=== PATIENT | male | born 1965 | race Caucasian/White ===

== ENCOUNTER 2020-05-22 12:54 | Emergency (ER) | payer OTHER, SELFPAY ==
--- NOTE | ~2020-05-22 | CT_ITS ---
EXAMINATION: CT abdomen pelvis w con DATE: 05/22/2020 14:49 INDICATION: Left lower quadrant pain TECHNIQUE: Computed tomography (CT) of the abdomen and pelvis was performed with 100 cc Omnipaque 350 intravenous contrast. The dose-length product was 1296.57 mGy-cm. Automated exposure control and ite rative reconstruction technique were employed. COMPARISON: None. FINDINGS: Lung bases are unremarkable. Heart size normal. No pleural or pericardial effusion. Mild at herosclerosis. No aneurysm. There is acute sigmoid diverticulitis without evidence for perforation or abscess. There is high dens ity material dependently in the gallbladder which may represent sludge or stones. Fatty infiltration of the liver. There is a 2.4 cm hypovascular lesion of the right kidney measuring 18 Hounsfield units , compatible with a cyst. Nonobstructive bowel gas pattern. No free air or free fluid. Mild prostate enlargement. No acute osseous abnormality. IMPRESSION: 1. Acute uncomplicated sigmoid diverticulitis. Reviewed, dictated and finalized at location A. D AIDE
[2020-05-22 13:08] VITALS: BP 145/78; PULSE 87; RESP 20; TEMP 36.8; O2SAT 97
--- NOTE | 2020-05-22 13:17 | ED.ABDPAIN ---
HPI - Abdominal Pain General Chief Complaint: Abdominal Pain Stated Complaint: L lower abd pain Time Seen by Provider: 05/22/20 13:00 Source: patient Limitations: no limitations History of Present Illness HPI narrative: 54-year-old man with a history of diverticulitis comes in today complaining of left lower quadrant pain that started about 3:00 a.m.. Patient states that he has had no nausea, vomiting, dysuria, hematuria, fever, diarrhea or blood in his stools. States he has had 2 similar episodes in the past. He denies history of abdominal surgery. MD elicited complaint: abdominal pain Pertinent past history: diverticulitis Onset (ago): hour(s) (10) Pain Consistency: constant Location: LLQ Severity: moderate Quality: sharp Radiation: none Migration to: no migration Exacerbating factors: nothing Relieving factors: nothing Associated symptoms: denies other symptoms Related Data Home Medications Medication Instructions Recorded Confirmed atorvastatin 20 mg PO DAILY 05/22/20 05/22/20 latanoprost 1 drp LEFTEYE HS 05/22/20 05/22/20 timolol maleate 1 drp LEFTEYE DAILY 05/22/20 05/22/20 Allergies Allergy/AdvReac Type Severity Reaction Status Date / Time No Known Allergies Allergy Verified 05/22/20 13:15 Review of Systems Constitutional: Constitutional: Denies chills and Denies fever(s) Eyes: Eyes: Denies change in vision and Denies photophobia ENT: Denies dysphagia, Denies nasal congestion and Denies sore throat Cardiovascular: Cardiovascular: Denies chest pain and Denies radiating jaw, neck or arm pain Respiratory: Respiratory: Denies cough, Denies dyspnea and Denies wheezing Gastrointestinal: Gastrointestinal: Reports abdominal pain, Denies diarrhea, Denies nausea and Denies vomiting Genitourinary: Genitourinary: Denies hematuria and Denies dysuria Musculoskeletal: Musculoskeletal: Denies arthralgias and Denies joint swelling Integumentary/Breasts: Skin/Breast: Denies pruritus, Denies erythema and Denies rash Neurologic: Denies vertigo, Denies dizziness and Denies syncope Allergic/Immunologic: Allergic/Immunologic: Denies lip swelling, Denies throat swelling and Denies tongue swelling PMFSH Past Medical History Medical History (Updated 05/22/20 @ 15:08 by Andrea Salcedo MD) Diverticulitis Surgical History Surgical History (Updated 05/22/20 @ 13:27 by Andrea Salcedo MD) H/O cervical spine surgery H/O knee surgery Social History Social History (Updated 05/22/20 @ 13:29 by Andrea Salcedo MD) Smoking status: Never smoker Substance use: never Living arrangements: with family Gender identity (if verbalized by the patient): Male Exam Const: General: healthy appearing, no acute distress and alert Nutritional Appearance: obese Orientation/consciousness: patient oriented x3 HENMT: Face and sinus: normal facial exam Mouth: Yes moist mucous membranes Eyes: Conjunctivae: conjunctivae normal Pupils: Equal, round and reactive pupils present EOM: EOMs intact bilaterally Resp: Effort & Inspection: normal respiratory effort and not labored Auscultation: clear to auscultation bilaterally, no rales, no rhonchi and no wheezes Cardio: Rate: regular rate Rhythm: regular rhythm Heart sounds: no murmurs GI: GI Palp: Yes Soft to palpation and Yes Tenderness to palpation present (GI) ( mild left lower quadrant without guarding or mass.) Auscultation: normal bowel sounds Skin: General skin exam: normal color, no jaundice and no pallor Rashes: no rashes Neuro: General: patient oriented x3, moves all extremities, no focal motor deficits and CN's II-XI intact bilaterally Speech: normal speech Gait exam (Neuro): Normal gait present Extrem: General: normal to inspection and no clubbing, cyanosis or edema Psych: Appearance: grossly normal and well kempt Mental Status: mental status grossly normal Affect: normal affect Attitude: cooperative Thought content: Yes Normal thought co
[2020-05-22 13:39] LABS: Add Urine Microscopic? YES; Appearance Urine Clear (Clear); Bilirubin Urine Negative (Negative); Blood Urine Negative (Negative); Color Urine Yellow (Yellow); Glucose Urine UA Negative (Negative); Ketones Urine Trace (Negative); Leukocyte Esterase Ur Negative LEU/UL (Negative); Nitrate Urine Negative (Negative); Protein Urine Negative (Negative); Urobilinogen Urine 0.2 mg/dL (0.2-1.0); pH Urine 6.5 (5.0-8.0)
[2020-05-22 13:39] LABS: Basophils Absolute Auto 0.06 K/mm3 (0.00-0.10); Basophils Percent Auto 0.5 % (0.0-1.0); Eosinophils Absolute Auto 0.02 K/mm3 (0.02-0.50); Eosinophils Percent Auto 0.2 % (1.0-6.0); Hematocrit 42.8 % (40.0-54.0); Hemoglobin 14.8 g/dL (14.0-18.0); Immature Granulocyte Absolute 0.04 K/mm3 (0.00-0.00); Immature Granulocyte Percent A 0.3 % (0.0-0.0); Lymphocytes Absolute Auto 1.23 K/mm3 (1.10-4.50); Lymphocytes Percent Auto 10.3 % (18.0-42.0); Mean Corpuscular HGB Conc 34.6 g/dL (32.0-36.0); Mean Corpuscular Hemoglobin 31.7 pg (27.0-31.0); Mean Corpuscular Volume 91.6 fL (78.0-102.0); Mean Platelet Volume 10.3 fl (8.7-11.0); Monocytes Absolute Auto 0.78 K/mm3 (0.10-0.90); Monocytes Percent Auto 6.6 % (2.0-11.0); Neutrophils Absolute Auto 9.8 K/mm3 (1.7-7.2); Neutrophils Percent Auto 82.1 % (50.0-70.0); Platelet Count Result 302 K/mm3 (150-420); Red Blood Count 4.67 M/mm3 (4.70-6.10); Red Cell Distribution Width 13.4 % (11.6-14.4); White Blood Count 11.9 K/mm3 (4.8-10.8)
[2020-05-22 13:43] LABS: Bacteria Urine None seen /hpf; RBC Urine 0-2 /hpf (0-2); Squamous Epithelial Cell Urine Few /hpf (Few); WBC Urine 0-3 /hpf (0-3)
[2020-05-22 13:53] LABS: INR 0.9; Partial Thromboplastin Time 25.1 SEC (23.90-30.70); Prothrombin Time 10.3 Seconds (9.50-12.10)
[2020-05-22 13:54] LABS: Alanine Aminotransferase 45 U/L (16-63); Alkaline Phosphatase 79 U/L (46-116); Anion Gap 11 mmol/L (8-16); Aspartate Amino Transferase 19 U/L (15-37); Bilirubin,Total 0.7 mg/dL (0.00-1.00); Blood Urea Nitrogen 12 mg/dL (7-18); Calcium 8.9 mg/dL (8.5-10.1); Carbon Dioxide 25 mmol/L (21-32); Chloride 101 mmol/L (98-108); Estimated CRCL calculation 104 ml/min; Estimated Glomerular Filt Rate > 60; Glucose 114 mg/dL (70-99); Lipase 62 U/L (73-393); Osmolality Calculated 284 mOsm/kg (285-295); Potassium 3.8 mmol/L (3.5-5.1); Sodium 137 mmol/L (136-145); Total Protein 7.6 g/dL (6.4-8.2)
[2020-05-22 13:57] LABS: Lactic Acid Reflex 1.2 mmol/L (0.4-2.0)
[2020-05-22 15:37] VITALS: PULSE 85; RESP 20; O2SAT 98
== END 2020-05-22 15:40 | disposition home or self-care (01) ==
PROVIDERS: Emergency Provider Emergency Medicine
DX: K57.92 Diverticulitis of intestine, part unspecified, without perforation or abscess without bleeding (principal)
CPT/HCPCS: 36415; 74177; 80053; 81001; 83605; 83690; 85025; 85610; 85730; 99283; Q9965; Q9967

== ENCOUNTER 2023-12-25 21:24 | Emergency (ER) | payer OTHER, SELFPAY ==
[2023-12-25] VITALS (8 sets, daily range): BP systolic 152–173; BP diastolic 83–102; PULSE 57–71; RESP 12–18; TEMP 35.9; O2SAT 95–97
--- NOTE | 2023-12-25 21:33 | ED.GENADULT ---
HPI - General Adult General Chief complaint: Unspecified Stated complaint: sara blood pressure Time Seen by Provider: 12/25/23 21:32 Source: patient Mode of arrival: ambulatory Limitations: no limitations History of Present Illness HPI narrative: patient is a 58-year-old male with elevated blood pressures and headache and feeling of fatigue. He has been not feeling well today and for the past few weeks as well. His home blood pressures have been monitored for his primary doctor and they are all elevated. Patient has polycythemia vera. Onset (ago): week(s) (3) Location: head Radiation: non-radiation Severity: moderate Severity scale (1-10): 4 Quality: aching Pain Consistency: constant Relieving factors: none Exacerbating factors: other ( Elevated blood pressure; not on medication) Associated symptoms: malaise Treatments prior to arrival: none Related Data Home Medications Medication Instructions Recorded Confirmed atorvastatin 20 mg tablet 40 mg PO DAILY 05/22/20 12/25/23 latanoprost 0.005 % eye drops 1 drp LEFT EYE HS 05/22/20 12/25/23 timolol maleate 0.5 % once daily 1 drp LEFT EYE DAILY 05/22/20 12/25/23 eye drops Allergies Allergy/AdvReac Type Severity Reaction Status Date / Time No Known Allergies Allergy Verified 05/22/20 13:15 Review of Systems Review of Systems: All systems reviewed & are unremarkable except as noted in HPI and below Constitutional: Constitutional: Reports no additional constitutional complaints Eyes: Eyes: Reports no additional eye complaints ENT: Reports system reviewed and no additional complaints, except as documented Cardiovascular: Cardiovascular: Reports no additional cardiovascular complaints Respiratory: Respiratory: Reports no additional respiratory complaints Gastrointestinal: Gastrointestinal: Reports no additional gastrointestinal complaints Genitourinary: Genitourinary: Reports no additional male genitourinary complaints Musculoskeletal: Musculoskeletal: Reports no additional musculoskeletal complaints Integumentary/Breasts: Skin/Breast: Reports system reviewed and no additional complaints, except as docu Neurologic: Reports system reviewed and no additional complaints, except as documented Psychiatric: Psychiatric: Reports no additional psychiatric complaints Endocrine: Endocrine: Reports no additional endocrine complaints Hematologic/Lymphatic: Hematologic/Lymphatic: Reports no additional hematologic/lymphatic complaints Allergic/Immunologic: Allergic/Immunologic: Reports no additional allergic/immunologic complaints PMFSH Past Medical History Medical History Diverticulitis Surgical History Surgical History H/O cervical spine surgery H/O knee surgery Social History Social History Smoking status: Never smoker Substance use: never Living arrangements: with family Gender identity (if verbalized by the patient): Male Exam Const: General: cooperative, healthy appearing and comfortable HENMT: Head: normal to inspection, No palpable skull fracture present and normocephalic Ears: hearing grossly normal bilaterally, external ears normal and TM's normal bilaterally Eyes: General: appearance normal, both eyes and all related structures Visual Cottrell: normal visual cottrell by confrontation Alignment and Position: alignment normal Neck: Neck: normal visual inspection, full ROM and no lymphadenopathy Chest: Chest palpation & inspection: normal inspection of the chest, normal palpation of entire chest wall and normal inspection of the chest Resp: Effort & Inspection: normal respiratory effort, able to speak in complete sentences and normal respiratory pattern Cardio: Jugular venous distension: no JVD Palpation: normal PMI Rate: regular rate GI: Inspection: normal to inspe
--- NOTE | 2023-12-25 22:04 | ECG_ITS ---
Test Date: 2023-12-25 22:16:30 Measurements Intervals [place] Rate: 65 P: 61 WI: 188 QRS: -32 QRSD: 104 T: 80 QT: 431 QTc: 448 Interpretive Statements SINUS RHYTHM LEFT AXIS DEVIATION NONSPECIFIC T-WAVE ABNORMALITY- HIGH LATERAL LEADS BASELINE ARTIFACT- I, II, BORDERLINE ECG No previous ECG available for comparison Electronically Signed On 12-26-2023 06:34:47 CDT by Asaf Carmona D.O.
--- NOTE | 2023-12-25 22:08 | PC.NURSE ---
lab at the bedside
--- NOTE | 2023-12-25 22:10 | PC.NURSE ---
jimena Ness, in process of completing ekg
[2023-12-25] MEDS: cloNIDine HCL 0.1 MG TABLET PO (22:15)
--- NOTE | 2023-12-25 22:15 | PC.NURSE ---
patient is resting on stretcher with his at his side. continues to be on the personnel monitor. call light in reach.
[2023-12-25 22:16] LABS: Basophils Absolute Auto 0.11 K/mm3 (0.00-0.10); Basophils Percent Auto 1.5 % (0.0-1.0); Eosinophils Absolute Auto 0.16 K/mm3 (0.02-0.50); Eosinophils Percent Auto 2.2 % (1.0-6.0); Hemoglobin 15.8 g/dL (14.0-18.0); Immature Granulocyte Absolute 0.06 K/mm3 (0.00-0.00); Immature Granulocyte Percent A 0.8 % (0.0-0.0); Lymphocytes Percent Auto 23.7 % (18.0-42.0); Mean Corpuscular HGB Conc 35.1 g/dL (32-36); Mean Corpuscular Hemoglobin 36.5 pg (27.0-31.0); Mean Corpuscular Volume 103.9 fL (78.0-102.0); Mean Platelet Volume 9.6 fl (8.7-11.0); Monocytes Absolute Auto 0.69 K/mm3 (0.10-0.90); Monocytes Percent Auto 9.6 % (2.0-11.0); Neutrophils Absolute Auto 4.44 K/mm3 (1.70-7.20); Neutrophils Percent Auto 62.2 % (50.0-70.0); Platelet Count Result 272 K/mm3 (150-420); Red Blood Count 4.33 M/mm3 (4.70-6.10); Red Cell Distribution Width 13.3 % (11.6-14.4); White Blood Count 7.2 K/mm3 (4.8-10.8)
[2023-12-25 22:35] LABS: Alanine Aminotransferase 25 U/L (16-63); Albumin Level 3.5 g/dL (3.4-5.0); Alkaline Phosphatase 71 U/L (46-116); Anion Gap 9 mmol/L (4-12); Aspartate Amino Transferase 15 U/L (15-37); Bilirubin,Total 0.3 mg/dL (0.00-1.00); Blood Urea Nitrogen 22 mg/dL (7-18); Calcium 8.5 mg/dL (8.5-10.1); Carbon Dioxide 26 mmol/L (21-32); Chloride 101 mmol/L (98-108); Estimated CRCL calculation 118 ml/min; Estimated Glomerular Filt Rate > 60; Glucose 102 mg/dL (70-99); Osmolality Calculated 285 mOsm/kg (285-295); Potassium 3.5 mmol/L (3.5-5.1); Sodium 136 mmol/L (136-145)
== END 2023-12-25 23:16 | disposition home or self-care (01) ==
PROVIDERS: Emergency Provider Emergency Medicine
DX: I10 Essential (primary) hypertension (principal)
CPT/HCPCS: 36415; 80053; 84484; 85025; 93005; 99284; A9270

== ENCOUNTER 2024-09-25 13:13 | Emergency (ER) | payer OTHER, SELFPAY ==
[2024-09-25] VITALS (15 sets, daily range): BP systolic 133–182; BP diastolic 78–91; PULSE 61–73; RESP 16–18; TEMP 36.6; O2SAT 93–98
--- NOTE | ~2024-09-25 | US_ITS ---
EXAMINATION: US right upper quadrant DATE: 09/25/2024 14:01 INDICATION: Right upper quadrant abdominal pain TECHNIQUE: Multiple grayscale and Doppler ultrasound images of the abdomen were obtained. COMPARISON: CT dated 05/22/2020 FINDINGS: The regions of the pancreas and inferior vena cava are obscured by shadowing bowel gas. Liver has nor mal echogenicity and contour, with a smooth surface. No liver lesion identified. No intrahepatic bili felipe duct dilation suspected. Portal venous flow was seen in the hepatopetal, normal direction and has normal Doppler waveform. There is echogenic material in the gallbladder some of which appear to demo nstrate posterior acoustic shadowing likely combination of sludge and gallstones. Gallbladder is othe rwise normal with no wall thickening. The common bile duct measures 6 mm, which is normal. Sonographi c Adams sign was reported as negative by the hosiery operator. IMPRESSION: 1. Cholelithiasis without biliary obstruction or findings of acute cholecystitis. Reviewed, dictated and finalized at location B. IMPRESSION: 1. Cholelithiasis without biliary obstruction or findings of acute cholecystiti s.
--- NOTE | 2024-09-25 13:19 | ECG_ITS ---
Test Date: 2024-09-25 13:40:22 Measurements Intervals [place] Rate: 62 P: 21 MD: 181 QRS: -15 QRSD: 101 T: 76 QT: 414 QTc: 423 Interpretive Statements SINUS RHYTHM Compared to ECG 12/25/2023 22:16:30 Left-axis deviation no longer present Electronically Signed On 09-27-2024 11:47:30 CDT by Scott Real M.D.
[2024-09-25] MEDS: SODIUM CHLORIDE 0.9% IV 1,000 ML 999 ML IV CONT (13:35)
[2024-09-25] MEDS: PANTOPRAZOLE SODIUM IV 40 MG VIAL 80 MG IV PUSH (13:39)
[2024-09-25 13:40] LABS: Basophils Absolute Auto 0.07 K/mm3 (0.00-0.10); Basophils Percent Auto 0.7 % (0.0-1.0); Hematocrit 43.2 % (40.0-54.0); Hemoglobin 14.9 g/dL (14.0-18.0); Immature Granulocyte Absolute 0.05 K/mm3 (0.00-0.00); Immature Granulocyte Percent A 0.5 % (0.0-0.0); Lymphocytes Absolute Auto 1.43 K/mm3 (1.10-4.50); Lymphocytes Percent Auto 14.3 % (18.0-42.0); Mean Corpuscular HGB Conc 34.5 g/dL (32-36); Mean Corpuscular Hemoglobin 35.2 pg (27.0-31.0); Mean Corpuscular Volume 102.1 fL (78.0-102.0); Mean Platelet Volume 9.7 fl (8.7-11.0); Monocytes Absolute Auto 0.65 K/mm3 (0.10-0.90); Monocytes Percent Auto 6.5 % (2.0-11.0); Neutrophils Absolute Auto 7.71 K/mm3 (1.70-7.20); Nucleated Red Blood Cells Absolute Auto 0.02 K/mm3 (0.00-0.00); Nucleated Red Blood Cells Perc 0.2 % (0-0.0); Platelet Count Result 385 K/mm3 (150-420); Red Blood Count 4.23 M/mm3 (4.70-6.10); Red Cell Distribution Width 12.6 % (11.6-14.4)
[2024-09-25] MEDS: MORPHINE SULFATE (*CRX) 4 MG/ML INJ IV PUSH (13:42)
[2024-09-25] MEDS: ONDANSETRON INJ 4 MG/2 ML VIAL IV PUSH (13:42)
--- NOTE | 2024-09-25 13:50 | PC.NURSE ---
ultrasound at bedside.
[2024-09-25 14:06] LABS: INR 0.9; Partial Thromboplastin Time 25.6 Sec (23.9-30.70); Prothrombin Time 10.2 Seconds (9.50-12.1)
--- OUTSIDE RECORDS SUMMARY | 2024-09-25 14:20 | XMS_ITS | Data Portability ---
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 Chapter 1 of educational DVD was shown. PSG is medically necessary to determine the degree of and management of sleep apnea. We discussed with the patient the impact of weight on: Sleep disordered breathing Glaucoma Polycythemia vera Obesity Hypertension We discussed with the patient the benefit of PAP therapy on: Sleep disordered breathing Glaucoma Polycythemia vera Obesity Hypertension Educated the patient on sleep hygiene measures. Relaxing rituals to rest easy, understanding foods with positive and negative impact on sleep, creating a peaceful sleep environment, timing of exercise, using herbal sleep aids, and practicing sleep-friendly meditation were covered. To determine how much sleep is needed, the patient will assess where he falls on the spectrum, examine what lifestyle factors such as work schedules and stress are affecting the quality and quantity of sleep. In general, adults need 7-9 hours of sleep. Educated the patient regarding foods that promote sleep. These include but are not limited to cherries, bananas, toast, oatmeal, and warm milk. Educated the patient regarding foods and drinks to avoid before bedtime. These include but are not limited to aged cheese, chocolate, spicy foods, tomato-based sauces, soy, ginseng tea and processed meat. Advocated influenza vaccination annually and pneumonia vaccination RUDDY. Advocated weight loss through diet and exercise. Patient's ideal body weight according to height and gender is up to 200 lbs. Encouraged patient to adjust caloric intake to maintain/achieve ideal body weight, emphasizing on fruits, vegetables, whole grains, and fat-free or low-fat products. These include lean meats, poultry, fish, beans, eggs, and nuts and foods that are low in saturated fats, trans-fats, cholesterol, salt (sodium), and glycemic index. Stressed the importance of regular exercise up to the patient's capacity limits. In this case, we recommend 20 min daily walking, 2 days a week of resistance training. Patient to monitor BP daily and bring records to PCP for further management. Follow-up: 1 week after diagnostic sleep study Not available 05/22/2024 14:45:30 06/11/2024 06/11/2024 Assessment: Very severe OSAHS, AHI = 46 PLMD Plan: The following were reviewed and explained to the patient: [facility] split night sleep study 06/04/24 sleep onset = 18 minutes, REM onset = 97.5 minutes, AHI = 46, supine AHI = 47, [employer] small/medium Claudia full face mask @ 12 cmH2O, PLMI = 8 Non-pharmacologic therapy options for periodic limb movement disorder include avoidance of aggravating drugs and substances, mental alerting activities, short daily hemodialysis for patients in renal failure, exercise, leg massage, stretching calf muscles, use of a weighted blanket and applied heat. Patient will cut down on alcohol consumption and caffeine intake. We will check BUN, Creatinine, Vitamin E, Vitamin B12, RBC folate, Iron, TIBC, Ferritin, ESR, Magnesium, Hgb and Hct levels. Educated the patient on problems and solutions associated with positive airway pressure (PAP) use. Difficulty tolerating pressure, mask leaks, intolerance of interface, nasal congestion, claustrophobic response, dry mouth, and unintentional mask removal during sleep were covered. Dry mouth is a normal occurrence for people who just start out on PAP therapy because they are not used to air blowing in to the throat to hold open. Dry mouth is exacerbated for people who wear nasal PAP mask and whose jaw drops open during sleep. Not only does this create a much less efficient therapy because of leakage, it also causes dry mouth. There are a couple solutions to help prevent this type of problem. A simple solution would be to wear a chinstrap which essentially holds the jaw in place. A second solution would be a switch to a full face mask which covers both the nose and mouth. Although this is another easy solution, using a full face mask for some could seem claustrophobic or confining. There is no silver bullet solution as no single mask is right for everybody. Sometimes it takes a bit of experimentation to find a PAP mask which best meets the patient's needs as well as fits comfortably. Another tactic is to use a humidifier on your PAP machine. Most new PAP machines have integrated humidifiers. Humidification is kim when dealing with symptoms of dry mouth because the humidifier can supply both warm and room temperate air. Even a small amount of humidity in the airflow will help nasal passages to stay hydrated. If a person is using both a full face mask and a PAP machine with a heated humidifier and is still experiencing dry mouth, an ill-fitted PAP mask might be causing the problem. Leakage can be caused by a mask that is to large or small, the wrong style mask, the cushion is degraded or simply because the mask's straps aren't adjusted correctly. If leakage occurs, dry air from the room can leak in while humidification escapes. The result is reduced humidification within the circuit and resulting in dry throat and mouth. Finally, beyond factors involving the PAP machine and mask, dry mouth can also be caused or worsened by dehydration. The general recommendation to during eight 8 oz. glasses of water a day might be too little for many people. When people drink large amounts of coffee or other caffeine beverages, or sweat a lot during the day, making sure to rehydrate is an important part of PAP therapy. [employer] 11 auto set unit with heated humidifier, supplies and [employer] small/medium Claudia full face mask @ 12 cmH2O ordered. Further titration will be based on clinical response. Patient will setup an appointment with [facility] for supplies and pressure adjustments. A major predictor of success with use of PAP is follow-up with both the respiratory supplier and the treating physician. The download results can show the treating physician information about adherence to treatment, residual AHI while on treatment and presence of large mask leakage. This information is especially helpful if the patient has residual sleepiness despite treatment. General information on sleep disordered breathing, evaluation of sleep disordered breathing, treatment with PAP therapy, and living with PAP therapy were covered. We discussed with the patient the impact of weight on: Sleep disordered breathing Glaucoma Polycythemia vera Obesity Hypertension We discussed with the patient the benefit of PAP therapy on: Sleep disordered breathing Glaucoma Polycythemia vera Obesity Hypertension Educated the patient on sleep hygiene measures. Relaxing rituals to rest easy, understanding foods with positive and negative impact on sleep, creating a peaceful sleep environment, timing of exercise, using herbal sleep aids, and practicing sleep-friendly meditation were covered. To determine how much sleep is needed, the patient will assess where he falls on the spectrum, examine what lifestyle factors such as work schedules and stress are affecting the quality and quantity of sleep. In general, adults need 7-9 hours of sleep. Educated the patient regarding foods that promote sleep. These include but are not limited to cherries, bananas, toast, oatmeal, and warm milk. Educated the patient regarding foods and drinks to avoid before bedtime. These include but are not limited to aged cheese, chocolate, spicy foods, tomato-based sauces, soy, ginseng tea and processed meat. Advocated influenza vaccination annually and pneumonia vaccination RUDDY. Advocated weight loss through diet and exercise. Patient's ideal body weight according to height and gender is up to 200 lbs. Encouraged patient to adjust caloric intake to maintain/achieve ideal body weight, emphasizing on fruits, vegetables, whole grains, and fat-free or low-fat products. These include lean meats, poultry, fish, beans, eggs, and nuts and foods that are low in saturated fats, trans-fats, cholesterol, salt (sodium), and glycemic index. Stressed the importance of regular exercise up to the patient's capacity limits. In this case, we recommend 20 min daily walking, 2 days a week of resistance training. Patient to monitor BP daily and bring records to PCP for further management. Follow-up: 3 weeks Not available 06/11/2024 09:35:09 07/09/2024 07/09/2024 Assessment: Very severe OSAHS, AHI = 46 PLMD Transferrin saturation 58%, ?hemochromatosis Plan: The following were reviewed and explained to the patient: [facility] split night sleep study 06/04/24 sleep onset = 18 minutes, REM onset = 97.5 minutes, AHI = 46, supine AHI = 47, [employer] small/medium Claudia full face mask @ 12 cmH2O, PLMI = 8 Transferrin saturation 06/11/24 58% Non-pharmacologic therapy options for periodic limb movement disorder include avoidance of aggravating drugs and substances, mental alerting activities, short daily hemodialysis for patients in renal failure, exercise, leg massage, stretching calf muscles, use of a weighted blanket and applied heat. Patient will cut down on alcohol consumption and caffeine intake. BUN, Creatinine, Vitamin E, Vitamin B12, RBC folate, TIBC, Ferritin, ESR, Magnesium, Hgb and Hct levels are within normal limits. His iron is elevated hence his transferrin saturation is high. He will see her dairy nutrition specialist Dr. May Alford to evaluate for hemochromatosis. Educated the patient on problems and solutions associated with positive airway pressure (PAP) use. Difficulty tolerating pressure, mask leaks, intolerance of interface, nasal congestion, claustrophobic response, dry mouth, and unintentional mask removal during sleep were covered. Dry mouth is a normal occurrence for people who just start out on PAP therapy because they are not used to air blowing in to the throat to hold open. Dry mouth is exacerbated for people who wear nasal PAP mask and whose jaw drops open during sleep. Not only does this create a much less efficient therapy because of leakage, it also causes dry mouth. There are a couple solutions to help prevent this type of problem. A simple solution would be to wear a chinstrap which essentially holds the jaw in place. A second solution would be a switch to a full face mask which covers both the nose and mouth. Although this is another easy solution, using a full face mask for some could seem claustrophobic or confining. There is no silver bullet solution as no single mask is right for everybody. Sometimes it takes a bit of experimentation to find a PAP mask which best meets the patient's needs as well as fits comfortably. Another tactic is to use a humidifier on your PAP machine. Most new PAP machines have integrated humidifiers. Humidification is kim when dealing with symptoms of dry mouth because the humidifier can supply both warm and room temperate air. Even a small amount of humidity in the airflow will help nasal passages to stay hydrated. If a person is using both a full face mask and a PAP machine with a heated humidifier and is still experiencing dry mouth, an ill-fitted PAP mask might be causing the problem. Leakage can be caused by a mask that is to large or small, the wrong style mask, the cushion is degraded or simply because the mask's straps aren't adjusted correctly. If leakage occurs, dry air from the room can leak in while humidification escapes. The result is reduced humidification within the circuit and resulting in dry throat and mouth. Finally, beyond factors involving the PAP machine and mask, dry mouth can also be caused or worsened by dehydration. The general recommendation to during eight 8 oz. glasses of water a day might be too little for many people. When people drink large amounts of coffee or other caffeine beverages, or sweat a lot during the day, making sure to rehydrate is an important part of PAP therapy. PAP usage instructed today in our clinic. [facility]. A major predictor of success with use of PAP is follow-up with both the respiratory supplier and the treating physician. The download results can show the treating physician information about adherence to treatment, residual AHI while on treatment and presence of large mask leakage. This information is especially helpful if the patient has residual sleepiness despite treatment. General information on sleep disordered breathing, evaluation of sleep disordered breathing, treatment with PAP therapy, and living with PAP therapy were covered. We discussed with the patient the impact of weight on: Sleep disordered breathing Glaucoma Polycythemia vera Obesity Hypertension We discussed with the patient the benefit of PAP therapy on: Sleep disordered breathing Glaucoma Polycythemia vera Obesity Hypertension Educated the patient on sleep hygiene measures. Relaxing rituals to rest easy, understanding foods with positive and negative impact on sleep, creating a peaceful sleep environment, timing of exercise, using herbal sleep aids, and practicing sleep-friendly meditation were covered. To determine how much sleep is needed, the patient will assess where he falls on the spectrum, examine what lifestyle factors such as work schedules and stress are affecting the quality and quantity of sleep. In general, adults need 7-9 hours of sleep. Educated the patient regarding foods that promote sleep. These include but are not limited to cherries, bananas, toast, oatmeal, and warm milk. Educated the patient regarding foods and drinks to avoid before bedtime. These include but are not limited to aged cheese, chocolate, spicy foods, tomato-based sauces, soy, ginseng tea and processed meat. Advocated influenza vaccination annually and pneumonia vaccination RUDDY. Advocated weight loss through diet and exercise. Patient's ideal body weight according to height and gender is up to 200 lbs. Encouraged patient to adjust caloric intake to maintain/achieve ideal body weight, emphasizing on fruits, vegetables, whole grains, and fat-free or low-fat products. These include lean meats, poultry, fish, beans, eggs, and nuts and foods that are low in saturated fats, trans-fats, cholesterol, salt (sodium), and glycemic index. Stressed the importance of regular exercise up to the patient's capacity limits. In this case, we recommend 20 min daily walking, 2 days a week of resistance training. Patient to monitor BP daily and bring records to PCP for further management. Follow-up: 3 months, September 2024 [email or web address] Not available 07/09/2024 09:22:51 Plan of Treatment Reminders Order Date Submit Date Provider Last Modified By Organization Details Last Modified Time Details Appointments Any 15 2024 07:45A John Christianson MD Not available Not available Not available Lab iron + TIBC + ferritin, serum 2024 025 [facility] (Lab), [address] [place], [address], 06/12/2024 02:08:24 folate, RBC 2024 025 [facility] (Lab), [address] [place], [address], 06/17/2024 06:18:50 vitamin B12, serum 2024 025 [facility] (Lab), [address] [place], [address], 07/16/2024 13:01:28 ESR (erythroc yte sedimenta tion rate), blood 2024 025 [facility] (Lab), [address] [place], [address], 07/16/2024 13:01:28 hemoglobi n + hematocri t, blood 2024 025 [facility] (Lab), [address] [place], [address], 07/16/2024 13:01:28 bun (blood urea nitrogen) , serum or plasma 2024 025 [facility] (Lab), [address] [place], [address], 07/16/2024 13:01:28 creatinin e, serum or plasma 2024 025 [facility] (Lab), [address] [place], [address], 07/16/2024 13:01:29 magnesium , serum or plasma 2024 025 [facility] (Lab), [address] [place], [address], 07/16/2024 13:01:29 vitamin E, serum 2024 025 [facility] (Lab), [address] [place], [address], 07/16/2024 13:01:29 Referral None recorded. Procedures None recorded. Surgeries None recorded. Imaging polysomno gram, diagnosti c, 6 yrs or older - Please call patient to schedule. 2023 024 [email or web address] [facility], [address] [place], [address], 06/26/2024 08:44:44 Medication Orders None recorded. Patient TargetsNo targets recorded. Patient InstructionsNo instructions recorded. Reason for Referral None Reported. Results Created Date Observation Date Name Description Value Unit Range Abnormal Flag Note LastModifiedBy Organization Detail LastModifiedTime 06/06/1906/04/2024 polys omnog brokolyn, split night No observ ation record ed. [facility] [address] [place], [address], 06/06/2024 10:33:50 Result Notes None recorded. 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 Procedures Surgical History Date Name Laterality Status Provider Name and Address Organization Details Recorded Time Knee Surgery completed MARK Mckeon [employer] [facility] 07/09/2024 08:53:52 fusion of joint of cervical spine by anterior approach for deformity of cervical spine completed Hyacinth Gifford MA [facility] [employer] [facility] 07/09/2024 08:54:20 Rotator cuff surgery completed Hyacinth Gifford MA [facility] [employer] [facility] 07/09/2024 08:54:34 operation on intestine completed MARK Mckeon [facility] [employer] [facility] 07/09/2024 08:54:48 Hernia Surgery completed Hyacinth Gifford MA [facility] [employer] [facility] 07/09/2024 08:54:55 Cyst Removal completed Hyacinth Gifford MA [facility] [employer] [facility] 07/09/2024 08:55:15 Imaging Results Imaging Date Name Status LastModified by Organiz ation Details LastModified Time 06/04/2024 polysomnogr am, split night completed [facility] [address] [place], [address], 06/06/2024 10:33:50 Procedure Notes None recorded. Medical Equipment None Reported. Allergies No known drug allergies Medications Name Sig Start Date Stop Date Status Note LastModified by Organization Details LastModified Time losartan 50 mg tablet TAKE 1 TABLET BY MOUTH DAILY active Not Available Not Available No t Available latanoprost 0.005 % eye drops INSTILL 1 DROP INTO AFFECTED EYE(S) BY OPHTHALMI C ROUTE ONCE DAILY INTHE EVENING active Not Available Not Available No t Available hydroxyurea 500 mg capsule Take 2 capsules every day by oral route. active Not Available Not Available No t Available prednisone 20 mg tablet TAKE 3 TABLETS BY MOUTH DAILY FOR 4 DAYS THEN TAKE 2 TABLETS BY MOUTH DAILY FOR 4 DAYS THEN TAKE 1 TABLET BY MOUTH DAILY FOR 4 DAYS 05/22 completed Not Available Not Available Not Available amlodipine 5 mg tablet Take 1 tablet every day by oral route. active Not Available Not Available No t Available benzonatate 100 mg capsule TAKE 1 TO 2 CAPSULES BY MOUTH EVERY 8 HOURS FOR 5 DAYS NEEDED FOR COUGH 05/22 completed Not Available Not Available Not Available amoxicillin 875 mg-potassiu m clavulanate 125 mg tablet TAKE 1 TABLET BY MOUTH TWICE DAILY FOR 10 DAYS 05/22 completed Not Available Not Available Not Available Asprin Ec Low Dose 81 mg tablet,terrence yed release Take 1 tablet every day by oral route. 06/11 completed Not Available Not Available Not Available timolol 06/11 completed Not Available Not Available Not Available Vitals Date Recorded Body height Body mass index (BMI) Body weight Body temperature Oxygen saturation Oxygen saturation in Arterial blood by Pulse oximetry Systolic blood pressure Diastolic blood pressure Provider Name and Address Organization Details Last Updated DateTime 4 185.42 cm 37.5 kg/m2 928611. 23 g 97.8 [degF] 96 % 96 % 132 mm[Hg] 74 mm[Hg] Vee Molina [place] [facility] 4 14:12:16 Date Recorded Heart rate Heart rate Respiratory rate Provider Name and Address Organization Details Last Updated DateTime 05/22/2024 61 /min 61 /min 15 /min Kj Christianson MD [address], [place], [address] [employer] 05/22/2024 14:27:54 Date Recorded Body height Body temperature Oxygen saturation Oxygen saturation in Arterial blood by Pulse oximetry Body mass index (BMI) Body weight Systolic blood pressure Diastolic blood pressure Provider Name and Address Organization Details Last Updated DateTime 185.42 cm 97.6 [degF] 97 % 97 % 38.3 kg/m2 700765. 79 g 130 mm[Hg] 70 mm[Hg] Jo Silva [place] [employer] [facility] 09:27:08 Date Recorded Heart rate Heart rate Respiratory rate Provider Name and Address Organization Details Last Updated DateTime 06/11/2024 81 /min 81 /min 14 /min Kj Christianson MD [address], [place], [address] [employer] 06/11/2024 09:43:45 Date Recorded Body height Body mass index (BMI) Body weight Body temperature Heart rate Oxygen saturation Oxygen saturation in Arterial blood by Pulse oximetry Systolic blood pressure Diastolic blood pressure Provider Name and Address Organization Details Last Updated DateTime 185.42 cm 37.8 kg/m2 556360. 57 g 97.6 [degF] 63 /min 96 % 96 % 130 mm[Hg] 68 mm[Hg] Hyacinth Gifford [place] [employer] [facility] 08:51:33 Date Recorded Heart rate Respiratory rate Provider N josue and Address Organization Details Last Updated DateTime 07/09/2024 63 /min 15 /min Kj Christianson MD [address], [place], [address] [employer] [facility] 07/09/2024 09:23:02 Social History Question Answer Notes LastModified by Organizat ion Details LastModified Time Tobacco Smoking Status Never Smoker Vee Molina MA [facility], [facility] 05/22/2024 14:06:45 What Is Your Level Of Alcohol Consumption? Moderate Information not available 05/22/2024 What Is Your Level Of Caffeine Consumption? Moderate Information not available 05/22/2024 In The 14 Days Before Symptom Onset, Have You Had Close Contact With A Laboratory-confir med COVID-19 While That Case Was Ill? No Information not available 05/22/2024 In The 14 Days Before Symptom Onset, Have You Had Close Contact With A Person Who Is Under Investigation For COVID-19 While That Person Was Ill? No Information not available 05/22/2024 Are You Currently Employed? Yes Information not available 05/22/2024 What Type Of Diet Are You Following? REGULAR Information not available 05/22/2024 Which Illicit Or Recreational Drugs Have You Used? Marijuana Sleep Information not available 05/22/2024 Do You Have An Electrostatic Air Filter? 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 Yes Information not available 05/22/2024 Do You Have A Humidifier? No Information not available 05/22/2024 Where Do You Live? [place] Information not available 07/09/2024 Do You Have Moisture Problems In Your Home? No Information not available 05/22/2024 What Was The Date Of Your Most Recent Tobacco Screening? 07/09/2024 Information not available 07/09/2024 How Many Children Do You Have? 0 Information not available 07/09/2024 Do You Have Any Pets? Yes Information not available 05/22/2024 What Is Your Relationship Status? Single Information not available 07/09/2024 Do You Use Your Seat Belt Or Car Seat Routinely? Yes Information not available 05/22/2024 Do You Have Smoke And Carbon Monoxide Detectors In Your Home? Yes Information not available 05/22/2024 Are You Passively Exposed To Smoke? No Information no t available 05/22/2024 Do You Feel Stressed (tense, Restless, Nervous, Or Anxious, Or Unable To Sleep At Night)? [id number] Information not available 05/22/2024 Do You Use Any Illicit Or Recreational Drugs? Yes Information not available 05/22/2024 Do You Use Sunscreen Routinely? No Information not available 05/22/2024 Has Tobacco Cessation Counseling Been Provided? No Information not available 05/22/2024 Have You Recently Traveled Abroad? No Information not available 05/22/2024 Have You Used IV Drugs? No Information not available 07/09/2024 Do You Have Any Dietary Restrictions? No Information not available 05/22/2024 Sex: Unknown Functional Status None recorded. Mental Status None recorded. Family History Relationship Description Onset Age of this Age Resolved Age Notes LastModified by Organization Details LastModified Time Maternal Aunt Malignant tumor of breast [email or web address] Not available 2023 14:36:20 Mother Malignant tumor of breast [email or web address] Not available 2023 14:36:25 Mother Malignant neoplasm of liver [email or web address] Not available 2024 09:12:27 Maternal Uncle Malignant neoplasm of lung [email or web address] Not available 2023 14:36:46 Father Chronic obstructive pulmonary disease [email or web address] Not available 2023 14:36:59 Sister Basal cell carcinoma of skin [email or web address] Not available 2023 14:37:33 Sister Chronic obstructive pulmonary disease [email or web address] Not available 2023 14:37:42 Medical History No medical history recorded. 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 D50.8 E83.42 [id number] Kj Christianson MD [facility] [address] [address] 07/09/2024 08:42:31 07/09/2024 09:34:12 Obstructive sleep apnea syndrome 90643795 G47.33 Periodic l imb movement disorder 683121297 G47.61 Health Concerns Section Related Observation LastModified by Organization Detai ls LastModified Time None Recorded Concern Status LastModified by Organization Details LastModified Time None Recorded Advance Directives Directive None Recorded Payers Encounter Date Sequence Insurance Name Policy Number Policy Montano Covered Member ID Montano Member ID Guarantor Name 06/11/2024 [employer] - [facility] Jose E Villasenor [id number] Jose E Villasenor Notes Date Note Type Note Provider Name and Address Organization Details Recorded Time 05/22/2024 text/html Primary care/Ref erring provider: Gwendolyn Barbosa NP At home, the patient sleeps from 9 pm to 6 am and wakes up without an alarm. Snoring: heavy, since 1980s.Snorting: noChoking: yesCoughing: noGasping: yesGagging: yesSighing: yesWitnessed apnea: yesTwitching or jerking of leg(s), arm(s), body, head: yesTeeth grinding: yesTeeth clenching: yesSleeptalking: yesSleepwalking: noSleep crying: noBedwetting: noTongue/lip/gum/cheek biting: noSleeping with open mouth: yesSleep paralysis: noHypnagogic hallucinations: noHypnopompic hallucinations: noVivid dreams: noDifficulty with sleep onset: noDifficulty with sleep maintenance: yesSleep interruptions: nocturia x 2Patient wakes up with: fatigueDaytime cataplexy: noMorning hypersomnolence: noAfternoon hypersomnolence: yesCaffeine sources in diet: coffee 24 oz per day, soda 1/2 can per day, chocolate 1 candy bar per week Associated medical and psychiatric conditions:Congestive heart failure: noCoronary artery disease: noMyocardial infarction: noHypertension: yesStroke: noBronchial asthma: noChronic obstructive pulmonary disease: noDepression: noBipolar disorder: noAnxiety: noPanic disorder: noPosttraumatic stress disorder: noAttention deficit and hyperactivity disorder: noObsessive Compulsive disorder: noSchizophrenia: noSchizoaffective disorder: noPersonality disorder: noChronic analgesic use: noChronic sedative/hypnotic use: no EPWORTH SLEEPINESS SCALE (ESS) CHANCE OF DOZING SCORE0 = would never doze1 = slight chance of dozing2 = moderate chance of dozing3 = high chance of dozing SITUATION AND CHANCE OF DOZINGSitting and reading - 2Watching television - 1Sitting inactive in a public place (e.g. a theater or meeting) - 1As a passenger in a car for an hour without a break - 0Lying down to rest in the afternoon when circumstances permit - 3Sitting and talking to someone - 0Sitting quietly after lunch without alcohol - 3In a car, while stopped for a few minutes in the traffic - 0TOTAL SCORE 10Subjectively, patient has a moderate chance of dozing. Kj Christianson MD [address] [place] [address], [id number], [place] - [facility] [employer] 05/22/2024 14:51:10 06/11/2024 text/html Primary care/Ref erring provider: Gwendolyn Barbosa NP During the [facility] split night sleep study on 06/04/24, sleep onset = 18 minutes, REM onset = 97.5 minutes, AHI = 46, supine AHI = 47, PLMI = 8 The patient uses a ResMed AirSense 11 autoset unit with heated humidification. The patient does not need the ramp to start low and go up slowly on the pressure. There is some xerostomia in a.m. There is no hose/mask condensation with water. The patient wears a [employer] small/medium Claudia full face mask without chin strap. There is no claustrophobia, no nostril/nose bridge irritation, no facial rash, no facial numbness, no nosebleeding. The patient feels more refreshed upon waking and daytime alertness is improved. Energy levels are sustained for the remainder of the day. At home, the patient sleeps from 9 pm to 6 am and wakes up without an alarm. Snoring: heavy, since 1980s.Snorting: noChoking: yesCoughing: noGasping: yesGagging: yesSighing: yesWitnessed apnea: yesTwitching or jerking of leg(s), arm(s), body, head: yesTeeth grinding: yesTeeth clenching: yesSleeptalking: yesSleepwalking: noSleep crying: noBedwetting: noTongue/lip/gum/cheek biting: noSleeping with open mouth: yesSleep paralysis: noHypnagogic hallucinations: noHypnopompic hallucinations: noVivid dreams: noDifficulty with sleep onset: noDifficulty with sleep maintenance: yesSleep interruptions: nocturia x 2Patient wakes up with: fatigue, xerostomiaDaytime cataplexy: noMorning hypersomnolence: noAfternoon hypersomnolence: yesCaffeine sources in diet: coffee 24 oz per day, soda 1/2 can per day, chocolate 1 candy bar per week Associated medical and psychiatric conditions:Congestive heart failure: noCoronary artery disease: noMyocardial infarction: noHypertension: yesStroke: noBronchial asthma: noChronic obstructive pulmonary disease: noDepression: noBipolar disorder: noAnxiety: noPanic disorder: noPosttraumatic stress disorder: noAttention deficit and hyperactivity disorder: noObsessive Compulsive disorder: noSchizophrenia: noSchizoaffective disorder: noPersonality disorder: noChronic analgesic use: noChronic sedative/hypnotic use: no EPWORTH SLEEPINESS SCALE (ESS) CHANCE OF DOZING SCORE0 = would never doze1 = slight chance of dozing2 = moderate chance of dozing3 = high chance of dozing SITUATION AND CHANCE OF DOZINGSitting and reading - 1Watching television - 2Sitting inactive in a public place (e.g. a theater or meeting) - 0As a passenger in a car for an hour without a break - 0Lying down to rest in the afternoon when circumstances permit - 3Sitting and talking to someone - 1Sitting quietly after lunch without alcohol - 1In a car, while stopped for a few minutes in the traffic - 0TOTAL SCORE 8Subjectively, patient has a slight chance of dozing. Kj Christianson MD [address], [place], [address], [place] - [facility] 06/11/2024 09:43:53 07/09/2024 text/html Primary care/Ref erring provider: Gwendolyn Barbosa NP CC: I received the CPAP in May but was not instructed on how to operate it. During the [facility] split night sleep study on 06/04/24, sleep onset = 18 minutes, REM onset = 97.5 minutes, AHI = 46, supine AHI = 47. PLMI = 8 and he is here to go over his lab workup. The patient uses a ResMed AirSense 11 autoset unit with heated humidification. The patient does not need the ramp to start low and go up slowly on the pressure. There is some xerostomia in a.m. There is no hose/mask condensation with water. The patient wears a [employer] small/medium Claudia full face mask without chin strap. There is no claustrophobia, no nostril/nose bridge irritation, no facial rash, no facial numbness, no nosebleeding. The patient feels more refreshed upon waking and daytime alertness is improved. Energy levels are sustained for the remainder of the day. At home, the patient sleeps from 9 pm to 6 am and wakes up without an alarm. Snoring: heavy, since 1980s.Snorting: noChoking: yesCoughing: noGasping: yesGagging: yesSighing: yesWitnessed apnea: yesTwitching or jerking of leg(s), arm(s), body, head: yesTeeth grinding: yesTeeth clenching: yesSleeptalking: yesSleepwalking: noSleep crying: noBedwetting: noTongue/lip/gum/cheek biting: noSleeping with open mouth: yesSleep paralysis: noHypnagogic hallucinations: noHypnopompic hallucinations: noVivid dreams: noDifficulty with sleep onset: noDifficulty with sleep maintenance: yesSleep interruptions: nocturia x 2Patient wakes up with: fatigue, xerostomiaDaytime cataplexy: noMorning hypersomnolence: noAfternoon hypersomnolence: yesCaffeine sources in diet: coffee 24 oz per day, soda 1/2 can per day, chocolate 1 candy bar per week Associated medical and psychiatric conditions:Congestive heart failure: noCoronary artery disease: noMyocardial infarction: noHypertension: yesStroke: noBronchial asthma: noChronic obstructive pulmonary disease: noDepression: noBipolar disorder: noAnxiety: noPanic disorder: noPosttraumatic stress disorder: noAttention deficit and hyperactivity disorder: noObsessive Compulsive disorder: noSchizophrenia: noSchizoaffective disorder: noPersonality disorder: noChronic analgesic use: noChronic sedative/hypnotic use: no EPWORTH SLEEPINESS SCALE (ESS) CHANCE OF DOZING SCORE0 = would never doze1 = slight chance of dozing2 = moderate chance of dozing3 = high chance of dozing SITUATION AND CHANCE OF DOZINGSitting and reading - 1Watching television - 1Sitting inactive in a public place (e.g. a theater or meeting) - 1As a passenger in a car for an hour without a break - 0Lying down to rest in the afternoon when circumstances permit - 3Sitting and talking to someone - 0Sitting quietly after lunch without alcohol - 2In a car, while stopped for a few minutes in the traffic - 0TOTAL SCORE 8Subjectively, patient has a slight chance of dozing. Kj Christianson MD [address] [facility], [place] [address], [place], [address], [facility] [employer] 07/09/2024 09:23:44
--- OUTSIDE RECORDS SUMMARY | 2024-09-25 14:22 | XMS_ITS | Clinical Summary ---
Author Organization [facility] Address [address] 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,non-owned Affiliates and Associated Physician Practices is amultiple site organization consisting of ambulatory clinics and hospital sitesin [place], [place], [place] and [place]. This disclosure is being madepursuant to the Care Everywhere program and may not contain all information available regarding this patient. Last updated 18.[facility] Social History Tobacco Use Types Packs/Day Years Used Date Smoking Tobacco: Never Assessed Sex and Gender Information Value Date Recorded Sex Assigned at Not on file Legal Sex Male 1:48 PM CDT Gender Identity Not on file Sexual Orientation Not on file Plan of Treatment Health Maintenance Due Date Last Done Comments COLOGUARD (AGES 45-75) - COL ON CA SCREENING 1964 COLON MONITORING 1964 COLONOSCOPY - COLON CA SCREENING 1964 CT COLONOGRAPHY - COLON CA SCREENING 1964 Colorectal Cancer Screening 1964 FIT - COLON CA SCREENING 1964 FLEX SIG - COLON CA SCREENING 1964 LIPID TESTING 1964 HIV SCREENING 1979 HEPATITIS C SCREENING 07/01/1982 DTAP/TDAP/TD VACCINES (1 - Tdap) 1983 PNEUMOCOCCAL VACCINE 50+ (1 of 1 - PCV) 2014 ZOSTER VACCINE (1 of 2) 2014 COVID-19 VACCINE ( - 2023-2 5 season) 2024 DEPRESSION SCREENING 05/28/2024 INFLUENZA VACCINE (Season Ended) 2025 Respiratory Syncytial Virus (RSV) Vaccine Pt: or over 60 yrs (1 - 1-dose 75+ series) 2039 HEPATITIS B VACCINE Aged Out No longe r eligible based on patient's age to complete this topic HIB VACCINE Aged Out No longer eligi ble based on patient's age to complete this topic HPV VACCINE Aged Out No longer eligi ble based on patient's age to complete this topic MENINGOCOCCAL (Group B) VACC INE SHARED DECISION-MAKING Aged Out No longer eligibl e based on patient's age to complete this topic MENINGOCOCCAL GROUPS A/C/Y/W VACCINE Aged Out No longer eligible b ased on patient's age to complete this topic
--- OUTSIDE RECORDS SUMMARY | 2024-09-25 14:22 | XMS_ITS ---
Author Name [facility] Organization [facility] Address [address] [place] [id number] Care Team Providers Care Cover Cutter Machine Name Role Phone VICENTE RAJAN Primary Care Provider Unavailabl e Insurance Providers: All historical and current Section Date Range: From patient's date of to the date document was created. This section includes the names of all active insurance providers for the patient. Insurance Provider Type of Coverage Plan Name Start of Policy Coverage End of Policy Coverage Group Number Member ID Insurance Provider's Telephone Number Policy Montano's Name Patient's Relationship to Policy Montano [employer] [id number] PRESCRIPT ION BULLDOGGER S May 28, 2020 [facility] [id number] [phone] Daphnie BOOGIE PATIENT [facility] PREFERRED PROVIDER ORGANIZAT ION (PPO) BULLDOGGER S May 28, 2020 [id number] [phone] Daphnie BOOGIE PATIENT Selected Encounter This section includes the information on record at DC for the Encounter. Date/Time Encounter Type Encounter Description Reason Pro vider Source Jun 21, 2024 02:37 PM Outpatient Encounter GENERAL INTERNAL MEDICINE IHE Encounter Template Text not used by DC Plan of Treatment: Future Appointments (+ 6 months) and Future Tests (+/- 45 days) The Plan of Treatment section includes future care activities for the patient from all [facility] treatment[facility]ilities. This section includes future appointments and future orders which are active, pending or scheduled. Future Appointments This section includes appointments that were scheduled to occur 6 months from the date of the Encounter, up to a maximum of 20 appointments. The data comes from all [place] treatment facilities. Appointment Date/Time Appointment Type Appointme nt Facility Name Jun 25, 2024 08:00 AM AMBULATORY - SUR[facility]ERY [facility] Jun 30, 2024 12:45 PM AMBULATORY - SURGERY [facility] Jul 16, 2024 01:00 PM AMBULATORY - MEDICINE [facility] Jul 16, 2024 01:30 PM AMBULATORY - MEDICINE [facility] Jul 29, 2024 02:00 PM AMBULATORY - MEDICINE [facility] Jul 30, 2024 11:30 AM AMBULATORY - MEDICINE . [facility] Aug 13, 2024 01:30 PM AMBULATORY - NONE [facility] Aug 21, 2024 02:30 PM AMBULATORY - MEDICINE [facility] Sep 15, 2024 01:15 PM AMBULATORY - REHAB MEDICIN E [facility] Sep 15, 2024 02:00 PM AMBULATORY - SURGERY [facility] Sep 17, 2024 11:00 AM AMBULATORY - MEDICINE [facility] Sep 17, 2024 11:30 AM AMBULATORY - MEDICINE [facility] Sep 20, 2024 07:44 AM AMBULATORY - MEDICINE [facility] September 27, 2024 02:30 PM AMBULATORY - MEDICINE [facility] September 29, 2024 03:00 PM AMBULATORY - MEDICINE [facility] September 30, 2024 11:00 AM AMBULATORY - MEDICINE . [facility] Oct 27, 2024 08:15 AM AMBULATORY - REHAB MEDICIN E [facility] Oct 27, 2024 08:30 AM AMBULATORY - SURGERY [facility] Oct 29, 2024 08:30 AM AMBULATORY - SURGERY [facility] Oct 29, 2024 10:45 AM AMBULATORY - MEDICINE [facility] Lab Results: +/- 30 days of the encounter This section includes the Chemistry and Hematology Lab Results on record with DC for the patient. Radiology Reports and Pathology Reports are provided separately, in subsequent sections. Lab Results This section contains the Chemistry/Hematology Results that were resulted 30 days before or 30 daysafter the date of the Encounter. Date/Time Source Result Type Result - Unit Interpretation Reference Range Specimen Type Comment Jul 16, 2024 11:41 AM [facility] CBC BLOOD Specimen Type: BLOOD No comment entered. Ordering Provider: GRICEL SILVER Report Released Date/Time: Apr 16, 2024 12:33 PM Reporting Lab: [facility] [address] [facility] [phone] Performing Lab: [address] [address] WBC 7.1 10*3/uL 3.6-11.2 RBC 4.38 10*6/uL 4.10-5.70 HGB 16.5 g/dL 13.1-16.8 HCT 47.6 38.2-48.4 MCV 108.7 fL H 80.0-100.0 MCH 37.7 pg H 27.0-34.0 MCHC 34.7 g/dL 33.0-36.0 PLT 305 10*3/uL 150-400 MPV 9.8 fL 7.5-11.2 RDW 13.2 11.8-15.1 LYMPHOCYTES, AUTO % 20 MONOCYTES, AUTO % 8 NEUTROPHILS, AUTO % 68 EOSINOPHILS, AUTO % 1 BASOPHILS, AUTO % 2 LYMPHOCYTES, ABSOLUTE 1.44 10*3/uL 0.77- 4.50 MONOCYTES, ABSOLUTE 0.55 10*3/uL 0.19-0. 80 NEUTROPHILS, ABSOLUTE 4.84 10*3/uL 2.10- 8.00 EOSINOPHILS, ABSOLUTE 0.10 10*3/uL 0.00- 0.60 BASOPHILS, ABSOLUTE 0.11 10*3/uL 0.00-0. 20 Jul 16, 2024 11:41 AM [facility] COMPREHENSIVE METABOLIC PANEL PLASMA Specimen Type: PLASMA Comment: No hemolysis noted. Ordering Provider: GRICEL SILVER Report Released Date/Time: Apr 16, 2024 12:33 PM Reporting Lab: [facility] [address] [facility] [phone] Performing Lab: [facility] [address] [facility] [phone] CREATININE 0.88 mg/dL 0.7-1.3 UREA NITROGEN 14.6 mg/dL 9.0-25.0 GLUCOSE 154 mg/dL H 72-99 SODIUM 138 meq/L 136-145 POTASSIUM 4.0 meq/L 3.5-5 CHLORIDE 100 meq/L 98-107 CARBON DIOXIDE 28 meq/L 22-31 CALCIUM 9.6 mg/dL 8.4-10.4 PROTEIN 7.9 g/dL 6-8.6 ALBUMIN 4.4 g/dL 3.4-5 TOTAL BILIRUBIN 0.6 mg/dL 0.2-1.2 ALKALINE PHOSPHATASE 83 U/L 40-150 AST/SGOT 30 U/L 5-34 ALT/SGPT 31 U/L 8-40 EGFR (CKD-EPI 2020) 98.4 >60 Jun 10, 2024 02:30 PM [facility] VITAMIN D, 25-HYDROXY SERUM Specimen Type: SE RUM Comment: The listed sex of this patient may not be a typical indication for this test. Therefore, reference ranges or interpretive criteria listed may not be valid. Clinical correlation suggested. Ordering Provider: FANNY MOYA Report Released Date/Time: Jun 10, 2024 01:45 PM Reporting Lab: [facility] [address] [place] [phone] Performing Lab: [address] [phone] VITAMIN D, 25-HYDROXY 51.9 ng/mL 30-96 Jun 10, 2024 02:30 PM [facility] TSH (MA-PB) SERUM Specimen Type: SERUM Comment: The listed sex of this patient may not be a typical indication for this test. Therefore, reference ranges or interpretive criteria listed may not be valid. Clinical correlation suggested. Ordering Provider: FANNY MOYA Report Released Date/Time: Jun 10, 2024 01:45 PM Reporting Lab: [address] [phone] Performing Lab: [address] [phone] TSH 2.498 u[IU]/mL 0.47-5 Jun 10, 2024 02:30 PM [facility] PROST. SPECIFIC AG.(PB-STL) SERUM Specimen Ty pe: SERUM Comment: The listed sex of this patient may not be a typical indication for this test. Therefore, reference ranges or interpretive criteria listed may not be valid. Clinical correlation suggested. Ordering Provider: FANNY MOYA Report Released Date/Time: Jun 10, 2024 01:45 PM Reporting Lab: [facility] [address] [place] [phone] Performing Lab: [address] [phone] PROST. SPECIFIC AG.(PB-STL) 0.414 ng/mL 0-4 Jun 10, 2024 02:30 PM [facility] HGA1C BLOOD Specimen Type: BLOOD No comment entered. Ordering Provider: FANNY MOYA Report Released Date/Time: Jun 10, 2024 01:45 PM Reporting Lab: [facility] [address] [facility] [phone] Performing Lab: [address] [address] HGA1C 5.5 4.0-6.0 Jun 10, 2024 02:30 PM [facility] COMPREHENSIVE METABOLIC PANEL PLASMA Specimen Type: PLASMA Comment: No hemolysis noted. Ordering Provider: FANNY MOYA Report Released Date/Time: Jun 10, 2024 01:45 PM Reporting Lab: [facility] [address] [place] [phone] Performing Lab: [facility] [address] [place] [phone] CREATININE 0.72 mg/dL 0.7-1.3 UREA NITROGEN 16.7 mg/dL 9.0-25.0 GLUCOSE 102 mg/dL H 72-99 SODIUM 136 meq/L 136-145 POTASSIUM 4.3 meq/L 3.5-5 CHLORIDE 103 meq/L 98-107 CARBON DIOXIDE 24 meq/L 22-31 CALCIUM 9.8 mg/dL 8.4-10.4 PROTEIN 7.7 g/dL 6-8.6 ALBUMIN 4.3 g/dL 3.4-5 TOTAL BILIRUBIN 0.6 mg/dL 0.2-1.2 ALKALINE PHOSPHATASE 70 U/L 40-150 AST/SGOT 31 U/L 5-34 ALT/SGPT 28 U/L 8-40 EGFR (CKD-EPI 2020) 105.2 >60 Jun 10, 2024 02:30 PM [facility] LIPID PANEL (STL) PLASMA Specimen Type: PLASM A Comment: No hemolysis noted. Ordering Provider: FANNY MOYA Report Released Date/Time: Jun 10, 2024 01:45 PM Reporting Lab: [address] [phone] Performing Lab: [address] [address] CHOLESTEROL 273 mg/dL H 0-200 TRIGLYCERIDE 218 mg/dL H 0-150 CALCULATED LDL 176 mg/dL HDL(New) 53 mg/dL >40 Jun 10, 2024 02:30 PM [facility] CBC BLOOD Specimen Type: BLOOD No comment entered. Ordering Provider: FANNY MOYA Report Released Date/Time: Jun 10, 2024 01:45 PM Reporting Lab: [facility] [address] [place] [phone] Performing Lab: [address] [address] WBC 6.2 10*3/uL 3.6-11.2 RBC 4.32 10*6/uL 4.10-5.70 HGB 16.4 g/dL 13.1-16.8 HCT 45.7 38.2-48.4 MCV 105.8 fL H 80.0-100.0 MCH 38.0 pg H 27.0-34.0 MCHC 35.9 g/dL 33.0-36.0 PLT 312 10*3/uL 150-400 MPV 10.2 fL 7.5-11.2 RDW 13.0 11.8-15.1 LYMPHOCYTES, AUTO % 29 MONOCYTES, AUTO % 10 NEUTROPHILS, AUTO % 58 EOSINOPHILS, AUTO % 2 BASOPHILS, AUTO % 1 LYMPHOCYTES, ABSOLUTE 1.80 10*3/uL 0.77- 4.50 MONOCYTES, ABSOLUTE 0.59 10*3/uL 0.19-0. 80 NEUTROPHILS, ABSOLUTE 3.62 10*3/uL 2.10- 8.00 EOSINOPHILS, ABSOLUTE 0.10 10*3/uL 0.00- 0.60 BASOPHILS, ABSOLUTE 0.08 10*3/uL 0.00-0. 20 Social History: Smoking Status (Most current) and Tobacco Use (All prior to encounter date) This section includes the most current, and the historical, smoking and tobacco- related health factors from the [place] facility where the Encounter took place. Current Smoking Status This section includes the most current smoking, or tobacco-related health factor, from the [place] facility where the Encounter took place. Date/Time Current Smoking Status Comment Jerod ity May 17, 2022 12:02 PM VA-TOBACCO NEVER USED [facility] Tobacco Use History This section includes a history of the smoking, or tobacco-related health factors, that were collected on or before the date of the Encounter. The data comes from the [place] facility where the Encounter took place. Date/Time Smoking Status/Tobacco Use Comment F acility Mar 06, 2021 04:50 AM [facility] ADMIT TOBACCO SCREEN NO [facility] Jun 03, 2020 09:50 AM DC-TOBACCO NEVER USED [facility] Encounter Notes: All associated encounter notes This section contains the clinical notes associated to the Encounter. Date/Time Encounter Note(s) Provider Source Jun 21, 2024 02:37 PM NONVA NOTE: LOCAL TITLE: COMMUNITY CARE-REQUEST FOR SERVICE NOTE [facility] STANDARD TITLE: NONVA NOTE DATE OF NOTE: JUN 21, 2024@14:37 ENTRY DATE: JUN 21, 2024@14:37:56 AUTHOR: PANCHO WATT EXP COSIGNER: URGENCY: STATUS: COMPLETED COMMUNITY CARE-REQUEST FOR SERVICE NOTE [facility] Has ADDENDA Request for Services (RFS) documentation has [facility] sent for [facility] Care Consult: COUNTS INCLUDE 234 BEDS AT THE [facility] SLEEP STUDY Consult No: [id number] Date sent to scanning: May A Request for Service (RFS) form [id number] has been received which includes the following: Care Requested:CPAP machine [employer] Ajir Sense 11 auto set unit with heatec humidifier, spplies and Hd[employer]grk [employer] small/med Claudia 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 Kj Christianson Office:[address] [place] [address] Address, City, State: [facility] [address] [place] [address] RFS,notes to scanner; DME order to Akilah Shukla /everardo/ PANCHO WATT BSN RN REGISTERED NURSE Signed: 06/21/2024 14:57 Receipt Acknowledged By: 06/23/2024 08:27 /everardo/ FANNY MOYA, [facility]- NURSE PRACTITIONER 06/23/2024 11:08 /everardo/ Thaddeus Alaniz Rn, BSN REGISTERED NURSE for GRACIELA CLARK 06/26/2024 09:15 /everardo/ MISA SHUKLA DEFENSE ANALYST, SLEEP LABORATORY 06/26/2024 ADDENDUM STATUS: COMPLETED Settings should be listed on RFS. km /everardo/ MISA SHUKLA DEFENSE ANALYST, SLEEP LABORATORY Signed: 06/26/2024 09:23 PANCHO WATT [facility]
--- OUTSIDE RECORDS SUMMARY | 2024-09-25 14:22 | XMS_ITS | Encounter Summary ---
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 Date/Time Encounter Type Encounter Description Reason Provider Source Mar 07, 2024 09:00 AM PSYTX W PT 30 MINUTES [facility] INDIV ICD-10-CM F41.9 Anxiety disorder, unspecified RODERICK RANGEL IHJung Encounter Template Text not used by [facility] Assessments - Encounter Diagnoses This section includes the primary and secondary diagnoses documented for the Encounter. Date/Time Primary/Secondary Diagnosis Diagnosis Name Provider Source Mar 07, 2024 09:21 AM PRIMARY Anxiety disorder, unspecified RODERICK RANGEL [facility] Mar 07, 2024 09:21 AM SECONDARY Irritability and anger WARRENRODERICK [facility] Plan of Treatment: Future Appointments (+ 6 months) and Future Tests (+/- 45 days) The Plan of Treatment section includes future care activities for the patient [facility] [place] [facility] This section includes future appointments and future orders which are active, pending or scheduled. Future Appointments This section includes appointments that were scheduled to occur 6 months from the date of the Encounter, up to a maximum of 20 appointments. The data comes from all [place] treatment facilities. Appointment Date/Time Appointment Type Appointme nt Facility Name Mar 18, 2024 03:00 PM AMBULATORY - MEDICINE [facility] Mar 25, 2024 11:00 AM AMBULATORY - SURGERY [facility] Apr 14, 2024 03:00 PM AMBULATORY - MEDICINE [facility] Apr 16, 2024 01:00 PM AMBULATORY - MEDICINE [facility] Apr 16, 2024 01:30 PM AMBULATORY - MEDICINE [facility] Apr 22, 2024 12:00 PM AMBULATORY - MEDICINE [facility] May 19, 2024 03:00 PM AMBULATORY - MEDICINE [facility] May 22, 2024 01:00 PM AMBULATORY - MEDICINE [facility] Jun 10, 2024 12:30 PM AMBULATORY - MEDICINE [facility] Jun 25, 2024 08:00 AM AMBULATORY - SURGERY [facility] Jun 30, 2024 12:45 PM AMBULATORY - SURGERY [facility] Jul 16, 2024 01:00 PM AMBULATORY - MEDICINE [facility] Jul 16, 2024 01:30 PM AMBULATORY - MEDICINE [facility] Jul 29, 2024 02:00 PM AMBULATORY - MEDICINE [facility] Jul 30, 2024 11:30 AM AMBULATORY - MEDICINE [facility] Aug 13, 2024 01:30 PM AMBULATORY - NONE [facility] Aug 21, 2024 02:30 PM AMBULATORY - MEDICINE [facility] Social History: Smoking Status (Most current) and Tobacco Use (All prior to encounter date) This section includes the most current, and the historical, smoking and tobacco- related health factors from the [place] facility where the Encounter took place. Current Smoking Status This section includes the most current smoking, or tobacco-related health factor, from the [place] facility where the Encounter took place. Date/Time Current Smoking Status Comment Facil ity Jun 05, 2023 09:30 AM VA-TOBACCO NEVER USED [facility] Tobacco Use History This section includes a history of the smoking, or tobacco-related health factors, that were collected on or before the date of the Encounter. The data comes from the [place] facility where the Encounter took place. Date/Time Smoking Status/Tobacco Use Comment F acemerson Jun 03, 2021 10:00 AM [place]-TOBACCO NEVER USED [facility] Encounter Notes: All associated encounter notes This section contains the clinical notes associated to the Encounter. Date/Time Encounter Note(s) Provider Source Mar 07, 2024 09:08 AM PSYCHOLOGY INITIAL EVALUATION NOTE: LOCAL TITLE: PRIMARY CARE PSYCHOLOGY INITIAL NOTE [facility] [[email or web address]] STANDARD TITLE: PSYCHOLOGY INITIAL EVALUATION NOTE DATE OF NOTE: MAR 07, 2024@09:08 ENTRY DATE: MAR 07, 2024@09:08:23 AUTHOR: RODERICK RANGEL COSIGNER: URGENCY: STATUS: COMPLETED PRIMARY CARE-MENTAL HEALTH INTEGRATION (PC-[facility]) FUNCTIONAL ASSESSMENT NAME: TROY BOOGIE DATE OF : Jun DIAGNOSIS BEING TREATED: Unspecified Anxiety D/O, Anger and Irritability CPT Code: 32755 SERVICE CONNECTION: Service Connected: NO Rated Disabilities: NONE STATED Length of Visit: 30 minutes [ ]Warm Hand-Off [X]Scheduled Visit [ ]Walk-in Modality of Treatment: [X]In-Person [ ] [facility] Phone PROCEDURES: Brief Behavioral Health Assessment. Informed about *limits to confidentiality - charting/consultation with medical team - actions for safety of self/dependents *duration and purpose of this appointment as well as the potential risk, benefits, and complications of participating in treatment. The expressed understanding and consented to participate in services. Clinical Reminders are Due: Yes Urgency of need for care: [X] Routine [ ] Stat Appropriate setting for care: [X] Outpatient [ ] ER REASON FOR REFERRAL: self-referred this patient to Primary Care Psychology for a brief behavioral health assessment to address issues related to: irritability and anger Presenting Problem (Detail symptoms): reports long-standing issues with poor anger management, attributing to childhood circumstances. reports concerns r/t impact of expressed anger and frustration on relationships, particularly relationship with current GF. Reports expressed irritability is heightened if in a bad mood prior to consuming etoh. Reports will become verbally aggressive/abusive, but denied any hx of being physically aggressive/abusive with others. reports has felt anxious since adolescence as well, noting fluctuating severity of sxs, but describing anxiety as chronic. Rates baseline anxiety as 2-3/10. Reports hx of presenting to Ex Dept s/t panic attacks (last occurrence of presenting to Ex Dept as 2011, last major panic attack approx 2012). Problem History (Duration/Frequency/Intensit y): Sxs have reportedly been present at varying degrees since childhood/adolescence and have fluctuated in intensity. Treatment History for Problem: Hx reported to be positive for previous engagement in outpt therapy (reports last engagement was in 2010). Reports previous use of psychotropic medications, but states did not find them beneficial. 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 and is able to set his own hours (noting this helps with management of cancer dx and tx) -Relationships/Interpersonal : reports that anger has negatively impacted relationships, reports is estranged from daughter and has not seen her or grandchildren in >2 years -Leisure/Recreation: engagement decreased at times -Physical/Medical/Pain: dx'd with a rare blood cancer -ETOH/Illicit Substance Use/Tobacco/Caffeine: -etoh: endorses hx of misuse of etoh, reports has decreased consumption, currently drinks 3 days/week, notes drinks 6-8 beers/occasion (was previously drinking 8-12 beers once or twice/week and approx 4 beers most other nights) -substances: marijuana gummies for sleep -tobacco: denied any hx of use -caffeine: 24 ounces of coffee each morning Symptom Measurements: ROS (by verbal report): Sleep: reports WNL, denied concerns Interest: decreased at times Guilt: endorsed some r/t angry reactions Energy: decreased frequently, attributes fatigue to cancer tx Concentration: decreased at times Appetite: reports WNL, denied recent changes or concerns Psychomotor: WNL upon observation, reports feeling restless at times Self-Report Questionnaires: See Mental Health Diagnostic Study dated today, Mar 20, for details regarding endorsements for specific sxs. PHQ-9 = 5 (Q#9=0); indicative of depressive sxs being reported in the Mild range. LYLE-7 = 13; indicative of anxiety sxs being reported in the Moderate range. LETHALITY ASSESSMENT -Are you having thoughts of harming yourself or others? denied -Any history of suicide attempts: denied -Risk Factors: gender, reports poor impulse control -Protective Factors: reasons for living, help seeking, future orientation -Risk level: [X]LOW [ ]MODERATE [ ]HIGH -CLINICAL JUDGMENT AND DISPOSITION: In consideration of relevant risk and protective factors, the [place] did NOT appear to be at imminent risk for suicide or homicide at this time and IS sustainable at the current level of care. -Comments: was asked directly and denied SI/HI, to include any current or recent active or passive suicidal ideation. Specifically, denied any current or recent thoughts, feelings, urges, or desires for self-harm, as well as any historical engagement in planning, preparatory bxs, gestures, or attempts. endorses hx of involuntary hospitalization in 2009 noting that he verbalized threats of self-harm following a heated dispute with family members while he was intoxicated. states that he had no memory of the event the next day, but was very embarrassed. He also endorses a hx of intermittent morbid ideation that has occurred since adolescence. He denied any hx of consideration of acting on these thoughts and firmly denied any hx of engaging in preparatory bxs, planning, gestures or attempts. -Any history of violence: Denied -Any current HI or aggressive urges: Denied -Any current concerns related to abuse, neglect, exploitation, and interpersonal violence: Denied MENTAL STATUS: [X] Within normal limits [ ] Other: ASSIST PHASE: was provided with tools for self-management including: [X] Handouts on: stress and anxiety [ ] Online resources for: [X] Skills training in: anxiety management strategies [X] Education regarding: stress and anxiety GOALS FOR TX: The following goals were developed using shared decision-making with input by the : 1. decrease anxiety 2. decrease anger and irritablity IMPRESSIONS: endorses long-standing anxiety and difficulty with anger/irritability, noting negative impact to interpersonal relationships s/t the latter. [place] also endorses hx of misuse of etoh, but states that he has cut down considerably d/t concerns r/t his BP. [place] was counseled on safe/healthy drinking limits/recommendations, but declined option to make additional changes to amount of etoh consumed and/or to engage in etoh focused intervention at this time. [place] was was receptive to interventiond and recommendations regarding managing anxiety. PLAN OF CARE: The following plan was developed collaboratively with the and he/she provided verbal consent to participate in the treatment plan below. [X] Continue Care within -[facility]. [ ] Behavioral Health Lab Monitoring weeks. [X] RTC in 3 weeks RECOMMENDATONS FOR PCP: None at this time. PCP added as signer for informational purposes. Outcome and recommendations will be discussed with the referring provider and other relevant PACT team members as needed. EDUCATION: [place] was provided with opportunity to address any questions or concerns. The was provided with written contact information. The is aware of the Suicide Prevention Hotline number ( ) in case of crisis. If experiencing a mental health emergency, the should present to nearest emergency room or call 911 immediately. Suicide Screen: C-SSRS Screening [place]-Suicide Severity Rating Scale (C-SSRS Screener) 1. Over the past month, have you wished you were or wished you could go to sleep and not wake up? No 2. Over the past month, have you had any actual thoughts of killing yourself? No 3. Over the past month, have you been thinking about how you might do this? Response not required due to responses to other questions. 4. Over the past month, have you had these thoughts and had some intention of acting on them? Response not required due to responses to other questions. 5. Over the past month, have you started to work out or worked out the details of how to kill yourself? Response not required due to responses to other questions. 6. If yes, at any time in the past month did you intend to carry out this plan? Response not required due to responses to other questions. 7. In your lifetime, have you ever done anything, started to do anything, or prepared to do anything to end your life (for example, collected pills, obtained a gun, gave away valuables, went to the roof but didn't jump)? No 8. If YES, was this within the past 3 months? Response not required due to responses to other questions. Alcohol Use Screen (AUDIT-C): Alcohol Screen: SCREEN FOR ALCOHOL (AUDIT-C) An alcohol screening test (AUDIT-C) was positive (score=10). 1. How often did you have a drink containing alcohol in the past year? Consider a drink to be a 12 ounce can or bottle of regular beer, 8 ounces of malt liquor, a 5 ounce glass of table wine, or a 1.5 ounce shot of liquor (like scotch, gin, or vodka). Four or more times a week 2. How many drinks containing alcohol did you have on a typical day when you were drinking in the past year? Seven to nine drinks 3. How often did you have six or more drinks on one occasion in the past year? Weekly Follow-up Pos Alcohol : Patient's AUDIT-C score was greater than or equal to 5; brief alcohol intervention is indicated. Shared concern that the patient may be drinking at unhealthy levels known to increase his/her risk of alcohol related health problems. Specifically the following were reviewed: High blood pressure, anxiety The patient was advised/informed to drink within safe limits, which are no more than 2 drinks per day on average and no more than 4 drinks on any one day AND no more than 14 drinks per week. Will discuss again at next visit. The patient declines referral for alcohol use assessment or treatment at this time. Plan: rescreen annually. /everardo/ RODERICK RANGEL, PH.D. Clinical Psychologist; [facility] Signed: 03/07/2024 12:55 Receipt Acknowledged By: 03/07/2024 13:32 /everardo/ LEXX TITUS- NURSE PRACTITIONER RODERICK RANGEL [facility]
--- OUTSIDE RECORDS SUMMARY | 2024-09-25 14:22 | XMS_ITS | Continuity of Care Document ---
Author Name [facility] Organization [facility] Care Team Providers Care Refrigeration Operator Name Role Phone [facility] Unavailable Unavailable Problems Combined list of problems from Department of Defense and [facility] Affairs facilities. It does not include entries that were removed or entered in error. 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 Hearing Loss ([facility] [id number]) Active Condition [facility] History of colonic polyp Active Condition [facility] History of SARS-CoV-2 ([facility] [id number] 5) Active Condition [facility] Hyperlipidemia ([facility] [id number]) Active Condition [facility] Impaired glucose tolerance Active Condition [facility] OA - Osteoarthritis ([facility] [id number]) Active Condition [facility] Obesity ([facility] [id number]) Active Condition [facility] Obstructive sleep apnea Active Condition [facility] Past history of procedure Active Condition Jun 04, 2020 Entered By: ROMEO LOMELI Comment: 2014 total left knee arthroplastyJan 2020 Entered By: ROMEO LOMELI Comment: 2015 right rotator cuff surgeryJun 04, 2020 Entered By: ROMEO LOMELI Comment: 2004 cervical spinal c5-c6 fusionJan 2020 Entered By: ROMEO LOMELI Comment: 1983 wisdom teeth extractions (4)Jun 04, 2020 Entered By: ROMEO LOMELI Comment: 1984 left knee arthroscopic surgeryJan 2020 Entered By: ROMEO LOMELI Comment: 1985 left knee arthroscopic surgeryApr 2021 Entered By: ROMEO LOMELI Comment: 06/14/21 laparoscopic hand-assisted sigmoidectomy and primary umbilical hernia repair [facility] Plantar heel pain Active Condition [facility] Sebaceous cyst of skin Active Condition [facility] Senile macular degeneration Active Condition [facility] Tinnitus ([facility] [id number]) Active Condition [facility] Vitamin D Deficiency ([facility] [id number]) Active Condition [facility] Diagnosis: ICD-10-CM R10.9 Unspecified abdominal pain Active Diagnosis [facility] Diagnosis: ICD-10-CM D45 Polycythemia vera Active Diagnosis [facility] Diagnosis: ICD-10-CM R49.0 Dysphonia Active Diagnosis [facility] Diagnosis: ICD-10-CM R49.9 Unspecified voice and resonance disorder Active Diagnosis [facility] Diagnosis: ICD-10-CM R49.8 Other voice and resonance disorders Active Diagnosis [facility] Diagnosis: ICD-10-CM 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 Active Diagnosis [facility] Diagnosis: ICD-10-CM F41.9 Anxiety disorder, unspecified Active Diagnosis [facility] Diagnosis: ICD-10-CM 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, left eye, with actv chrdl neovas Active Diagnosis [facility] Diagnosis: ICD-10-CM H35.81 Retinal edema Active Diagnosis [facility] Diagnosis: ICD-10-CM E78.5 Hyperlipidemia, unspecified Active Diagnosis [facility] Diagnosis: ICD-10-CM I10 Essential (primary) hypertension Active Diagnosis [facility] Diagnosis: ICD-10-CM E83.119 Hemochromatosis, unspecified Active Diagnosis [facility] Diagnosis: ICD-10-CM H52.4 Presbyopia Active Diagnosis [facility] Diagnosis: ICD-10-CM L72.3 Sebaceous cyst Active Diagnosis [facility] Diagnosis: ICD-10-CM D23.5 Other benign neoplasm of skin of trunk Active Diagnosis [facility] Diagnosis: ICD-10-CM Z01.818 Encounter for other preprocedural examination Active Diagnosis [facility] Diagnosis: ICD-10-CM R52 Pain, unspecified Active Diagnosis [facility] Diagnosis: ICD-10-CM H35.30 Unspecified macular degeneration Active Diagnosis [facility] Diagnosis: ICD-10-CM L72.9 Follicular cyst of the skin and subcutaneous tissue, unsp Active Diagnosis [facility] Medications Combined list of outpatient medications from Department of Defense and Veterans Affairs facilities.Medications provided include 1) outpatient medications from the last 15 months, and 2) patient-reported medications. Medication Details Route Status Patient Instructions Prescription Expires Prescription Number Last Dispense Date Ordering Provider Order Date Order Qty Source ACETAMINOPH EN 500MG TAB TAKE ONE TABLET BY MOUTH FOUR TIMES A DAY NEEDED FOR PAIN CAUTION: DO NOT EXCEED 4000MG PER DAY ACETAMIN OPHEN (APAP) FROM ALL MEDS. ORAL ACTIVE 10/20/2024 [id number] 5 GENCHRISTOPHER ENGLAND IED [address] [facility] AMLODIPINE BESYLATE 5MG TAB TAKE ONE TABLET BY MOUTH ONCE A DAY FOR HIGH BLOOD PRESSURE ORAL ACTIVE 04/18/2025 [id number] 5 FANNY CAMPBELL [address] [facility] ASPIRIN 81MG TAB,EC TAKE ONE TABLET BY MOUTH ONCE A DAY TAKE WITH FOOD. ORAL SUSPEND ED 04/17/2025 [id number] 5 PRETNOEL HARRISOR M [address] [facility] ASPIRIN 81MG TAB,EC TAKE ONE TABLET BY MOUTH ONCE A DAY TAKE WITH FOOD. ORAL DISCONT INUED 07/04/2024 [id number] COCO TAYLOR [address] [facility] ATORVASTATI N CA 40MG TAB TAKE ONE-HALF TABLET BY MOUTH EVERY EVENING TO LOWER CHOLESTE ROL ORAL ACTIVE 06/11/2025 [id number] 5 FANNY CAMPBELL 2024 45 [facility] ATORVASTATI N CA 40MG TAB TAKE ONE-HALF TABLET BY MOUTH EVERY EVENING TO LOWER CHOLESTE ROL ORAL DISCONT INUED 06/05/2024 [id number] [place] TTISA 2023 45 [facility] CHLORHEXIDI NE GLUCONATE 4% LIQUID,TOP APPLY SMALL AMOUNT TO AFFECTED AREA(S) DIRECTED FOR TOPICAL USE ONLY. AVOID CONTACT WITH EYES. PREOPERA TIVE SHOWER WASH TOPICA L 08/19/2023 [id number] Jung DHILLON 2023 120 [facility] CHOLECALCIF KATHI 50MCG (2,000UNIT) TAB TAKE ONE TABLET BY MOUTH ONCE A DAY FOR VITAMIN D DEFICIEN CY. ORAL ACTIVE 06/11/2025 [id number] 5 FANNY CAMPBELL 2024 100 [facility] CHOLECALCIF KATHI 50MCG (2,000UNIT) TAB TAKE ONE TABLET BY MOUTH ONCE A DAY FOR VITAMIN D DEFICIEN CY. ORAL DISCONT INUED 06/05/2024 [id number] 4 [place] TT[place] 2023 100 [facility] DICLOFENAC NA 1% GEL,TOP APPLY 2 GM TO AFFECTED AREA(S) FOUR TIMES A DAY NEEDED FOR PAIN/INF LAMMATIO N; NOT MORE THAN 16 GRAMS DAILY TO ANY LOWER EXTREMIT Y JOINT. NOT MORE THAN 8 GRAMS DAILY TO ANY UPPER EXTREMIT Y JOINT. MAX 32GM/DAY OVER ALL JOINTS. (MEASURE DOSE WITH RULER ATTACHED INSIDE BOX)FOR HEEL PAIN RELIEF TOPICA L ACTIVE 06/11/2025 [id number] 5 FANNY CAMPBELL 2024 200 [facility] HYDROXYUREA 500MG CAP TAKE THREE CAPSULES BY MOUTH ONCE A DAY POLYCYTH EMIA VERA ORAL ACTIVE 12/16/2024 [id number] 5 NOEL SILVER [address] [facility] HYDROXYUREA 500MG CAP TAKE TWO CAPSULES BY MOUTH ONCE A DAY ORAL DISCONT INUED (EDIT) 04/16/2024 [id number] 4 NOEL SILVER [address] [facility] HYDROXYUREA 500MG CAP TAKE TWO CAPSULES BY MOUTH ONCE A DAY ORAL DISCONT INUED 10/03/2024 [id number] PRETNOEL HARRIS [address] [facility] HYDROXYUREA 500MG CAP TAKE TWO CAPSULES BY MOUTH ONCE A DAY ORAL DISCONT INUED 12/14/2023 [id number] ROBBY LEÓN [address] [facility] HYDROXYUREA 500MG CAP TAKE TWO CAPSULES BY MOUTH ONCE A DAY POLYCYTH EMIA VERA ORAL 07/15/2024 [id number] 5 PRETNOEL HARRIS [address] [facility] IBUPROFEN 600MG TAB TAKE ONE TABLET BY MOUTH FOUR TIMES A DAY NEEDED FOR PAIN TAKE WITH FOOD. ORAL 10/06/2023 [id number] LEIDA SULLIVAN AN W [address] [facility] LATANOPROST 0.005% SOLN,OPH INSTILL 1 DROP IN LEFT EYE EVERY EVENING FOR GLAUCOMA . KEEP REFRIGER ATED UNTIL READY TO USE, THEN STORE AT ROOM TEMPERAT URE FOR MAXIMUM OF 42 DAYS. OPHTHA LMIC 08/09/2024 [id number] 4 Lizz SUNSHINE OD 2023 7.5 [facility] LATANOPROST 0.005% SOLN,OPH INSTILL 1 DROP IN LEFT EYE EVERY EVENING OPHTHA LMIC ACTIVE PACE,VICT OR M 2020 [facility] LOSARTAN POTASSIUM 100MG TAB TAKE ONE-HALF TABLET BY MOUTH ONCE A DAY FOR HIGH BLOOD PRESSURE ORAL ACTIVE 01/22/2025 [id number] 5 FANNY CAMPBELL 2023 45 [facility] ONDANSETRON HCL 8MG TAB TAKE ONE-HALF TABLET BY MOUTH THREE TIMES A DAY NEEDED FOR NAUSEA/V OMITING ORAL ACTIVE 10/20/2024 [id number] 5 CHRISTOPHER CASTRO IED [address] [facility] PANTOPRAZOL E NA 40MG TAB,EC TAKE ONE TABLET BY MOUTH EVERY MORNING BEFORE A MEAL FOR GASTROES OPHAGEAL REFLUX DISEASE TAKE 30 MINUTES BEFORE MEAL(S) ORAL ACTIVE 07/31/2025 [id number] 5 FANNY CAMPBELL 2024 90 [facility] SILDENAFIL CITRATE 100MG TAB TAKE ONE-HALF TABLET BY MOUTH ONE HOUR PRIOR TO SEXUAL ACTIVITY FOR ERECTILE DYSFUNCT ION NEEDED - LIMIT 6 DOSES PER 30 DAYS ORAL ACTIVE 06/11/2025 [id number] 5 FANNY CAMPBELL 2024 9 [facility] SILDENAFIL CITRATE 100MG TAB TAKE ONE-HALF TABLET BY MOUTH ONE HOUR PRIOR TO SEXUAL ACTIVITY FOR ERECTILE DYSFUNCT ION NEEDED - LIMIT 6 DOSES PER 30 DAYS ORAL DISCONT INUED 06/05/2024 [id number] 4 ME ISSA TTISA 2023 9 [facility] SULFAMETHOX AZOLE 800MG/TRIME THOPRIM 160MG TAB TAKE 1 TABLET BY MOUTH EVERY 12 HOURS FOR SKIN OR SOFT TISSUE INFECTIO N TAKE WITH WATER/AV OID SUNLIGHT . ORAL 10/21/2023 [id number] Jung DHILLON [address] [facility] TIMOLOL MALEATE 0.5% SOLN,OPH INSTILL 1 DROP IN LEFT EYE EVERY MORNING FOR GLAUCOMA . USE FINISHER MAP AND CHART BEFORE BREAKFAS T OPHTHA LMIC 08/09/2024 [id number] 4 Lizz SUNSHINE D OD 2023 10 [facility] TIMOLOL MALEATE 0.5% SOLN,OPH INSTILL 1 DROP IN LEFT EYE EVERY MORNING OPHTHA LMIC ACTIVE ARMANI,RICCARDOT OR M 2020 [facility] Immunizations Combined list of available immunizations from the Department of Defense and Veterans Affairs facilities. Immunization Series Date Given Administered By Site Reaction Lot Number CVX Code Drug Order Processing Clerk Status Comments Source INFLUENZA, INJECTABLE, QUADRIVALENT, PRESERVATIVE FREE [address] [facility] COVID-19 (KeyView), MRNA, LNP-S, PF, 30 MCG/0.3 ML DOSE 2 2020 208 complet ed HISTORICA L INFORMATI ON - FROM OTHER REGISTRY, [facility] COVID-19 (KeyView), MRNA, LNP-S, PF, 30 MCG/0.3 ML DOSE 1 2020 208 complet ed HISTORICA L INFORMATI ON - FROM OTHER REGISTRY, [facility] TDAP [address] [facility] Results Combined list of recent chemistry, hematology and other laboratory results from Department of Defense and Veterans Affairs, ranging from 15 months to all on record, depending upon the facility. Order Name Results Value Reference Range Date Interpretation Specimen Comments Source URINALYS IS ([facility]) COLOR OF URINE Colorles s 09/20 Specimen Type: URINE No comment entered. Ordering Provider: SYDNEY CASTRO Report Released Date/Time: Sep 20, 2024 08:15 AM Reporting Lab: [facility] [address] [facility] [address] Performing Lab: [facility] [address] [facility] [address] [facility] URINALYS IS ([facility]) BILIRUBIN. TOTAL [PRESENCE] IN URINE BY TEST STRIP Negative mg/dL 09/20 Specimen Type: URINE No comment entered. Ordering Provider: SYDNEY CASTRO Report Released Date/Time: Sep 20, 2024 08:15 AM Reporting Lab: [place] [address] [facility] [address] Performing Lab: [address] [address] [facility] URINALYS IS (STL[facility]PB) PH OF URINE BY TEST STRIP 7.0 5.0 - 8.0 09/20 Specimen Type: URINE No comment entered. Ordering Provider: SYDNEY CASTRO Report Released Date/Time: Sep 20, 2024 08:15 AM Reporting Lab: [place] [address] [facility] [address] Performing Lab: [address] [phone] [place] [address] URINALYS IS ([facility]PB) APPEARANCE OF URINE Clear 09/20 Specimen Type: URINE No comment entered. Ordering Provider: SYDNEY CASTRO Report Released Date/Time: Sep 20, 2024 08:15 AM Reporting Lab: [place] [address] [facility] [address] Performing Lab: [address] [phone] [place] [address] URINALYS IS ([facility]PB) NITRITE [PRESENCE] IN URINE BY TEST STRIP Negative mg/dL 09/20 Specimen Type: URINE No comment entered. Ordering Provider: SYDNEY CASTRO Report Released Date/Time: Sep 20, 2024 08:15 AM Reporting Lab: [place] [address] [facility] [address] Performing Lab: [address] [address] [facility] URINALYS IS (STL-PB) GLUCOSE [MASS/VOLU ME] IN URINE BY TEST STRIP Normalmg /dL 09/20 Specimen Type: URINE No comment entered. Ordering Provider: SYDNEY CASTRO Report Released Date/Time: Sep 20, 2024 08:15 AM Reporting Lab: [place] [address] [facility] [address] Performing Lab: [address] [address] [facility] URINALYS IS (STL-PB) PROTEIN [MASS/VOLU ME] IN URINE BY TEST STRIP Negative mg/dL 09/20 Specimen Type: URINE No comment entered. Ordering Provider: SYDNEY CASTRO Report Released Date/Time: Sep 20, 2024 08:15 AM Reporting Lab: [place] [address] [facility] [address] Performing Lab: [address] [address] [facility] URINALYS IS ([facility]PB) URN.UROBIL INOGEN Normalmg /dL 09/20 Specimen Type: URINE No comment entered. Ordering Provider: SYDNEY CASTRO Report Released Date/Time: Sep 20, 2024 08:15 AM Reporting Lab: [place] [address] [facility] [address] Performing Lab: [address] [address] [facility] URINALYS IS (STL-PB) HEMOGLOBIN [MASS/VOLU ME] IN URINE BY TEST STRIP Negative mg/dL 09/20 Specimen Type: URINE No comment entered. Ordering Provider: SYDNEY CASTRO Report Released Date/Time: Sep 20, 2024 08:15 AM Reporting Lab: [place] [address] [facility] [address] Performing Lab: [address] [address] [facility] URINALYS IS ([facility]-PB) KETONES [MASS/VOLU ME] IN URINE BY TEST STRIP Negative mg/dL 09/20 Specimen Type: URINE No comment entered. Ordering Provider: SYDNEY CASTRO Report Released Date/Time: Sep 20, 2024 08:15 AM Reporting Lab: [address] [address] Performing Lab: [address] [phone] URINALYS IS ([facility]PB) URN.LEUK.E ST. Negative mg/dL 09/20 Specimen Type: URINE No comment entered. Ordering Provider: SYDNEY CASTRO Report Released Date/Time: Sep 20, 2024 08:15 AM Reporting Lab: [address] [address] Performing Lab: [address] URINALYS IS (ST[facility]-PB) SPECIFIC GRAVITY OF URINE 1.033 09/20 H Specimen Type: URINE No comment entered. Ordering Provider: SYDNEY CASTRO Report Released Date/Time: Sep 20, 2024 08:15 AM Reporting Lab: [address] [address] Performing Lab: [address] [phone] CBC LEUKOCYTES [#/VOLUME] IN BLOOD BY AUTOMATED COUNT 10.8 10*3/uL 3.6 - 11.2 09/20 Specimen Type: BLOOD No comment entered. Ordering Provider: SYDENY CASTRO Report Released Date/Time: Sep 20, 2024 08:10 AM Reporting Lab: [address] [phone] Performing Lab: [address] [phone] CBC ERYTHROCYT ES [#/VOLUME] IN BLOOD BY AUTOMATED COUNT 4.57 10*6/uL 4.10 - 5.70 09/20 Specimen Type: BLOOD No comment entered. Ordering Provider: SYDNEY CASTRO Report Released Date/Time: Sep 20, 2024 08:10 AM Reporting Lab: [address] [address] Performing Lab: [address] [address] [facility] CBC HEMOGLOBIN [MASS/VOLU ME] IN BLOOD 16.0 g/dL 13.1 - 16.8 09/20 Specimen Type: BLOOD No comment entered. Ordering Provider: SYDNEY CASTRO Report Released Date/Time: Sep 20, 2024 08:10 AM Reporting Lab: [address] [address] Performing Lab: [address] [phone] [place] [address] CBC HEMATOCRIT [VOLUME FRACTION] OF BLOOD 46.3 38.2 - 48.4 09/20 Specimen Type: BLOOD No comment entered. Ordering Provider: SYDNEY CASTRO Report Released Date/Time: Sep 20, 2024 08:10 AM Reporting Lab: [address] [address] Performing Lab: [address] [address] [facility] CBC MCV [ENTITIC VOLUME] BY AUTOMATED COUNT 101.3 fL 80.0 - 100.0 09/20 H Specimen Type: BLOOD No comment entered. Ordering Provider: SYDNEY CASTRO Report Released Date/Time: Sep 20, 2024 08:10 AM Reporting Lab: [place] [address] [facility] [address] Performing Lab: [address] [address] [facility] CBC MCH [ENTITIC MASS] BY AUTOMATED COUNT 35.0 pg 27.0 - 34.0 09/20 H Specimen Type: BLOOD No comment entered. Ordering Provider: SYDNEY CASTRO Report Released Date/Time: Sep 20, 2024 08:10 AM Reporting Lab: [place] [address] [facility] [address] Performing Lab: [address] [address] [facility] CBC MCHC [MASS/VOLU ME] BY AUTOMATED COUNT 34.6 g/dL 33.0 - 36.0 09/20 Specimen Type: BLOOD No comment entered. Ordering Provider: SYDNEY CASTRO Report Released Date/Time: Sep 20, 2024 08:10 AM Reporting Lab: [place] [address] [facility] [address] Performing Lab: [address] [address] [facility] CBC PLATELETS [#/VOLUME] IN BLOOD BY AUTOMATED COUNT 409 10*3/uL 150 - 400 09/20 H Specimen Type: BLOOD No comment entered. Ordering Provider: SYDNEY CASTRO Report Released Date/Time: Sep 20, 2024 08:10 AM Reporting Lab: [place] [address] [facility] [address] Performing Lab: [address] [address] [facility] CBC PLATELET MEAN VOLUME [ENTITIC VOLUME] IN BLOOD BY AUTOMATED COUNT 10.7 fL 7.5 - 11.2 09/20 Specimen Type: BLOOD No comment entered. Ordering Provider: SYNDEY CASTRO Report Released Date/Time: Sep 20, 2024 08:10 AM Reporting Lab: [place] [address] [facility] [address] Performing Lab: [address] [address] [facility] CBC ERYTHROCYT E DISTRIBUTI ON WIDTH [RATIO] BY AUTOMATED COUNT 13.7 11.8 - 15.1 09/20 Specimen Type: BLOOD No comment entered. Ordering Provider: SYDNEY CASTRO Report Released Date/Time: Sep 20, 2024 08:10 AM Reporting Lab: [facility] [address] [facility] [address] Performing Lab: [facility] [address] [facility] [address] [facility] CBC LYMPHOCYTE S/100 LEUKOCYTES IN BLOOD BY AUTOMATED COUNT 7 09/20 Specimen Type: BLOOD No comment entered. Ordering Provider: SYDNEY CASTRO Report Released Date/Time: Sep 20, 2024 08:10 AM Reporting Lab: [facility] [address] [facility] [address] Performing Lab: [facility] [address] [facility] [address] [facility] CBC MONOCYTES/ 100 LEUKOCYTES IN BLOOD BY AUTOMATED COUNT 4 09/20 Specimen Type: BLOOD No comment entered. Ordering Provider: SYDNEY CASTRO Report Released Date/Time: Sep 20, 2024 08:10 AM Reporting Lab: [facility] [address] [facility] [address] Performing Lab: [facility] [address] [facility] [address] [facility] CBC NEUTROPHIL S/100 LEUKOCYTES IN BLOOD BY AUTOMATED COUNT 87 09/20 Specimen Type: BLOOD No comment entered. Ordering Provider: SYDNEY CASTRO Report Released Date/Time: Sep 20, 2024 08:10 AM Reporting Lab: [facility] [address] [facility] [address] Performing Lab: [facility] [address] [facility] [address] [facility] CBC EOSINOPHIL S/100 LEUKOCYTES IN BLOOD BY AUTOMATED COUNT 0 09/20 Specimen Type: BLOOD No comment entered. Ordering Provider: SYDNEY CASTRO Report Released Date/Time: Sep 20, 2024 08:10 AM Reporting Lab: [facility] [address] [facility] [address] Performing Lab: [place] [address] [facility] [address] [facility] CBC BASOPHILS/ 100 LEUKOCYTES IN BLOOD BY AUTOMATED COUNT 1 09/20 Specimen Type: BLOOD No comment entered. Ordering Provider: SYDNEY CASTRO Report Released Date/Time: Sep 20, 2024 08:10 AM Reporting Lab: [place] [address] [facility] [address] Performing Lab: [place] [address] [facility] [address] [facility] CBC LYMPHOCYTE S [#/VOLUME] IN BLOOD BY AUTOMATED COUNT 0.79 10*3/uL 0.77 - 4.50 09/20 Specimen Type: BLOOD No comment entered. Ordering Provider: SYDNEY CASTRO Report Released Date/Time: Sep 20, 2024 08:10 AM Reporting Lab: [place] [address] [facility] [address] Performing Lab: [place] [address] [facility] [address] [facility] CBC MONOCYTES [#/VOLUME] IN BLOOD BY AUTOMATED COUNT 0.44 10*3/uL 0.19 - 0.80 09/20 Specimen Type: BLOOD No comment entered. Ordering Provider: SYDNEY CASTRO Report Released Date/Time: Sep 20, 2024 08:10 AM Reporting Lab: [place] [address] [facility] [address] Performing Lab: [address] [address] [facility] CBC NEUTROPHIL S [#/VOLUME] IN BLOOD BY AUTOMATED COUNT 9.47 10*3/uL 2.10 - 8.00 09/20 H Specimen Type: BLOOD No comment entered. Ordering Provider: SYDNEY CASTRO Report Released Date/Time: Sep 20, 2024 08:10 AM Reporting Lab: [place] [address] [facility] [address] Performing Lab: [place] [id number] CBC EOSINOPHIL S [#/VOLUME] IN BLOOD BY AUTOMATED COUNT 0.01 10*3/uL 0.00 - 0.60 09/20 Specimen Type: BLOOD No comment entered. Ordering Provider: SYDNEY CASTRO Report Released Date/Time: Sep 20, 2024 08:10 AM Reporting Lab: [place] [address] Performing Lab: [address] CBC BASOPHILS [#/VOLUME] IN BLOOD BY AUTOMATED COUNT 0.08 10*3/uL 0.00 - 0.20 09/20 Specimen Type: BLOOD No comment entered. Ordering Provider: SYDNEY CASTRO Report Released Date/Time: Sep 20, 2024 08:10 AM Reporting Lab: [place] [address] Performing Lab: [address] COMPREHE NSIVE METABOLI C PANEL CREATININE [MASS/VOLU ME] IN SERUM OR PLASMA 0.76 mg/dL 0.7 - 1.3 09/20 Specimen Type: PLASMA Comment: Aspartate Transaminas e result may show positive bias due to hemolysis. K result canceled due to hemolysis. Specimen moderately hemolyzed. Notified Huong Cason RN @0914 k[facility] 09.20.24 Ordering Provider: SYDNEY CASTRO Report Released Date/Time: Sep 20, 2024 08:10 AM Reporting Lab: [place] [address] Performing Lab: [address] COMPREHE NSIVE METABOLI C PANEL UREA NITROGEN [MASS/VOLU ME] IN SERUM OR PLASMA 12.3 mg/dL 9.0 - 25.0 09/20 Specimen Type: PLASMA Comment: Aspartate Transaminas e result may show positive bias due to hemolysis. K result canceled due to hemolysis. Specimen moderately hemolyzed. Notified Huong Cason RN @0914 [place] 09.20.24 Ordering Provider: SDYNEY CASTRO Report Released Date/Time: Sep 20, 2024 08:10 AM Reporting Lab: [facility] [address] [facility] [id number] Performing Lab: [facility] [address] [facility] [id number] [facility] COMPREHE NSIVE METABOLI C PANEL GLUCOSE [MASS/VOLU ME] IN SERUM OR PLASMA 137 mg/dL 72 - 99 09/20 H Specimen Type: PLASMA Comment: Aspartate Transaminas e result may show positive bias due to hemolysis. K result canceled due to hemolysis. Specimen moderately hemolyzed. Notified Huong Cason RN @[address] [place] 09.20.24 Ordering Provider: SYDNEY CASTRO Report Released Date/Time: Sep 20, 2024 08:10 AM Reporting Lab: [facility] [address] [facility] [address] Performing Lab: [facility] [address] [facility] [address] [facility] COMPREHE NSIVE METABOLI C PANEL SODIUM [MOLES/VOL UME] IN SERUM OR PLASMA 135 meq/L 136 - 145 09/20 L Specimen Type: PLASMA Comment: Aspartate Transaminas e result may show positive bias due to hemolysis. K result canceled due to hemolysis. Specimen moderately hemolyzed. Notified Huong Cason RN @09[address] [place] 09.20.24 Ordering Provider: SYDNEY CASTRO Report Released Date/Time: Sep 20, 2024 08:10 AM Reporting Lab: [facility] [address] [facility] [address] Performing Lab: [facility] [address] [facility] [address] [facility] COMPREHE NSIVE METABOLI C PANEL POTASSIUM [MOLES/VOL UME] IN SERUM OR PLASMA cancmeq/ L 3.5 - 5 09/20 Specimen Type: PLASMA Comment: Aspartate Transaminas e result may show positive bias due to hemolysis. K result canceled due to hemolysis. Specimen moderately hemolyzed. Notified Huong Cason RN @09[facility] 09.20.24 Ordering Provider: SYDNEY CASTRO Report Released Date/Time: Sep 20, 2024 08:10 AM Reporting Lab: [facility] [address] [place] [phone] Performing Lab: [place] [address] COMPREH NSIVE METABOLI C PANEL CHLORIDE [MOLES/VOL UME] IN SERUM OR PLASMA 104 meq/L 98 - 107 09/20 Specimen Type: PLASMA Comment: Aspartate Transaminas e result may show positive bias due to hemolysis. K result canceled due to hemolysis. Specimen moderately hemolyzed. Notified Huong Cason RN @09[address] [place] 09.20.24 Ordering Provider: SYDNEY CASTRO Report Released Date/Time: Sep 20, 2024 08:10 AM Reporting Lab: [place] [phone] Performing Lab: [place] [address] [facility] [phone] COMPREHE NSIVE METABOLI C PANEL CARBON DIOXIDE, TOTAL [MOLES/VOL UME] IN SERUM OR PLASMA 20 meq/L 22 - 31 09/20 L Specimen Type: PLASMA Comment: Aspartate Transaminas e result may show positive bias due to hemolysis. K result canceled due to hemolysis. Specimen moderately hemolyzed. Notified Huong Cason RN @09[address] [place] 09.20.24 Ordering Provider: SYDNEY CASTRO Report Released Date/Time: Sep 20, 2024 08:10 AM Reporting Lab: [address] [address] Performing Lab: [address] [facility] [address] [facility] COMPREHE NSIVE METABOLI C PANEL CALCIUM [MASS/VOLU ME] IN SERUM OR PLASMA 9.0 mg/dL 8.4 - 10.4 09/20 Specimen Type: PLASMA Comment: Aspartate Transaminas e result may show positive bias due to hemolysis. K result canceled due to hemolysis. Specimen moderately hemolyzed. Notified Huong Cason RN @[address] [place] [address] 09.20.24 Ordering Provider: SYDNEY CASTRO Report Released Date/Time: Sep 20, 2024 08:10 AM Reporting Lab: [place] [address] [facility] [address] Performing Lab: [place] [address] [address] [facility] [address] [facility] COMPREHE NSIVE METABOLI C PANEL PROTEIN [MASS/VOLU ME] IN SERUM OR PLASMA 7.8 g/dL 6 - 8.6 09/20 Specimen Type: PLASMA Comment: Aspartate Transaminas e result may show positive bias due to hemolysis. K result canceled due to hemolysis. Specimen moderately hemolyzed. Notified Huong Cason RN @[address] [place] 09.20.24 Ordering Provider: SYDNEY CASTRO Report Released Date/Time: Sep 20, 2024 08:10 AM Reporting Lab: [place] [address] [address] [facility] [address] Performing Lab: [place] [address] [address] [facility] [address] [facility] COMPREHE NSIVE METABOLI C PANEL ALBUMIN [MASS/VOLU ME] IN SERUM OR PLASMA 4.1 g/dL 3.4 - 5 09/20 Specimen Type: PLASMA Comment: Aspartate Transaminas e result may show positive bias due to hemolysis. K result canceled due to hemolysis. Specimen moderately hemolyzed. Notified Huong Cason RN @09[address] [place] 09.20.24 Ordering Provider: SYDNEY CASTRO Report Released Date/Time: Sep 20, 2024 08:10 AM Reporting Lab: [place] [address] [place] [phone] Performing Lab: [address] COMPREHE NSIVE METABOLI C PANEL BILIRUBIN. TOTAL [MASS/VOLU ME] IN SERUM OR PLASMA 1.1 mg/dL 0.2 - 1.2 09/20 Specimen Type: PLASMA Comment: Aspartate Transaminas e result may show positive bias due to hemolysis. K result canceled due to hemolysis. Specimen moderately hemolyzed. Notified Huong Cason RN @[address] [place] 09.20.24 Ordering Provider: SYDNEY CASTRO Report Released Date/Time: Sep 20, 2024 08:10 AM Reporting Lab: [place] [address] Performing Lab: [address] COMPREHE NSIVE METABOLI C PANEL ALKALINE PHOSPHATAS E [ENZYMATIC ACTIVITY/V OLUME] IN SERUM OR PLASMA 93 U/L 40 - 150 09/20 Specimen Type: PLASMA Comment: Aspartate Transaminas e result may show positive bias due to hemolysis. K result canceled due to hemolysis. Specimen moderately hemolyzed. Notified Huong Cason RN @[address] [place] 09.20.24 Ordering Provider: SYDNEY CASTRO Report Released Date/Time: Sep 20, 2024 08:10 AM Reporting Lab: [place] [address] Performing Lab: [place] [address] [place] [phone] COMPREHE NSIVE METABOLI C PANEL ASPARTATE AMINOTRANS FERASE [ENZYMATIC ACTIVITY/V OLUME] IN SERUM OR PLASMA 58 U/L 5 - 34 09/20 H Specimen Type: PLASMA Comment: Aspartate Transaminas e result may show positive bias due to hemolysis. K result canceled due to hemolysis. Specimen moderately hemolyzed. Notified Huong Cason RN @[address] [place] 09.20.24 Ordering Provider: SYDNEY CASTRO Report Released Date/Time: Sep 20, 2024 08:10 AM Reporting Lab: [place] [address] [facility] [address] Performing Lab: [facility] [address] [facility] [address] [facility] COMPREHE NSIVE METABOLI C PANEL ALANINE AMINOTRANS FERASE [ENZYMATIC ACTIVITY/V OLUME] IN SERUM OR PLASMA 31 U/L 8 - 40 09/20 Specimen Type: PLASMA Comment: Aspartate Transaminas e result may show positive bias due to hemolysis. K result canceled due to hemolysis. Specimen moderately hemolyzed. Notified Huong Cason RN @[address] [place] 09.20.24 Ordering Provider: SYDNEY CASTRO Report Released Date/Time: Sep 20, 2024 08:10 AM Reporting Lab: [place] [address] [facility] [address] Performing Lab: [place] [address] [facility] [address] [facility] COMPREHE NSIVE METABOLI C PANEL GLOMERULAR FILTRATION RATE/1.73 SQ M.PREDICTE D [VOLUME RATE/AREA] IN SERUM, PLASMA OR BLOOD BY CREATININE -BASED FORMULA (CKD-EPI 2020) 102.9 60 09/20 Specimen Type: PLASMA Comment: Aspartate Transaminas e result may show positive bias due to hemolysis. K result canceled due to hemolysis. Specimen moderately hemolyzed. Notified Huong Cason RN @[address] [place] 09.20.24 Ordering Provider: SYDNEY CASTRO Report Released Date/Time: Sep 20, 2024 08:10 AM Reporting Lab: [place] [address] [facility] [address] Performing Lab: [address] [address] [facility] LIPASE LIPASE [ENZYMATIC ACTIVITY/V OLUME] IN SERUM OR PLASMA 20 U/L 8 - 78 09/20 Specimen Type: PLASMA Comment: Aspartate Transaminas e result may show positive bias due to hemolysis. K result canceled due to hemolysis. Specimen moderately hemolyzed. Notified Huong Cason RN @09[address] [facility] 4.26.25 Ordering Provider: SYDNEY CASTRO Report Released Date/Time: Sep 20, 2024 08:10 AM Reporting Lab: [place] [address] [place] [address] Performing Lab: [place] [phone] CBC LEUKOCYTES [#/VOLUME] IN BLOOD BY AUTOMATED COUNT 7.7 10*3/uL 3.6 - 11.2 09/17 Specimen Type: BLOOD No comment entered. Ordering Provider: QUINCY SILVER Report Released Date/Time: Jul 16, 2024 12:56 PM Reporting Lab: [place] [address] Performing Lab: [place] [address] [facility] [phone] CBC ERYTHROCYT ES [#/VOLUME] IN BLOOD BY AUTOMATED COUNT 4.65 10*6/uL 4.10 - 5.70 09/17 Specimen Type: BLOOD No comment entered. Ordering Provider: QUINCY SILVER Report Released Date/Time: Jul 16, 2024 12:56 PM Reporting Lab: [place] [address] Performing Lab: [address] [phone] [place] [address] CBC HEMOGLOBIN [MASS/VOLU ME] IN BLOOD 16.4 g/dL 13.1 - 16.8 09/17 Specimen Type: BLOOD No comment entered. Ordering Provider: QUINCY SILVER Report Released Date/Time: Jul 16, 2024 12:56 PM Reporting Lab: [place] [address] [place] [address] Performing Lab: [facility] [address] [address] [facility] CBC HEMATOCRIT [VOLUME FRACTION] OF BLOOD 48.1 38.2 - 48.4 09/17 Specimen Type: BLOOD No comment entered. Ordering Provider: QUINCY SILVER OR John Report Released Date/Time: Jul 16, 2024 12:56 PM Reporting Lab: [address] [address] Performing Lab: [address] [address] [facility] CBC MCV [ENTITIC VOLUME] BY AUTOMATED COUNT 103.4 fL 80.0 - 100.0 09/17 H Specimen Type: BLOOD No comment entered. Ordering Provider: QUINCY SILVER OR John Report Released Date/Time: Jul 16, 2024 12:56 PM Reporting Lab: [address] [address] Performing Lab: [address] [address] [facility] CBC MCH [ENTITIC MASS] BY AUTOMATED COUNT 35.3 pg 27.0 - 34.0 09/17 H Specimen Type: BLOOD No comment entered. Ordering Provider: QUINCY SILVER OR John Report Released Date/Time: Jul 16, 2024 12:56 PM Reporting Lab: [address] [address] Performing Lab: [address] [address] [facility] CBC MCHC [MASS/VOLU ME] BY AUTOMATED COUNT 34.1 g/dL 33.0 - 36.0 09/17 Specimen Type: BLOOD No comment entered. Ordering Provider: QUINCY SILVER OR John Report Released Date/Time: Jul 16, 2024 12:56 PM Reporting Lab: [address] [address] Performing Lab: [address] [place] [address] [facility] CBC PLATELETS [#/VOLUME] IN BLOOD BY AUTOMATED COUNT 363 10*3/uL 150 - 400 09/17 Specimen Type: BLOOD No comment entered. Ordering Provider: QUINCY SILVER OR John Report Released Date/Time: Jul 16, 2024 12:56 PM Reporting Lab: [address] [address] Performing Lab: [address] [address] [facility] CBC PLATELET MEAN VOLUME [ENTITIC VOLUME] IN BLOOD BY AUTOMATED COUNT 9.8 fL 7.5 - 11.2 09/17 Specimen Type: BLOOD No comment entered. Ordering Provider: QUINCY SILVER OR John Report Released Date/Time: Jul 16, 2024 12:56 PM Reporting Lab: [address] [address] Performing Lab: [address] [address] [facility] CBC ERYTHROCYT E DISTRIBUTI ON WIDTH [RATIO] BY AUTOMATED COUNT 12.9 11.8 - 15.1 09/17 Specimen Type: BLOOD No comment entered. Ordering Provider: QUINCY SILVER OR John Report Released Date/Time: Jul 16, 2024 12:56 PM Reporting Lab: [address] [address] Performing Lab: [address] [address] [facility] CBC LYMPHOCYTE S/100 LEUKOCYTES IN BLOOD BY AUTOMATED COUNT 22 09/17 Specimen Type: BLOOD No comment entered. Ordering Provider: QUINCY SILVER OR John Report Released Date/Time: Jul 16, 2024 12:56 PM Reporting Lab: [address] [address] Performing Lab: [address] [place] [address] [facility] CBC MONOCYTES/ 100 LEUKOCYTES IN BLOOD BY AUTOMATED COUNT 9 09/17 Specimen Type: BLOOD No comment entered. Ordering Provider: QUINCY SILVER Report Released Date/Time: Jul 16, 2024 12:56 PM Reporting Lab: [facility] [address] [place] [address] Performing Lab: [facility] [address] [place] [phone] [facility] CBC NEUTROPHIL S/100 LEUKOCYTES IN BLOOD BY AUTOMATED COUNT 65 09/17 Specimen Type: BLOOD No comment entered. Ordering Provider: QUINCY SILVER Report Released Date/Time: Jul 16, 2024 12:56 PM Reporting Lab: [address] [address] Performing Lab: [address] [address] [facility] CBC EOSINOPHIL S/100 LEUKOCYTES IN BLOOD BY AUTOMATED COUNT 2 09/17 Specimen Type: BLOOD No comment entered. Ordering Provider: QIUNCY SILVER Report Released Date/Time: Jul 16, 2024 12:56 PM Reporting Lab: [address] [address] Performing Lab: [address] [address] [facility] CBC BASOPHILS/ 100 LEUKOCYTES IN BLOOD BY AUTOMATED COUNT 1 09/17 Specimen Type: BLOOD No comment entered. Ordering Provider: QUINCY SILVER Report Released Date/Time: Jul 16, 2024 12:56 PM Reporting Lab: [address] [address] Performing Lab: [address] [address] [facility] CBC LYMPHOCYTE S [#/VOLUME] IN BLOOD BY AUTOMATED COUNT 1.71 10*3/uL 0.77 - 4.50 09/17 Specimen Type: BLOOD No comment entered. Ordering Provider: QUINCY SILVER Report Released Date/Time: Jul 16, 2024 12:56 PM Reporting Lab: [address] [address] Performing Lab: [address] [address] [facility] CBC MONOCYTES [#/VOLUME] IN BLOOD BY AUTOMATED COUNT 0.66 10*3/uL 0.19 - 0.80 09/17 Specimen Type: BLOOD No comment entered. Ordering Provider: QUINCY SILVER Report Released Date/Time: Jul 16, 2024 12:56 PM Reporting Lab: [address] [address] Performing Lab: [address] [address] [facility] CBC NEUTROPHIL S [#/VOLUME] IN BLOOD BY AUTOMATED COUNT 5.00 10*3/uL 2.10 - 8.00 09/17 Specimen Type: BLOOD No comment entered. Ordering Provider: QUINCY SILVER Report Released Date/Time: Jul 16, 2024 12:56 PM Reporting Lab: [address] [address] Performing Lab: [address] [address] [facility] CBC EOSINOPHIL S [#/VOLUME] IN BLOOD BY AUTOMATED COUNT 0.13 10*3/uL 0.00 - 0.60 09/17 Specimen Type: BLOOD No comment entered. Ordering Provider: QUINCY SILVER Report Released Date/Time: Jul 16, 2024 12:56 PM Reporting Lab: [address] [address] Performing Lab: [address] [address] [facility] CBC BASOPHILS [#/VOLUME] IN BLOOD BY AUTOMATED COUNT 0.11 10*3/uL 0.00 - 0.20 09/17 Specimen Type: BLOOD No comment entered. Ordering Provider: QUINCY SILVER Report Released Date/Time: Jul 16, 2024 12:56 PM Reporting Lab: [place] [address] [facility] [address] Performing Lab: [place] [address] [facility] [address] [facility] COMPREHE NSIVE METABOLI C PANEL CREATININE [MASS/VOLU ME] IN SERUM OR PLASMA 0.82 mg/dL 0.7 - 1.3 09/17 Specimen Type: PLASMA Comment: No hemolysis noted. Ordering Provider: QUINCY SILVER Report Released Date/Time: Jul 16, 2024 12:56 PM Reporting Lab: [place] [address] [facility] [address] Performing Lab: [place] [address] [facility] [address] [facility] COMPREHE NSIVE METABOLI C PANEL UREA NITROGEN [MASS/VOLU ME] IN SERUM OR PLASMA 13.0 mg/dL 9.0 - 25.0 09/17 Specimen Type: PLASMA Comment: No hemolysis noted. Ordering Provider: QUINCY SILVER OR Jonh Report Released Date/Time: Jul 16, 2024 12:56 PM Reporting Lab: [place] [address] [facility] [address] Performing Lab: [facility] [address] [facility] [address] [facility] COMPREHE NSIVE METABOLI C PANEL GLUCOSE [MASS/VOLU ME] IN SERUM OR PLASMA 98 mg/dL 72 - 99 09/17 Specimen Type: PLASMA Comment: No hemolysis noted. Ordering Provider: QUINCY SILVER Report Released Date/Time: Jul 16, 2024 12:56 PM Reporting Lab: [facility] [address] [facility] [address] Performing Lab: [facility] [address] [facility] [address] [facility] COMPREHE NSIVE METABOLI C PANEL SODIUM [MOLES/VOL UME] IN SERUM OR PLASMA 137 meq/L 136 - 145 09/17 Specimen Type: PLASMA Comment: No hemolysis noted. Ordering Provider: QUINCY SILVER Report Released Date/Time: Jul 16, 2024 12:56 PM Reporting Lab: [facility] [address] [facility] [address] Performing Lab: [facility] [address] [facility] [address] [facility] COMPREHE NSIVE METABOLI C PANEL POTASSIUM [MOLES/VOL UME] IN SERUM OR PLASMA 4.3 meq/L 3.5 - 5 09/17 Specimen Type: PLASMA Comment: No hemolysis noted. Ordering Provider: QUINCY SILVER Report Released Date/Time: Jul 16, 2024 12:56 PM Reporting Lab: [facility] [address] [facility] [address] Performing Lab: [facility] [address] [facility] [address] [facility] COMPREHE NSIVE METABOLI C PANEL CHLORIDE [MOLES/VOL UME] IN SERUM OR PLASMA 105 meq/L 98 - 107 09/17 Specimen Type: PLASMA Comment: No hemolysis noted. Ordering Provider: QUINCY SILVER Report Released Date/Time: Jul 16, 2024 12:56 PM Reporting Lab: [facility] [address] [facility] [address] Performing Lab: [facility] [address] [facility] [address] [facility] COMPREHE NSIVE METABOLI C PANEL CARBON DIOXIDE, TOTAL [MOLES/VOL UME] IN SERUM OR PLASMA 23 meq/L 22 - 31 09/17 Specimen Type: PLASMA Comment: No hemolysis noted. Ordering Provider: QUINCY SILVER Report Released Date/Time: Jul 16, 2024 12:56 PM Reporting Lab: [facility] [address] [facility] [address] Performing Lab: [facility] [address] [facility] [address] [facility] COMPREHE NSIVE METABOLI C PANEL CALCIUM [MASS/VOLU ME] IN SERUM OR PLASMA 9.3 mg/dL 8.4 - 10.4 09/17 Specimen Type: PLASMA Comment: No hemolysis noted. Ordering Provider: QUINCY SILVER Report Released Date/Time: Jul 16, 2024 12:56 PM Reporting Lab: [facility] [address] [facility] [address] Performing Lab: [facility] [address] [facility] [address] [facility] COMPREHE NSIVE METABOLI C PANEL PROTEIN [MASS/VOLU ME] IN SERUM OR PLASMA 7.6 g/dL 6 - 8.6 09/17 Specimen Type: PLASMA Comment: No hemolysis noted. Ordering Provider: QUINCY SILVER OR John Report Released Date/Time: Jul 16, 2024 12:56 PM Reporting Lab: [facility] [address] [facility] [address] Performing Lab: [facility] [address] [facility] [address] [facility] COMPREHE NSIVE METABOLI C PANEL ALBUMIN [MASS/VOLU ME] IN SERUM OR PLASMA 4.3 g/dL 3.4 - 5 09/17 Specimen Type: PLASMA Comment: No hemolysis noted. Ordering Provider: QUINCY SILVER OR John Report Released Date/Time: Jul 16, 2024 12:56 PM Reporting Lab: [facility] [address] [facility] [address] Performing Lab: [facility] [address] [facility] [address] [facility] COMPREHE NSIVE METABOLI C PANEL BILIRUBIN. TOTAL [MASS/VOLU ME] IN SERUM OR PLASMA 0.6 mg/dL 0.2 - 1.2 09/17 Specimen Type: PLASMA Comment: No hemolysis noted. Ordering Provider: QUINCY SILVER Report Released Date/Time: Jul 16, 2024 12:56 PM Reporting Lab: [facility] [address] [facility] [address] Performing Lab: [place] [address] [facility] [address] [facility] COMPREHE NSIVE METABOLI C PANEL ALKALINE PHOSPHATAS E [ENZYMATIC ACTIVITY/V OLUME] IN SERUM OR PLASMA 90 U/L 40 - 150 09/17 Specimen Type: PLASMA Comment: No hemolysis noted. Ordering Provider: QUINCY SILVER Report Released Date/Time: Jul 16, 2024 12:56 PM Reporting Lab: [place] [address] [facility] [address] Performing Lab: [place] [address] [facility] [address] [facility] COMPREHE NSIVE METABOLI C PANEL ASPARTATE AMINOTRANS FERASE [ENZYMATIC ACTIVITY/V OLUME] IN SERUM OR PLASMA 37 U/L 5 - 34 09/17 H Specimen Type: PLASMA Comment: No hemolysis noted. Ordering Provider: QUINCY SILVER Report Released Date/Time: Jul 16, 2024 12:56 PM Reporting Lab: [place] [address] [facility] [address] Performing Lab: [place] [address] [facility] [address] [facility] COMPREHE NSIVE METABOLI C PANEL ALANINE AMINOTRANS FERASE [ENZYMATIC ACTIVITY/V OLUME] IN SERUM OR PLASMA 33 U/L 8 - 40 09/17 Specimen Type: PLASMA Comment: No hemolysis noted. Ordering Provider: QUINCY SILVER Report Released Date/Time: Jul 16, 2024 12:56 PM Reporting Lab: [place] [address] [facility] [address] Performing Lab: [facility] [address] [facility] [address] [facility] COMPREHE NSIVE METABOLI C PANEL GLOMERULAR FILTRATION RATE/1.73 SQ M.PREDICTE D [VOLUME RATE/AREA] IN SERUM, PLASMA OR BLOOD BY CREATININE -BASED FORMULA (CKD-EPI 2020) 100.6 60 09/17 Specimen Type: PLASMA Comment: No hemolysis noted. Ordering Provider: QUINCY SILVER Report Released Date/Time: Jul 16, 2024 12:56 PM Reporting Lab: [facility] [address] [facility] [address] Performing Lab: [facility] [address] [facility] [address] [facility] FERRITIN FERRITIN [MASS/VOLU ME] IN SERUM OR PLASMA 39.00 ng/mL 22 - 275 09/17 Specimen Type: SERUM No comment entered. Ordering Provider: QUINCY SILVER Report Released Date/Time: Sep 17, 2024 10:40 AM Reporting Lab: [facility] [address] [facility] [address] Performing Lab: [facility] [address] [facility] [address] [facility] IRON/TIB C PROFILE IRON BINDING CAPACITY [MASS/VOLU ME] IN SERUM OR PLASMA 414 ug/dL 250 - 450 09/17 Specimen Type: SERUM No comment entered. Ordering Provider: QUINCY SILVER Report Released Date/Time: Sep 17, 2024 10:40 AM Reporting Lab: [facility] [address] [facility] [address] Performing Lab: [facility] [address] [facility] [address] [facility] IRON/TIB C PROFILE TRANSFERRI N [MASS/VOLU ME] IN SERUM OR PLASMA 331 mg/dL 163 - 344 09/17 Specimen Type: SERUM No comment entered. Ordering Provider: QUINCY SILVER Report Released Date/Time: Sep 17, 2024 10:40 AM Reporting Lab: [address] [address] Performing Lab: [address] [address] [facility] IRON/TIB C PROFILE IRON SATURATION [MASS FRACTION] IN SERUM OR PLASMA 19 20 - 50 09/17 L Specimen Type: SERUM No comment entered. Ordering Provider: QUINCY SILVER Report Released Date/Time: Sep 17, 2024 10:40 AM Reporting Lab: [address] [address] Performing Lab: [address] [address] [facility] IRON/TIB C PROFILE IRON [MASS/VOLU ME] IN SERUM OR PLASMA 78 ug/dL 65 - 175 09/17 Specimen Type: SERUM No comment entered. Ordering Provider: QUINCY SILVER Report Released Date/Time: Sep 17, 2024 10:40 AM Reporting Lab: [address] [address] Performing Lab: [address] [address] [facility] CBC LEUKOCYTES [#/VOLUME] IN BLOOD BY AUTOMATED COUNT 7.1 10*3/uL 3.6 - 11.2 07/16 Specimen Type: BLOOD No comment entered. Ordering Provider: QUINCY SILVER Report Released Date/Time: Apr 16, 2024 12:33 PM Reporting Lab: [address] [id number] Performing Lab: [address] [address] [facility] CBC ERYTHROCYT ES [#/VOLUME] IN BLOOD BY AUTOMATED COUNT 4.38 10*6/uL 4.10 - 5.70 07/16 Specimen Type: BLOOD No comment entered. Ordering Provider: QUINCY SILVER Report Released Date/Time: Apr 16, 2024 12:33 PM Reporting Lab: [address] [address] Performing Lab: [facility] [address] [place] [id number] [facility] CBC HEMOGLOBIN [MASS/VOLU ME] IN BLOOD 16.5 g/dL 13.1 - 16.8 07/16 Specimen Type: BLOOD No comment entered. Ordering Provider: QUINCY SILVER Report Released Date/Time: Apr 16, 2024 12:33 PM Reporting Lab: [address] [address] Performing Lab: [address] [address] [facility] CBC HEMATOCRIT [VOLUME FRACTION] OF BLOOD 47.6 38.2 - 48.4 07/16 Specimen Type: BLOOD No comment entered. Ordering Provider: QUINCY SILVER Report Released Date/Time: Apr 16, 2024 12:33 PM Reporting Lab: [address] [address] Performing Lab: [address] [address] [facility] [facility] CBC MCV [ENTITIC VOLUME] BY AUTOMATED COUNT 108.7 fL 80.0 - 100.0 07/16 H Specimen Type: BLOOD No comment entered. Ordering Provider: QUINCY SILVER Report Released Date/Time: Apr 16, 2024 12:33 PM Reporting Lab: [address] [address] Performing Lab: [address] [address] [facility] CBC MCH [ENTITIC MASS] BY AUTOMATED COUNT 37.7 pg 27.0 - 34.0 07/16 H Specimen Type: BLOOD No comment entered. Ordering Provider: QUINCY SILVER Report Released Date/Time: Apr 16, 2024 12:33 PM Reporting Lab: [address] [address] Performing Lab: [address] [address] [facility] CBC MCHC [MASS/VOLU ME] BY AUTOMATED COUNT 34.7 g/dL 33.0 - 36.0 07/16 Specimen Type: BLOOD No comment entered. Ordering Provider: QUINCY SILVER Report Released Date/Time: Apr 16, 2024 12:33 PM Reporting Lab: [address] [address] Performing Lab: [address] [address] [facility] CBC PLATELETS [#/VOLUME] IN BLOOD BY AUTOMATED COUNT 305 10*3/uL 150 - 400 07/16 Specimen Type: BLOOD No comment entered. Ordering Provider: QUINCY SILVER Report Released Date/Time: Apr 16, 2024 12:33 PM Reporting Lab: [address] [address] Performing Lab: [address] [address] [facility] CBC PLATELET MEAN VOLUME [ENTITIC VOLUME] IN BLOOD BY AUTOMATED COUNT 9.8 fL 7.5 - 11.2 07/16 Specimen Type: BLOOD No comment entered. Ordering Provider: QUINCY SILVER Report Released Date/Time: Apr 16, 2024 12:33 PM Reporting Lab: [address] [address] Performing Lab: [address] [address] [facility] CBC ERYTHROCYT E DISTRIBUTI ON WIDTH [RATIO] BY AUTOMATED COUNT 13.2 11.8 - 15.1 07/16 Specimen Type: BLOOD No comment entered. Ordering Provider: QUINCY SILVER Report Released Date/Time: Apr 16, 2024 12:33 PM Reporting Lab: [facility] [address] [facility] [address] Performing Lab: [facility] [address] [facility] [address] [facility] CBC LYMPHOCYTE S/100 LEUKOCYTES IN BLOOD BY AUTOMATED COUNT 20 07/16 Specimen Type: BLOOD No comment entered. Ordering Provider: QUINCY SILVER Report Released Date/Time: Apr 16, 2024 12:33 PM Reporting Lab: [facility] [address] [facility] [address] Performing Lab: [facility] [address] [facility] [address] [facility] CBC MONOCYTES/ 100 LEUKOCYTES IN BLOOD BY AUTOMATED COUNT 8 07/16 Specimen Type: BLOOD No comment entered. Ordering Provider: QUINCY SILVER Report Released Date/Time: Apr 16, 2024 12:33 PM Reporting Lab: [facility] [address] [facility] [address] Performing Lab: [facility] [address] [facility] [address] [facility] CBC NEUTROPHIL S/100 LEUKOCYTES IN BLOOD BY AUTOMATED COUNT 68 07/16 Specimen Type: BLOOD No comment entered. Ordering Provider: QUINCY SILVER Report Released Date/Time: Apr 16, 2024 12:33 PM Reporting Lab: [facility] [address] [facility] [address] Performing Lab: [facility] [address] [facility] [address] [facility] CBC EOSINOPHIL S/100 LEUKOCYTES IN BLOOD BY AUTOMATED COUNT 1 07/16 Specimen Type: BLOOD No comment entered. Ordering Provider: QUINCY SILVER Report Released Date/Time: Apr 16, 2024 12:33 PM Reporting Lab: [facility] [address] [facility] [address] Performing Lab: [facility] [address] [facility] [address] [facility] CBC BASOPHILS/ 100 LEUKOCYTES IN BLOOD BY AUTOMATED COUNT 2 07/16 Specimen Type: BLOOD No comment entered. Ordering Provider: QUINCY SILVER OR John Report Released Date/Time: Apr 16, 2024 12:33 PM Reporting Lab: [address] [address] Performing Lab: [address] [address] [facility] CBC LYMPHOCYTE S [#/VOLUME] IN BLOOD BY AUTOMATED COUNT 1.44 10*3/uL 0.77 - 4.50 07/16 Specimen Type: BLOOD No comment entered. Ordering Provider: QUINCY SILVER OR John Report Released Date/Time: Apr 16, 2024 12:33 PM Reporting Lab: [address] [address] Performing Lab: [address] [address] [facility] CBC MONOCYTES [#/VOLUME] IN BLOOD BY AUTOMATED COUNT 0.55 10*3/uL 0.19 - 0.80 07/16 Specimen Type: BLOOD No comment entered. Ordering Provider: QUINCY SILVER OR John Report Released Date/Time: Apr 16, 2024 12:33 PM Reporting Lab: [address] [address] Performing Lab: [address] [address] [facility] CBC NEUTROPHIL S [#/VOLUME] IN BLOOD BY AUTOMATED COUNT 4.84 10*3/uL 2.10 - 8.00 07/16 Specimen Type: BLOOD No comment entered. Ordering Provider: QUINCY SILVER OR John Report Released Date/Time: Apr 16, 2024 12:33 PM Reporting Lab: [address] [address] Performing Lab: [address] [address] [facility] CBC EOSINOPHIL S [#/VOLUME] IN BLOOD BY AUTOMATED COUNT 0.10 10*3/uL 0.00 - 0.60 07/16 Specimen Type: BLOOD No comment entered. Ordering Provider: QUINCY SILVER Report Released Date/Time: Apr 16, 2024 12:33 PM Reporting Lab: [address] [address] Performing Lab: [address] [address] [facility] CBC BASOPHILS [#/VOLUME] IN BLOOD BY AUTOMATED COUNT 0.11 10*3/uL 0.00 - 0.20 07/16 Specimen Type: BLOOD No comment entered. Ordering Provider: QUINCY SILVER Report Released Date/Time: Apr 16, 2024 12:33 PM Reporting Lab: [address] [address] Performing Lab: [address] [address] [facility] COMPREHE NSIVE METABOLI C PANEL CREATININE [MASS/VOLU ME] IN SERUM OR PLASMA 0.88 mg/dL 0.7 - 1.3 07/16 Specimen Type: PLASMA Comment: No hemolysis noted. Ordering Provider: QUINCY SILVER Report Released Date/Time: Apr 16, 2024 12:33 PM Reporting Lab: [address] [address] Performing Lab: [address] [address] [facility] COMPREHE NSIVE METABOLI C PANEL UREA NITROGEN [MASS/VOLU ME] IN SERUM OR PLASMA 14.6 mg/dL 9.0 - 25.0 07/16 Specimen Type: PLASMA Comment: No hemolysis noted. Ordering Provider: QUINCY SILVER Report Released Date/Time: Apr 16, 2024 12:33 PM Reporting Lab: [facility] [address] [facility] [address] Performing Lab: [facility] [address] [place] [address] [facility] COMPREHE NSIVE METABOLI C PANEL GLUCOSE [MASS/VOLU ME] IN SERUM OR PLASMA 154 mg/dL 72 - 99 07/16 H Specimen Type: PLASMA Comment: No hemolysis noted. Ordering Provider: QUINCY SILVER OR John Report Released Date/Time: Apr 16, 2024 12:33 PM Reporting Lab: [address] [address] Performing Lab: [place] [address] [facility] [address] [facility] COMPREHE NSIVE METABOLI C PANEL SODIUM [MOLES/VOL UME] IN SERUM OR PLASMA 138 meq/L 136 - 145 07/16 Specimen Type: PLASMA Comment: No hemolysis noted. Ordering Provider: QUINCY SILVER OR John Report Released Date/Time: Apr 16, 2024 12:33 PM Reporting Lab: [address] [address] Performing Lab: [place] [address] [facility] [address] [facility] COMPREHE NSIVE METABOLI C PANEL POTASSIUM [MOLES/VOL UME] IN SERUM OR PLASMA 4.0 meq/L 3.5 - 5 07/16 Specimen Type: PLASMA Comment: No hemolysis noted. Ordering Provider: QUINCY SILVER OR John Report Released Date/Time: Apr 16, 2024 12:33 PM Reporting Lab: [facility] [address] [place] [phone] Performing Lab: [facility] [address] [place] [address] [facility] COMPREHE NSIVE METABOLI C PANEL CHLORIDE [MOLES/VOL UME] IN SERUM OR PLASMA 100 meq/L 98 - 107 07/16 Specimen Type: PLASMA Comment: No hemolysis noted. Ordering Provider: QUINCY SILVER Report Released Date/Time: Apr 16, 2024 12:33 PM Reporting Lab: [facility] [address] [facility] [address] Performing Lab: [facility] [address] [facility] [address] [facility] COMPREHE NSIVE METABOLI C PANEL CARBON DIOXIDE, TOTAL [MOLES/VOL UME] IN SERUM OR PLASMA 28 meq/L 22 - 31 07/16 Specimen Type: PLASMA Comment: No hemolysis noted. Ordering Provider: QUINCY SILVER Report Released Date/Time: Apr 16, 2024 12:33 PM Reporting Lab: [facility] [address] [facility] [address] Performing Lab: [facility] [address] [facility] [address] [facility] COMPREHE NSIVE METABOLI C PANEL CALCIUM [MASS/VOLU ME] IN SERUM OR PLASMA 9.6 mg/dL 8.4 - 10.4 07/16 Specimen Type: PLASMA Comment: No hemolysis noted. Ordering Provider: QUINCY SILVER Report Released Date/Time: Apr 16, 2024 12:33 PM Reporting Lab: [facility] [address] [facility] [address] Performing Lab: [facility] [address] [facility] [address] [facility] COMPREHE NSIVE METABOLI C PANEL PROTEIN [MASS/VOLU ME] IN SERUM OR PLASMA 7.9 g/dL 6 - 8.6 07/16 Specimen Type: PLASMA Comment: No hemolysis noted. Ordering Provider: QUINCY SILVER Report Released Date/Time: Apr 16, 2024 12:33 PM Reporting Lab: [facility] [address] [facility] [address] Performing Lab: [facility] [address] [facility] [address] [facility] COMPREHE NSIVE METABOLI C PANEL ALBUMIN [MASS/VOLU ME] IN SERUM OR PLASMA 4.4 g/dL 3.4 - 5 07/16 Specimen Type: PLASMA Comment: No hemolysis noted. Ordering Provider: QUINCY SILVER OR John Report Released Date/Time: Apr 16, 2024 12:33 PM Reporting Lab: [place] [address] [address] [facility] [address] Performing Lab: [place] [address] [facility] [address] [facility] COMPREHE NSIVE METABOLI C PANEL BILIRUBIN. TOTAL [MASS/VOLU ME] IN SERUM OR PLASMA 0.6 mg/dL 0.2 - 1.2 07/16 Specimen Type: PLASMA Comment: No hemolysis noted. Ordering Provider: QUINCY SILVER OR John Report Released Date/Time: Apr 16, 2024 12:33 PM Reporting Lab: [place] [address] [address] [facility] [address] Performing Lab: [place] [address] [facility] [address] [facility] COMPREHE NSIVE METABOLI C PANEL ALKALINE PHOSPHATAS E [ENZYMATIC ACTIVITY/V OLUME] IN SERUM OR PLASMA 83 U/L 40 - 150 07/16 Specimen Type: PLASMA Comment: No hemolysis noted. Ordering Provider: QUINCY SILVER OR John Report Released Date/Time: Apr 16, 2024 12:33 PM Reporting Lab: [place] [address] [facility] [address] Performing Lab: [place] [address] [facility] [address] [facility] COMPREHE NSIVE METABOLI C PANEL ASPARTATE AMINOTRANS FERASE [ENZYMATIC ACTIVITY/V OLUME] IN SERUM OR PLASMA 30 U/L 5 - 34 07/16 Specimen Type: PLASMA Comment: No hemolysis noted. Ordering Provider: QUINCY SILVER OR John Report Released Date/Time: Apr 16, 2024 12:33 PM Reporting Lab: [facility] [address] [facility] [address] Performing Lab: [facility] [address] [facility] [address] [facility] COMPREHE NSIVE METABOLI C PANEL ALANINE AMINOTRANS FERASE [ENZYMATIC ACTIVITY/V OLUME] IN SERUM OR PLASMA 31 U/L 8 - 40 07/16 Specimen Type: PLASMA Comment: No hemolysis noted. Ordering Provider: QUINCY SILVER OR John Report Released Date/Time: Apr 16, 2024 12:33 PM Reporting Lab: [place] [address] [facility] [address] Performing Lab: [place] [address] [facility] [address] [facility] COMPREHE NSIVE METABOLI C PANEL GLOMERULAR FILTRATION RATE/1.73 SQ M.PREDICTE D [VOLUME RATE/AREA] IN SERUM, PLASMA OR BLOOD BY CREATININE -BASED FORMULA (CKD-EPI 2020) 98.4 60 07/16 Specimen Type: PLASMA Comment: No hemolysis noted. Ordering Provider: QUINCY SILVER OR John Report Released Date/Time: Apr 16, 2024 12:33 PM Reporting Lab: [facility] [address] [facility] [address] Performing Lab: [place] [address] [facility] [address] [facility] Vital Signs Combined list of inpatient and outpatient Vital Signs from Department of Defense and Veterans Affairs, ranging from 12 months to all on record, depending upon the facility. Vital Sign Value Date Comments Source SYSTOLIC BLOOD PRESSURE 189 09/20/2024 07:52:00 [facility] DIASTOLIC BLOOD PRESSURE 97 09/20/2024 07:52:00 [facility] PAIN 8 09/20/2024 07:52:00 [facility] TEMPERATURE 98.7 09/20/2024 07:52:00 [facility] PULSE 65 09/20/2024 07:52:00 [facility] RESPIRATION 18 09/20/2024 07:52:00 [facility] SYSTOLIC BLOOD PRESSURE 164 09/17/2024 10:07:09 [facility] DIASTOLIC BLOOD PRESSURE 95 09/17/2024 10:07:09 [facility] PULSE OXIMETRY 97 09/17/2024 10:07:09 [facility] WEIGHT 283.2 09/17/2024 10:07:09 [facility] BMI 37 kg/m2 09/17/2024 10:07:09 [facility] TEMPERATURE 96.4 09/17/2024 10:07:09 [facility] PULSE 65 09/17/2024 10:07:09 [facility] RESPIRATION 20 09/17/2024 10:07:09 [facility] SYSTOLIC BLOOD PRESSURE 152 09/15/2024 12:53:14 [facility] DIASTOLIC BLOOD PRESSURE 90 09/15/2024 12:53:14 [facility] PULSE OXIMETRY 98 09/15/2024 12:53:14 [facility] PAIN 0 09/15/2024 12:53:14 [facility] TEMPERATURE 97 09/15/2024 12:53:14 [facility] PULSE 72 09/15/2024 12:53:14 [facility] RESPIRATION 20 09/15/2024 12:53:14 [facility] SYSTOLIC BLOOD PRESSURE 135 07/16/2024 11:59:53 [facility] DIASTOLIC BLOOD PRESSURE 83 07/16/2024 11:59:53 [facility] PULSE OXIMETRY 99 07/16/2024 11:59:53 [facility] WEIGHT 287.9 07/16/2024 11:59:53 [facility] BMI 38 kg/m2 07/16/2024 11:59:53 [facility] TEMPERATURE 97.6 07/16/2024 11:59:53 [facility] PULSE 78 07/16/2024 11:59:53 [facility] RESPIRATION 20 07/16/2024 11:59:53 [facility] SYSTOLIC BLOOD PRESSURE 135 06/10/2024 13:12:23 [facility] DIASTOLIC BLOOD PRESSURE 81 06/10/2024 13:12:23 [facility] PULSE OXIMETRY 96 06/10/2024 13:12:23 [facility] WEIGHT 285 06/10/2024 13:12:23 [facility] BMI 38 kg/m2 06/10/2024 13:12:23 [facility] PAIN 6 06/10/2024 13:12:23 [facility] HEIGHT 73 06/10/2024 13:12:23 [facility] TEMPERATURE 97.9 06/10/2024 13:12:23 . [facility] PULSE 60 06/10/2024 13:12:23 [facility] RESPIRATION 20 06/10/2024 13:12:23 . [facility] Encounters Combined list of: 1) Encounters from Department of Veterans Affairs facilities going backup to the last 18 months, not all VA inpatient encounters are included; 2) Encounters from the Department of [facility] facilities going backup to 280 months. Location Location Details Encounter Type Encounter Number Reason For Visit Attending Provider ADM Date DC Date Status Disposition Source [facility] Outpatient Encounter [id number] RUFUS GARCES 04/25 [facility] OFFICE O/P EST MOD 30 MIN [id number] Diagnos is: ICD-10- CM D45 Polycyt hemia vera ISSA,MET NEPTALI 06/05 [facility] OFFICE O/P EST MOD 30 MIN [id number] Diagnos is: ICD-10- CM D45 Polycyt hemia vera ROBBY LOU 07/04 [facility] Outpatient Encounter [id number] NICK BAILEY 07/04 [facility] Outpatient Encounter [id number] 07/20 [facility] OFF/OP CNSLTJ NEW/EST MOD 40 [id number] Diagnos is: ICD-10- CM L72.9 Follicu lar cyst of the skin and subcuta neous tissue, unsp BROWN,TAYL OR C 07/20 [facility] Outpatient Encounter [id number] Diagnos is: ICD-10- CM H35.30 Unspeci fied macular degener dustinion SAMINA PETTY 07/20 [facility] Outpatient Encounter [id number] 07/23 [facility] Outpatient Encounter [id number] 07/25 [facility] Outpatient Encounter [id number] 07/31 [facility] Outpatient Encounter [id number] 08/08 [facility] Outpatient Encounter [id number] RUFUS GARCES 08/08 [facility] Outpatient Encounter [id number] 09/04 [facility] SELF-MGMT EDUC & TRAIN 1 [place] [id number] Diagnos is: ICD-10- CM R52 Pain, unspeci ZHANNA Cai M 09/05 [facility] OFFICE O/P EST LOW 20 MIN [id number] Diagnos is: ICD-10- CM Z01.818 Encount er for other preproc edural examina yessy CLAIRE,JACOB IN A 09/05 [facility] Outpatient Encounter [id number] 09/05 [facility] Outpatient Encounter [id number] QUINCY GILES 09/05 [facility] EXC TR-EXT B9+TIFFANIE 0.5 CM< [id number] URIEL SULLIVAN 09/05 [facility] Outpatient Encounter [id number] CHRISTA VALENCIA 09/05 [facility] Outpatient Encounter [id number] DANIELA FERRARI 09/05 [facility] Outpatient Encounter [id number] Christina BHATTI EKCOE 09/05 [facility] Outpatient Encounter [id number] AILYN DIGGS 09/06 [facility] Outpatient Encounter [id number] 09/09 [facility] Outpatient Encounter [id number] 09/10 [facility] OFFICE O/P EST MOD 30 MIN [id number] Diagnos is: ICD-10- CM D23.5 Other benign neoplas m of skin of trunk QUINCY GILES OR C 09/20 [facility] OFFICE O/P EST LOW 20 MIN [id number] Diagnos is: ICD-10- CM L72.3 Sebaceo us cyst QUINCY GILES OR C 09/27 [facility] OFFICE O/P EST MOD 30 MIN [id number] Diagnos is: ICD-10- CM D45 Polycyt hemia vera ROBBY LOU M 10/02 [facility] Outpatient Encounter [id number] 10/30 [facility] Outpatient Encounter [id number] TRAM CLARK ISTINE M 10/31 [facility] HC PRO PHONE CALL 21-30 MIN [id number] Diagnos is: ICD-10- CM I10 Essenti al (primar y) hyperte carmine CLARK,CHR SOFIA M 12/05 [facility] Outpatient Encounter [id number] PARSOSN,MET NEPTALI 12/24 [facility] OFF/OP EST MAY X REQ PHY/QHP [id number] Diagnos is: ICD-10- CM D45 Polycyt hemia vera JT ZAVALA 12/24 [facility] O[facility] EX[facility] NEW PATIENT [id number] Diagnos is: ICD-10- CM H52.4 Presbyo HECTOR Potter 12/26 [facility] OFF/OP EST MAY X REQ PHY/QHP [id number] PARSONS,MET NEPTALI 12/26 [facility] HC PRO PHONE CALL 21-30 MIN [id number] Diagnos is: ICD-10- CM I10 Essenti al (primar y) hyperte carmine CLARK,CHR SOFIA M 01/09 [facility] Outpatient Encounter [id number] 01/10 [facility] Outpatient Encounter [id number] 01/13 [facility] PHLEBOTOMY [id number] Diagnos is: ICD-10- CM E83.119 Hemochr omatosi s, unspeci fiKAYLEE VoraKALINA Jessica 01/15 [facility] OFFICE O/P EST MOD 30 MIN [id number] Diagnos is: ICD-10- CM D45 Polycyt hemia vera PRETTONATHALIE M 01/15 [facility] SELF-MGMT EDUC & TRAIN 1 PT [id number] Diagnos is: ICD-10- CM D45 Polycyt hemia verKAYLEE Haines NICA Jessica 01/15 [facility] Outpatient Encounter [id number] 01/21 [facility] HC PRO PHONE CALL 21-30 MIN [id number] Diagnos is: ICD-10- CM I10 Essenti al (primar y) hyperte nsion TRAM CLARK M 02/04 [facility] Outpatient Encounter [id number] 02/12 [facility] Outpatient Encounter [id number] MARK WATT M 02/13 [facility] Outpatient Encounter [id number] 02/13 [facility] HC PRO PHONE CALL 21-30 MIN [id number] Diagnos is: ICD-10- CM I10 Essenti al (primar y) hyperte nsFANNY Jean 02/18 [facility] Outpatient Encounter [id number] 02/24 [facility] HC PRO PHONE CALL 21-30 MIN [id number] Diagnos is: ICD-10- CM I10 Essenti al (primar y) hyperte carmine [facility]04 [facility] PSYTX W PT 30 MINUTES [id number] Diagnos is: ICD-10- CM F41.9 Anxiety disorde r, unspeci fied Ciaran RANGEL 03/07 [facility] Outpatient Encounter [id number] [id number] Ciaran RANGEL 03/07 [facility] HC PRO PHONE CALL 21-30 MIN 04772-5.65 [id number] Diagnos is: ICD-10- CM I10 Essenti al (primar y) hyperte carmine [facility] SOFIA M 03/18 [facility] OFFICE O/P EST LOW 20 MIN [id number] Diagnos is: ICD-10- CM 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 OFF[facility] O/P EST MOD 30 MIN [id number] Diagnos is: ICD-10- CM D45 Polycyt hemia vera PRETTO,NATHALIE NEDRA M 04/16 [facility] PHLEBOTOMY [id number] Diagnos is: ICD-10- CM D45 Polycyt hemia vera LEYDI PATEL DA F 04/16 [facility] PSYTX W PT 30 MINUTES 53910-2.65 [id number] Diagnos is: ICD-10- CM F41.9 Anxiety disorde r, unspeci fied JUAN CARLOS,Ciaran ERA J 04/22 [facility] HC PRO PHONE CALL 21-30 MIN [id number] [id number] Diagnos is: ICD-10- CM I10 Koko al (primar y) hyperte nsion MAYDEN,CHR ISTINE M 05/19 [facility] Outpatient Encounter [id number] 05/22 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 OFFICE O/P EST MOD 30 MIN [id number] Diagnos is: ICD-10- CM D45 Polycyt hemia vera NATHALIE SILVER M 07/16 [facility] PHLEBOTOMY [id number] Diagnos is: ICD-10- CM D45 Polycyt hemia vera LEYDI PATEL F 07/16 [facility] Encounter [id number] 07/19 [facility] Outpatient Encounter [id number] 07/22 [facility] PSYTX W PT 30 MINUTES [id number] Diagnos is: ICD-10- CM F41.9 Anxiety disorde r, unspeci fied Ciaran RANGEL J 07/29 [facility] Outpatient Encounter [id number] Ciaran RANGEL 07/29 [facility] SYNCH AUDIO-ONLY NEW HIGH 60 [id number] Diagnos is: ICD-10- CM J31.2 Chronic pharyng itis FANNY MOYA 07/30 [facility] Outpatient Encounter [id number] 07/31 [facility] En[facility] [id number] 08/14 [facility] N [facility] Outpatient Encounter [id number] 08/15 [facility] OFF/OP CNSLTJ NEW/EST MOD 40 [id number] Diagnos is: ICD-10- CM R49.8 Other voice and resonan ce SHAHBAZ Porter 08/21 [facility] Outpatient Encounter [id number] 08/29 [facility] [place] [id number] Diagnos is: ICD-10- CM R49.9 Unspeci fied voice and resonan ce ABELARDO Parker N 09/15 [facility] OFF[facility] O/P NEW MOD 45 MIN [id number] Diagnos is: ICD-10- CM R49.0 Dysphon ALEXANDER Bryan UL A 09/15 [facility] OFFICE O/P EST MOD 30 MIN [id number] Diagnos is: ICD-10- CM D45 Polycyt hemia vera PRETTONATHALIE NEDRA M 09/17 [facility] PHLEBOTOMY [id number] Diagnos is: ICD-10- CM D45 Polycyt hemia vera LEYDI PATEL DA F 09/17 [facility] Outpatient Encounter [id number] GERARDO CASTRO ED 09[facility] Outpatient Encounter [id number] NASIMA ALARCON E 09/20 [facility] EM[place]ENCY [place] MDM [id number] [id number] Diagnos is: ICD-10- CM R10.9 Unspeci fied abdomin al pain [facility] ED 09/20 [facility] N [facility] Outpatient Encounter [id number] [facility] ED 09/20 [facility] Outpatient Encounter [id number] 09/23 [facility] N [facility] Outpatient Encounter [id number] NASIMA ALARCON E 09/23 [facility] Procedures Combined list of: 1) Procedures from Department of Veterans Affairs facilities going back up to thelast 18 months, not all [place] non-surgical procedures are included; 2) All procedures from the Department of Defense facilities. Procedure Procedure Type Code Date Perfomer Comments Sourc e excision of back cyst EXC TR-EXT B9+TIFFANIE 0.5 CM< 87589 09/06/2023 [facility] Social History Combined list of available smoking, tobacco, and other social history from Department of Defense and Veterans Affairs facilities. Social History Type Response Date Comment Sourc e Tobacco smoking status NHIS [facility] NEVER USED 06/05/2023 [facility] History of tobacco use [place]ACCO NEVER USED 05/17/2022 [facility] History of tobacco use [place]-TO[place]AC[place] NEVER USED 06/03/2021 [facility] History of tobacco use [facility] ADMIT TOBACC O SCREEN NO 03/06/2021 [facility] of [facility]2020 [facility] Plan of Care List of future care activities from Department of [facility] Affairs facilities. Additional future care activities may be listed in the Assessment and Plan section. Date/Time Care Activity Care Activity Detail Facili ty 09/27/2024 AMBULATORY - MEDICINE AMBULATORY - MEDICI NE [facility]
--- OUTSIDE RECORDS SUMMARY | 2024-09-25 14:22 | XMS_ITS | Encounter Summary ---
Author Name Department of [facility] ([place]) Organization [facility] ([place]) Address [address] [place] [address] Care Team Providers Care Excel Analyst Name Role Phone VICENTE RAJAN Primary Care [...] Patient's Relationship to Policy Montano [employer] [phone] PRESCRIPT ION FURNITURE MANAGER S May 28, 2020 [facility] [id number] [phone] Daphnie BOOGIE PATIENT [facility] PREFERRED PROVIDER ORGANIZAT ION (PPO) FURNITURE MANAGER S May 28, 2020 [id number] [phone] Daphnie BOOGIE PATIENT Selected Encounter This section includes the information on record at [place] for the Encounter. Date/Time Encounter Type Encounter Description Reason Provider Source Sep 20, 2024 07:44 AM EMERGENCY DEPT VISIT [facility] EMERGENCY DEPT ICD-10-CM R10.9 Unspecified abdominal pain GENDI,WAHIED IHE Encounter Template Text not used by [place] Assessments - Encounter Diagnoses This section includes the primary and secondary diagnoses documented for the Encounter. Date/Time Primary/Secondary Diagnosis Diagnosis Name Provider Source Sep 20, 2024 11:32 AM PRIMARY Unspecified abdominal pain [facility] Sep 20, 2024 11:32 AM SECONDARY Other cholelithiasis without obstruction [facility] Sep 20, 2024 11:32 AM SECONDARY Unilateral inguinal hernia, w/o obst or gangrene, recurrent [facility] Plan of Treatment: Future Appointments (+ 6 months) and Future Tests (+/- 45 days) The Plan of Treatment section includes future care activities for the patient [facility] [place] [facility] This section includes future appointments and future orders which are active, pending or scheduled. Future Appointments This section includes appointments that were scheduled to occur 6 months from the date of the Encounter, up to a maximum of 20 appointments. The data comes from all [facility]. Appointment Date/Time Appointment Type Appointme nt Facility Name September 27, 2024 02:30 PM AMBULATORY - MEDICINE [facility] September 29, 2024 03:00 PM AMBULATORY - MEDICINE [facility] September 30, 2024 11:00 AM AMBULATORY - MEDICINE [facility] Oct 27, 2024 08:15 AM AMBULATORY - REHAB MEDICIN E [facility] Oct 27, 2024 08:30 AM AMBULATORY - SURGERY [facility] Oct 29, 2024 08:30 AM AMBULATORY - SURGERY [facility] Oct 29, 2024 10:45 AM AMBULATORY - MEDICINE [facility] Oct 29, 2024 11:00 AM AMBULATORY - MEDICINE [facility] Dec 10, 2024 02:00 PM AMBULATORY - NONE [facility] Active, Pending, and Scheduled Orders This section includes a listing of several types of active, pending, and scheduled orders, including clinic medications orders, diagnostic test orders, procedure orders and consult orders; where the start date of the order is 45 days before the date of the Encounter or 45 days after the date of theEncounter. The data comes from all [facility]. Test Date/Time Test Type Test Details Facility Name Sep 23, 2024 02:42 PM Consult Order GI GENERAL OUTPATIENT STL Cons Supervisor [employer] [facility] September 27, 2024 02:30 PM Imaging - Ultrasou nd Order US ABDOMEN LIMITED W/BLOOD FLOW DOPPLER [facility] Oct 29, 2024 12:00 AM Laboratory - Chemistry Order CBC BLOOD STAT SP [facility] Oct 29, 2024 12:00 AM Laboratory - Chemistry Order COMPREHENSIVE METABOLIC PANEL GREEN LI/HEP BLD/PLAS PLASMA STAT SP [facility] Lab Results: +/- 30 days of the encounter This section includes the Chemistry and Hematology Lab Results on record with [place] for the patient. Radiology Reports and Pathology Reports are provided separately, in subsequent sections. Lab Results This section contains the Chemistry/Hematology Results that were resulted 30 days before or 30 daysafter the date of the Encounter. Date/Time Source Result Type Result - Unit Interpretation Reference Range Specimen Type Comment Sep 20, 2024 10:06 AM [facility] URINALYSIS (STL-PB) URINE Specimen Type: URINE No comment entered. Ordering Provider: GABBY WOOTEN Report Released Date/Time: Sep 20, 2024 08:15 AM Reporting Lab: [place] [address] [facility] [address] Performing Lab: [address] [address] URINE COLOR Colorless Yellow U.BILIRUBIN Negative mg/dL Negative U.PH 7.0 5.0-8.0 APPEARANCE Clear Clear U.NITRITE Negative mg/dL Negative URN.GLUCOSE Normal mg/dL Negative URN.PROTEIN Negative mg/dL URN.UROBILINOGEN Normal mg/dL Normal URN.BLOOD Negative mg/dL Negative-Trace URN.KETONES Negative mg/dL Negative-Trac e URN.LEUK.EST. Negative mg/dL Negative-Tr emery URN.SPECIFIC GRAVITY 1.033 H Sep 20, 2024 08:11 AM [facility] LIPASE PLASMA Specimen Type: PLASM A Comment: Aspartate Transaminase result may show positive bias due to hemolysis. K result canceled due to hemolysis. Specimen moderately hemolyzed. Notified Huong Cason RN @0914 ksh 4.26.25 Ordering Provider: GABBY WOOTEN Report Released Date/Time: Sep 20, 2024 08:10 AM Reporting Lab: [facility] [address] [place] [phone] Performing Lab: [address] [address] LIPASE 20 U/L 8-78 Sep 20, 2024 08:11 AM [facility] COMPREHENSIVE METABOLIC PANEL PLASMA Specimen Type: PLASMA Comment: Aspartate Transaminase result may show positive bias due to hemolysis. K result canceled due to hemolysis. Specimen moderately hemolyzed. Notified Huong Cason RN @0914 ksh 09.20.24 Ordering Provider: GABBY WOOTEN Report Released Date/Time: Sep 20, 2024 08:10 AM Reporting Lab: [address] [address] Performing Lab: [address] [address] CREATININE 0.76 mg/dL 0.7-1.3 UREA NITROGEN 12.3 mg/dL 9.0-25.0 GLUCOSE 137 mg/dL H 72-99 SODIUM 135 meq/L L 136-145 POTASSIUM canc meq/L 3.5-5 CHLORIDE 104 meq/L 98-107 CARBON DIOXIDE 20 meq/L L 22-31 CALCIUM 9.0 mg/dL 8.4-10.4 PROTEIN 7.8 g/dL 6-8.6 ALBUMIN 4.1 g/dL 3.4-5 TOTAL BILIRUBIN 1.1 mg/dL 0.2-1.2 ALKALINE PHOSPHATASE 93 U/L 40-150 AST/SGOT 58 U/L H 5-34 ALT/SGPT 31 U/L 8-40 EGFR (CKD-EPI 2020) 102.9 >60 Sep 20, 2024 08:11 AM [facility] CBC BLOOD Specimen Type: BLOOD No comment entered. Ordering Provider: GABBY WOOTEN Report Released Date/Time: Sep 20, 2024 08:10 AM Reporting Lab: [address] [address] Performing Lab: [address] [address] WBC 10.8 10*3/uL 3.6-11.2 RBC 4.57 10*6/uL 4.10-5.70 HGB 16.0 g/dL 13.1-16.8 HCT 46.3 38.2-48.4 MCV 101.3 fL H 80.0-100.0 MCH 35.0 pg H 27.0-34.0 MCHC 34.6 g/dL 33.0-36.0 PLT 409 10*3/uL H 150-400 MPV 10.7 fL 7.5-11.2 RDW 13.7 11.8-15.1 LYMPHOCYTES, AUTO % 7 MONOCYTES, AUTO % 4 NEUTROPHILS, AUTO % 87 EOSINOPHILS, AUTO % 0 BASOPHILS, AUTO % 1 LYMPHOCYTES, ABSOLUTE 0.79 10*3/uL 0.77- 4.50 MONOCYTES, ABSOLUTE 0.44 10*3/uL 0.19-0. 80 NEUTROPHILS, ABSOLUTE 9.47 10*3/uL H 2.10- 8.00 EOSINOPHILS, ABSOLUTE 0.01 10*3/uL 0.00- 0.60 BASOPHILS, ABSOLUTE 0.08 10*3/uL 0.00-0. 20 Sep 17, 2024 09:59 AM [facility] COMPREHENSIVE METABOLIC PANEL PLASMA Specimen Type: PLASMA Comment: No hemolysis noted. Ordering Provider: GRICEL SILVER Report Released Date/Time: Jul 16, 2024 12:56 PM Reporting Lab: [facility] [address] [place] [phone] Performing Lab: [address] [address] CREATININE 0.82 mg/dL 0.7-1.3 UREA NITROGEN 13.0 mg/dL 9.0-25.0 GLUCOSE 98 mg/dL 72-99 SODIUM 137 meq/L 136-145 POTASSIUM 4.3 meq/L 3.5-5 CHLORIDE 105 meq/L 98-107 CARBON DIOXIDE 23 meq/L 22-31 CALCIUM 9.3 mg/dL 8.4-10.4 PROTEIN 7.6 g/dL 6-8.6 ALBUMIN 4.3 g/dL 3.4-5 TOTAL BILIRUBIN 0.6 mg/dL 0.2-1.2 ALKALINE PHOSPHATASE 90 U/L 40-150 AST/SGOT 37 U/L H 5-34 ALT/SGPT 33 U/L 8-40 EGFR (CKD-EPI 2020) 100.6 >60 Sep 17, 2024 09:59 AM [facility] CBC BLOOD Specimen Type: BLOOD No comment entered. Ordering Provider: GRICEL SILVER Report Released Date/Time: Jul 16, 2024 12:56 PM Reporting Lab: [facility] [address] [place] [phone] Performing Lab: [address] [address] WBC 7.7 10*3/uL 3.6-11.2 RBC 4.65 10*6/uL 4.10-5.70 HGB 16.4 g/dL 13.1-16.8 HCT 48.1 38.2-48.4 MCV 103.4 fL H 80.0-100.0 MCH 35.3 pg H 27.0-34.0 MCHC 34.1 g/dL 33.0-36.0 PLT 363 10*3/uL 150-400 MPV 9.8 fL 7.5-11.2 RDW 12.9 11.8-15.1 LYMPHOCYTES, AUTO % 22 MONOCYTES, AUTO % 9 NEUTROPHILS, AUTO % 65 EOSINOPHILS, AUTO % 2 BASOPHILS, AUTO % 1 LYMPHOCYTES, ABSOLUTE 1.71 10*3/uL 0.77- 4.50 MONOCYTES, ABSOLUTE 0.66 10*3/uL 0.19-0. 80 NEUTROPHILS, ABSOLUTE 5.00 10*3/uL 2.10- 8.00 EOSINOPHILS, ABSOLUTE 0.13 10*3/uL 0.00- 0.60 BASOPHILS, ABSOLUTE 0.11 10*3/uL 0.00-0. 20 Sep 17, 2024 09:59 AM [facility] FERRITIN SERUM Specimen Type: SERUM No comment entered. Ordering Provider: GRICEL SILVER Report Released Date/Time: Sep 17, 2024 10:40 AM Reporting Lab: [facility] [address] [facility] [address] Performing Lab: [address] [address] FERRITIN 39.00 ng/mL 22-275 Sep 17, 2024 09:59 AM [facility] IRON/TIBC PROFILE SERUM Specimen Type: SERUM No comment entered. Ordering Provider: GRICEL SILVER Report Released Date/Time: Sep 17, 2024 10:40 AM Reporting Lab: [facility] [address] [facility] [phone] Performing Lab: [facility] [address] [facility] [address] TIBC 414 ug/dL 250-450 TRANSFERRIN 331 mg/dL 163-344 IRON SATURATION 19 L 20-50 IRON 78 ug/dL 65-175 Vital Signs: All taken on the encounter date This section contains inpatient and outpatient Vital Signs collected on the date of the Encounter. Date/Time Temperature Pulse Blood Pressure Respiratory Rate SP02 Pain Height Weight Body Mass Index Source Sep 20, 2024 11:30 AM 80 172/84 0 [facility] N Sep 20, 2024 07:52 AM 98.7 65 189/97 18 8 [facility] Social History: Smoking Status (Most current) and Tobacco Use (All prior to encounter date) This section includes the most current, and the historical, smoking and tobacco- related health factors from the [place] facility where the Encounter took place. Current Smoking Status This section includes the most current smoking, or tobacco-related health factor, from the [place] facility where the Encounter took place. Date/Time Current Smoking Status Comment Jerod ity May 17, 2022 12:02 PM VA-TOBACCO NEVER USED [facility] Tobacco Use History This section includes a history of the smoking, or tobacco-related health factors, that were collected on or before the date of the Encounter. The data comes from the [place] facility where the Encounter took place. Date/Time Smoking Status/Tobacco Use Comment F acility Mar 06, 2021 04:50 AM [facility] ADMIT TOBACCO SCREEN NO [facility] Jun 03, 2020 09:50 AM VA-TOBACCO NEVER USED [facility] Radiology Reports: +/- 30 days of the encounter Radiology Reports For cases when an order for radiology services may have been completed prior to the date of the Encounter, the report list includes the Radiology Reports that were completed up to 30 days before dateof the Encounter. For cases when an order for radiology services may have been completed after the date of the Encounter, the report list also includes the Radiology Reports that were completed up to30 days after date of the Encounter. The data comes from all [place] treatment facilities. Date/Time Radiology Report Provider Source Sep 20, 2024 09:[address] ABD PEL W/CONT & 3D: TROY BOOGIE [id number] -[id number] M Exm Date: SEP 20, 2024@09:37 Req Phys: GABBY WOOTEN Loc: [facility]-EMERGENCY DEPT 2ND SHIFT (R Img Loc: [facility]-CT IMAGING [facility] Service: [facility], [address] [address] (Case [id number] COMPLETE) CT ABDOMEN AND PELVIS W/CONTRAST (CT Detailed) CPT:91711 Contrast Media : Non-ionic Iodinated Reason for Study: abd pain Clinical History: Responsible Attending: Dr Wooten Attending Contact Number: [phone] Resident Contact Number: abd pain Allergies listed in CPRS chart: Patient has answered NKA Creatinine:CREATININE 0.82 mg/dL 09/17/2024 09:59 /eGFR: STL EGFR (within one year). CREATININE 0.82 mg/dL (09/17/24 09:59) Wt: 283.2 lb [128.46 kg] (09/17/2024 10:07) History of: Renal failure, chronic or acute renal disease: NO Report Status: Verified Date Reported: SEP 20, 2024 Date Verified: SEP 20, 2024 [employer] Professor E-Sig: Report: CT ABDOMEN AND PELVIS W/CONTRAST [PRINTSET] Clinical History: abd pain Comparison: 03/07/2023 Technique: CT of the abdomen and pelvis was performed. The study was protocoled and supervised at the local [place] facility. 1258 images were subsequently received by the [place] National Teleradiology Program (NTP) for interpretation. Total DLP (mGy*cm): 881 FINDINGS: Lung bases: Visualized portions are clear. Liver: No masses. No intrahepatic biliary dilatation. Hepatic steatosis. Gallbladder: Cholelithiasis. Pancreas: No mass. No ductal dilatation. Spleen: No splenomegaly. No focal lesions. Adrenals: No mass or hyperplasia. Kidneys: Normal contour. No stones. No hydronephrosis. Previously described hemorrhagic cyst described on MRI 10/02/2022 appears decreased in size. Additional right renal hypodensities too small to definitively characterize.. Bowel: Small hiatal hernia. Colonic diverticulosis. Partial colectomy with rectosigmoid anastomosis. Normal appendix. Aorta: Mild aortoiliac atherosclerosis. Chronic occlusion of the LILI. No aneurysm. IVC: Unremarkable. Pelvic Organs: Mild prostatomegaly. Bony Structures: Mild degenerative changes of the spine. Lymph Nodes: No significant lymphadenopathy identified. Prior ventral hernia repair with mesh. Stable 2.8 x 1.9 cm x 3.1 soft tissue density of the left anterior aspect of the bladder which is favored to represent postoperative changes. Fat-containing right inguinal hernia. Impression: 1. No acute intra-abdominal abnormality. 2. Hepatic steatosis and cholelithiasis. 3. Chronic LILI occlusion. 4. Postsurgical changes as above. Stable 2.8 x 1.9 cm x 3.1 soft tissue density of the left anterior aspect of the bladder which is favored to represent postoperative changes. Fat-containing right inguinal hernia. READING PHYSICIAN: Latrell Hernandes M.D. -[phone] 09/20/2024 8:34 PDT [facility] National Teleradiology Program [phone] (For Medical Practitioner Use Only) Attention Patients / Veterans: If you have questions or concerns about these test results, please contact your ordering provider or primary care team. Primary Interpreting Staff: RADIOLOGY,OUTSIDE SERVICE, Staff Physician / RADIOLOGY,OUTSIDE SERVICE [facility] Encounter Notes: All associated encounter notes This section contains the clinical notes associated to the Encounter. Date/Time Encounter Note(s) Provider Source Sep 20, 2024 09:54 AM RADIOLOGY PREPROCE DURE NOTE: LOCAL TITLE: RADIOLOGY CONTRAST ADMINISTRATION STANDARD TITLE: RADIOLOGY PREPROCEDURE NOTE DATE OF NOTE: SEP 20, 2024@09:54 ENTRY DATE: SEP 20, 2024@09:54:28 AUTHOR: MCEKNZIE BANKS COSIGNER: URGENCY: STATUS: COMPLETED CT and General Radiology Contrast Questionnaire PATIENT NAME: TROY BOOGIE SSN: [id number] DATE: Aug EXAM: abd/pel Referring Physician: abel TO BE COMPLETED PRIOR TO CONTRAST ADMINISTRATION: 1. Has the patient been instructed about the procedure? Yes 2. Is there a history of food or drug allergies? No 3. Is there history of complication with IV contrast? No 4. Is EFGR less than 30? No eGFR: [facility] EGFR (within one year). CREATININE 0.76 mg/dL (09/20/24 08:11) CREATININE 0.76 mg/dL 09/20/2024 08:11 EGFR (CKD-EPI 2020) 102.9 09/20/2024 08:11 5. Is EFGR result for inpatient within 24 hrs? Yes 6. Is EFGR result for outpatient with history of renal insufficiency within 7 days or for outpatient with history of normal renal function within 30 days? Yes 7. Is the patient's Medical Reconciliation list correct?Yes 8. Is the patient on metformin? No 9. Has the patient violated NPO requirements? No 10. Does the patient have a history of multiple myeloma? No 11. Does the patient have sickle cell anemia? No 12. Is the patient a breast-feeding female? No 13. Is there a chance the patient could be ? No 14. Does the patient have only one kidney? No 15. The patient has had no iodinated contrast in the past 24 hours? No 16. The exception for Diagnostic Imaging Service policy was none and this was discussed and Approve by : abel for contrast administration. 17. If patient meets DIS policy criteria for high risk for contrast reaction or toxicity, Informed Consent has been obtained by: 18. The information was reviewed and meets Diagnostic Imaging Policy to administer contrast. Yes DIS Policy: 1,5,6,7,16,17,18 =Y or NA // 2,3,4,8,9,10,11,12,13,14,15 = N Name of Contrast: omnipaque 350 Lot#: [id number] Dosage: 100ml Injection Site: 22g rt hand /everardo/ MCKENZIE BANKS second cook and baker Signed: 09/20/2024 09:55 MCKENZIE BANKS [facility] Sep 20, 2024 08:16 AM PHYSICIAN EMERGENC Y DEPT NOTE: LOCAL TITLE: EMERGENCY DEPARTMENT STL STANDARD TITLE: PHYSICIAN EMERGENCY DEPT NOTE DATE OF NOTE: SEP 20, 2024@08:16 ENTRY DATE: SEP 20, 2024@08:16:35 AUTHOR: GABBY WOOTEN EXP COSIGNER: URGENCY: STATUS: COMPLETED 59 yo M with a history of diverticulitis (last 01/2021),S/P Laparoscopic sigmoidectomy with flexible sigmoidoscopy and primary epigastric hernia repair on 06/14/21 hyperlipidemia, alcohol substance use disorder, unilateral blindness presenting with generalized head/upper abdominal pain since yesterday associated with nausea and vomiting x 2 history of diverticulitis status post Laparoscopic sigmoidectomy with flexible sigmoidoscopy and primary epigastric hernia repair on 06/14/21 history of alcohol abuse patient had several drink 3 days ago no fever no chills no chest pain no shortness of breath no flank pain no urinary symptoms REVIEW OF SYSTEMS: See HPI for further details. All 10 systems reviewed and otherwise negative unless otherwise detailed herein. PAST MEDICAL HISTORY: 1) Past history of procedure 2) OA - Osteoarthritis ([facility] [id number]) 3) Senile macular degeneration 4) History of SARS-CoV-2 ([facility] [id number]) 5) Diverticular Disease of Colon ([facility] [id number]) 6) Obesity ([facility] [id number]) 7) Hyperlipidemia ([facility] [id number]) 8) Dupuytren's contracture 9) Tinnitus ([facility] [id number]) 10) Sebaceous cyst of skin 11) Hearing Loss ([facility] [id number]) 12) Vitamin D Deficiency ([facility] [id number]) 13) Erectile Dysfunction ([facility] [id number]) 14) History of colonic polyp 15) Epigastric hernia 16) Plantar heel pain 17) Impaired glucose tolerance 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 3) ATORVASTATIN CALCIUM 40MG TAB TAKE ONE-HALF TABLET BY MOUTH ACTIVE EVERY EVENING TO LOWER CHOLESTEROL 4) CHOLECALCIF 50MCG (D3-2,000UNIT) TAB TAKE ONE TABLET BY ACTIVE MOUTH ONCE A DAY FOR VITAMIN D DEFICIENCY. 5) DICLOFENAC NA 1% TOP GEL APPLY 2 GM TO AFFECTED AREA(S) FOUR ACTIVE TIMES A DAY NEEDED FOR PAIN/INFLAMMATION; NOT MORE THAN 16 GRAMS DAILY TO ANY LOWER EXTREMITY JOINT. NOT MORE THAN 8 GRAMS DAILY TO ANY UPPER EXTREMITY JOINT. MAX 32GM/DAY OVER ALL JOINTS. (MEASURE DOSE WITH RULER ATTACHED INSIDE BOX)FOR HEEL PAIN RELIEF 6) HYDROXYUREA 500MG CAP TAKE THREE CAPSULES BY MOUTH ONCE A ACTIVE DAY Indication: POLYCYTHEMIA VERA 7) LOSARTAN 100MG TAB TAKE ONE-HALF TABLET BY MOUTH ONCE A DAY ACTIVE Indication: FOR HIGH BLOOD PRESSURE 8) PANTOPRAZOLE NA 40MG EC TAB TAKE ONE TABLET BY MOUTH EVERY ACTIVE MORNING BEFORE A MEAL TAKE 30 MINUTES BEFORE MEAL(S) Indication: FOR GASTROESOPHAGEAL REFLUX DISEASE 9) SILDENAFIL CITRATE 100MG TAB TAKE ONE-HALF TABLET BY MOUTH ACTIVE ONE HOUR PRIOR TO SEXUAL ACTIVITY NEEDED - LIMIT 6 DOSES PER 30 DAYS Indication: FOR ERECTILE DYSFUNCTION Active Non-VA Medications Status = 1) Non-VA LATANOPROST 0.005% OPH SOLN 1 DROP LEFT EYE EVERY ACTIVE EVENING 2) Non-VA TIMOLOL MALEATE 0.5% OPH SOLN 1 DROP LEFT EYE EVERY ACTIVE MORNING 11 Total Medications 1) SODIUM CHLORIDE 0.9% INJ,SOLN IV 2) ONDANSETRON INJ,SOLN IVP ONE-TIME 4MG/2ML. I have reviewed the patient's medication list with the patient and/or his/her care-campus wellness coordinator. Any medication discrepancies have been resolved. Patient will be provided with an updated list of his/her medication(s). SURGICAL HISTORY: not pertinent FAMILY HISTORY: not pertinent SOCIAL HISTORY: Social History Main Topics: Smoking status: No data available for: Current Tobacco User Alcohol Use: not indorsed ____ Illicit Drug Use: not indorsed Sexual Activity: Other Topics of Concern: Child bearing age: N/A LMP: N/A possible: N/A ALLERGIES: Review of patient's allergies indicates: Patient has answered NKA PHYSICAL EXAM: VITAL SIGNS: 189/97 (09/20/2024 07:52)65 (09/20/2024 07:52)97% (09/17/2024 10:07)98.7 F [37.1 C] (09/20/2024 07:52)18 (09/20/2024 07:52)The OBJECT WEIGHT LAST 3 was NOT found...Contact IRM. MAThe OBJECT was NOT found...Contact IRM.PAIN ASSESSMENTThe OBJECT was NOT found...Contact IRM. Measurement DT PAIN 09/20/2024 07:52 8 General: cooperative, well appearing, no acute distress HEENT: atraumatic, symmetric, sclera anicteric, no pharyngeal erythema/exudate Neck: No JVD, no LAD CV: RRR, normal S1/S2, no murmurs Lungs: CTAB, no rales Abd: Generalized tender, mild distended, no rebound nml bowel sounds Skin: no rashes or lesions, warm, dry Neuro: A&O x3, follows commands, no focal deficits, CN II-XII grossly in tact Ext: 5/5 strength in all extremities, 2+ pulses, good sensation throughout LABS: LIPASE 20 U/L 8 - 78 WBC 10.8 10*3/uL 3.6 - 11.2 RBC 4.57 10*6/uL 4.10 - 5.70 HGB 16.0 g/dL 13.1 - 16.8 HCT 46.3 % 38.2 - 48.4 MCV 101.3 H fL 80.0 - 100.0 MCH 35.0 H pg 27.0 - 34.0 MCHC 34.6 g/dL 33.0 - 36.0 RDW 13.7 % 11.8 - 15.1 PLT 409 H 10*3/uL 150 - 400 MPV 10.7 fL 7.5 - 11.2 NEUTROPHILS, AUTO % 87 % LYMPHOCYTES, AUTO % 7 % MONOCYTES, AUTO % 4 % EOSINOPHILS, AUTO % 0 % BASOPHILS, AUTO % 1 % NEUTROPHILS, ABSOLUTE 9.47 H 10*3/uL 2.10 - 8.00 LYMPHOCYTES, ABSOLUTE 0.79 10*3/uL 0.77 - 4.50 MONOCYTES, ABSOLUTE 0.44 10*3/uL 0.19 - 0.80 EOSINOPHILS, ABSOLUTE 0.01 10*3/uL 0.00 - 0.60 BASOPHILS, ABSOLUTE 0.08 10*3/uL 0.00 - 0.20 LIPASE 20 U/L 8 - 78 SODIUM 135 L mEq/L 136 - 145 POTASSIUM canc mEq/L 3.5 - 5 CHLORIDE 104 mEq/L 98 - 107 UREA NITROGEN 12.3 mg/dL 9.0 - 25.0 CREATININE 0.76 mg/dL 0.7 - 1.3 CALCIUM 9.0 mg/dL 8.4 - 10.4 PROTEIN 7.8 g/dL 6 - 8.6 ALBUMIN 4.1 g/dL 3.4 - 5 ALKALINE PHOSPHATASE 93 U/L 40 - 150 ALT/SGPT 31 U/L 8 - 40 AST/SGOT 58 H U/L 5 - 34 TOTAL BILIRUBIN 1.1 mg/dL 0.2 - 1.2 CARBON DIOXIDE 20 L mEq/L 22 - 31 GLUCOSE 137 H mg/dL 72 - 99 EGFR (CKD-EPI 2020) 102.9 Ref: >=60 URINE COLOR Colorless Ref: Yellow APPEARANCE Clear Ref: Clear U.PH 7.0 5.0 - 8.0 U.BILIRUBIN Negative mg/dL Ref: Negative U.NITRITE Negative mg/dL Ref: Negative URN.GLUCOSE Normal mg/dL Ref: Negative URN.PROTEIN Negative mg/dL Negative - 20 URN.UROBILINOGEN Normal mg/dL Ref: Normal URN.BLOOD Negative mg/dL Ref: Negative-Trace URN.KETONES Negative mg/dL Ref: Negative-Trace URN.LEUK.EST. Negative mg/dL Ref: Negative-Trace URN.SPECIFIC GRAVITY 1.033 H 1.005 - 1.029 RADIOLOGY: ct Abd Pelvis Impression 1. No acute intra-abdominal abnormality. 2. Hepatic steatosis and cholelithiasis. 3. Chronic LILI occlusion. 4. Postsurgical changes as above. Stable 2.8 x 1.9 cm x 3.1 soft tissue density of the left anterior aspect of the bladder which is favored to represent postoperative changes. Fat-containing right inguinal hernia. ECG IMPRESSION: ED COURSE & MEDICAL DECISION MAKING: Nursing notes, medications, vital signs, allergies and pertinent labs & imaging studies reviewed (see chart for details) with lab results reviewed with patient and family/caregivers at bedside and radiology results reviewed with patient and any family/caregivers at bedside. Stable, alert, nontoxic, nonfocal with clinically apparent Clinical information obtained from an independent historian. History obtained from or confirmed by: Discussed with radiology regarding test interpretation imaging:patient and family I performed an independent interpretation of:see notes Patient's care impacted by: __x_Medical records Management of the patient was discussed with: ___Hospitalist __x_Consultant GI and surgery as outpatient ___Behavioral health provider I considered admission/ observation but decided upon discharge due to: hospitalization not required PROJECT GEOPHYSICIST SERVICE/TIME: GI surgery and urology as outpatient MEDICATIONS GIVEN IN ED: [ x ] YES IVF and zofran [ ] NO DIFFERENTIAL DIAGNOSES CONSIDERED: Abdominal pain acute cholecystitis hernia diverticulitis appendicitis kidney stone UTI DECISION to ADMIT / DISCHARGE TIME: 11.00 SMOKING CESSATION RECOMMENDATION: The patient was strongly advised to consider stopping smoking, advised of risks of smoking and benefits of stopping; and was recommended for referral/abatement options. DISPOSITION CONDITION:[ ] Improved [ x ] Unchanged [ ] Deteriorated CLINICAL IMPRESSION: 1 -abdominal pain/cholelithiasis. No signs of acute cholecystitis will discharge patient home with Zofran omeprazole no alcohol Follow-up with GI and surgery as outpatient for evaluation 2 -soft tissue density of the left anterior aspect of the bladder which is favored to represent postoperative changes. UA is negative follow-up with urologist 3 - Fat-containing right inguinal hernia follow-up with surgery as outpatient Will discharge patient home with Zofran omeprazole Tylenol Patient to follow-up with PCP GI and urology for lump in the urinary bladder surgery for inguinal hernia as outpatient DISCHARGE INSTRUCTIONS AND PATIENT-DIRECTED FOLLOW-UP RECOMMENDATIONS: DIET: No change ACTIVITY: As tolerated NEW MEDS: Zofran omeprazole Tylenol MEDICATION RECONCILIATION: CONTINUE ALL PRESCRIBED MEDICATIONS DIRECTED EXCEPT: FOLLOW-UP WITH PRIMARY RUBBER PROCESS HAND/SPECIALIST: routine in 1-2 weeks if not improving, sooner if worse RETURN TO EMERGENCY: if any worries or concerns ADDITIONAL SIGNATURE PCP: [ x] YES [ ] NO [ ] not listed Active Outpatient Medications (including Supplies): Active Outpatient Medications Status = 1) AMLODIPINE BESYLATE 5MG TAB TAKE ONE TABLET BY MOUTH ONCE A ACTIVE DAY Indication: FOR HIGH BLOOD PRESSURE 2) ASPIRIN 81MG EC TAB TAKE ONE TABLET BY MOUTH ONCE A DAY TAKE ACTIVE (S) WITH FOOD. 3) ATORVASTATIN CALCIUM 40MG TAB TAKE ONE-HALF TABLET BY MOUTH ACTIVE EVERY EVENING TO LOWER CHOLESTEROL 4) CHOLECALCIF 50MCG (D3-2,000UNIT) TAB TAKE ONE TABLET BY ACTIVE MOUTH ONCE A DAY FOR VITAMIN D DEFICIENCY. 5) DICLOFENAC NA 1% TOP GEL APPLY 2 GM TO AFFECTED AREA(S) FOUR ACTIVE TIMES A DAY NEEDED FOR PAIN/INFLAMMATION; NOT MORE THAN 16 GRAMS DAILY TO ANY LOWER EXTREMITY JOINT. NOT MORE THAN 8 GRAMS DAILY TO ANY UPPER EXTREMITY JOINT. MAX 32GM/DAY OVER ALL JOINTS. (MEASURE DOSE WITH RULER ATTACHED INSIDE BOX)FOR HEEL PAIN RELIEF 6) HYDROXYUREA 500MG CAP TAKE THREE CAPSULES BY MOUTH ONCE A ACTIVE DAY Indication: POLYCYTHEMIA VERA 7) LOSARTAN 100MG TAB TAKE ONE-HALF TABLET BY MOUTH ONCE A DAY ACTIVE Indication: FOR HIGH BLOOD PRESSURE 8) PANTOPRAZOLE NA 40MG EC TAB TAKE ONE TABLET BY MOUTH EVERY ACTIVE MORNING BEFORE A MEAL TAKE 30 MINUTES BEFORE MEAL(S) Indication: FOR GASTROESOPHAGEAL REFLUX DISEASE 9) SILDENAFIL CITRATE 100MG TAB TAKE ONE-HALF TABLET BY MOUTH ACTIVE ONE HOUR PRIOR TO SEXUAL ACTIVITY NEEDED - LIMIT 6 DOSES PER 30 DAYS Indication: FOR ERECTILE DYSFUNCTION Active Non-VA Medications Status = 1) Non-VA LATANOPROST 0.005% OPH SOLN 1 DROP LEFT EYE EVERY ACTIVE EVENING 2) Non-VA TIMOLOL MALEATE 0.5% OPH SOLN 1 DROP LEFT EYE EVERY ACTIVE MORNING 11 Total Medications /es/ GABBY WOOTEN MD Staff Physician, Emergency Department Signed: 09/20/2024 11:15 GABBY WOOTEN [facility]
--- OUTSIDE RECORDS SUMMARY | 2024-09-25 14:23 | XMS_ITS | Encounter Summary ---
Author Name [facility] [place] Organization [facility] ([place]) Address [address] [place] [id number] Care Team Providers Care Undergraduate Advisor Name Role Phone VICENTE RAJAN Primary Care [...] Patient's Relationship to Policy Montano [employer] [phone] PRESCRIPT ION NURSE ASSISTANT S May 28, 2020 [facility] [id number] [phone] Daphnie BOOGIE PATIENT [facility] PREFERRED PROVIDER ORGANIZAT ION (PPO) NURSE ASSISTANT S May 28, 2020 [id number] [phone] Daphnie BOOGIE PATIENT Selected Encounter This section includes the information on record at [place] for the Encounter. Date/Time Encounter Type Encounter Description Reason Provider Source Jan 16, 2024 01:51 PM PHLEBOTOMY CHEMOTHERAPY PROC. UNIT-MED. ICD-10-CM E83.119 Hemochromatosis, unspecified ALDA ARCE uJng Encounter Template Text not used by [place] Assessments - Encounter Diagnoses This section includes the primary and secondary diagnoses documented for the Encounter. Date/Time Primary/Secondary Diagnosis Diagnosis Name Provider Source Jan 16, 2024 01:56 PM PRIMARY Hemochromatosis, unspecified KEYLA ARCE J [facility] Plan of Treatment: Future Appointments (+ 6 months) and Future Tests (+/- 45 days) The Plan of Treatment section includes future care activities [facility] the [facility] [place] [facility] This section includes future appointments and future orders which are active, pending or scheduled. Future Appointments This section includes appointments that were scheduled to occur 6 months from the date of the Encounter, up to a maximum of 20 appointments. The data comes from all [facility] facilities. Appointment Date/Time Appointment Type Appointme nt Facility Name Feb 05, 2024 10:00 AM AMBULATORY - MEDICINE [facility] Feb 15, 2024 08:00 AM AMBULATORY - SURGERY [facility] Feb 19, 2024 10:00 AM AMBULATORY - MEDICINE [facility] Mar 04, 2024 03:00 PM AMBULATORY - MEDICINE [facility] Mar 07, 2024 09:00 AM AMBULATORY - MEDICINE [facility] Mar 18, 2024 03:00 PM AMBULATORY - MEDICINE [facility] Mar 25, 2024 11:00 AM AMBULATORY - SUR[facility] Apr 14, 2024 03:00 PM AMBULATORY - MEDICINE [facility] Apr 16, 2024 01:00 PM AMBULATORY - MEDICINE [facility] Apr 16, 2024 01:30 PM AMBULATORY - MEDICINE [facility] Apr 22, 2024 12:00 PM AMBULATORY - MEDICINE [facility] May 19, 2024 03:00 PM AMBULATORY - MEDICINE [facility] May 22, 2024 01:00 PM AMBULATORY - MEDICINE [facility] Jun 10, 2024 12:30 PM AMBULATORY - MEDICINE [facility] Jun 25, 2024 08:00 AM AMBULATORY - SUR[facility]ERY [facility] Jun 30, 2024 12:45 PM AMBULATORY - SURGERY [facility] Jul 16, 2024 01:00 PM AMBULATORY - MEDICINE [facility] Jul 16, 2024 01:30 PM AMBULATORY - MEDICINE [facility] Lab Results: +/- 30 days of the encounter This section includes the Chemistry and Hematology Lab Results [facility] with [facility] for [facility]. Radiology Reports and Pathology Reports are provided separately, in subsequent sections. Lab Results This section contains the Chemistry/Hematology Results that were resulted 30 days before or 30 daysafter the date of the Encounter. Date/Time Source Result Type Result - Unit Interpretation Reference Range Specimen Type Comment Jan 16, 2024 12:55 PM [facility] COMPREHENSIVE METABOLIC PANEL PLASMA Specimen Type: PLASMA Comment: No hemolysis noted. Ordering Provider: GRICEL SILVER Report Released Date/Time: Dec 25, 2023 11:22 AM Reporting Lab: [facility] [address] [place] [id number] Performing Lab: [address] [address] CREATININE 0.96 mg/dL 0.7-1.3 UREA NITROGEN 17.6 mg/dL 9.0-25.0 GLUCOSE 99 mg/dL 72-99 SODIUM 138 meq/L 136-145 POTASSIUM 4.2 meq/L 3.5-5 CHLORIDE 102 meq/L 98-107 CARBON DIOXIDE 27 meq/L 22-31 CALCIUM 9.7 mg/dL 8.4-10.4 PROTEIN 7.4 g/dL 6-8.6 ALBUMIN 4.2 g/dL 3.4-5 TOTAL BILIRUBIN 0.4 mg/dL 0.2-1.2 ALKALINE PHOSPHATASE 73 U/L 40-150 AST/SGOT 24 U/L 5-34 ALT/SGPT 29 U/L 8-40 EGFR (CKD-EPI 2020) 91.1 >60 Jan 16, 2024 12:55 PM [facility] CBC BLOOD Specimen Type: BLOOD No comment entered. Ordering Provider: GRICEL SILVER Report Released Date/Time: Dec 25, 2023 11:22 AM Reporting Lab: [facility] [address] [facility] [address] Performing Lab: [address] [address] WBC 5.9 10*3/uL 3.6-11.2 RBC 4.48 10*6/uL 4.10-5.70 HGB 16.4 g/dL 13.1-16.8 HCT 46.5 38.2-48.4 MCV 103.8 fL H 80.0-100.0 MCH 36.6 pg H 27.0-34.0 MCHC 35.3 g/dL 33.0-36.0 PLT 296 10*3/uL 150-400 MPV 9.9 fL 7.5-11.2 RDW 14.2 11.8-15.1 LYMPHOCYTES, AUTO % 26 MONOCYTES, AUTO % 11 NEUTROPHILS, AUTO % 58 EOSINOPHILS, AUTO % 4 BASOPHILS, AUTO % 2 LYMPHOCYTES, ABSOLUTE 1.50 10*3/uL 0.77- 4.50 MONOCYTES, ABSOLUTE 0.62 10*3/uL 0.19-0. 80 NEUTROPHILS, ABSOLUTE 3.39 10*3/uL 2.10- 8.00 EOSINOPHILS, ABSOLUTE 0.22 10*3/uL 0.00- 0.60 BASOPHILS, ABSOLUTE 0.10 10*3/uL 0.00-0. 20 Jan 16, 2024 12:55 PM [facility] TSH W/ REFLEX FT4 (STL) PLASMA Specimen Type: PLASMA No comment entered. Ordering Provider: GRICEL SILVER Report Released Date/Time: Jan 16, 2024 01:32 PM Reporting Lab: [address] [address] Performing Lab: [address] [address] TSH 1.650 u[IU]/mL 0.47-5 Dec 28, 2023 08:12 AM [facility] HGA1C BLOOD Specimen Type: BLOOD No comment entered. Ordering Provider: MARIN PARSONS Report Released Date/Time: Dec 27, 2023 01:13 PM Reporting Lab: [address] [address] Performing Lab: [address] [address] HGA1C 5.6 4.0-6.0 Dec 28, 2023 08:12 AM [facility] URINALYSIS (STL-PB) URINE Specimen Type: URIN E No comment entered. Ordering Provider: MARIN PARSONS Report Released Date/Time: Dec 27, 2023 01:13 PM Reporting Lab: [facility] [address] [facility] [address] Performing Lab: [facility] [address] [facility] [phone] URINE COLOR Light-Yellow Yellow U.BILIRUBIN Negative mg/dL Negative U.PH 6.5 5.0-8.0 APPEARANCE Clear Clear U.NITRITE Negative mg/dL Negative URN.GLUCOSE Normal mg/dL Negative URN.PROTEIN Negative mg/dL Negative-20 URN.UROBILINOGEN Normal mg/dL Normal URN.BLOOD Negative mg/dL Negative-Trace URN.KETONES Negative mg/dL Negative-Trac e URN.LEUK.EST. Negative mg/dL Negative-Tr emery URN.SPECIFIC GRAVITY 1.014 1.005-1.029 Vital Signs: All taken on the encounter date This section contains inpatient and outpatient Vital Signs collected on the date of the Encounter. Date/Time Temperature Pulse Blood Pressure Respiratory Rate SP02 Pain Height Weight Body Mass Index Source Jan 16, 2024 01:50 PM 98.1 64 150/87 20 96 [facility] Social History: Smoking Status (Most current) and Tobacco Use (All prior to encounter date) This section includes the most current, and the historical, smoking and tobacco- related health factors from the [place] facility where the Encounter took place. Current Smoking Status This section includes the most current smoking, or tobacco-related health factor, from the [place] facility where the Encounter took place. Date/Time Current Smoking Status Comment Jerod sam May 17, 2022 12:02 PM VA-TOBACCO NEVER USED [facility] Tobacco Use History This section includes a history of the smoking, or tobacco-related health factors, that were collected on or before the date of the Encounter. The data comes from the [place] facility where the Encounter took place. Date/Time Smoking Status/Tobacco Use Comment F acility Mar 06, 2021 04:50 AM [facility] ADMIT TOBACCO SCREEN NO [facility] Jun 03, 2020 09:50 AM VA-TOBACCO NEVER USED [facility] Pathology Reports: +/- 30 days of the encounter Pathology Reports For cases when an order for pathology services may have been completed prior to the date of the Encounter, the report list includes the Pathology Reports that were completed up to 30 days before dateof the Encounter. For cases when an order for pathology services may have been completed after the date of the Encounter, the report list also includes the Pathology Reports that were completed up to30 days after date of the Encounter. The data comes from all [place] treatment facilities. Date/Time Pathology Report Provider Source Dec 28, 2023 08:12 AM LR MICROBIOLOGY RE PORT: Accession [UID]: [id number] [[id number]] Received: Dec 28, 2023@16:22 Collection sample: URINE,CLEAN CATCH Collection date: Dec 28, 2023 08:12 Site/Specimen: URINE Provider: MARIN PARSONS Test(s) ordered: C&S URINE..................... completed: Dec 30, 2023 07:10 * BACTERIOLOGY FINAL REPORT => Dec 30, 2023 07:13 TECH CODE: [id number] Bacteriology Remark(s): Culture shows NO GROWTH IN 1 DAY. 12-30-2023 =--=--=--=--=--=--=--=--=--=- -=--=--=--=--=--=--=--=--=--= --=--=--=--=--=--=-- Performing Laboratory: Bacteriology Report Performed By: [address] CLIA# [id number] 5 [facility] [address] [place] [address] [facility]ROSO [facility] [place] [facility] Encounter Notes: All associated encounter notes This section contains the clinical notes associated to the Encounter. Date/Time Encounter Note(s) Provider Source Jan 16, 2024 01:51 PM HEMATOLOGY AND ONC OLOGY NURSING NOTE: LOCAL TITLE: [facility] HEM/ONC ST[facility] STANDARD TITLE: HEMATOLOGY AND ONCOLOGY NURSING NOTE DATE OF NOTE: JAN 16, 2024@13:51 ENTRY DATE: JAN 16, 2024@13:51:55 AUTHOR: OSVALDO ARCE EXP COSIGNER: URGENCY: STATUS: COMPLETED DEITERS,TROY MCKEON, is a 58 year old male with Hemochromatosis. He presents for phlebotomy. IV was placed in right Antecubital. Phlebotomized one full unit of blood. Drank 8 ounces of juice during procedure. Pt observed x 15 minutes post procedure, no ill effect seen. Left clinic ambulatory. Patient to return to clinic . /everardo/ OSVALDO ARCE MEAT PRESS OPERATOR [facility] REGISTERED NURSE Signed: 01/16/2024 14:00 OSVALDO ARCE [facility]
--- OUTSIDE RECORDS SUMMARY | 2024-09-25 14:23 | XMS_ITS ---
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 Date/Time Encounter Type Encounter Description Reason Provider Source Sep 17, 2024 11:00 AM OFFICE O/P EST MOD 30 MIN ONCOLOGY/TUMOR ICD-10-CM D45 Polycythemia vera GRICEL SILVER Encounter Template Text not used by [facility] Assessments - Encounter Diagnoses This section includes the primary and secondary diagnoses documented for the Encounter. Date/Time Primary/Secondary Diagnosis Diagnosis Name Provider Source Sep 17, 2024 10:56 AM PRIMARY Polycythemia vera GRICEL SILVER [facility] Sep 17, 2024 10:56 AM SECONDARY Obstructive sleep apnea (adult) (pediatric) GRICEL SILVER [facility] Plan of Treatment: Future Appointments (+ 6 months) and Future Tests (+/- 45 days) The Plan of Treatment section includes future care activities for the patient from all [place] treatmentfacilities. This section includes future appointments and future orders which are active, pending or scheduled. Future Appointments This section includes appointments that were scheduled to occur 6 months from the date of the Encounter, up to a maximum of 20 appointments. The data comes from all [facility]. Appointment Date/Time Appointment Type Appointme nt Facility Name Sep 20, 2024 07:44 AM AMBULATORY - MEDICINE [facility] September 27, 2024 02:30 PM AMBULATORY - MEDICINE [facility] September 29, 2024 03:00 PM AMBULATORY - MEDICINE [facility] September 30, 2024 11:00 AM AMBULATORY - MEDICINE [facility] Oct 27, 2024 08:15 AM AMBULATORY - REHAB MEDICIN E [facility] Oct 27, 2024 08:30 AM AMBULATORY - SURGERY [facility] Oct 29, 2024 08:30 AM AMBULATORY - SURGERY [facility] Oct 29, 2024 10:45 AM AMBULATORY - MEDICINE [facility] Oct 29, 2024 11:00 AM AMBULATORY - MEDICINE [facility] Dec 10, 2024 02:00 PM AMBULATORY - NONE [facility] Active, Pending, and Scheduled Orders This section includes a listing of several types of active, pending, and scheduled orders, including clinic medications orders, diagnostic test orders, procedure orders and consult orders; where the start date of the order is 45 days before the date of the Encounter or 45 days after the date of theEncounter. The data comes from all [facility]. Test Date/Time Test Type Test Details Facility Name Sep 23, 2024 02:42 PM Consult Order GI GENERAL OUTPATIENT STL Cons Team Manager's Choice [facility] September 27, 2024 02:30 PM Imaging - Ultrasou nd Order US ABDOMEN LIMITED W/BLOOD FLOW DOPPLER [facility] Oct 29, 2024 12:00 AM Laboratory - Chemistry Order CBC BLOOD STAT SP [facility] Oct 29, 2024 12:00 AM Laboratory - Chemistry Order COMPREHENSIVE METABOLIC PANEL GREEN LI/HEP BLD/PLAS PLASMA STAT SP [facility] Lab Results: +/- 30 days of the encounter This section includes the Chemistry and Hematology Lab Results on record with [place] for the patient. Radiology Reports and Pathology Reports are provided separately, in subsequent sections. Lab Results This section contains the Chemistry/Hematology Results that were resulted 30 days before or 30 daysafter the date of the Encounter. Date/Time Source Result Type Result - Unit Interpretation Reference Range Specimen Type Comment Sep 20, 2024 10:[address] [facility] URINALYSIS (STL-PB) URINE Specimen Type: URINE No comment entered. Ordering Provider: GABBY WOOTEN Report Released Date/Time: Sep 20, 2024 08:15 AM Reporting Lab: [place] [address] [address] [facility] [address] Performing Lab: [address] [address] URINE COLOR Colorless Yellow U.BILIRUBIN Negative mg/dL Negative U.PH 7.0 5.0-8.0 APPEARANCE Clear Clear U.NITRITE Negative mg/dL Negative URN.GLUCOSE Normal mg/dL Negative URN.PROTEIN Negative mg/dL URN.UROBILINOGEN Normal mg/dL Normal URN.BLOOD Negative mg/dL Negative-Trace URN.KETONES Negative mg/dL Negative-Trac e URN.LEUK.EST. Negative mg/dL Negative-Tr emery URN.SPECIFIC GRAVITY 1.033 H Sep 20, 2024 08:11 AM [facility] LIPASE PLASMA Specimen Type: PLASM A Comment: Aspartate Transaminase result may show positive bias due to hemolysis. K result canceled due to hemolysis. Specimen moderately hemolyzed. Notified Huong Cason RN @0914 ksh 4.26.25 Ordering Provider: GABBY WOOTEN Report Released Date/Time: Sep 20, 2024 08:10 AM Reporting Lab: [facility] [address] [place] [id number] Performing Lab: [address] [address] LIPASE 20 U/L 8-78 Sep 20, 2024 08:[address] [facility] COMPREHENSIVE METABOLIC PANEL PLASMA Specimen Type: PLASMA Comment: Aspartate Transaminase result may show positive bias due to hemolysis. K result canceled due to hemolysis. Specimen moderately hemolyzed. Notified Huong Cason RN @14 [facility] 09.20.24 Ordering Provider: GABBY WOOTEN Report Released Date/Time: Sep 20, 2024 08:10 AM Reporting Lab: [address] [address] Performing Lab: [address] [address] CREATININE 0.76 mg/dL 0.7-1.3 UREA NITROGEN 12.3 [...] 102.9 >60 Sep 20, 2024 08:11 AM [facility] CBC BLOOD Specimen Type: BLOOD No comment entered. Ordering Provider: GABBY WOOTEN Report Released Date/Time: Sep 20, 2024 08:10 AM Reporting Lab: [address] [address] Performing Lab: [address] [address] WBC 10.8 10*3/uL 3.6-11.2 RBC 4.57 10*6/uL [...] 0.00-0. 20 Sep 17, 2024 09:[address] [facility] COMPREHENSIVE METABOLIC PANEL PLASMA Specimen Type: PLASMA Comment: No hemolysis noted. Ordering Provider: GRICEL SILVER Report Released Date/Time: Jul 16, 2024 12:56 PM Reporting Lab: [facility] [address] [place] [phone] Performing Lab: [address] [address] CREATININE 0.82 mg/dL 0.7-1.3 UREA NITROGEN 13.0 [...] 100.6 >60 Sep 17, 2024 09:59 AM [facility] CBC BLOOD Specimen Type: BLOOD No comment entered. Ordering Provider: GRICEL SILVER Report Released Date/Time: Jul 16, 2024 12:56 PM Reporting Lab: [facility] [address] [place] [phone] Performing Lab: [address] [address] WBC 7.7 10*3/uL 3.6-11.2 RBC 4.65 10*6/uL [...] 0.00-0. 20 Sep 17, 2024 09:[address] [facility] FERRITIN SERUM Specimen Type: SERUM No comment entered. Ordering Provider: GRICEL SILVER Report Released Date/Time: Sep 17, 2024 10:40 AM Reporting Lab: [place] [id number] [facility] [address] Performing Lab: [address] [address] FERRITIN 39.00 ng/mL 22-275 Sep 17, 2024 09:[address] [facility] IRON/TIBC PROFILE SERUM Specimen Type: SERUM No comment entered. Ordering Provider: GRICEL SILVER Report Released Date/Time: Sep 17, 2024 10:40 AM Reporting Lab: [facility] [address] [facility] [address] Performing Lab: [facility] [address] [facility] [address] TIBC 414 ug/dL 250-450 TRANSFERRIN 331 mg/dL 163-344 IRON SATURATION 19 L 20-50 IRON 78 ug/dL 65-175 Vital Signs: All taken on the encounter date This section contains inpatient and outpatient Vital Signs collected on the date of the Encounter. Date/Time Temperature Pulse Blood Pressure Respiratory Rate SP02 Pain Height Weight Body Mass Index Source Sep 17, 2024 10:07 AM 96.4 65 164/95 20 97 283.2 37 [facility] Social History: Smoking Status (Most current) and Tobacco Use (All prior to encounter date) This section includes the most current, and the historical, smoking and tobacco- related health factors from the [place] facility where the Encounter took place. Current Smoking Status This section includes the most current smoking, or tobacco-related health factor, from the [place] facility where the Encounter took place. Date/Time Current Smoking Status Comment Jerod ity May 17, 2022 12:02 PM VA-TOBACCO NEVER USED [facility] Tobacco Use History This section includes a history of the smoking, or tobacco-related health factors, that were collected on or before the date of the Encounter. The data comes from the [place] facility where the Encounter took place. Date/Time Smoking Status/Tobacco Use Comment F acility Mar 06, 2021 04:50 AM ORYX ADMIT TOBACCO SCREEN NO [facility] Jun 03, 2020 09:50 AM [facility]-TOBACCO NEVER USED [facility] Radiology Reports: +/- 30 days of the [...] the Encounter. The data comes from all [place] treatment facilities. Date/Time Radiology Report Provider Source Sep 20, 2024 09:[address] ABD PEL W/CONT & 3D: JOSE E BOOGIE [id number] -[id number] M Exm Date: SEP 20, 2024@09:37 Req Phys: GABBY WOOTEN Loc: [facility] 2ND SHIFT (R Img Loc: [facility] Service: Unknown [facility] [address] [place] [address] (Case [id number] COMPLETE) CT ABDOMEN AND PELVIS W/CONTRAST (CT Detailed) CPT:46035 Contrast Media : Non-ionic Iodinated Reason for Study: abd pain Clinical History: Responsible Attending: Dr Wooten Attending Contact Number: [phone] Resident Contact Number: abd pain Allergies listed in CPRS chart: Patient has answered NKA Creatinine:CREATININE 0.82 mg/dL 09/17/2024 09:59 /eGFR: STL EGFR (within one year). CREATININE 0.82 mg/dL (09/17/24 09:59) Wt: 283.2 lb [128.46 kg] (09/17/2024 10:07) History of: Renal failure, chronic or acute renal disease: NO Report Status: Verified Date Reported: SEP 20, 2024 Date Verified: SEP 20, 2024 Master Machinist E-Sig: Report: CT ABDOMEN AND PELVIS W/CONTRAST [PRINTSET] Clinical History: abd pain Comparison: 03/07/2023 Technique: CT of the abdomen and pelvis was performed. The study was protocoled and supervised at the local [place] facility. 1258 images were subsequently received by the [place] [facility] ([facility]) for interpretation. Total [...] inguinal hernia. READING PHYSICIAN: Latrell Hernandes M.D. -[phone] 09/20/2024 8:34 PDT [facility] [phone] (For Medical Practitioner Use Only) Attention Patients / Veterans: If you have questions or concerns about these test results, please contact your ordering provider or primary care team. Primary Interpreting Staff: RADIOLOGY,OUTSIDE SERVICE, Staff Physician / RADIOLOGY,OUTSIDE SERVICE [facility] Encounter Notes: All associated encounter notes This section contains the clinical notes associated to the Encounter. 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 Phlebotomy 05/03/2022 - 11/2022 -> resumed 01/16/2024, 04/16/2024, 07/16/2024 2. Hydrea: 500 mg daily 05/14/2022 - 12/13/2022, 1000mg daily 12/13/2022 - current 3. Aspirin 81 mg daily INTERVAL HISTORY: Doing well, no changes. Continues hydrea 1g daily. Does have fatigue but is staying busy/active with work with the nice weather. Can't wear CPAP - unable to sleep with mask. REVIEW OF SYSTEMS: A clinically relevant ROS was completed and documented as per interval history PAST MEDICAL HISTORY 1) Past history of procedure 2) OA - Osteoarthritis ([facility] [id number]) 3) Senile macular degeneration 4) History of SARS-CoV-2 ([facility] [id number]) 5) Diverticular Disease of Colon ([facility] [id number]) 6) Obesity ([facility] [id number]) 7) Hyperlipidemia ([facility] [id number]) 8) Dupuytren's contracture 9) Tinnitus ([facility] [id number]) 10) Sebaceous cyst of skin 11) Hearing Loss ([facility] [id number]) 12) Vitamin D Deficiency ([facility] [id number]) 13) Erectile Dysfunction ([facility] [id number]) 14) History of colonic polyp 15) Epigastric hernia 16) Plantar heel pain 17) Impaired glucose tolerance 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 MEDICATIONS Active Outpatient Medications (including Supplies): Active Outpatient Medications Status 1) AMLODIPINE BESYLATE 5MG TAB TAKE ONE [...] ATTACHED INSIDE BOX)FOR HEEL PAIN RELIEF 6) LOSARTAN 100MG TAB TAKE ONE-HALF TABLET BY MOUTH ONCE A DAY ACTIVE Indication: FOR HIGH BLOOD PRESSURE 7) PANTOPRAZOLE NA 40MG EC TAB TAKE ONE TABLET BY MOUTH EVERY ACTIVE MORNING BEFORE A MEAL TAKE 30 MINUTES BEFORE MEAL(S) Indication: FOR GASTROESOPHAGEAL REFLUX DISEASE 8) SILDENAFIL CITRATE 100MG TAB TAKE ONE-HALF TABLET BY MOUTH ACTIVE ONE HOUR PRIOR TO SEXUAL ACTIVITY NEEDED - LIMIT 6 DOSES PER 30 DAYS Indication: FOR ERECTILE DYSFUNCTION Active Non-VA Medications Status 1) Non-VA LATANOPROST 0.005% OPH SOLN 1 DROP LEFT EYE EVERY ACTIVE EVENING 2) Non-VA TIMOLOL MALEATE 0.5% OPH SOLN 1 DROP LEFT EYE EVERY ACTIVE MORNING 10 Total Medications ALLERGIES Patient has answered NKA VITAL SIGNS Temperature: 96.4 F [35.8 C] (09/17/2024 10:07) Blood Pressure: 164/95 (09/17/2024 10:07) Pulse: 65 (09/17/2024 10:07) Respirations: 20 (09/17/2024 10:07) Weight: 283.2 lb [128.46 kg] (09/17/2024 10:07) BMI: 37.4 PHYSICAL EXAM General: In no apparent distress HEENT: NCAT Respiratory: Resp unlabored on RA Cardiovascular: No C/C/E Abdomen: ND Musculoskeletal: Symmetrical, ambulatory Skin: No apparent lesions Neuro: Alert and oriented w/ normal station and coordination, no focal deficits LABS WBC 7.7 10*3/uL 09/17/2024 09:59 RBC 4.65 10*6/uL 09/17/2024 09:59 HGB 16.4 g/dL 09/17/2024 09:59 HCT 48.1 % 09/17/2024 09:59 MCV 103.4 H fL 09/17/2024 09:59 MCH 35.3 H pg 09/17/2024 09:59 MCHC 34.1 g/dL 09/17/2024 09:59 RDW 12.9 % 09/17/2024 09:59 PLT 363 10*3/uL 09/17/2024 09:59 MPV 9.8 fL 09/17/2024 09:59 NEUTROPHILS, AUTO % 65 % 09/17/2024 09:59 LYMPHOCYTES, AUTO % 22 % 09/17/2024 09:59 MONOCYTES, AUTO % 9 % 09/17/2024 09:59 EOSINOPHILS, AUTO % 2 % 09/17/2024 09:59 BASOPHILS, AUTO % 1 % 09/17/2024 09:59 NEUTROPHILS, ABSOLUTE 5.00 10*3/uL 09/17/2024 09:59 LYMPHOCYTES, ABSOLUTE 1.71 10*3/uL 09/17/2024 09:59 MONOCYTES, ABSOLUTE 0.66 10*3/uL 09/17/2024 09:59 EOSINOPHILS, ABSOLUTE 0.13 10*3/uL 09/17/2024 09:59 BASOPHILS, ABSOLUTE 0.11 10*3/uL 09/17/2024 09:59 ANISOCYTOSIS 1+ 07/04/2023 06:46 POIKILOCYTOSIS 1+ 07/04/2023 06:46 MACROCYTOSIS 1+ 10/03/2023 06:48 STOMATOCYTES 1+ 07/04/2023 06:46 SODIUM 138 mEq/L 07/16/2024 11:41 POTASSIUM 4.0 mEq/L 07/16/2024 11:41 CHLORIDE 100 mEq/L 07/16/2024 11:41 UREA NITROGEN 14.6 mg/dL 07/16/2024 11:41 CREATININE 0.88 mg/dL 07/16/2024 11:41 CALCIUM 9.6 mg/dL 07/16/2024 11:41 PROTEIN 7.9 g/dL 07/16/2024 11:41 ALBUMIN 4.4 g/dL 07/16/2024 11:41 ALKALINE PHOSPHATASE 83 U/L 07/16/2024 11:41 ALT/SGPT 31 U/L 07/16/2024 11:41 AST/SGOT 30 U/L 07/16/2024 11:41 TOTAL BILIRUBIN 0.6 mg/dL 07/16/2024 11:41 CARBON DIOXIDE 28 mEq/L 07/16/2024 11:41 GLUCOSE 154 H mg/dL 07/16/2024 11:41 EGFR (CKD-EPI 2020) 98.4 07/16/2024 11:41 ____ No PHOSPHOROUS data found No LDH EO data found No TIBC EO data found No IRON EO data found No FERRITIN EO data found No B12 EO data found pg/ml No FOLATE (STL-[place]);FOLATE (PB);FOLATE (DC 03-04);FOLATE (DC 03/04) data found PROST. SPECIFIC AG.(PB-STL) 0.414 ng/mL 06/10/2024 14:30 PROST. SPECIFIC AG.(PB-STL) 0.671 ng/mL 07/04/2023 06:46 PROST. SPECIFIC AG.(PB-STL) 0.420 ng/mL 06/07/2022 07:08 PROST. SPECIFIC AG.(PB-STL) 0.591 ng/mL 06/03/2021 10:42 PROST. SPECIFIC AG.(PB-STL) 0.434 ng/mL 06/04/2020 11:40 ASSESSMENT & PLAN Jose E Boogie is a 59 YOM with JAK2+ [id number] PV who presents for follow-up. # PV, JAK2+ - High risk for age >60, no prior thromboembolic events - Hct goal <45% - proceed with PHL today for Hct 48%; has preferred to cont hydrea 1000mg and spot PHL as opposed to increasing cytoreduction but given persistently above goal, now agreeable to trial of hydrea 1500mg daily - Continue aspirin 81 mg daily ([facility]) - RTC ~6wk with PHL time # Fatigue # Severe REYMUNDO Noted chronic/intermittent though significant fatigue at prior visit with [facility] c/f REYMUNDO - sleep study 05/2024 with severe REYMUNDO and Rx CPAP but has not been able to tolerate. - Discussed untreated ERYMUNDO may be contributing to erythrocytosis leading to increased PV treatment as well as other related complications - encouraged to discuss alternative masks/devices with sleep med team - Reinforce health lifestyle / sleep hygiene measures /everardo/ GRICEL SILVER Nurse Practitioner Signed: 09/17/2024 10:56 GRICEL SILVER [facility]
--- OUTSIDE RECORDS SUMMARY | 2024-09-25 14:23 | XMS_ITS ---
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 Date/Time Encounter Type Encounter Description Reason Provider Source Jan 16, 2024 02:00 PM OFFICE O/P EST MOD 30 MIN ONCOLOGY/TUMOR ICD-10-CM D45 Polycythemia vera GRICEL SILVER Encounter Template Text not used by [facility] Assessments - Encounter Diagnoses This section includes the primary and secondary diagnoses documented for the Encounter. Date/Time Primary/Secondary Diagnosis Diagnosis Name Provider Source Jan 16, 2024 02:05 PM PRIMARY Polycythemia vera GRICEL SILVER [facility] Plan of Treatment: Future Appointments (+ 6 months) and Future Tests (+/- 45 days) The Plan of Treatment section includes future care activities for the patient from [facility] [place] [facility] This section includes future appointments and future orders which are active, pending or scheduled. Future Appointments This section includes appointments that were scheduled to occur 6 months from the date of the Encounter, up to a maximum of 20 appointments. The data comes from all [facility]. Appointment Date/Time Appointment Type Appointme nt Facility Name Feb 05, 2024 10:00 AM AMBULATORY - MEDICINE [facility] Feb 15, 2024 08:00 AM AMBULATORY - SURGERY [facility] Feb 19, 2024 10:00 AM AMBULATORY - MEDICINE [facility] Mar 04, 2024 03:00 PM AMBULATORY - MEDICINE [facility] Mar 07, 2024 09:00 AM AMBULATORY - MEDICINE [facility] Mar 18, 2024 03:00 PM AMBULATORY - MEDICINE [facility] Mar 25, 2024 11:00 AM AMBULATORY - SURGERY [facility] Apr 14, 2024 03:00 PM AMBULATORY - MEDICINE [facility] Apr 16, 2024 01:00 PM AMBULATORY - MEDICINE [facility] Apr 16, 2024 01:30 PM AMBULATORY - MEDICINE [facility] Apr 22, 2024 12:00 PM AMBULATORY - MEDICINE [facility] May 19, 2024 03:00 PM AMBULATORY - MEDICINE [facility] May 22, 2024 01:00 PM AMBULATORY - MEDICINE [facility] Jun 10, 2024 12:30 PM AMBULATORY - MEDICINE [facility] Jun 25, 2024 08:00 AM AMBULATORY - SURGERY [facility] Jun 30, 2024 12:45 PM AMBULATORY - SURGERY [facility] Jul 16, 2024 01:00 PM AMBULATORY - MEDICINE [facility] Jul 16, 2024 01:30 PM AMBULATORY - MEDICINE [facility] Lab Results: +/- 30 days [...] Type Comment Jan 16, 2024 12:55 PM [facility] COMPREHENSIVE METABOLIC PANEL PLASMA Specimen Type: PLASMA Comment: No hemolysis noted. Ordering Provider: GRICEL SILVER Report Released Date/Time: Dec 25, 2023 11:22 AM Reporting Lab: [address] [phone] Performing Lab: [address] [address] CREATININE 0.96 mg/dL 0.7-1.3 UREA NITROGEN 17.6 [...] 91.1 >60 Jan 16, 2024 12:55 PM [facility] CBC BLOOD Specimen Type: BLOOD No comment entered. Ordering Provider: GRICEL SILVER Report Released Date/Time: Dec 25, 2023 11:22 AM Reporting Lab: [facility] [address] [facility] [address] Performing Lab: [facility] [address] [place] [id number] WBC 5.9 10*3/uL 3.6-11.2 RBC 4.48 10*6/uL [...] 0.00-0. 20 Jan 16, 2024 12:55 PM [facility] TSH W/ REFLEX FT4 (STL) PLASMA Specimen Type: PLASMA No comment entered. Ordering Provider: GRICEL SILVER Report Released Date/Time: Jan 16, 2024 01:32 PM Reporting Lab: [address] [address] Performing Lab: [address] [address] TSH 1.650 u[IU]/mL 0.47-5 Dec 28, 2023 08:12 AM [facility] HGA1C BLOOD Specimen Type: BLOOD No comment entered. Ordering Provider: MARIN PARSONS Report Released Date/Time: Dec 27, 2023 01:13 PM Reporting Lab: [address] [phone] Performing Lab: [address] [address] HGA1C 5.6 4.0-6.0 Dec 28, 2023 08:12 AM [facility] URINALYSIS (STL-PB) URINE Specimen Type: URIN E No comment entered. Ordering Provider: MARIN PARSONS Report Released Date/Time: Dec 27, 2023 01:13 PM Reporting Lab: [facility] [address] [facility] [address] Performing Lab: [facility] [address] [facility] [address] URINE COLOR Light-Yellow Yellow U.BILIRUBIN Negative mg/dL [...] 01:50 PM 98.1 64 150/87 20 96 [facility] Social History: Smoking Status (Most current) and Tobacco Use (All prior to encounter date) This section includes the most current, and the historical, smoking and tobacco- related health factors from the [place] facility where the Encounter took place. Current Smoking Status This section includes the most current smoking, or tobacco-related health factor, from the [place] facility where the Encounter took place. Date/Time Current Smoking Status Comment Jerod sam May 17, 2022 12:02 PM VA-TOBACCO NEVER USED [facility] Tobacco Use History This section includes a history of the smoking, or tobacco-related health factors, that were collected on or before the date of the Encounter. The data comes from the [place] facility where the Encounter took place. Date/Time Smoking Status/Tobacco Use Comment F acility Mar 06, 2021 04:50 AM [facility]YX ADMIT TOBACCO SCREEN NO [facility] Jun 03, 2020 09:50 AM [...] the Encounter. The data comes from all [place] treatment facilities. Date/Time Pathology Report Provider Source Dec 28, 2023 08:12 AM LR MICROBIOLOGY RE PORT: Accession [UID]: [facility] [id number] [[id number]] Received: Dec 28, 2023@16:22 Collection sample: URINE,CLEAN CATCH Collection date: Dec 28, 2023 08:12 Site/Specimen: URINE Provider: MARIN PARSONS Test(s) ordered: C&S URINE..................... completed: Dec 30, 2023 07:10 * BACTERIOLOGY FINAL REPORT => Dec 30, 2023 07:13 TECH CODE: [id number] Bacteriology Remark(s): Culture shows NO GROWTH IN 1 DAY. 12-30-2023 =--=--=--=--=--=--=--=--=--=- -=--=--=--=--=--=--=--=--=--= --=--=--=--=--=--=-- Performing Laboratory: Bacteriology Report Performed By: [address] CLIA# [id number] 5 [facility] [address] [place] [phone] ANAYA MONTERROSO [facility] Encounter Notes: All associated encounter notes This section contains the clinical notes associated to the Encounter. Date/Time Encounter Note(s) Provider Source Jan 16, 2024 01:12 PM HEMATOLOGY AND ONC OLOGY OUTPATIENT NOTE: LOCAL TITLE: HEMATOLOGY ONCOLOGY OUTPATIENT FOLLOW UP ST STANDARD TITLE: HEMATOLOGY AND ONCOLOGY OUTPATIENT NOTE DATE OF NOTE: JAN 16, 2024@13:12 ENTRY DATE: JAN 16, 2024@13:12:49 AUTHOR: GRICEL SILVER EXP COSIGNER: URGENCY: STATUS: COMPLETED HEMATOLOGY/ONCOLOGY CHIEF COMPLAINT: CHIEF COMPLAINT: JAK2+ PV Hem/onc history: Polycythemia Vera; JAK2+: diagnosed 03/2022. Treatment History: 1. Phlebotomy 05/03/2022 - current/intermittent (last 11/2022 -> 01/16/2024) 2. Hydrea: 500 mg daily 05/14/2022 - 12/13/2022, 1000mg daily 12/13/2022 - current 3. Aspirin 81 mg daily INTERVAL HISTORY: Over the past few weeks, has had increased/significant fatigue, needing to nap ~2 hours per day despite resting well at night. This was accompanied by unexplained leg heaviness/achiness - the latter has improved for the past 2 days. There were no clear inciting events for either though he notes since his MPN diagnosis, he has had fatigue and has had to scale back on work though he remains physically active/busy. He denies any CP, SOB, weight loss, leg edema or skin changes with this. He does note that prior to this, he had started a [employer] supplement (nitric oxide booster) for BP control - he was unsure if related to above s/s but did dc this supp 3 weeks ago without much change. He also notes about a month ago, he was started on losartan after an ER visit ([facility]) for BP 180/100s, a/w headache. His BP is still likely above goal in the 140s but better overall. He is going on a cruise next week. REVIEW OF SYSTEMS: A clinically relevant ROS was completed and as documented as per interval history PAST MEDICAL HISTORY 1) Past history of procedure 2) OA - Osteoarthritis (SCT 707958184) 3) Senile macular degeneration 4) History of SARS-CoV-2 (SCT 861295244010128385) 5) Diverticular Disease of Colon (SCT 417386914) 6) Obesity (SCT 452345251) 7) Hyperlipidemia (SCT 72943048) 8) Dupuytren's contracture 9) Tinnitus (SCT 37187662) 10) Sebaceous cyst of skin 11) Hearing Loss (SCT 03669221) 12) Vitamin D Deficiency (SCT 3855597) 13) Erectile Dysfunction (SCT 900322039) 14) History of colonic polyp 15) Epigastric hernia 16) Plantar heel pain 17) Impaired glucose tolerance 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 2) ATORVASTATIN CALCIUM 40MG TAB TAKE ONE-HALF TABLET BY ACTIVE MOUTH EVERY EVENING TO LOWER CHOLESTEROL 3) CHOLECALCIF 50MCG (D3-2,000UNIT) TAB TAKE ONE TABLET ACTIVE BY MOUTH ONCE A DAY FOR VITAMIN D DEFICIENCY. 4) DICLOFENAC NA 1% TOP GEL APPLY 2 GM TO AFFECTED ACTIVE AREA(S) FOUR TIMES A DAY NEEDED FOR PAIN/INFLAMMATION; NOT MORE THAN 16 GRAMS DAILY TO ANY LOWER EXTREMITY JOINT. NOT MORE THAN 8 GRAMS DAILY TO ANY UPPER EXTREMITY JOINT. MAX 32GM/DAY OVER ALL JOINTS. (MEASURE DOSE WITH RULER ATTACHED INSIDE BOX)FOR HEEL PAIN RELIEF 5) HYDROXYUREA 500MG CAP TAKE TWO CAPSULES BY MOUTH ONCE ACTIVE A DAY 6) LATANOPROST 0.005% OPH SOLN INSTILL 1 DROP IN LEFT ACTIVE EYE EVERY EVENING FOR GLAUCOMA. KEEP REFRIGERATED UNTIL READY TO USE, THEN STORE AT ROOM TEMPERATURE FOR MAXIMUM OF 42 DAYS. 7) SILDENAFIL CITRATE 100MG TAB TAKE ONE-HALF TABLET BY ACTIVE MOUTH ONE HOUR PRIOR TO SEXUAL ACTIVITY FOR ERECTILE DYSFUNCTION NEEDED - LIMIT 6 DOSES PER 30 DAYS 8) TIMOLOL MALEATE 0.5% OPH SOLN INSTILL 1 DROP IN LEFT ACTIVE EYE EVERY MORNING FOR GLAUCOMA. USE COMBINER OPERATOR BEFORE BREAKFAST Active Non-VA Medications Status 1) Non-VA LATANOPROST 0.005% OPH SOLN 1 DROP LEFT EYE ACTIVE EVERY EVENING 2) Non-VA TIMOLOL MALEATE 0.5% OPH SOLN 1 DROP LEFT EYE ACTIVE EVERY MORNING 10 Total Medications ALLERGIES Patient has answered NKA VITAL SIGNS Temperature: 97.5 F [36.4 C] (10/03/2023 07:54) Blood Pressure: 141/71 (10/03/2023 07:54) Pulse: 70 (10/03/2023 07:54) Respirations: 20 (10/03/2023 07:54) Weight: 271.1 lb [122.97 kg] (10/03/2023 07:54) BMI: 35.8 PHYSICAL EXAM General: In no apparent distress HEENT: NCAT Respiratory: Resp unlabored on RA Cardiovascular: No C/C/E Abdomen: ND Musculoskeletal: Symmetrical, ambulatory Skin: No apparent lesions Neuro: Alert and oriented w/ normal station and coordination, no focal deficits LABS WBC 5.9 10*3/uL 01/16/2024 12:55 RBC 4.48 10*6/uL 01/16/2024 12:55 HGB 16.4 g/dL 01/16/2024 12:55 HCT 46.5 % 01/16/2024 12:55 MCV 103.8 H fL 01/16/2024 12:55 MCH 36.6 H pg 01/16/2024 12:55 MCHC 35.3 g/dL 01/16/2024 12:55 RDW 14.2 % 01/16/2024 12:55 PLT 296 10*3/uL 01/16/2024 12:55 MPV 9.9 fL 01/16/2024 12:55 NEUTROPHILS, AUTO % 58 % 01/16/2024 12:55 LYMPHOCYTES, AUTO % 26 % 01/16/2024 12:55 MONOCYTES, AUTO % 11 % 01/16/2024 12:55 EOSINOPHILS, AUTO % 4 % 01/16/2024 12:55 BASOPHILS, AUTO % 2 % 01/16/2024 12:55 NEUTROPHILS, ABSOLUTE 3.39 10*3/uL 01/16/2024 12:55 LYMPHOCYTES, ABSOLUTE 1.50 10*3/uL 01/16/2024 12:55 MONOCYTES, ABSOLUTE 0.62 10*3/uL 01/16/2024 12:55 EOSINOPHILS, ABSOLUTE 0.22 10*3/uL 01/16/2024 12:55 BASOPHILS, ABSOLUTE 0.10 10*3/uL 01/16/2024 12:55 ANISOCYTOSIS 1+ 07/04/2023 06:46 POIKILOCYTOSIS 1+ 07/04/2023 06:46 MACROCYTOSIS 1+ 10/03/2023 06:48 STOMATOCYTES 1+ 07/04/2023 06:46 SODIUM 137 mEq/L 10/03/2023 06:48 POTASSIUM 4.3 mEq/L 10/03/2023 06:48 CHLORIDE 103 mEq/L 10/03/2023 06:48 UREA NITROGEN 14.2 mg/dL 10/03/2023 06:48 CREATININE 0.97 mg/dL 10/03/2023 06:48 CALCIUM 9.5 mg/dL 10/03/2023 06:48 PROTEIN 7.2 g/dL 10/03/2023 06:48 ALBUMIN 3.9 g/dL 10/03/2023 06:48 ALKALINE PHOSPHATASE 77 U/L 10/03/2023 06:48 ALT/SGPT 28 U/L 10/03/2023 06:48 AST/SGOT 29 U/L 10/03/2023 06:48 TOTAL BILIRUBIN 0.7 mg/dL 10/03/2023 06:48 CARBON DIOXIDE 25 mEq/L 10/03/2023 06:48 GLUCOSE 124 H mg/dL 10/03/2023 06:48 EGFR (CKD-EPI 2020) 89.9 10/03/2023 06:48 ____ No PHOSPHOROUS data found LDH 194 U/L 05/03/2022 14:00 No TIBC EO data found No IRON EO data found FERRITIN 166.46 ng/mL 07/10/2022 07:16 No B12 EO data found pg/ml No FOLATE (STL-MA);FOLATE (PB);FOLATE (DC 03-04);FOLATE (DC 03/04) data found PROST. SPECIFIC AG.(PB-STL) 0.671 ng/mL 07/04/2023 06:46 PROST. SPECIFIC AG.(PB-STL) 0.420 ng/mL 06/07/2022 07:08 PROST. SPECIFIC AG.(PB-STL) 0.591 ng/mL 06/03/2021 10:42 PROST. SPECIFIC AG.(PB-STL) 0.434 ng/mL 06/04/2020 11:40 ASSESSMENT & PLAN KEAGANTROY is a 58 yo MALE with PMH of JAK2+ [id number] PV who presents for routine follow-up. #PV, JAK2+ - No evidence of thromboembolic events at this time - Hct goal <45% - add on PHL today given Hct above goal, will cont hydrea 1000mg and trend Hct given has been well-controlled over the past year and to avoid additional AE iso below fatigue - Continue aspirin 81 mg daily - RTC 3mo with PHL time #Fatigue - Acute on chronic without inciting event - Basic labs stable without concerning findings, add on TSH requested - STOP BANG is at least intermediate (likely high) risk for REYMUNDO and rec to discuss further eval/appropriate testing with PCP - Discussed negative sleep impact w/ EtOH use and rec to avoid as able in addition to basic healthy lifestyle guidance regarding wt mgmt, plant-based diet, exercise /es/ GRICEL SILVER Nurse Practitioner Signed: 01/16/2024 14:06 GRICEL SILVER [facility]
--- OUTSIDE RECORDS SUMMARY | 2024-09-25 14:23 | XMS_ITS | Encounter Summary ---
Author Name [facility] of [facility] ([place]) Organization Department of [facility] ([place]) Address [address] [place] [address] Care Team Providers Care Print Production Associate Name Role Phone RAJAN ZHANG Primary Care Provider Unavailabl e Insurance Providers: [...] Patient's Relationship to Policy Montano [employer] RX [phone] PRESCRIPT ION PRIMARY CARE MD S May 28, 2020 [facility] [id number] [phone] Daphnie BOOGIE PATIENT [facility] PREFERRED PROVIDER ORGANIZAT ION (PPO) PRIMARY CARE MD S May 28, 2020 [id number] [phone] Daphnie BOOGIE PATIENT Selected Encounter This section includes the information on record at [place] for the Encounter. Date/Time Encounter Type Encounter Description Reason Provider Source October 03, 2023 08:15 AM OFFICE O/P EST MOD 30 MIN ONCOLOGY/TUMOR ICD-10-CM D45 Polycythemia vera KAMRON LOU Encounter Template Text not used by [place] Assessments - Encounter Diagnoses This section includes the primary and secondary diagnoses documented for the Encounter. Date/Time Primary/Secondary Diagnosis Diagnosis Name Provider Source October 03, 2023 12:32 PM PRIMARY Polycythemia vera DASHABRUNO NOLA John [facility] Plan of Treatment: Future Appointments (+ 6 months) and Future Tests (+/- 45 days) The Plan of Treatment section includes future care activities for the patient from [facility] This section includes future appointments and future orders which are active, pending or scheduled. Future Appointments This section includes appointments that were scheduled to occur 6 months from the date of the Encounter, up to a maximum of 20 appointments. The data comes from all [place] treatment facilities. Appointment Date/Time Appointment Type Appointme nt Facility Name Dec 06, 2023 03:00 PM AMBULATORY - MEDICINE [facility] Dec 27, 2023 08:30 AM AMBULATORY - SURGERY [facility] Jan 10, 2024 03:00 PM AMBULATORY - MEDICINE [facility] Jan 16, 2024 02:00 PM AMBULATORY - MEDICINE [facility] Jan 16, 2024 02:30 PM AMBULATORY - MEDICINE [facility] Feb 05, 2024 10:00 AM AMBULATORY - MEDICINE [facility] Feb 15, 2024 08:00 AM AMBULATORY - SURGERY [facility] Feb 19, 2024 10:00 AM AMBULATORY - MEDICINE [facility] Mar 04, 2024 03:00 PM AMBULATORY - MEDICINE [facility] Mar 07, 2024 09:00 AM AMBULATORY - MEDICINE [facility] Mar 18, 2024 03:00 PM AMBULATORY - MEDICINE [facility] Mar 25, 2024 11:00 AM AMBULATORY - SURGERY [facility] Lab Results: +/- 30 days of the encounter This section includes the Chemistry and Hematology Lab Results on record with [place] for the patient. Radiology Reports and Pathology Reports are provided separately, in subsequent sections. Lab Results This section contains the Chemistry/Hematology Results that were resulted 30 days before or 30 daysafter the date of the Encounter. Date/Time Source Result Type Result - Unit Interpretation Reference Range Specimen Type Comment October 03, 2023 06:48 AM [facility] COMPREHENSIVE METABOLIC PANEL PLASMA Specimen Type: PLASMA Comment: No hemolysis noted. Ordering Provider: FERNANDO LOU Report Released Date/Time: Jul 04, 2023 09:41 AM Reporting Lab: [facility] [address] [place] [id number] Performing Lab: [address] [address] CREATININE 0.97 mg/dL 0.7-1.3 UREA NITROGEN 14.2 mg/dL 9.0-25.0 GLUCOSE 124 mg/dL H 72-99 SODIUM 137 meq/L 136-145 POTASSIUM 4.3 meq/L 3.5-5 CHLORIDE 103 meq/L 98-107 CARBON DIOXIDE 25 meq/L 22-31 CALCIUM 9.5 mg/dL 8.4-10.4 PROTEIN 7.2 g/dL 6-8.6 ALBUMIN 3.9 g/dL 3.4-5 TOTAL BILIRUBIN 0.7 mg/dL 0.2-1.2 ALKALINE PHOSPHATASE 77 U/L 40-150 AST/SGOT 29 U/L 5-34 ALT/SGPT 28 U/L 8-40 EGFR (CKD-EPI 2020) 89.9 >60 October 03, 2023 06:48 AM [facility] CBC BLOOD Specimen Type: BLOOD No comment entered. Ordering Provider: ROBBY LOU Report Released Date/Time: Jul 04, 2023 09:41 AM Reporting Lab: [address] [address] Performing Lab: [address] [address] WBC 5.7 10*3/uL 3.6-11.2 RBC 3.90 10*6/uL L 4.10-5.70 HGB 15.0 g/dL 13.1-16.8 HCT 43.1 38.2-48.4 MCV 110.5 fL H 80.0-100.0 MCH 38.5 pg H 27.0-34.0 MCHC 34.8 g/dL 33.0-36.0 PLT 270 10*3/uL 150-400 MPV 10.1 fL 7.5-11.2 RDW 11.5 L 11.8-15.1 LYMPHOCYTES, AUTO % 26 MONOCYTES, AUTO % 7 NEUTROPHILS, AUTO % 62 EOSINOPHILS, AUTO % 3 BASOPHILS, AUTO % 1 LYMPHOCYTES, ABSOLUTE 1.45 10*3/uL 0.77- 4.50 MONOCYTES, ABSOLUTE 0.42 10*3/uL 0.19-0. 80 NEUTROPHILS, ABSOLUTE 3.52 10*3/uL 2.10- 8.00 EOSINOPHILS, ABSOLUTE 0.19 10*3/uL 0.00- 0.60 BASOPHILS, ABSOLUTE 0.08 10*3/uL 0.00-0. 20 MACROCYTOSIS 1+ PAPPENHEIMER BODIES 0 PLT EST-CV ADEQUATE ADEQUATE SCRNPERF YES Vital Signs: All taken on the encounter date This section contains inpatient and outpatient Vital Signs collected on the date of the Encounter. Date/Time Temperature Pulse Blood Pressure Respiratory Rate SP02 Pain Height Weight Body Mass Index Source October 03, 2023 07:54 AM 97.5 70 141/71 20 96 271.1 36 [facility] Social History: Smoking Status (Most current) and Tobacco Use (All prior to encounter date) This section includes the most current, and the historical, smoking and tobacco- related health factors from the [place] facility where the Encounter took place. Current Smoking Status This section includes the most current smoking, or tobacco-related health factor, from the [place] facility where the Encounter took place. Date/Time Current Smoking Status Comment Jerod ity May 17, 2022 12:02 PM VA-TOBACCO NEVER USED [facility] Tobacco Use History This section includes a history of the smoking, or tobacco-related health factors, that were collected on or before the date of the Encounter. The data comes from the [place] facility where the Encounter took place. Date/Time Smoking Status/Tobacco Use Comment F acility Mar 06, 2021 04:50 AM ORYX ADMIT TOBACCO SCREEN NO [facility] Jun 03, 2020 09:50 AM PA-TOBACCO NEVER USED [facility] Radiology Reports: +/- 30 days of the [...] the Encounter. The data comes from all [place] treatment facilities. Date/Time Radiology Report Provider Source Sep 06, 2023 05:42 AM CHEST X-RAY, 2 VIE WS: TROY BOOGIE [id number] -[id number] M Exm Date: SEP 06, 2023@05:42 Req Phys: GRICEL GILES Pat Loc: -GEN SURG I CLINIC (Req'g Lo Img Loc: -MAIN RADIOLOGY SUITE Service: Unknown (Case [id number] COMPLETE) CHEST X-RAY, 2 VIEWS (RAD Detailed) CPT:50397 Reason for Study: Pre-op Clinical History: Pre-op Report Status: Verified Date Reported: SEP 06, 2023 Date Verified: SEP 06, 2023 Ict Project Manager E-Sig:/ES/Tavo Castaneda MD. FACR. Report: History: Pre-op. Comparison: Prior chest examination-03/08/2022. Technique: PA and lateral views. Findings: No pulmonary consolidation, pleural effusion, pneumothorax, cardiomegaly or pulmonary edema is seen. Partially visible lower cervical fusion redemonstrated. Impression: No acute cardiopulmonary disease is seen. Primary Interpreting Staff: Tavo Castaneda MD. FACR, Neuroradiologist (Ict Project Manager) /TAVO [facility]ULK[facility] Pathology Reports: +/- 30 days of [...] the Encounter. The data comes from all [facility] facilities. Date/Time Pathology Report Provider Source Sep 21, 2023 10:42 AM LR MICROBIOLOGY RE PORT: Accession [UID]: [id number] [[id number]] Received: Sep 21, 2023@11:30 Collection sample: SWAB Collection date: Sep 21, 2023 10:42 Site/Specimen: WOUND Provider: SUE GILES Test(s) ordered: C&S CULTURES.................. completed: Sep 24, 2023 11:24 * BACTERIOLOGY FINAL REPORT => Sep 24, 2023 11:41 TECH CODE: [id number] GRAM STAIN: GRAM STAIN SHOWS MANY WBC'S. 09/21/23 Bacteriology Remark(s): Culture shows NO GROWTH IN 1 day. 09/22/2023 Culture shows NO GROWTH IN 2 DAYS. 09/23/23 Culture shows NO GROWTH IN 3 DAYS. 09/24/23 CAPRICE =--=--=--=--=--=--=--=--=- -=--=--=--=--=--=--=--=--= --=--=--=--=--=--=--=--=-- Performing Laboratory: Bacteriology Report Performed By: [facility]# [id number] [id number] [place] [address] [facility] Sep 07, 2023 02:47 PM LR SURGICAL PATHOL OGY REPORT: LOCAL TITLE: LR SURGICAL PATHOLOGY REPORT STANDARD TITLE: PATHOLOGY PROCEDURE NOTE DATE OF NOTE: SEP 07, 2023@14:47:11 ENTRY DATE: SEP 07, 2023@14:47:11 AUTHOR: AILYN DIGGS EXP COSIGNER: URGENCY: STATUS: COMPLETED $APHDR - - - - - - - - - - - - - - - - - - - - - - - - - - - - - - - - - - - - - - - - MEDICAL RECORD SURGICAL PATHOLOGY - - - - - - - - - - - - - - - - - - - - - - - - - - - - - - - - - - - - - - - - PATHOLOGY REPORT Accession No. SP [id number] - - - - - - - - - - - - - - - - - - - - - - - - - - - - - - - - - - - - - - - - $TEXT Submitted by: HALEY SULLIVAN Date obtained: Sep 06, 2023 11:24 - - - - - - - - - - - - - - - - - - - - - - - - - - - - - - - - - - - - - - - - Specimen (Received Sep 06, 2023 11:25): A. BACK CYST - - - - - - - - - - - - - - - - - - - - - - - - - - - - - - - - - - - - - - - - BRIEF CLINICAL HISTORY: - - - - - - - - - - - - - - - - - - - - - - - - - - - - - - - - - - - - - - - - PREOPERATIVE DIAGNOSIS: Cyst - - - - - - - - - - - - - - - - - - - - - - - - - - - - - - - - - - - - - - - - OPERATIVE FINDINGS: - - - - - - - - - - - - - - - - - - - - - - - - - - - - - - - - - - - - - - - - POSTOPERATIVE DIAGNOSIS: Surgeon/physician: GRICEL GILES MD =-=-=-=-=-=-=-=-=-=-=-=-=- =-=-=-=-=-=-=-=-=-=-=-=-=- =-=-=-=-=-=-=-=-=-=-=-=-=- = - - - - - - - - - - - - - - - - - - - - - - - - - - - - - - - - - - - - - - - - PATHOLOGY REPORT Accession No. SP [id number] - - - - - - - - - - - - - - - - - - - - - - - - - - - - - - - - - - - - - - - - Pathology Resident: DEIDRA WARD MD GROSS DESCRIPTION: (Christine Ward MD, 09/06/2023) Received in formalin, in a single container labeled with the patient's name, full SSN, and labeled as back cyst is a 4.0 x 3.0 x 0.5 cm ruptured cyst with 2.5 x 2.0 x 0.5 cm of attached yellow-simons fat. The cyst surface is pink-simons and glistening. The cyst contains white-simons, soft contents. Netezza Architect sections are submitted in cassettes A1-A4. MICROSCOPIC EXAM: (Roque) Microscopic examination of the sections submitted from back cyst shows a keratinous cyst with focal surrounding chronic inflammation. DIAGNOSIS: BACK CYST, EXCISION: KERATINOUS CYST /everardo/ AILYN DIGGS Pathologist Signed Sep 07, 2023@14:47 Performing Laboratory: Surgical Pathology Report Performed By: [id number] [address] $FTR - - - - - - - - - - - - - - - - - - - - - - - - - - - - - - - - - - - - - - - - (End of report) AILYN DIGGS MD [facility] Date Sep 07, 2023 - - - - - - - - - - - - - - - - - - - - - - - - - - - - - - - - - - - - - - - - TROY BOOGIE STANDARD FORM 515 ID:[id number] SEX:M :1965 AGE: 58 LOC:APFEE PCP: Adelina Campos MD /everardo/ AILYN DIGGS Pathologist Signed: 09/07/2023 14:[address] [facility] Encounter Notes: All associated encounter notes This section contains the clinical notes associated to the Encounter. Date/Time Encounter Note(s) Provider Source October 03, 2023 08:09 AM HEMATOLOGY AND ONC OLOGY OUTPATIENT NOTE: LOCAL TITLE: HEMATOLOGY ONCOLOGY OUTPATIENT FOLLOW UP STL STANDARD TITLE: HEMATOLOGY AND ONCOLOGY OUTPATIENT NOTE DATE OF NOTE: OCTOBER 03, 2023@08:09 ENTRY DATE: OCTOBER 03, 2023@08:09:23 AUTHOR: GRICEL SILVER EXP COSIGNER: URGENCY: STATUS: COMPLETED HEMATOLOGY ONCOLOGY OUTPATIENT FOLLOW UP STL Has ADDENDA HEMATOLOGY/ONCOLOGY CHIEF COMPLAINT: JAK2+ PV Hem/onc history: Polycythemia Vera; JAK2+: diagnosed 03/2022. Treatment History: 1. Phlebotomy 05/03/2022 - current/intermittent (last 11/2022) 2. Hydrea: 500 mg daily 05/14/2022 - 12/13/2022, 1000mg daily 12/13/2022 - current 3. Aspirin 81 mg daily INTERVAL HISTORY: Doing well. Tolerating hydrea, compliant. Has cut back on EtOH. REVIEW OF SYSTEMS: A clinically relevant ROS was completed and as documented as per interval history PAST MEDICAL HISTORY 1) Past history of procedure 2) OA - Osteoarthritis (RUST [id number]) 3) Senile macular degeneration 4) History of SARS-CoV-2 (RUST [id number]) 5) Diverticular Disease of Colon (RUST [id number]) 6) Obesity (RUST [id number]) 7) Hyperlipidemia (RUST [id number]) 8) Dupuytren's contracture 9) Tinnitus (RUST [id number]) 10) Sebaceous cyst of skin 11) Hearing Loss (RUST [id number]) 12) Vitamin D Deficiency (RUST [id number]) 13) Erectile Dysfunction (RUST [id number]) 14) History of colonic polyp 15) Epigastric hernia 16) Plantar heel pain 17) Impaired glucose tolerance 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 2) ASPIRIN 81MG EC TAB TAKE ONE TABLET BY MOUTH ONCE A ACTIVE DAY TAKE WITH FOOD. 3) ATORVASTATIN CALCIUM 40MG TAB TAKE ONE-HALF TABLET BY ACTIVE MOUTH EVERY EVENING TO LOWER CHOLESTEROL 4) CHOLECALCIF [...] PAIN RELIEF 6) HYDROXYUREA 500MG CAP TAKE TWO CAPSULES BY MOUTH ONCE ACTIVE A DAY 7) IBUPROFEN 600MG TAB TAKE ONE TABLET BY MOUTH FOUR ACTIVE TIMES A DAY NEEDED FOR PAIN TAKE WITH FOOD. 8) LATANOPROST 0.005% OPH SOLN INSTILL 1 DROP IN LEFT ACTIVE EYE EVERY EVENING FOR GLAUCOMA. KEEP REFRIGERATED UNTIL READY TO USE, THEN STORE AT ROOM TEMPERATURE FOR MAXIMUM OF 42 DAYS. 9) LIDOCAINE 5% PATCH APPLY 1 PATCH TO SKIN SITE ONCE A ACTIVE DAY APPLY PATCH AND PRESS FIRMLY FOR 10-15 SECONDS. KEEP ON FOR 12 HOURS THEN REMOVE PATCH FOR 12 HOURS. 10) SILDENAFIL CITRATE 100MG TAB TAKE ONE-HALF TABLET BY ACTIVE MOUTH ONE HOUR PRIOR TO SEXUAL ACTIVITY FOR ERECTILE DYSFUNCTION NEEDED - LIMIT 6 DOSES PER 30 DAYS 11) SULFAMETHOXAZOLE 800/TRIMETH 160MG TAB TAKE 1 TABLET ACTIVE BY MOUTH EVERY 12 HOURS FOR SKIN OR SOFT TISSUE INFECTION TAKE WITH WATER/AVOID SUNLIGHT. 12) TIMOLOL MALEATE 0.5% OPH SOLN INSTILL 1 DROP IN LEFT ACTIVE EYE EVERY MORNING FOR GLAUCOMA. USE BLENDER/BRAZE APPLICATOR BEFORE BREAKFAST Active Non-VA Medications Status 1) Non-VA LATANOPROST 0.005% OPH SOLN 1 DROP LEFT EYE ACTIVE EVERY EVENING 2) Non-VA TIMOLOL MALEATE 0.5% OPH SOLN 1 DROP LEFT EYE ACTIVE EVERY MORNING 14 Total Medications ALLERGIES Patient has answered NKA [...] and coordination, no focal deficits LABS WBC 5.7 10*3/uL 10/03/2023 06:48 RBC 3.90 L 10*6/uL 10/03/2023 06:48 HGB 15.0 g/dL 10/03/2023 06:48 HCT 43.1 % 10/03/2023 06:48 MCV 110.5 H fL 10/03/2023 06:48 MCH 38.5 H pg 10/03/2023 06:48 MCHC 34.8 g/dL 10/03/2023 06:48 RDW 11.5 L % 10/03/2023 06:48 PLT 270 10*3/uL 10/03/2023 06:48 MPV 10.1 fL 10/03/2023 06:48 NEUTROPHILS, AUTO % 62 % 10/03/2023 06:48 LYMPHOCYTES, AUTO % 26 % 10/03/2023 06:48 MONOCYTES, AUTO % 7 % 10/03/2023 06:48 EOSINOPHILS, AUTO % 3 % 10/03/2023 06:48 BASOPHILS, AUTO % 1 % 10/03/2023 06:48 NEUTROPHILS, ABSOLUTE 3.52 10*3/uL 10/03/2023 06:48 LYMPHOCYTES, ABSOLUTE 1.45 10*3/uL 10/03/2023 06:48 MONOCYTES, ABSOLUTE 0.42 10*3/uL 10/03/2023 06:48 EOSINOPHILS, ABSOLUTE 0.19 10*3/uL 10/03/2023 06:48 BASOPHILS, ABSOLUTE 0.08 10*3/uL 10/03/2023 06:48 ANISOCYTOSIS 1+ 07/04/2023 06:46 POIKILOCYTOSIS 1+ 07/04/2023 06:46 MACROCYTOSIS 1+ 07/04/2023 06:46 STOMATOCYTES 1+ 07/04/2023 06:46 SODIUM 137 mEq/L [...] 0.434 ng/mL 06/04/2020 11:40 ASSESSMENT & PLAN MISTYRODNEYTROY is a 57 yo MALE with PMH of PV, JAK2+ who presents for routine follow-up. #PV, JAK2+ -No evidence of thromboembolic events at this time -Hct goal 45 - cont hydrea 1000mg daily, no need for PHL today -Continue aspirin 81 mg daily -RTC 4 mo Life Sustaining Treatment Orders /everardo/ GRICEL SILVER Nurse Practitioner Signed: 10/03/2023 08:30 Receipt Acknowledged By: 10/03/2023 12:33 /earl LOU MD STAFF PHYSICIAN, HEMATOLOGY/ONCOLOGY 10/03/2023 ADDENDUM STATUS: COMPLETED I have seen and examined this patient with the INFORMATION ARCHITECT and was directly involved in making diagnostic and treatment decisions. I have reviewed and agree with the INFORMATION ARCHITECT's written documentation. /earl LOU MD STAFF PHYSICIAN, HEMATOLOGY/ONCOLOGY Signed: 10/03/2023 12:[address] [facility]
--- OUTSIDE RECORDS SUMMARY | 2024-09-25 14:23 | XMS_ITS | Encounter Summary ---
Author Organization [facility] Address [address] [place] [address] Phone Care Team Providers Care Aerial Gunner Superintendent Name Role Phone Eva Florence APRN, CNP Unavailable [phone] Reason for Visit * Reason Comments Medication Refill Encounter Details Date Type Department Care Team (Late st Contact Info) Description 01/28/2020 Refill [facility] - Family Medicine - [facility] [address] [place], [place] [id number] Merritt Florence APRN, CNP [address] [place], [place] [phone] Medication Refill Social History Tobacco Use Types Packs/Day Years Used Date Smoking Tobacco: Never Smokeless Tobacco: Never Alcohol Use Standard Drinks/Week Comments Yes 6 (1 standard drink = 0.6 oz pur e alcohol) PHQ-2 Answer Date Recorded PHQ-2 Score 0 02/09/2019 Sex and Gender Information Value Date Recorded Sex Assigned at Not on file Legal Sex Male 3:00 AM CORPORATE STATISTICAL FINANCIAL ANALYST Gender Identity Not on file Sexual Orientation Not on file documented as of this encounter Miscellaneous Notes * Telephone Encounter - Merritt Florence APN, CNP - 01/29/2020 11:09 AM CDT Refill approved Needs appointment. * Telephone Encounter - Rupal Montiel RN - 01/29/2020 11:04 AM CDT Medication failed the protocol, provider to review and approve the medication order. Requested Prescriptions Pending Prescriptions Disp Refills atorvastatin (LIPITOR) 20 MG Tablet [Pharmacy Med Name: ATORVASTATIN 20MG TABLETS] 30 Tab 0 Sig: TAKE 1 TABLET BY MOUTH EVERY NIGHT Cardiovascular: Antilipid - HMG-CoA Reductase Inhibitors Failed - 01/28/2020 12:23 PM Failed - Valid encounter within last 12 months Past Office Visits Recent Outpatient Visits 1 year ago Rectal bleeding [facility] Lovely [facility] PAC 1 year ago [facility] for [facility] health [facility]Adult[facility] Upcoming Appointments RADIO NEWS WRITER - Recent and Past Visits Recent Visits No visits were found meeting these conditions. Showing recent visits within past 460 days with a meds authorizing provider and meeting all other requirements Future Appointments No visits were found meeting these conditions. Showing future appointments within next 90 days with a meds authorizing provider and meeting all other requirements documented in this encounter Plan of Treatment Not on file documented as of this encounter Visit Diagnoses Not on filedocumented in this encounter Additional Health Concerns Assessment Noted Time PHQ-9 Depression Total Score: 0 04/22/20 18 4:04 PM CORPORATE STATISTICAL FINANCIAL ANALYST documented as of this encounter Care Teams Aerial Gunner Superintendent Relationship Specialty Start Date End Date Eva Florence APRN, DONNY Gastroenterology 06/14/18 documented as of this encounter
--- OUTSIDE RECORDS SUMMARY | 2024-09-25 14:23 | XMS_ITS | Encounter Summary ---
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 PREFERRED PROVIDER ORGANIZAT ION (PPO) PATTERN HANGER S May 28, 2020 [id number] [phone] Daphnie BOOGIE PATIENT Selected Encounter This section includes the information on record at [place] for the Encounter. Date/Time Encounter Type Encounter Description Reason Provider Source Apr 22, 2024 12:00 PM PSYTX W PT 30 MINUTES PCMHI INDIV ICD-10-CM F41.9 Anxiety disorder, unspecified RODERICK RANGEL IHJung Encounter Template Text not used by [facility] Assessments - Encounter Diagnoses This section includes the primary and secondary diagnoses documented for the Encounter. Date/Time Primary/Secondary Diagnosis Diagnosis Name Provider Source Apr 22, 2024 12:06 PM PRIMARY Anxiety disorder, unspecified RODERICK RANGEL [facility] Apr 22, 2024 12:06 PM SECONDARY Irritability and anger [place] [facility] Plan of Treatment: Future Appointments (+ 6 months) and Future Tests (+/- 45 days) The Plan of Treatment section includes future care activities for the [facility] [place] [facility] This section includes future appointments and future orders which are active, pending or scheduled. Future Appointments This section includes appointments that were scheduled to occur 6 months from the date of the Encounter, up to a maximum of 20 appointments. The data comes from all [facility]. Appointment Date/Time Appointment Type Appointme nt Facility Name May 19, 2024 03:00 PM AMBULATORY - MEDICINE [facility] May 22, 2024 01:00 PM AMBULATORY - MEDICINE [facility] Jun 10, 2024 12:30 PM AMBULATORY - MEDICINE [facility] Jun 25, 2024 08:00 AM AMBULATORY - SURGERY [facility] Jun 30, 2024 12:45 PM AMBULATORY - SURGERY [facility] Jul 16, 2024 01:00 PM AMBULATORY - MEDICINE [facility] Jul 16, 2024 01:30 PM AMBULATORY - MEDICINE [facility] Jul 29, 2024 02:00 PM AMBULATORY - MEDICINE [facility] Jul 30, 2024 11:30 AM AMBULATORY - MEDICINE [facility] Aug 13, 2024 01:30 PM AMBULATORY - NONE [facility] Aug 21, 2024 02:30 PM AMBULATORY - MEDICINE [facility] Sep 15, 2024 01:15 PM AMBULATORY - REHAB MEDICIN E [facility] Sep 15, 2024 02:00 PM AMBULATORY - SURGERY . [facility] Sep 17, 2024 11:00 AM AMBULATORY - MEDICINE [facility] Sep 17, 2024 11:30 AM AMBULATORY - MEDICINE [facility] Sep 20, 2024 07:44 AM AMBULATORY - MEDIC[facility] September 27, 2024 02:30 PM AMBULATORY - MEDICINE [facility] September 29, 2024 03:00 PM AMBULATORY - MEDICINE [facility] September 30, 2024 11:00 AM [facility] Lab Results: +/- 30 days of the encounter This section includes the Chemistry and Hematology Lab Results on record with [place] for the patient. Radiology Reports and Pathology Reports are provided separately, in subsequent sections. Lab Results This section contains the Chemistry/Hematology Results that were resulted 30 days before or 30 daysafter the date of the Encounter. Date/Time Source Result Type Result - Unit Interpretation Reference Range Specimen Type Comment Apr 16, 2024 11:52 AM [facility] COMPREHENSIVE METABOLIC PANEL PLASMA Specimen Type: PLASMA Comment: No hemolysis noted. Ordering Provider: GRICEL SILVER Report Released Date/Time: Jan 16, 2024 02:29 PM Reporting Lab: [address] [address] Performing Lab: [address] [address] CREATININE 0.91 mg/dL 0.7-1.3 UREA NITROGEN 17.0 mg/dL 9.0-25.0 GLUCOSE 97 mg/dL 72-99 SODIUM 140 meq/L 136-145 POTASSIUM 4.5 meq/L 3.5-5 CHLORIDE 104 meq/L 98-107 CARBON DIOXIDE 28 meq/L 22-31 CALCIUM 9.6 mg/dL 8.4-10.4 PROTEIN 7.6 g/dL 6-8.6 ALBUMIN 4.1 g/dL 3.4-5 TOTAL BILIRUBIN 0.5 mg/dL 0.2-1.2 ALKALINE PHOSPHATASE 73 U/L 40-150 AST/SGOT 38 U/L H 5-34 ALT/SGPT 38 U/L 8-40 EGFR (CKD-EPI 2020) 97.1 >60 Apr 16, 2024 11:52 AM [facility] CBC BLOOD Specimen Type: BLOOD No comment entered. Ordering Provider: GRICEL SILVER Report Released Date/Time: Jan 16, 2024 02:29 PM Reporting Lab: [address] [address] Performing Lab: [facility] [address] [facility] [address] WBC 6.1 10*3/uL 3.6-11.2 RBC 4.37 10*6/uL 4.10-5.70 HGB 16.0 g/dL 13.1-16.8 HCT 45.9 38.2-48.4 MCV 105.0 fL H 80.0-100.0 MCH 36.6 pg H 27.0-34.0 MCHC 34.9 g/dL 33.0-36.0 PLT 295 10*3/uL 150-400 MPV 9.8 fL 7.5-11.2 RDW 13.5 11.8-15.1 LYMPHOCYTES, AUTO % 26 MONOCYTES, AUTO % 10 NEUTROPHILS, AUTO % 60 EOSINOPHILS, AUTO % 2 BASOPHILS, AUTO % 2 LYMPHOCYTES, ABSOLUTE 1.62 10*3/uL 0.77- 4.50 MONOCYTES, ABSOLUTE 0.59 10*3/uL 0.19-0. 80 NEUTROPHILS, ABSOLUTE 3.69 10*3/uL 2.10- 8.00 EOSINOPHILS, ABSOLUTE 0.10 10*3/uL 0.00- 0.60 BASOPHILS, ABSOLUTE 0.10 10*3/uL 0.00-0. 20 Social History: Smoking Status (Most current) and Tobacco Use (All prior to encounter date) This section includes the most current, and the historical, smoking and tobacco- related health factors from the [place] facility where the Encounter took place. Current Smoking Status This section includes the most current smoking, or tobacco-related health factor, from the [place] facility where the Encounter took place. Date/Time Current Smoking Status Comment Jerod ity Jun 05, 2023 09:30 AM [place]-TOBACCO NEVER USED [facility] Tobacco Use History This section includes a history of the smoking, or tobacco-related health factors, that were collected on or before the date of the Encounter. The data comes from the [place] facility where the Encounter took place. Date/Time Smoking Status/Tobacco Use Comment F tj Jun 03, 2021 10:00 AM [place]-TOBACCO [facility] Encounter Notes: All associated encounter notes This section contains the clinical notes associated to the Encounter. Date/Time Encounter Note(s) Provider Source Apr 22, 2024 11:47 AM PSYCHOLOGY OUTPATI ENT NOTE: LOCAL TITLE: PRIMARY CARE PSYCHOLOGY NOTE [facility] STANDARD TITLE: PSYCHOLOGY OUTPATIENT NOTE DATE OF NOTE: APR 22, 2024@11:47 ENTRY DATE: APR 22, 2024@11:47:20 AUTHOR: RODERICK RANGEL COSIGNER: URGENCY: STATUS: COMPLETED NAME: TROY BOOGIE DATE OF : Jun TIME SPENT WITH PATIENT: 30 minutes DIAGNOSIS BEING TREATED: Unspecified Anxiety D/O, Anger and Irritability CPT Code: 82901 NATURE OF ENCOUNTER: follow up visit SESSION FORMAT: [X] [id number] [ ] Video Telehealth [ ]Phone Confirmed T[place]'s location and phone number for virtual appointment. [ ]Yes [X]N/A SESSION NUMBER: 2 RELEVANT HISTORICAL DEVELOPMENTS SINCE LAST CONTACT: - denied any significant events INTERVENTION/TREATMENT PROVIDED [X] Rapport Building [X] Shared decision-making regarding goals of care [X] Supportive Psychotherapy [X] Solution-Focused Psychotherapy [ ] Insight Oriented Psychotherapy [X] Cognitive Behavioral Therapy Skills [ ] Acceptance and Commitment Therapy Skills [ ] Interpersonal Therapy Skills [ ] Motivational Interviewing [ ] Culture-based Interventions [ ] Health Psychology Interventions [ ] Evidence Based Psychotherapy: [ ] Psychosocial Interventions [ ] Other: Description of Interventions Provided by Therapist: - Assessed sxs and fx'ing. Anxiety remains elevated, but appears stable. Tivoli notes recognition that episodes of increased frustration in the occupational setting typically occur s/t him overextending himself. Discussed strategies to assist with boundary setting. Additionally, he notes increased feelings of irritability s/t experience of intrusive anxious thoughts. Reviewed stress/anxiety management strategies. - discussed previous interpersonal relationships and ongoing impact his experiences have on his engagement/trust/etc with others. Assisted with processing related thoughts and feelings. Assisted with challenging identified distorted cognitions. Provided with empathetic and supportive listening and appropriate validation. ASSESSMENT MEASURES USED: PHQ-9 not administered during today's encounter. Score = 5 (Mild range, Q#9=0) when administered on Mar 20. LYLE-7 not administered during today's encounter. Score = 13 (Moderate range) when administered on Mar 20. [X]Functional/Symptom Assessment: Symptom(s)/Function(s) tracked by changes in frequency, intensity or duration since last visit: anxiety sxs remain elevated, but appear stable; denied feeling down/depressed ROS (by verbal report): Sleep: remains WNL, continues to deny concerns Interest: remains decreased at times, but improvement noted Guilt: continues to endorse Energy: remains decreased frequently, continues to attribute fatigue to cancer tx Concentration: remains decreased at times Appetite: remains WNL, continues to deny recent changes or concerns Psychomotor: remains WNL upon observation, continues to report feeling restless at times Collaboratively discussed outcomes related to assessment and treatment progress and measures will continue to be monitored. MEASURABLE TREATMENT GOALS FOR THIS EPISODE OF CARE: Goals were developed with using shared decision making. 1. GOAL/OBJECTIVES: decrease anxiety PROGRESS TOWARDS GOAL: sxs remain elevated, but appear stable 2. GOAL/OBJECTIVES: decrease anger and irritablity PROGRESS TOWARDS GOAL: no recent experiences of expressed anger, reports has been able to manage experiences of irritability/frustration when they occur RESPONSE TO INTERVENTIONS: 's participation/engagement: [X]The [place] participated actively in the current interventions. [ ]Other: The continues to consent to the current plan of care: Yes Comments: RISK ASSESSMENT: [X] NO CHANGE IN RISK FACTORS Related to Suicide or Homicide. T[place]oli did not report any current suicidal/homicidal ideation, plan, or intent. did not appear to be at imminent risk for suicide or homicide at this time and is considered sustainable at the current level of care. -CLINICAL JUDGMENT AND DISPOSITION: [X] In consideration of relevant risk and protective factors, the [place] did NOT appear to be at imminent risk for suicide or homicide at this time and IS sustainable at the current level of care. -Comments: [place] was asked directly and denied SI/HI, to include any current or recent active or passive ideation. Specifically, denied any current or recent thoughts, feelings, urges, or desires for self-harm or harm to others, as well as any engagement in planning, preparatory bxs, gestures, or attempts. As noted in intake (Mar 20), 's hx is positive for involuntary hospitalization in 2009 s/t verbalizing threats of self-harm following a heated dispute with family members while he was intoxicated. [place] reported that he had no memory of the event the next day, but was very embarrassed. Hx is also reported to be positive for intermittent morbid ideation that has occurred since adolescence. T[place]oli consistently denies any hx of consideration of acting on these thoughts and firmly denied any hx of engaging in preparatory bxs, planning, gestures or attempts. ASSIGNED WORK: 1. Utilize recommended stress and anxiety management strategies. 2. Utilize recommended strategies to assist with processing frustration and irritability as needed. COLLABORATIVE RECOMMENDATIONS/PLAN: Collaboratively discussed outcomes related to assessment and treatment progress. Based on this discussion: [X] No changes to plan of care. expressed agreement with therapy tasks and [id number] plan. RTC placed for f/u appt. /es/ RODERICK RANGEL, PH.D. Clinical Psychologist; [facility] Signed: 04/22/2024 13:05 ROEDRICK RANGEL [facility]
--- OUTSIDE RECORDS SUMMARY | 2024-09-25 14:23 | XMS_ITS | Encounter Summary ---
Author Name [facility] ([place]) Organization [facility] ([place]) Address [address] [place] [id number] Care Team Providers Care Customer Development Representative Name Role Phone VICENTE RAJAN Primary Care [...] Patient's Relationship to Policy Montano OPTUM RX [phone] PRESCRIPT ION DENTAL ASSISTANT INSTRUCTOR S May 28, 2020 [facility] [id number] [phone] Daphnie BOOGIE PATIENT [facility] PREFERRED PROVIDER ORGANIZAT ION (PPO) DENTAL ASSISTANT INSTRUCTOR S May 28, 2020 [id number] [phone] Daphnie BOOGIE PATIENT Selected Encounter This section includes the information on record at [place] for the Encounter. Date/Time Encounter Type Encounter Description Reason Pro vider Source Feb 13, 2024 02:43 PM Outpatient Encounter GENERAL INTERNAL MEDICINE I[facility] Encounter Template Text not used by [place] Plan of Treatment: Future Appointments (+ 6 [...] 20 appointments. The data comes from all [place] treatment facilities. Appointment Date/Time Appointment Type Appointme nt Facility Name Feb 15, 2024 08:00 AM AMBULATORY - SURGERY [facility] Feb 19, 2024 10:00 AM AMBULATORY - MEDICINE [facility] Mar 04, 2024 03:00 PM AMBULATORY - MEDICINE [facility] Mar 07, 2024 09:00 AM AMBULATORY - MEDICINE [facility] Mar 18, 2024 03:00 PM AMBULATORY - MEDICINE [facility] Mar 25, 2024 11:00 AM AMBULATORY - SURGERY [facility] Apr 14, 2024 03:00 PM AMBULATORY - MEDICINE [facility] Apr 16, 2024 01:00 PM AMBULATORY - MEDICINE [facility] Apr 16, 2024 01:30 PM AMBULATORY - MEDICINE [facility] Apr 22, 2024 12:00 PM AMBULATORY - MEDICINE [facility] May 19, 2024 03:00 PM AMBULATORY - MEDICINE [facility] May 22, 2024 01:00 PM AMBULATORY - MEDICINE [facility] Jun 10, 2024 12:30 PM AMBULATORY - MEDICINE [facility] Jun 25, 2024 08:00 AM AMBULATORY - SURGERY [facility] Jun 30, 2024 12:45 PM AMBULATORY - SURGERY [facility] Jul 16, 2024 01:00 PM AMBULATORY - MEDICINE [facility] Jul 16, 2024 01:30 PM AMBULATORY - MEDICINE [facility] Jul 29, 2024 02:00 PM AMBULATORY - MEDICINE [facility] Jul 30, 2024 11:30 AM AMBULATORY - MEDICINE [facility] Lab Results: +/- 30 days of the [...] Type Comment Jan 16, 2024 12:55 PM [facility] CBC BLOOD Specimen Type: BLOOD No comment entered. Ordering Provider: GRICEL SILVER Report Released Date/Time: Dec 25, 2023 11:22 AM Reporting Lab: [facility] [address] [facility] [address] Performing Lab: [address] [address] WBC 5.9 10*3/uL 3.6-11.2 RBC 4.48 10*6/uL [...] 0.00-0. 20 Jan 16, 2024 12:55 PM [facility] COMPREHENSIVE METABOLIC PANEL PLASMA Specimen Type: PLASMA Comment: No hemolysis noted. Ordering Provider: GRICEL SILVER Report Released Date/Time: Dec 25, 2023 11:22 AM Reporting Lab: [facility] [address] [facility] [address] Performing Lab: [address] [address] CREATININE 0.96 mg/dL 0.7-1.3 UREA NITROGEN 17.6 [...] 91.1 >60 Jan 16, 2024 12:55 PM [facility] TSH W/ REFLEX FT4 (STL) PLASMA Specimen Type: PLASMA No comment entered. Ordering Provider: GRICEL SILVER Report Released Date/Time: Jan 16, 2024 01:32 PM Reporting Lab: [facility] [address] [facility] [address] Performing Lab: [facility] [address] [facility] [address] TSH 1.650 u[IU]/mL 0.47-5 Social History: Smoking Status (Most current) and Tobacco Use (All prior to encounter date) This section includes the most current, and the historical, smoking and tobacco- related health factors from the [place] facility where the Encounter took place. Current Smoking Status This section includes the most current smoking, or tobacco-related health factor, from the [place] facility where the Encounter took place. Date/Time Current Smoking Status Comment Jerod ity May 17, 2022 12:02 PM [place]-TOBACCO NEVER USED [facility] Tobacco Use History This section includes a history of the smoking, or tobacco-related health factors, that were collected on or before the date of the Encounter. The data comes from the [place] facility where the Encounter took place. Date/Time Smoking Status/Tobacco Use Comment F acility Mar 06, 2021 04:50 AM [facility] ADMIT TOBACCO SCREEN NO [facility] Jun 03, 2020 09:50 AM VA-TOBACCO NEVER USED [facility] Encounter Notes: All associated encounter notes This section contains the clinical notes associated to the Encounter. Date/Time Encounter Note(s) Provider Source Feb 13, 2024 02:44 PM NONVA NOTE: LOCAL TITLE: COMMUNITY CARE-REQUEST FOR SERVICE NOTE [facility] STANDARD TITLE: NONVA NOTE DATE OF NOTE: FEB 13, 2024@14:44 ENTRY DATE: FEB 13, 2024@14:44:44 AUTHOR: PANCHO WATT EXP COSIGNER: URGENCY: STATUS: COMPLETED Request for Services (RFS) documentation has [facility] Care Consult: COMMUNITY CARE-[facility] OPT EYE EXAM Consult No: [id number] Date sent to scanning: Jan A Request for Service (RFS) form [id number] has been received which includes the following: Care Requested:office visits routine ICD-10 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
--- OUTSIDE RECORDS SUMMARY | 2024-09-25 14:23 | XMS_ITS | Encounter Summary ---
Author Name [facility] [facility] ([place] Organization Department of [facility] ([place]) Address [address] [place] [id number] Care Team Providers Care Ball Assembler Name Role Phone VICENTE RAJAN Primary Care [...] Patient's Relationship to Policy Montano [employer] [phone] PRESCRIPT ION SIDE FRAMER S May 28, 2020 [facility] [id number] [phone] Daphnie BOOGIE PATIENT [facility] PREFERRED PROVIDER ORGANIZAT ION (PPO) SIDE FRAMER S May 28, 2020 [id number] [phone] Daphnie BOOGIE PATIENT Selected Encounter This section includes the information on record at [place] for the Encounter. Date/Time Encounter Type Encounter Description Reason Provider Source Jul 16, 2024 01:00 PM OFFICE O/P EST MOD 30 MIN ONCOLOGY/TUMOR ICD-10-CM D45 Polycythemia vera GRICEL SILVER Encounter Template Text not used by [facility] Assessments - Encounter Diagnoses This section includes the primary and secondary diagnoses documented for the Encounter. Date/Time Primary/Secondary Diagnosis Diagnosis Name Provider Source Jul 16, 2024 01:09 PM PRIMARY Polycythemia vera GRICEL SILVER [facility] Plan of Treatment: Future Appointments (+ 6 months) and Future Tests (+/- 45 days) The Plan of Treatment section includes future care activities for the [facility] [place] [facility] This section includes future appointments and future orders which are active, pending or scheduled. Future Appointments This section includes appointments that were scheduled to occur 6 months from the date of the Encounter, up to a maximum of 20 appointments. The data comes from all [place] treatment facilities. Appointment Date/Time Appointment Type Appointme nt Facility Name Jul 29, 2024 02:00 PM AMBULATORY - MEDICINE [facility] Jul 30, 2024 11:30 AM AMBULATORY - MEDICINE [facility] Aug 13, 2024 01:30 PM AMBULATORY - NONE [facility] Aug 21, 2024 02:30 PM AMBULATORY - MEDICINE [facility] Sep 15, 2024 01:15 PM AMBULATORY - REHAB MEDICIN E [facility] Sep 15, 2024 02:00 PM AMBULATORY - SURGERY [facility] Sep 17, 2024 11:00 AM AMBULATORY - MEDICINE [facility] Sep 17, 2024 11:30 AM AMBULATORY - MEDICINE [facility] Sep 20, 2024 07:44 AM AMBULATORY - MEDICINE [facility] September 27, 2024 02:30 PM AMBULATORY - MEDICINE [facility] September 29, 2024 03:00 PM AMBULATORY - MEDICINE [facility] September 30, 2024 11:00 AM AMBULATORY - MEDICINE [facility] Oct 27, 2024 08:15 AM AMBULATORY - REHAB MEDICIN E [facility] Oct 27, 2024 08:30 AM AMBULATORY - SURGERY [facility] Oct 29, 2024 08:30 AM [facility] Oct 29, 2024 10:45 AM AMBULATORY - MEDICINE [facility] Oct 29, 2024 11:00 AM AMBULATORY - MEDICINE [facility] Dec 10, 2024 02:00 PM AMBULATORY - NONE [facility] Lab Results: +/- 30 days of the encounter This section includes the Chemistry and Hematology Lab Results on record with [place] for the patient. Radiology Reports and Pathology Reports are provided separately, in subsequent sections. Lab Results This section contains the Chemistry/Hematology Results that were resulted 30 days before or 30 daysafter the date of the Encounter. Date/Time Source Result Type Result - Unit Interpretation Reference Range Specimen Type Comment Jul 16, 2024 11:41 AM [facility] COMPREHENSIVE METABOLIC PANEL PLASMA Specimen Type: PLASMA Comment: No hemolysis noted. Ordering Provider: GRICEL SILVER Report Released Date/Time: Apr 16, 2024 12:33 PM Reporting Lab: [address] [address] Performing Lab: [address] [address] CREATININE 0.88 mg/dL 0.7-1.3 UREA NITROGEN 14.6 [...] U/L 8-40 EGFR (CKD-EPI 2020) 98.4 >60 Jul 16, 2024 11:41 AM [facility] CBC BLOOD Specimen Type: BLOOD No comment entered. Ordering Provider: GRICEL SILVRE Report Released Date/Time: Apr 16, 2024 12:33 PM Reporting Lab: [facility] [address] [place] [id number] Performing Lab: [address] [address] WBC 7.1 10*3/uL 3.6-11.2 RBC 4.38 10*6/uL [...] 0.60 BASOPHILS, ABSOLUTE 0.11 10*3/uL 0.00-0. 20 Vital Signs: All taken on the encounter date This section contains inpatient and outpatient Vital Signs collected on the date of the Encounter. Date/Time Temperature Pulse Blood Pressure Respiratory Rate SP02 Pain Height Weight Body Mass Index Source Jul 16, 2024 11:59 AM 97.6 78 135/83 20 99 287.9 38 [facility] Social History: Smoking Status (Most current) and Tobacco Use (All prior to encounter date) This section includes the most current, and the historical, smoking and tobacco- related health factors from the [place] facility where the Encounter took place. Current Smoking Status This section includes the most current smoking, or tobacco-related health factor, from the [place] facility where the Encounter took place. Date/Time Current Smoking Status Comment Jerod ity May 17, 2022 12:02 PM VA-TOBACCO NEVER USED [facility] Tobacco Use History This section includes a history of the smoking, or tobacco-related health factors, that were collected on or before the date of the Encounter. The data comes from the [place] facility where the Encounter took place. Date/Time Smoking Status/Tobacco Use Comment F acility Mar 06, 2021 04:50 AM [facility]YX ADMIT TOBACCO SCREEN NO [facility] Jun 03, 2020 09:50 AM VA-TOBACCO NEVER USED [facility] Radiology Reports: +/- 30 days of the [...] the Encounter. The data comes from all [place] treatment facilities. Date/Time Radiology Report Provider Source Aug 13, 2024 12:38 PM US THYROID (NECK SOFT-TISSUE): TROY BOOGIE [id number] -[id number] M Ex Date: AUG 13, 2024@12:38 Req Phys: FANNY MOYA Loc: [facility] PACT PHONE 05 PCP (R Img Loc: [facility] Service: Unknown [address] [address] (Case [id number] COMPLETE) US THYROID (NECK SOFT-TISSUE) (US Detailed) CPT:86543 Reason for Study: enlarged thyroid Clinical History: Report Status: Verified Date Reported: AUG 13, 2024 Date Verified: AUG 13, 2024 [employer] Superintendent E-Sig:/ES/FREDERICK YAN Report: Exam: US THYROID (NECK SOFT-TISSUE) Case: [id number] History:Enlarged thyroid Technique: Real-time ultrasound examination of the thyroid was obtained in transverse and longitudinal projections. Limited color Doppler exam was also performed. TI-RADS classification was utilized. Prior thyroid ultrasound: N/A Normal echogenicity and vascularity of the thyroid bilaterally. Right lobe: 4.5 x 2.1 x 1.4 cm. Left lobe: 3.9 x 2.2 x 1.8 cm. Isthmus: 6 mm. No discrete thyroid nodules are seen. No abnormal lymphadenopathy. Impression: Normal sonographic appearance of the thyroid. No discrete nodules. Dictated by Karol Villalobos M.D. (president + publisher). I, Frederick Shady, have reviewed the images and report and concur with these findings. Primary Interpreting Staff: FREDERICK YAN, RADIOLOGIST ([employer] Superintendent) Primary Interpreting Resident: KAROL VILLALOBOS, Resident Physician /FREDERICK TOMLINSON [facility] Encounter Notes: All associated encounter notes This section contains the clinical notes associated to the Encounter. Date/Time Encounter Note(s) Provider Source Jul 16, 2024 12:10 PM HEMATOLOGY AND ONC OLOGY OUTPATIENT NOTE: LOCAL TITLE: HEMATOLOGY ONCOLOGY OUTPATIENT FOLLOW UP ST STANDARD TITLE: HEMATOLOGY AND ONCOLOGY OUTPATIENT NOTE DATE OF NOTE: JUL 16, 2024@12:10 ENTRY DATE: JUL 16, 2024@12:10:11 AUTHOR: GRICEL SILVER EXP COSIGNER: URGENCY: STATUS: COMPLETED HEMATOLOGY/ONCOLOGY CHIEF COMPLAINT: JAK2+ PV Diagnosis: Polycythemia Vera, JAK2+, diagnosed 03/2022 with Hgb 18.8 / Hct 55.4% Treatment History: 1. Phlebotomy 05/03/2022 - 11/2022 -> resumed 01/16/2024, 04/16/2024, 07/16/2024 2. Hydrea: 500 mg daily 05/14/2022 - 12/13/2022, 1000mg daily 12/13/2022 - current 3. Aspirin 81 mg daily INTERVAL HISTORY: Since last f/up, he underwent sleep study for fatigue and +STOP BANG - this showed very severe REYUMNDO and PLMD. He has tried CPAP but was unable to tolerate, has f/up in October with team but agreeable to reach out earlier. His fatigue persists and he naps for 2 hours daily. He's been off work lately due to the weather and notes he's been gaining weight - notes he needs to start getting active and watching what he eats. Otherwise, no new concerns. Unfortunately, his cousin (lifelong best friend) passed in May from a blood clot. REVIEW OF SYSTEMS: A clinically relevant ROS was completed and documented as per interval history PAST MEDICAL HISTORY 1) Past history of procedure 2) OA - Osteoarthritis (SCT 434423150) 3) Senile macular degeneration 4) History of SARS-CoV-2 (SCT [id number]) 5) Diverticular Disease of Colon ([facility]CT 245670495) 6) Obesity ([facility] 261527407) 7) Hyperlipidemia ([facility] 83849385) 8) Dupuytren's contracture 9) Tinnitus ([facility] [id number]) 10) Sebaceous cyst of skin 11) Hearing Loss ([facility] 11974075) 12) Vitamin D Deficiency ([facility] 4790264) 13) Erectile Dysfunction ([facility] [id number]) 14) History of colonic polyp 15) Epigastric [...] ATTACHED INSIDE BOX)FOR HEEL PAIN RELIEF 6) LATANOPROST 0.005% OPH SOLN INSTILL 1 DROP IN LEFT EYE EVERY ACTIVE EVENING FOR GLAUCOMA. KEEP REFRIGERATED UNTIL READY TO USE, THEN STORE AT ROOM TEMPERATURE FOR MAXIMUM OF 42 DAYS. 7) LOSARTAN 100MG TAB TAKE ONE-HALF TABLET BY MOUTH ONCE A DAY ACTIVE Indication: FOR HIGH BLOOD PRESSURE 8) SILDENAFIL CITRATE 100MG TAB TAKE ONE-HALF TABLET BY MOUTH ACTIVE ONE HOUR PRIOR TO SEXUAL ACTIVITY NEEDED - LIMIT 6 DOSES PER 30 DAYS Indication: FOR ERECTILE DYSFUNCTION 9) TIMOLOL MALEATE 0.5% OPH SOLN INSTILL 1 DROP IN LEFT EYE ACTIVE EVERY MORNING FOR GLAUCOMA. USE METAL TRIMMER BEFORE BREAKFAST Indication: FOR ELEVATED INTRAOCULAR PRESSURE Active Non-VA Medications Status 1) Non-VA LATANOPROST 0.005% OPH SOLN 1 DROP LEFT EYE EVERY ACTIVE EVENING 2) Non-VA TIMOLOL MALEATE 0.5% OPH SOLN 1 DROP LEFT EYE EVERY ACTIVE MORNING 11 Total Medications ALLERGIES Patient has answered NKA VITAL SIGNS Temperature: 97.6 F [36.4 C] (07/16/2024 11:59) Blood Pressure: 135/83 (07/16/2024 11:59) Pulse: 78 (07/16/2024 11:59) Respirations: 20 (07/16/2024 11:59) Weight: 287.9 lb [130.59 kg] (07/16/2024 11:59) BMI: 38.1 PHYSICAL EXAM General: In no apparent distress HEENT: NCAT Respiratory: Resp unlabored on RA, CTAB Cardiovascular: RRR, no C/C/E Abdomen: Soft, non-distended, non-tender, +BS Musculoskeletal: Symmetrical, ambulatory Skin: No apparent lesions Neuro: Alert and oriented w/ normal station and coordination, no focal deficits LABS WBC 7.1 10*3/uL 07/16/2024 11:41 RBC 4.38 10*6/uL 07/16/2024 11:41 HGB 16.5 g/dL 07/16/2024 11:41 HCT 47.6 % 07/16/2024 11:41 MCV 108.7 H fL 07/16/2024 11:41 MCH 37.7 H pg 07/16/2024 11:41 MCHC 34.7 g/dL 07/16/2024 11:41 RDW 13.2 % 07/16/2024 11:41 PLT 305 10*3/uL 07/16/2024 11:41 MPV 9.8 fL 07/16/2024 11:41 NEUTROPHILS, AUTO % 68 % 07/16/2024 11:41 LYMPHOCYTES, AUTO % 20 % 07/16/2024 11:41 MONOCYTES, AUTO % 8 % 07/16/2024 11:41 EOSINOPHILS, AUTO % 1 % 07/16/2024 11:41 BASOPHILS, AUTO % 2 % 07/16/2024 11:41 NEUTROPHILS, ABSOLUTE 4.84 10*3/uL 07/16/2024 11:41 LYMPHOCYTES, ABSOLUTE 1.44 10*3/uL 07/16/2024 11:41 MONOCYTES, ABSOLUTE 0.55 10*3/uL 07/16/2024 11:41 EOSINOPHILS, ABSOLUTE 0.10 10*3/uL 07/16/2024 11:41 BASOPHILS, ABSOLUTE 0.11 10*3/uL 07/16/2024 11:41 ANISOCYTOSIS 1+ 07/04/2023 06:46 POIKILOCYTOSIS 1+ 07/04/2023 06:46 MACROCYTOSIS 1+ 10/03/2023 06:48 STOMATOCYTES 1+ 07/04/2023 06:46 SODIUM 136 mEq/L 06/10/2024 14:30 POTASSIUM 4.3 mEq/L 06/10/2024 14:30 CHLORIDE 103 mEq/L 06/10/2024 14:30 UREA NITROGEN 16.7 mg/dL 06/10/2024 14:30 CREATININE 0.72 mg/dL 06/10/2024 14:30 CALCIUM 9.8 mg/dL 06/10/2024 14:30 PROTEIN 7.7 g/dL 06/10/2024 14:30 ALBUMIN 4.3 g/dL 06/10/2024 14:30 ALKALINE PHOSPHATASE 70 U/L 06/10/2024 14:30 ALT/SGPT 28 U/L 06/10/2024 14:30 AST/SGOT 31 U/L 06/10/2024 14:30 TOTAL BILIRUBIN 0.6 mg/dL 06/10/2024 14:30 CARBON DIOXIDE 24 mEq/L 06/10/2024 14:30 GLUCOSE 102 H mg/dL 06/10/2024 14:30 EGFR (CKD-EPI 2020) 105.2 06/10/2024 14:30 ____ No PHOSPHOROUS data found No LDH EO data found No TIBC EO data found No IRON EO data found No FERRITIN EO data found No B12 EO data found pg/ml No FOLATE (STL-MA);FOLATE (PB);FOLATE (DC 10-08);FOLATE (DC 03/04) data found PROST. SPECIFIC AG.(PB-STL) 0.414 ng/mL 06/10/2024 14:30 PROST. SPECIFIC AG.(PB-STL) 0.671 ng/mL 07/04/2023 06:46 PROST. SPECIFIC AG.(PB-STL) 0.420 ng/mL 06/07/2022 07:08 PROST. SPECIFIC AG.(PB-STL) 0.591 ng/mL 06/03/2021 10:42 PROST. SPECIFIC AG.(PB-STL) 0.434 ng/mL 06/04/2020 11:40 ASSESSMENT & PLAN Troy Boogie is a 59 YOM with JAK2+ [id number] PV who presents for follow-up. #PV, JAK2+ - No prior thromboembolic events - Hct goal <45% - proceed with PHL today for Hct 47%; he prefers to cont hydrea 1000mg and spot PHL as opposed to increasing cytoreduction - Continue aspirin 81 mg daily ([place] Rx) - RTC 2mo with PHL time #Fatigue - Chronic/intermittent - STOP BANG c/f REYMUNDO - discussed important to consider given symptoms, general health purposes, and plausibly may be further impacting H/H; sleep study 05/2024 with severe severe REYMUNDO and Rx CPAP but has not been able to tolerate - encouraged to discuss alternative masks/devices with sleep med team, he - Reinforce health lifestyle / sleep hygiene measures /everardo/ GRICEL SILVER Nurse Practitioner Signed: 07/16/2024 13:09 GRICEL SILVER [facility]
--- OUTSIDE RECORDS SUMMARY | 2024-09-25 14:23 | XMS_ITS | Encounter Summary ---
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 Date/Time Encounter Type Encounter Description Reason Provider Source Jun 25, 2024 08:00 AM OFFICE O/P EST MOD 30 MIN OPTOMETRY ICD-10-CM 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, left eye, with actv chrdl neovas JO LI Encounter Template Text not used by [place] Assessments - Encounter Diagnoses This section includes the primary and secondary diagnoses documented for the Encounter. Date/Time Primary/Secondary Diagnosis Diagnosis Name Provider Source Jun 25, 2024 04:12 PM PRIMARY Exdtve age-rel mclr degn, left eye, with actv chrdl neovas MARY KATE LI [facility] Jun 25, 2024 04:12 PM SECONDARY Ocular hypertension, bilateral MARY KATE LI [facility] Jun 25, 2024 04:12 PM SECONDARY Presbyopia MARY KATE LI [facility] Plan of Treatment: Future Appointments (+ 6 months) and Future Tests (+/- 45 days) The Plan of Treatment section includes future care activities for the patient [facility] [place] [facility] This section includes future appointments and future orders which are active, pending or scheduled. Future Appointments This section includes appointments that were scheduled to occur 6 months from the date of the Encounter, up to a maximum of 20 appointments. The data comes from all [place] treatment facilities. Appointment Date/Time Appointment Type Appointme nt Facility Name Jun 30, 2024 12:45 PM AMBULATORY - SURGERY [facility] Jul 16, 2024 01:00 PM AMBULATORY - MEDICINE [facility] Jul 16, 2024 01:30 PM AMBULATORY - MEDICINE [facility] Jul 29, 2024 02:00 PM AMBULATORY - MEDICINE [facility] Jul 30, 2024 11:30 AM AMBULATORY - MEDICINE [facility] Aug 13, 2024 01:30 PM AMBULATORY - NONE [facility] Aug 21, 2024 02:30 PM AMBULATORY - MEDICINE [facility] Sep 15, 2024 01:15 PM AMBULATORY - REHAB MEDICIN E [facility] Sep 15, 2024 02:00 PM AMBULATORY - SURGERY [facility] Sep 17, 2024 11:00 AM AMBULATORY - MEDICINE [facility] Sep 17, 2024 11:30 AM AMBULATORY - MEDICINE [facility] Sep 20, 2024 07:44 AM AMBULATORY - MEDICINE [facility] September 27, 2024 02:30 PM AMBULATORY - MEDICINE [facility] September 29, 2024 03:00 PM AMBULATORY - MEDICINE [facility] September 30, 2024 11:00 AM [facility] Oct 27, 2024 08:15 AM AMBULATORY - REHAB MEDICIN E [facility] Oct 27, 2024 08:30 AM AMBULATORY - SURGERY . [place] [facility] Oct 29, 2024 08:30 AM AMBULATORY - SURGERY [facility] [place] [facility] Oct 29, 2024 10:45 AM AMBULATORY - MEDICINE [facility] Oct 29, 2024 11:00 AM AMBULATORY - MEDICINE [facility] Lab Results: +/- 30 days of [...] Type Comment Jul 16, 2024 11:41 AM [facility] COMPREHENSIVE METABOLIC PANEL PLASMA Specimen Type: PLASMA Comment: No hemolysis noted. Ordering Provider: GRICEL SILVER Report Released Date/Time: Apr 16, 2024 12:33 PM Reporting Lab: [address] [address] Performing Lab: [address] [address] CREATININE 0.88 mg/dL 0.7-1.3 UREA NITROGEN 14.6 [...] 98.4 >60 Jul 16, 2024 11:41 AM [facility] CBC BLOOD Specimen Type: BLOOD No comment entered. Ordering Provider: GRICEL SILVER Report Released Date/Time: Apr 16, 2024 12:33 PM Reporting Lab: [facility] [address] [place] [phone] Performing Lab: [facility] [address] [facility] [address] WBC 7.1 10*3/uL 3.6-11.2 RBC 4.38 10*6/uL [...] 0.60 BASOPHILS, ABSOLUTE 0.11 10*3/uL 0.00-0. 20 Jun 10, 2024 02:30 PM [facility] VITAMIN D, 25-HYDROXY SERUM Specimen Type: SE RUM Comment: The listed sex of this patient may not be a typical indication for this test. Therefore, reference ranges or interpretive criteria listed may not be valid. Clinical correlation suggested. Ordering Provider: FANNY MOYA Report Released Date/Time: Jun 10, 2024 01:45 PM Reporting Lab: [facility] [address] [facility] [address] Performing Lab: [facility] [address] [facility] [address] VITAMIN D, 25-HYDROXY 51.9 ng/mL 30-96 Jun 10, 2024 02:30 PM [facility] TSH (MA-PB) SERUM Specimen Type: SERUM Comment: The listed sex of this patient may not be a typical indication for this test. Therefore, reference ranges or interpretive criteria listed may not be valid. Clinical correlation suggested. Ordering Provider: FANNY MOYA Report Released Date/Time: Jun 10, 2024 01:45 PM Reporting Lab: [address] [address] Performing Lab: [address] [address] TSH 2.498 u[IU]/mL 0.47-5 Jun 10, 2024 02:30 PM [facility] PROST. SPECIFIC AG.(PB-STL) SERUM Specimen Ty pe: SERUM Comment: The listed sex of this patient may not be a typical indication for this test. Therefore, reference ranges or interpretive criteria listed may not be valid. Clinical correlation suggested. Ordering Provider: FANNY MOYA Report Released Date/Time: Jun 10, 2024 01:45 PM Reporting Lab: [address] [address] Performing Lab: [address] [address] PROST. SPECIFIC AG.(PB-STL) 0.414 ng/mL 0-4 Jun 10, 2024 02:30 PM [facility] COMPREHENSIVE METABOLIC PANEL PLASMA Specimen Type: PLASMA Comment: No hemolysis noted. Ordering Provider: FANNY MOYA Report Released Date/Time: Jun 10, 2024 01:45 PM Reporting Lab: [address] [address] Performing Lab: [address] [address] CREATININE 0.72 mg/dL 0.7-1.3 UREA NITROGEN 16.7 [...] 105.2 >60 Jun 10, 2024 02:30 PM [facility] HGA1C BLOOD Specimen Type: BLOOD No comment entered. Ordering Provider: FANNY MOYA Report Released Date/Time: Jun 10, 2024 01:45 PM Reporting Lab: [address] [address] Performing Lab: [address] [address] HGA1C 5.5 4.0-6.0 Jun 10, 2024 02:30 PM [facility] LIPID PANEL (STL) PLASMA Specimen Type: PLASM A Comment: No hemolysis noted. Ordering Provider: FANNY MOYA Report Released Date/Time: Jun 10, 2024 01:45 PM Reporting Lab: [address] [address] Performing Lab: [address] [address] CHOLESTEROL 273 mg/dL H 0-200 TRIGLYCERIDE 218 mg/dL H 0-150 CALCULATED LDL 176 mg/dL HDL(New) 53 mg/dL >40 Jun 10, 2024 02:30 PM [facility] CBC BLOOD Specimen Type: BLOOD No comment entered. Ordering Provider: FANNY MOYA Report Released Date/Time: Jun 10, 2024 01:45 PM Reporting Lab: [address] [address] Performing Lab: [facility] [address] [facility] [address] WBC 6.2 10*3/uL 3.6-11.2 RBC 4.32 10*6/uL [...] 0.60 BASOPHILS, ABSOLUTE 0.08 10*3/uL 0.00-0. 20 Encounter Notes: All associated encounter notes This section contains the clinical notes associated to the Encounter. Date/Time Encounter Note(s) Provider Source Jun 25, 2024 04:12 PM OPTOMETRY CONSULT: LOCAL TITLE: OPTOMETRY CONSULT STL STANDARD TITLE: OPTOMETRY CONSULT DATE OF NOTE: JUN 25, 2024@16:12 ENTRY DATE: JUN 25, 2024@16:12:46 AUTHOR: JO LI EXP COSIGNER: URGENCY: STATUS: COMPLETED fundus photos can be found in vista/forum /everardo/ Jo Li OD, FAAO Director Counseling Bureau Signed: 06/25/2024 16:12 JO LI [facility] Jun 25, 2024 04:11 PM OPTOMETRY CONSULT: LOCAL TITLE: OPTOMETRY CONSULT STL STANDARD TITLE: OPTOMETRY CONSULT DATE OF NOTE: JUN 25, 2024@16:11 ENTRY DATE: JUN 25, 2024@16:12:04 AUTHOR: JO LI EXP COSIGNER: URGENCY: STATUS: COMPLETED OCT macula OD: normal foveal contour and thickness OS: broad/thin foveal contour almost touching RPE SRF (CSCR like) between ONH/fovea extending inferior shaggy photoreceptors shallow PED underlying SRF large cyst at optic nerve loss of outer retinal layers (can see them return sup/temp in the cube) /everardo/ Jo Li, OD, FAAO Director Counseling Bureau Signed: 06/25/2024 16:12 JO LI [facility] Jun 25, 2024 08:02 AM OPTOMETRY NOTE: LOCAL TITLE: OPTOMETRY NOTE STANDARD TITLE: OPTOMETRY NOTE DATE OF NOTE: JUN 25, 2024@08:02 ENTRY DATE: JUN 25, 2024@08:03:03 AUTHOR: JO LI EXP COSIGNER: URGENCY: STATUS: COMPLETED CC: 1. Ocular hypertension latanoprost qhs; last dose last night timolol qam, last dose this AM no refills needed currently, will let us know 3. Vision stable from previousl exam wears glasses mostly while he's driving wears safety glasses with a bifocal or OTC readers when he's working Last eye exam: 03/25/2024 Ocular ROS: Optic disc pit of left eye Exudative macular degeneration OS stable per 08/18 [facility] note ddx: CSCR as there are episode of SRF that resolve with observation released to optometry 01/2023, return to retina prn s/p intravitreal lucentis 11/29/17, 01/07/18, 05/09/18 Ocular hypertension OS on timolol qam, latanoprost qhs qhs Choroidal nevus OD Ocular meds: LATANOPROST 0.005% OPH SOLN: last night TIMOLOL MALEATE 0.5% OPH SOLN: this morning Family OcHX: (-)blindness (-)glaucoma (-)AMD Problem list, medications, and allergies reviewed: CPRS Serology for Diabetes GLUCOSE 102 H mg/dL 06/10/2024 14:30 HGA1C 5.5 % 06/10/2024 14:30 Neuro: Orientation: Normal Psych: Mood/Affect: Normal Visual Acuity Distance (x)cc ()sc - 12/2023 glasses OD 20/15 OS 20/320+ Pupils PERRL OU (-)APD Confrontation VF FTFC OU Extraocular Muscles FROM OU Habitual prescription 12/27/2023 OD +0.50-0.99o335 20/20 OS +0.50-0.36p048 20/320 Add +2.25 SLIT LAMP EXAMINATION Lids/Lashes/Lacrimal mgd OU, saponification OU Conjunctiva/Sclera white/quiet OU Cornea clear OU Ant Chamber Deep and quiet OU Angles 4/4 VH OU Iris flat and intact OU (-)NVI Lens 1+ NS OU Intraocular Pressures (Goldmann) 1 gtt Altafluor OU Date OD OS Time 12/27/2023 14 14 0830 none 03/25/2024 14 16 1113 06/25/2024 16 16 0813 igt 2.5% phenylephrine and igt 1% tropicamide instilled OD and OS Patient understands the side effects associated with dilation. FUNDUS EXAMINATION (90/BIO) Optic Nerve OD CDR 0.3 pink and distinct OS CDR 0.3 pink and distinct; temporal fluid Macula OD Flat, dry (-)CSME OS (+)SRF with RPE mottling Posterior Pole OD no retinopathy OS round CR scars with faint laser scars inferior to optic nerve tr fibrosis inf/temp arcade Periphery OD flat and attached, no h/t/b 360 OS flat and attached, no h/t/b 360 Vitreous syneresis OU OCT macula OD: normal foveal contour and thickness OS: broad/thin foveal contour almost touching RPE SRF (CSCR like) between ONH/fovea extending inferior shaggy photoreceptors shallow PED underlying SRF large cyst at optic nerve loss of outer retinal layers (can see them return sup/temp in the cube) Assessment 06/25/2024 1. Refractive error/presbyopia 2. 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 Ramos 3. Ocular hypertension OU tmax unknown cdr healthy on 2 classes (PGA/BB) IOP today Plan 1. Continue habitual prescription from 12/2023 2. Discussed with patient; will refer back to retina due to large influx of fluid. Patient not able to go until sunday06/30/24. 3. Continue latanoprost qhs and timolol qam. No refills needed today. Can consider a gtt holiday of one in the future. Educated pt on findings, monitor. [facility] 06/30/2024 retina clinic Patient was educated on all of the above findings and demonstrated understanding. /es/ Jo Li OD, [facility] CENTER[facility]elin Director Counseling Bureau Signed: 06/25/2024 16:13 JO LI [facility]
--- OUTSIDE RECORDS SUMMARY | 2024-09-25 14:23 | XMS_ITS | Encounter Summary ---
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 Date/Time Encounter Type Encounter Description Reason Provider Source Jun 10, 2024 12:30 PM OFFICE O/P EST MOD 30 MIN PRIMARY CARE/MEDICINE ICD-10-CM E78.5 Hyperlipidemia, unspecified JOSE ANTONIO CLARK IHE Encounter Template Text not used by [facility] Assessments - Encounter Diagnoses This section includes the primary and secondary diagnoses documented for the Encounter. Date/Time Primary/Secondary Diagnosis Diagnosis Name Provider Source Jun 10, 2024 02:29 PM PRIMARY Hyperlipidemia, unspecified VALENTINA MOYA [facility] Jun 10, 2024 02:29 PM SECONDARY Depression, unspecified VALENTINA MOYA [facility] Jun 10, 2024 02:29 PM SECONDARY Essential (primary) hypertension VALENTINA MOYA [facility] Jun 10, 2024 02:29 PM SECONDARY Impaired glucose tolerance (oral) VALENTINA MOYA [facility] Jun 10, 2024 02:29 PM SECONDARY Pain in unspecified foot VALENTINA MOYA [facility] Jun 10, 2024 02:29 PM SECONDARY Polycythemia vera VALENTINA MOYA [facility] Jun 10, 2024 02:29 PM SECONDARY Vitamin D deficiency, unspecified VALENTINA MOYA [facility] Plan of Treatment: Future Appointments (+ 6 months) and Future Tests (+/- 45 days) The Plan of Treatment section includes future care activities for the patient from [facility] [place] [facility] This section includes future appointments and future orders which are active, pending or scheduled. Future Appointments This section includes appointments that were scheduled to occur 6 months from the date of the Encounter, up to a maximum of 20 appointments. The data comes from all [facility] facilities. Appointment Date/Time Appointment Type Appointme nt Facility Name Jun 25, 2024 08:00 AM AMBULATORY - SURGERY [facility] Jun 30, 2024 12:45 PM AMBULATORY - SURGERY [facility] Jul 16, 2024 01:00 PM AMBULATORY - MEDICINE [facility] Jul 16, 2024 01:30 PM AMBULATORY - MEDICINE [facility] Jul 29, 2024 02:00 PM AMBULATORY - MEDICINE [facility] Jul 30, 2024 11:30 AM AMBULATORY - MEDICINE [facility] Aug 13, 2024 01:30 PM AMBULATORY - NONE [facility] Aug 21, 2024 02:30 PM AMBULATORY - MEDICINE [facility] Sep 15, 2024 01:15 PM AMBULATORY - REHAB MEDICIN E [facility] Sep 15, 2024 02:00 PM AMBULATORY - SURGERY [facility] Sep 17, 2024 11:00 AM AMBULATORY - MEDICINE [facility] Sep 17, 2024 11:30 AM AMBULATORY - MEDICINE [facility] Sep 20, 2024 07:44 AM AMBULATORY - MEDICINE [facility] September 27, 2024 02:30 PM AMBULATORY - MEDICINE [facility] September 29, 2024 03:00 PM AMBULATORY - MEDICINE [facility] September 30, 2024 11:00 AM AMBULATORY - MEDICINE [facility] Oct 27, 2024 08:15 AM AMBULATORY - REHAB MEDICIN E [facility] Oct 27, 2024 08:30 AM AMBULATORY - SURGERY [facility] Oct 29, 2024 08:30 AM AMBULATORY - SURGERY [facility] Oct 29, 2024 10:45 AM AMBULATORY - MEDICINE [facility] Lab Results: +/- 30 days of the encounter This section includes the Chemistry and Hematology Lab Results on record with [place] for the patient. Radiology Reports and Pathology Reports are provided separately, in subsequent sections. Lab Results This section contains the Chemistry/Hematology Results that were resulted 30 days before or 30 daysafter the date of the Encounter. Date/Time Source Result Type Result - Unit Interpretation Reference Range Specimen Type Comment Jun 10, 2024 02:30 PM [facility] VITAMIN D, 25-HYDROXY SERUM Specimen Type: SERUM Comment: The listed sex of this patient may not be a typical indication for this test. Therefore, reference ranges or interpretive criteria listed may not be valid. Clinical correlation suggested. Ordering Provider: RAYO MOYA Report Released Date/Time: Jun 10, 2024 01:45 PM Reporting Lab: [facility] [address] [facility] [phone] Performing Lab: [facility] [address] [facility] [phone] VITAMIN D, 25-HYDROXY 51.9 ng/mL 30-96 Jun 10, 2024 02:30 PM [facility] TSH (MA-PB) SERUM Specimen Type: SERUM Comment: The listed sex of this patient may not be a typical indication for this test. Therefore, reference ranges or interpretive criteria listed may not be valid. Clinical correlation suggested. Ordering Provider: FANNY MOYA Report Released Date/Time: Jun 10, 2024 01:45 PM Reporting Lab: [facility] [address] [place] [phone] Performing Lab: [address] [phone] TSH 2.498 u[IU]/mL 0.47-5 Jun 10, 2024 02:30 PM [facility] PROST. SPECIFIC AG.(PB-STL) SERUM Specimen Ty pe: SERUM Comment: The listed sex of this patient may not be a typical indication for this test. Therefore, reference ranges or interpretive criteria listed may not be valid. Clinical correlation suggested. Ordering Provider: FANNY MOYA Report Released Date/Time: Jun 10, 2024 01:45 PM Reporting Lab: [facility] [address] [place] [phone] Performing Lab: [address] [phone] PROST. SPECIFIC AG.(PB-STL) 0.414 ng/mL 0-4 Jun 10, 2024 02:30 PM [facility] HGA1C BLOOD Specimen Type: BLOOD No comment entered. Ordering Provider: FANNY MOYA Report Released Date/Time: Jun 10, 2024 01:45 PM Reporting Lab: [facility] [address] [place] [phone] Performing Lab: [facility] [address] [place] [phone] HGA1C 5.5 4.0-6.0 Jun 10, 2024 02:30 PM [facility] COMPREHENSIVE METABOLIC PANEL PLASMA Specimen Type: PLASMA Comment: No hemolysis noted. Ordering Provider: FANNY MOYA Report Released Date/Time: Jun 10, 2024 01:45 PM Reporting Lab: [address] [phone] Performing Lab: [address] [phone] CREATININE 0.72 mg/dL 0.7-1.3 UREA NITROGEN 16.7 [...] 105.2 >60 Jun 10, 2024 02:30 PM [facility] LIPID PANEL (STL) PLASMA Specimen Type: PLASM A Comment: No hemolysis noted. Ordering Provider: FANNY MOYA Report Released Date/Time: Jun 10, 2024 01:45 PM Reporting Lab: [address] [phone] Performing Lab: [address] [phone] CHOLESTEROL 273 mg/dL H 0-200 TRIGLYCERIDE 218 mg/dL H 0-150 CALCULATED LDL 176 mg/dL HDL(New) 53 mg/dL >40 Jun 10, 2024 02:30 PM [facility] CBC BLOOD Specimen Type: BLOOD No comment entered. Ordering Provider: FANNY MOYA Report Released Date/Time: Jun 10, 2024 01:45 PM Reporting Lab: [address] [phone] Performing Lab: [address] [address] WBC 6.2 10*3/uL 3.6-11.2 RBC 4.32 10*6/uL [...] 0.60 BASOPHILS, ABSOLUTE 0.08 10*3/uL 0.00-0. 20 Vital Signs: All taken on the encounter date This section contains inpatient and outpatient Vital Signs collected on the date of the Encounter. Date/Time Temperature Pulse Blood Pressure Respiratory Rate SP02 Pain Height Weight Body Mass Index Source Jun 10, 2024 01:12 PM 97.9 60 135/81 20 96 6 73 285 38 [facility] Social History: Smoking Status (Most current) and Tobacco Use (All prior to encounter date) This section includes the most current, and the historical, smoking and tobacco- related health factors from the [place] facility where the Encounter took place. Current Smoking Status This section includes the most current smoking, or tobacco-related health factor, from the [place] facility where the Encounter took place. Date/Time Current Smoking Status Comment Facil ity Jun 05, 2023 09:30 AM [place]-TOBACCO NEVER USED [facility] Tobacco Use History This section includes a history of the smoking, or tobacco-related health factors, that were collected on or before the date of the Encounter. The data comes from the [place] facility where the Encounter took place. Date/Time Smoking Status/Tobacco Use Comment F acility Jun 03, 2021 10:00 AM [place]-TOBACCO NEVER USED [facility] Encounter Notes: All associated encounter notes This section contains the clinical notes associated to the Encounter. Date/Time Encounter Note(s) Provider Source Jun 25, 2024 11:29 AM PHYSICIAN LETTERS: LOCAL TITLE: TEST RESULT GENERAL LETTER [facility] STANDARD TITLE: PHYSICIAN LETTERS DATE OF NOTE: JUN 25, 2024@11:29 ENTRY DATE: JUN 25, 2024@11:29:33 AUTHOR: FANNY MOYA EXP COSIGNER: URGENCY: STATUS: COMPLETED [facility] [address] [place] [address] JUN 25, 2024 [place] BOOGIE [address] [place], [place] [address] Dear [place] Boogie, I would like to update you on your recent test results. LIPID PROFILE - High cholesterol and triglycerides (lipids) are risk factors for heart disease. Your cholesterol should fall between 140 and 200, and your triglycerides levels should be less than or equal to 150. HDL is the good cholesterol and should ideally be greater than 40. LDL is the bad cholesterol and optimal levels should be less than 100 (near optimal is between 100 and 129). TRIGLYCERIDE 218 H mg/dL 06/10/2024 14:30 CHOLESTEROL 273 H mg/dL 06/10/2024 14:30 HDL(New) 53 mg/dL 06/10/2024 14:30 CALCULATED LDL 176 mg/dL 06/10/2024 14:30 No DIRECT LDL EO data found These results are abnormal. Your cholesterol is elevated. Atorvastatin has been renewed and needs to be taken daily. GLUCOSE - Your blood sugar or glucose level result GLUCOSE GLUCOSE 102 H mg/dL 06/10/2024 14:30 These readings are within normal limits. HEMOGLOBIN A1C - Gives us information about your diabetes (sugar or glucose) control over the past 3 months. Your target is to keep your A1C below 7 %. HGA1C 5.5 % 06/10/2024 14:30 These readings are within normal limits. CBC - A complete blood count (CBC) gives important information about the kinds and numbers of cells in the blood, especially red blood cells, white blood cells, and platelets. HGB 16.4 g/dL 06/10/2024 14:30 HEMATOCRIT 45.7 % (06/10/24 14:30) PLT 312 10*3/uL 06/10/2024 14:30 WHITE BLOOD COUNT 6.2 10*3/uL (06/10/24 14:30) These readings are within normal limits. CHEM 7 - This is important information about the current status of your kidneys, liver, and electrolyte and acid/base balance as well as of your blood sugar and blood proteins. SODIUM 136 mEq/L 06/10/2024 14:30 POTASSIUM 4.3 mEq/L 06/10/2024 14:30 CHLORIDE 103 mEq/L 06/10/2024 14:30 UREA NITROGEN 16.7 mg/dL 06/10/2024 14:30 CREATININE 0.72 mg/dL 06/10/2024 14:30 CALCIUM 9.8 mg/dL 06/10/2024 14:30 CARBON DIOXIDE 24 mEq/L 06/10/2024 14:30 GLUCOSE 102 H mg/dL 06/10/2024 14:30 EGFR (CKD-EPI 2020) 105.2 06/10/2024 14:30 These readings are within normal limits. LIVER FUNCTION PANEL - These are tests for liver function: PROTEIN 7.7 g/dL 06/10/2024 14:30 ALBUMIN 4.3 g/dL 06/10/2024 14:30 TOTAL BILIRUBIN 0.6 mg/dL 06/10/2024 14:30 ALKALINE PHOSPHATASE 70 U/L 06/10/2024 14:30 AST/SGOT 31 U/L 06/10/2024 14:30 ALT/SGPT 28 U/L 06/10/2024 14:30 These readings are within normal limits. PSA - Prostate-specific antigen is a protein produced by cells of the prostate gland. The PSA test measures the level of PSA in the blood. PSA PROST. SPECIFIC AG.(PB-STL) 0.414 ng/mL 06/10/2024 14:30 These readings are within normal limits. TSH - Thyroid-stimulating hormone (also known as TSH or thyrotropin) is a peptide hormone synthesized and secreted by thyrotrope cells in the anterior pituitary gland, which regulates the endocrine function of the thyroid gland. TSH TSH 2.498 uIU/mL 06/10/2024 14:30 These readings are within normal limits. VITAMIN D - Helps promote the proper utilization of calcium and phosphorus, thereby producing proper bone maintenance. VITAMIN D, 25-HYDROXY 51.9 ng/mL 06/10/2024 14:30 These readings are within normal limits. PLAN Please continue your treatment as we discussed during your visit. If you have any questions please call your supervisor case loading. I look forward to seeing you at your next clinic appointment. Thank you for choosing the [facility] for your healthcare. FUTURE APPOINTMENTS: 06/30/2024 12:45 [facility]OPHTH RETINA MON 1 07/16/2024 13:00 [facility]ONCOLOGY SPEECH PATHOLOGY TEACHER 1 07/16/2024 13:30 [facility]-CHEMO 07/29/2024 14:00 [facility]-ST CLR BH PC IND PSO 12/05/2024 13:30 [facility] CLR PACT 5 PCP Sincerely, FANNY MOYA, ANP- NURSE PRACTITIONER [place] [facility]OOGIE [facility] Jun 10, 2024 01:35 PM PRIMARY CARE NOTE: LOCAL TITLE: PRIMARY CARE PROVIDER ESTABLISHED VISIT [facility] STANDARD TITLE: PRIMARY CARE NOTE DATE OF NOTE: JUN 10, 2024@13:35 ENTRY DATE: JUN 10, 2024@13:35:52 AUTHOR: FANNY MOYA EXP COSIGNER: URGENCY: STATUS: COMPLETED REASON FOR VISIT/CHIEF COMPLAINT: Routine HPI: presents today for routine visit for chronic conditions. Awoke this morning with severe right heel and midfoot pain. This feels exactly like it did when he had plantar fasciitis in his left foot. Feels the best when he pulls his toes backwards and stretches. No redness or swelling. Hx of gout but this was 8+ years ago. Pain is worse the standing and weight bearing. prediabetes: Denies polyuria, polydispia or polyphagia. hyperlipidemia: Taking statin and denies myalgias or myopathies. vitamin D deficiency: Taking replacement as this was noted on prior labs. polycythemia vera: Taking hydroxyurea and following with hematology. No fatigue, weakness. HTN: Taking losartan and amlodipine. No chest pain or headache. No exertional symptoms. Monitoring at home and readings are 120-140s/80s. depression: He has struggled with depression throughout his life. It is chronic, but handling it well . No SI/SI. In a good relationship and has good support. Best I have been in my life . Continues to struggle with estrangement from adult daughter, but coping. SOURCE(S) OF HISTORY: Patient PAST MEDICAL HISTORY: 1) Past history of procedure comment: 2014 total left knee arthroplasty comment: 2015 right rotator cuff surgery comment: 2004 cervical spinal c5-c6 fusion comment: 1983 wisdom teeth extractions (4) comment: 1984 left knee arthroscopic surgery comment: 1985 left knee arthroscopic surgery comment: 06/14/21 laparoscopic hand-assisted sigmoidectomy and primary umbi 2) OA - Osteoarthritis ([facility] [id number]) 3) Senile macular degeneration 4) History of SARS-CoV-2 ([facility] [id number]) 5) Diverticular Disease of Colon ([facility] [id number]) 6) Obesity ([facility] [id number]) 7) Hyperlipidemia ([facility] [id number]) 8) Dupuytren's contracture 9) Tinnitus ([facility] [id number]) 10) Sebaceous cyst of skin 11) Hearing Loss ([facility] [id number]) 12) Vitamin D Deficiency ([facility] [id number]) 13) Erectile Dysfunction ([facility] [id number]) 14) History of colonic polyp 15) Epigastric hernia 16) Plantar heel pain 17) Impaired glucose tolerance 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 MEDICATIONS: Active and Recently Outpatient Medications (excluding Supplies): Active Outpatient Medications Status = 1) AMLODIPINE BESYLATE 5MG TAB TAKE ONE TABLET BY MOUTH ONCE A ACTIVE DAY Indication: FOR HIGH BLOOD PRESSURE 2) ASPIRIN 81MG EC TAB TAKE ONE TABLET BY MOUTH ONCE A DAY TAKE ACTIVE (S) WITH FOOD. 3) HYDROXYUREA 500MG CAP TAKE TWO CAPSULES BY MOUTH ONCE A DAY ACTIVE (S) Indication: POLYCYTHEMIA VERA 4) LATANOPROST 0.005% OPH SOLN INSTILL 1 DROP IN LEFT EYE EVERY ACTIVE EVENING FOR GLAUCOMA. KEEP REFRIGERATED UNTIL READY TO USE, THEN STORE AT ROOM TEMPERATURE FOR MAXIMUM OF 42 DAYS. 5) LOSARTAN 100MG TAB TAKE ONE-HALF TABLET BY MOUTH ONCE A DAY ACTIVE Indication: FOR HIGH BLOOD PRESSURE 6) TIMOLOL MALEATE 0.5% OPH SOLN INSTILL 1 DROP IN LEFT EYE ACTIVE EVERY MORNING FOR GLAUCOMA. USE SUPPORT ARCHITECT BEFORE BREAKFAST Indication: FOR ELEVATED INTRAOCULAR PRESSURE Inactive Outpatient Medications Status = 1) ATORVASTATIN CALCIUM 40MG TAB TAKE ONE-HALF TABLET BY MOUTH EVERY EVENING TO LOWER CHOLESTEROL 2) CHOLECALCIF 50MCG (D3-2,000UNIT) TAB TAKE ONE TABLET BY MOUTH ONCE A DAY FOR VITAMIN D DEFICIENCY. 3) DICLOFENAC NA 1% TOP GEL APPLY 2 GM TO AFFECTED AREA(S) FOUR TIMES A DAY NEEDED FOR PAIN/INFLAMMATION; NOT MORE THAN 16 GRAMS DAILY TO ANY LOWER EXTREMITY JOINT. NOT MORE THAN 8 GRAMS DAILY TO ANY UPPER EXTREMITY JOINT. MAX 32GM/DAY OVER ALL JOINTS. (MEASURE DOSE WITH RULER ATTACHED INSIDE BOX)FOR HEEL PAIN RELIEF 4) SILDENAFIL CITRATE 100MG TAB TAKE ONE-HALF TABLET BY MOUTH ONE HOUR PRIOR TO SEXUAL ACTIVITY NEEDED - LIMIT 6 DOSES PER 30 DAYS Indication: FOR ERECTILE DYSFUNCTION Active Non-VA Medications Status = 1) Non-VA LATANOPROST 0.005% OPH SOLN 1 DROP LEFT EYE EVERY ACTIVE EVENING 2) Non-VA TIMOLOL MALEATE 0.5% OPH SOLN 1 DROP LEFT EYE EVERY ACTIVE MORNING 12 Total Medications MEDICATION RECONCILIATION: I have reviewed the patient's medication list with the patient and/or his/her care-color consultant. Handwritten corrections, additions and/or deletions were made to the list. Corrected Outpatient Medication List was provided to the patient/caregiver. REVIEW OF SYSTEMS: General: Denies fever or chills, and unexplained weight loss Ears, Nose, Mouth, Throat: Denies hearing loss, nasal drainage or sore throat Endo: Denies heat or cold intolerance, polydipsia, polyuria, or polyphagia Cardiovascular: Denies chest pain, palpitations, or dizziness Respiratory: Denies SOB, cough, sputum, and wheezing ABD/GI: Denies abdominal pain, N/V/D, constipation, heartburn, anorexia, dysphagia, hematochezia, melena, or flatulence Musculoskeletal/Extremities : Denies joint swelling/stiffness/pain, back pain, neck pain and edema, +heel pain /CLEAN UP SUPERVISOR: Denies dysuria, flank pain, frequency, hesitancy, urgency, or hematuria Psych: Denies depression, anxiety, insomnia, SI/HI Neuro: Denies weakness, numbness, syncope, dizziness, LAURA, tremors, neuropathy Skin: Denies rashes, skin lesions PHYSICAL EXAMINATION: VITALS (most recent, as listed in the electronic record): Temperature: 97.9 F [36.6 C] (06/10/2024 13:12) BP: 135/81 (06/10/2024 13:12) Pulse: 60 (06/10/2024 13:12) Resp: 20 (06/10/2024 13:12) PulsOx: 96% (06/10/2024 13:12) Pain: 6 (06/10/2024 13:12) Weight: Measurement DT WEIGHT LB(KG)[BMI] 06/10/2024 13:12 285(129.27)[38*] 10/03/2023 07:54 271.1(122.97)[36*] 09/28/2023 07:49 267.2(121.20)[35*] General: pleasant, well appearing adult male in no apparent distress HEENT: mucus membranes moist, oropharynx clear, TMs normal, PERRL, EOMI Neck: supple, no lymphadenopathy or thyromegaly, no carotid bruits Heart: regular rate and rhythm; no murmurs, rubs, or gallops Lungs: respirations regular and non-labored; CTA BL; no wheezes, rhonchi, or rales Abdomen: soft, nontender, nondistended, bowel sounds normal Extremities: warm, well-perfused; no clubbing, cyanosis, or edema; 2+ PT pulses BL Skin: no rashes or lesions noted; good turgor Neuro: A&O x 3, gait steady and normal-based, CN II-XI intact Psych: appropriate mood and affect DATA REVIEW: HGA1C 5.6 % 12/28/2023 08:12 Lipid Panel: TRIGLYCERIDE 128 mg/dL 07/04/2023 06:46 CHOLESTEROL 169 mg/dL 07/04/2023 06:46 HDL(New) 51 mg/dL 07/04/2023 06:46 CALCULATED LDL 92 mg/dL 07/04/2023 06:46 CMP: SODIUM 140 mEq/L 04/16/2024 11:52 POTASSIUM 4.5 mEq/L 04/16/2024 11:52 CHLORIDE 104 mEq/L 04/16/2024 11:52 UREA NITROGEN 17.0 mg/dL 04/16/2024 11:52 CREATININE 0.91 mg/dL 04/16/2024 11:52 CALCIUM 9.6 mg/dL 04/16/2024 11:52 PROTEIN 7.6 g/dL 04/16/2024 11:52 ALBUMIN 4.1 g/dL 04/16/2024 11:52 ALKALINE PHOSPHATASE 73 U/L 04/16/2024 11:52 ALT/SGPT 38 U/L 04/16/2024 11:52 AST/SGOT 38 H U/L 04/16/2024 11:52 TOTAL BILIRUBIN 0.5 mg/dL 04/16/2024 11:52 CARBON DIOXIDE 28 mEq/L 04/16/2024 11:52 GLUCOSE 97 mg/dL 04/16/2024 11:52 EGFR (CKD-EPI 2020) 97.1 04/16/2024 11:52 CBC: WBC 6.1 10*3/uL 04/16/2024 11:52 RBC 4.37 10*6/uL 04/16/2024 11:52 HGB 16.0 g/dL 04/16/2024 11:52 HCT 45.9 % 04/16/2024 11:52 MCV 105.0 H fL 04/16/2024 11:52 MCH 36.6 H pg 04/16/2024 11:52 MCHC 34.9 g/dL 04/16/2024 11:52 RDW 13.5 % 04/16/2024 11:52 PLT 295 10*3/uL 04/16/2024 11:52 MPV 9.8 fL 04/16/2024 11:52 NEUTROPHILS, AUTO % 60 % 04/16/2024 11:52 LYMPHOCYTES, AUTO % 26 % 04/16/2024 11:52 MONOCYTES, AUTO % 10 % 04/16/2024 11:52 EOSINOPHILS, AUTO % 2 % 04/16/2024 11:52 BASOPHILS, AUTO % 2 % 04/16/2024 11:52 NEUTROPHILS, ABSOLUTE 3.69 10*3/uL 04/16/2024 11:52 LYMPHOCYTES, ABSOLUTE 1.62 10*3/uL 04/16/2024 11:52 MONOCYTES, ABSOLUTE 0.59 10*3/uL 04/16/2024 11:52 EOSINOPHILS, ABSOLUTE 0.10 10*3/uL 04/16/2024 11:52 BASOPHILS, ABSOLUTE 0.10 10*3/uL 04/16/2024 11:52 ANISOCYTOSIS 1+ 07/04/2023 06:46 POIKILOCYTOSIS 1+ 07/04/2023 06:46 MACROCYTOSIS 1+ 10/03/2023 06:48 STOMATOCYTES 1+ 07/04/2023 06:46 PSA: PROST. SPECIFIC AG.(PB-STL) 0.671 ng/mL 07/04/2023 06:46 Result: Acceptable Follow-up Action: labs ordered___ Data results reviewed with patient and/or caregiver. ASSESSMENT/PLAN: plantar fasciitis: Resume diclofenac gel and may apply 4x daily as needed. Resume night-time splint as this has previously provided relief. If pain persist, podiatry consult. prediabetes: Low carb diet and increase exercise as tolerated. Repeat A1c. hyperlipidemia: Tolerating statin. Check lipids to assess efficacy, vitamin D deficiency: Continue vitamin D and repeat lab. polycythemia vera: Continue hydroxyurea. Hem/onc following. HTN: Good control with present regimen. Low salt diet and check CMP depression: Stable. Denies need for mental health connection HEALTH MAINTENANCE: CRC screen - 2021, repeat 10 years age 45 - 75 for average risk PROST. SPECIFIC AG.(PB-STL) 0.671 ng/mL 07/04/2023 06:46 PROST. SPECIFIC AG.(PB-STL) 0.420 ng/mL 06/07/2022 07:08 PROST. SPECIFIC AG.(PB-STL) 0.591 ng/mL 06/03/2021 10:42 PROST. SPECIFIC AG.(PB-STL) 0.434 ng/mL 06/04/2020 11:40 age 45 - 75 for average risk ADMINISTERED Immunization Series Date Facility Reaction Info COVID-19 (PFIZER), MRNA, LNP-S, * 2 12/16/2020 [facility] COVID-19 (PFIZER), MRNA, LNP-S, * 1 11/25/2020 [facility] INFLUENZA, SPLIT VIRUS, QUADRIVA* 03/06/2021 [facility] TDAP 05/08/2018 No Site CONTRAINDICATED Immunization Date Facility Info INFLUENZA, UNSPECIFIED FORMULATI* 06/05/2023 [facility] <I> ZOSTER RECOMBINANT 06/05/2023 [facility] <I> REFUSED ======= Immunization Date Facility Info COVID-19 (MODERNA), MRNA, LNP-S,* 06/05/2023 [facility] <I> INFLUENZA, UNSPECIFIED FORMULATI* 06/05/2022 [facility] <I> PNEUMOCOCCAL CONJUGATE, UNSPECIF* 06/05/2022 [facility] <I> SARS-COV-2 (COVID-19) VACCINE,UN* 06/05/2022 [facility] <I> ZOSTER RECOMBINANT 06/05/2022 [facility] <I> <I> See the Detailed Immunizations Health Summary Component[DIM] for Additional Information * Value is truncated; see the Detailed Immunizations Health Summary Component[DIM] for complete text Return to clinic 6 months and sooner PRN SUMMARY STATEMENT: Plan of care has been discussed with including expected therapeutic benefits and potential side effects of prescribed medication and treatments. Lodi verbalizes understanding and is in agreement with the plan of care. Patient was instructed to keep all scheduled appointments and contact form setter supervisor for any additional problems. /everardo/ LEXX TITUS-IMTIAZ NURSE PRACTITIONER Signed: 06/10/2024 14:[address] [facility] Jun 10, 2024 01:15 PM NURSING NOTE: LOCAL TITLE: V15 PACT FACE TO FACE NOTE STL STANDARD TITLE: NURSING NOTE DATE OF NOTE: JUN 10, 2024@13:15 ENTRY DATE: JUN 10, 2024@13:15:52 AUTHOR: MARIAA APARICIO EXP COSIGNER: URGENCY: STATUS: COMPLETED Provider Visit: Patient Identifiers : Full Name Date of Reason for visit: Established Follow-Up 58 year old male. Pt is alert and ambulatory. Pt is able to make his needs known and has complaints of pain in his right foot. Pt states he has a boot for his left foot that has done away, now his right foot is bothering. Mode of Arrival: Ambulatory Allergy Review: Patient has answered NKA Allergy list reviewed and remains current. Recent Vital Signs: Temperature: 97.9 F [36.6 C] (06/10/2024 13:12) Pulse: 60 (06/10/2024 13:12) Respiration: 20 (06/10/2024 13:12) B/P: 135/81 (06/10/2024 13:12) Pain: 6 (06/10/2024 13:12) Wt: 285 lb [129.27 kg] (06/10/2024 13:12) Ht: 73 in [185.4 cm] (06/10/2024 13:12) BMI: 37.7 POX: 96% (06/10/2024 13:12) Blood sugar glucometer reading: N/A PERSONAL HEALTH INVENTORY Notes: No data available for PHI note titles PERSONAL HEALTH INVENTORY - MAP: 06/03/2021 Personal Health Plan [place], [place], Purpose (MAP) To be healthy What matters most to you in your life right now? -- 's Response: peace WHOLE HEALTH SHARED GOALS: PERSONAL HEALTH PLAN - SHARED GOALS: 06/03/2021 [facility] Shared Goals I don't know SHARED GOALS maintain health his health Would you like to discuss any personal problem, family problem, alcohol use, drug use, or a mental or emotional illness? No My [facility] ([facility]), please select appointment type: Face to face: Yes-Do you have an upgraded (Premium) account which gives you the added benefit of Secure Messaging with your Primary Care Provider and refilling your prescriptions online? Contact provided Primary Care phone number and encouraged to call if any questions or concerns. Review that after hours nurse line ext.[phone] and emergency room are available 18/12 for patient use. Contact verbalized good understanding. Homelessness/Food Insecurity Screen - DI,L,N,P,PH,PS,S,U: In the past 2 months, have you been living in stable housing that you own, rent, or stay in as part of a household? Yes - Living in stable housing. Are you worried or concerned that in the next 2 months you may NOT have stable housing that you own, rent, or stay in as part of a household? No - Not worried about housing near future The [place] reports the following: Within the past 12 months, you worried whether your food would run out before you got money to buy more. Never true Within the past 12 months, the food you bought just didn't last and you didn't have money to get more. Never true Sexual Orientation - CP,L,N,P,PH,PS,S,U: The patient thinks of their sexual orientation as: Straight or Heterosexual Depression Screening - V: Perform PHQ-2 A PHQ-2 screen was performed. The score was 2 which is a negative screen for depression. Over the past two weeks, how often have you been bothered by the following problems? 1. Little interest or pleasure in doing things Several days 2. Feeling down, depressed, or hopeless Several days /es/ MARIAA APARICIO Licensed Practical Nurse Signed: 06/10/2024 13:25 MARIAA APARICIO [facility] Jun 10, 2024 11:09 AM NURSING NOTE: LOCAL TITLE: V15 PACT TELEPHONE CONTACT NOTE ST STANDARD TITLE: NURSING NOTE DATE OF NOTE: JUN 10, 2024@11:09 ENTRY DATE: JUN 10, 2024@11:23:43 AUTHOR: GRACIELA CLARK EXP COSIGNER: URGENCY: STATUS: COMPLETED Patient/Other contacted: Patient Patient Identifiers : Full Name Date of Other: coming for his appointment today Contact provided Primary Care phone number and encouraged to call if any questions or concerns. Review that after hours nurse line ext. [phone] and emergency room are available 18/12 for patient use. Contact understanding verified by teach back: Yes Total time spent on phone: / GRACIELA CLARK, RN, BSN Registered Nurse Signed: 06/10/2024 11:24 GRACIELA CLARK [facility]
--- OUTSIDE RECORDS SUMMARY | 2024-09-25 14:23 | XMS_ITS | Encounter Summary ---
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 Date/Time Encounter Type Encounter Description Reason Provider Source Jun 30, 2024 12:45 PM INTRM OPH EXAM EST PATIENT OPHTHALMOLOGY ICD-10-CM H35.81 Retinal edema JENNA VALLE Encounter Template Text not used by [facility] Assessments - Encounter Diagnoses This section includes the primary and secondary diagnoses documented for the Encounter. Date/Time Primary/Secondary Diagnosis Diagnosis Name Provider Source Jun 30, 2024 01:23 PM PRIMARY Retinal edema TORI,JENNA A [facility] Plan of Treatment: Future Appointments (+ 6 months) and Future Tests (+/- 45 days) The Plan of Treatment section includes future care activities [facility] the [facility] This section includes future appointments and future orders which are active, pending or scheduled. Future Appointments This section includes appointments that were scheduled to occur 6 months from the date of the Encounter, up to a maximum of 20 appointments. The data comes from all [place] treatment facilities. Appointment Date/Time Appointment Type Appointme nt Facility Name Jul 16, 2024 01:00 PM AMBULATORY - MEDICINE [facility] Jul 16, 2024 01:30 PM AMBULATORY - MEDICINE [facility] Jul 29, 2024 02:00 PM AMBULATORY - MEDICINE [facility] Jul 30, 2024 11:30 AM AMBULATORY - MEDICINE [facility] Aug 13, 2024 01:30 PM AMBULATORY - NONE [facility] Aug 21, 2024 02:30 PM AMBULATORY - MEDICINE [facility] Sep 15, 2024 01:15 PM AMBULATORY - REHAB MEDICIN E [facility] Sep 15, 2024 02:00 PM AMBULATORY - SURGERY [facility] Sep 17, 2024 11:00 AM AMBULATORY - MEDICINE [facility] Sep 17, 2024 11:30 AM AMBULATORY - MEDICINE [facility] Sep 20, 2024 07:44 AM AMBULATORY - MEDICINE [facility] September 27, 2024 02:30 PM AMBULATORY - MEDICINE [facility] September 29, 2024 03:00 PM AMBULATORY - MEDICINE [facility] September 30, 2024 11:00 AM AMBULATORY - MEDICINE [facility] Oct 27, 2024 08:15 AM AMBULATORY - REHAB MEDICIN E [facility] Oct 27, 2024 08:30 AM AMBULATORY - SURGERY [facility] Oct 29, 2024 08:30 AM AMBULATORY - SURGERY [facility] Oct 29, 2024 10:45 AM AMBULATORY - MEDICINE [facility] Oct 29, 2024 11:00 AM AMBULATORY - MEDICINE [facility] Dec 10, 2024 02:00 PM AMBULATORY - [facility] Lab Results: +/- 30 days of the encounter This section includes the Chemistry and Hematology Lab Results on record with [place] for the patient. Radiology Reports and Pathology Reports are provided separately, in subsequent sections. Lab Results This section contains the Chemistry/Hematology Results that were resulted 30 days before or 30 daysafter the date of the Encounter. Date/Time Source Result Type Result - Unit Interpretation Reference Range Specimen Type Comment Jul 16, 2024 11:41 AM [facility] COMPREHENSIVE METABOLIC PANEL PLASMA Specimen Type: PLASMA Comment: No hemolysis noted. Ordering Provider: GRICEL SILVER Report Released Date/Time: Apr 16, 2024 12:33 PM Reporting Lab: [address] [address] Performing Lab: [address] [address] CREATININE 0.88 mg/dL 0.7-1.3 UREA NITROGEN 14.6 [...] 98.4 >60 Jul 16, 2024 11:41 [facility] BLOOD Specimen Type: BLOOD No comment entered. Ordering Provider: GRICEL SILVER Report Released Date/Time: Apr 16, 2024 12:33 PM Reporting Lab: [address] [address] Performing Lab: [facility] [address] [address] WBC 7.1 10*3/uL 3.6-11.2 RBC 4.38 10*6/uL [...] 0.00-0. 20 Jun 10, 2024 02:30 PM [facility] VITAMIN D, 25-HYDROXY SERUM Specimen Type: SE RUM Comment: The listed sex of this patient may not be a typical indication for this test. Therefore, reference ranges or interpretive criteria listed may not be valid. Clinical correlation suggested. Ordering Provider: FANNY MOYA Report Released Date/Time: Jun 10, 2024 01:45 PM Reporting Lab: [facility] [address] [address] Performing Lab: [facility] [address] [address] VITAMIN D, 25-HYDROXY 51.9 ng/mL 30-96 Jun 10, 2024 02:30 PM [facility] TSH (MA-PB) SERUM Specimen Type: SERUM Comment: The listed sex of this patient may not be a typical indication for this test. Therefore, reference ranges or interpretive criteria listed may not be valid. Clinical correlation suggested. Ordering Provider: FANNY MOYA Report Released Date/Time: Jun 10, 2024 01:45 PM Reporting Lab: [place] [address] Performing Lab: [address] [address] TSH 2.498 u[IU]/mL 0.47-5 Jun 10, 2024 02:30 PM [facility] PROST. SPECIFIC AG.(PB-STL) SERUM Specimen Ty pe: SERUM Comment: The listed sex of this patient may not be a typical indication for this test. Therefore, reference ranges or interpretive criteria listed may not be valid. Clinical correlation suggested. Ordering Provider: FANNY MOYA Report Released Date/Time: Jun 10, 2024 01:45 PM Reporting Lab: [place] [address] Performing Lab: [address] [address] PROST. SPECIFIC AG.(PB-STL) 0.414 ng/mL 0-4 Jun 10, 2024 02:30 PM [facility] HGA1C BLOOD Specimen Type: BLOOD No comment entered. Ordering Provider: FANNY MOYA Report Released Date/Time: Jun 10, 2024 01:45 PM Reporting Lab: [address] [address] Performing Lab: [address] [address] HGA1C 5.5 4.0-6.0 Jun 10, 2024 02:30 PM [facility] COMPREHENSIVE METABOLIC PANEL PLASMA Specimen Type: PLASMA Comment: No hemolysis noted. Ordering Provider: FANNY MOYA Report Released Date/Time: Jun 10, 2024 01:45 PM Reporting Lab: [address] [address] Performing Lab: [address] [address] CREATININE 0.72 mg/dL 0.7-1.3 UREA NITROGEN 16.7 [...] 105.2 >60 Jun 10, 2024 02:30 PM [facility] LIPID PANEL (STL) PLASMA Specimen Type: PLASM A Comment: No hemolysis noted. Ordering Provider: FANNY MOYA Report Released Date/Time: Jun 10, 2024 01:45 PM Reporting Lab: [address] [address] Performing Lab: [address] [address] CHOLESTEROL 273 mg/dL H 0-200 TRIGLYCERIDE 218 mg/dL H 0-150 CALCULATED LDL 176 mg/dL HDL(New) 53 mg/dL >40 Jun 10, 2024 02:30 PM [facility] CBC BLOOD Specimen Type: BLOOD No comment entered. Ordering Provider: FANNY MOYA Report Released Date/Time: Jun 10, 2024 01:45 PM Reporting Lab: [address] [address] Performing Lab: [address] [address] WBC 6.2 10*3/uL 3.6-11.2 RBC 4.32 10*6/uL [...] and tobacco- related health factors from the [place] facility where the Encounter took place. Current Smoking Status This section includes the most current smoking, or tobacco-related health factor, from the [place] facility where the Encounter took place. Date/Time Current Smoking Status Comment Jerod ity May 17, 2022 12:02 PM VA-TOBACCO NEVER USED [facility] Tobacco Use History This section includes a history of the smoking, or tobacco-related health factors, that were collected on or before the date of the Encounter. The data comes from the [place] facility where the Encounter took place. Date/Time Smoking Status/Tobacco Use Comment F acility Mar 06, 2021 04:50 AM ORYX ADMIT TOBACCO SCREEN NO [facility] Jun 03, 2020 09:50 AM [facility]-TOBACCO NEVER USED [facility] Encounter Notes: All associated encounter notes This section contains the clinical notes associated to the Encounter. Date/Time Encounter Note(s) Provider Source Jun 30, 2024 01:10 PM OPHTHALMOLOGY CONS ULT: LOCAL TITLE: OPHTHALMOLOGY CONSULT STL STANDARD TITLE: OPHTHALMOLOGY CONSULT DATE OF NOTE: JUN 30, 2024@13:10 ENTRY DATE: JUN 30, 2024@13:10:37 AUTHOR: JENNA VALLE COSIGNER: URGENCY: STATUS: [facility]PLE[facility]ED [facility] Referral from optom for SRF OS i/s/o optic disc pit OS Last eye exam: 03/25/2024 Ocular ROS: Optic [...] TIMOLOL MALEATE 0.5% OPH SOLN: this morning Visual Acuity sc, distance OD 20/15 (prior) OS 20/400 phni was 20/320+ Tt SLIT LAMP EXAMINATION Lids/Lashes/Lacrimal mgd OU, saponification OU Conjunctiva/Sclera white/quiet OU Cornea clear OU Ant Chamber Deep and quiet OU Angles 4/4 VH OU Iris flat and intact OU (-)NVI Lens 1+ NS OU FUNDUS EXAMINATION Optic Nerve OD CDR 0.3 pink and distinct OS CDR 0.3 pink and distinct; temporal fluid Macula OD Flat, dry OS (+)SRF with RPE mottling Posterior Pole OD no retinopathy OS round CR scars with faint laser scars inferior to optic nerve tr fibrosis inf/temp arcade Periphery OD flat and attached, no h/t/b 360 OS flat and attached, no h/t/b 360 Vitreous syneresis OU Assessment #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 Osborne - OCT from that visit reviewed, significant SRF at that time - today SRF has improved, will fluctuate over time - discussed that there is no definitive treatment for SRF associated with optic disc pit - can follow with optometry #Ocular hypertension OU - follows with optom RTC 4-6 months optom /es/ JENNA VALLE MD PHD Staff Fur Clipper Signed: 06/30/2024 13:23 JENNA VALLE [facility]
--- OUTSIDE RECORDS SUMMARY | 2024-09-25 14:23 | XMS_ITS | Clinical Summary ---
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 03/30/2018 Active atorvastatin 20 MG tablet Take 20 mg by mouth daily. 05/08/2018 Active Social History Tobacco Use Types Packs/Day Years Used Date Smoking Tobacco: Never Smokeless Tobacco: Never Alcohol Use Standard Drinks/Week Comments Yes 5 (1 standard drink = 0.6 oz pur e alcohol) Sex and Gender Information Value Date Recorded Sex Assigned at Not on file Legal Sex Male 5:20 PM CDT Gender Identity Not on file Sexual Orientation Not on file Last Filed Vital Signs Vital Sign Reading Time Taken Comments Blood Pressure 119/63 02/16/2020 11:00 AM CDT Pulse 72 02/16/2020 11:00 AM CDT Temperature 36.3 C (97.4 F) 02/16/2020 8:55 AM CDT Respiratory Rate 16 02/16/2020 11:00 AM CDT Oxygen Saturation 97% 02/16/2020 11:00 AM CDT Inhaled Oxygen Concentration - - Weight 117.9 kg (260 lb) 02/16/2020 8:55 AM CDT Height 185.4 cm (6' 1 ) 02/16/2020 8:55 AM CDT Body Mass Index 34.3 02/16/2020 8:55 AM CDT Plan of Treatment Health Maintenance Due Date Last Done Comments Colorectal Cancer Screening Colonoscopy (10 Years) 1964 Annual Physical 1967 Hepatitis C 1982 DTaP, Tdap and Td Vaccines ( 1 - Tdap) 1983 Pneumococcal Vaccine: 50+ Ye ars (1 of 1 - PCV) 2014 Zoster Vaccines (1 of 2) 2014 COVID-19 Vaccine (1 - 2023-2 5 season) 2024 RSV Immunization or 60+ Years (1 - 1-dose 75+ series) 2039 Meningococcal B Vaccine Aged Out No l onger eligible based on patient's age to complete this topic Meningococcal Vaccine Aged Out No nuha nikki eligible based on patient's age to complete this topic RSV Immunizations Under 20 Months Aged Out No longer eligible based on patient's age to complete this topic Insurance [facility] Care Teams Arts And Crafts Instructor Relationship Specialty Start Date End Date Ambulatory, Nonhospital Cred Provider, HALI PCP - General INTERNAL MEDICINE 02/16/20
--- OUTSIDE RECORDS SUMMARY | 2024-09-25 14:24 | XMS_ITS | Encounter Summary ---
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 PREFERRED PROVIDER ORGANIZAT ION (PPO) [employer] PRO[employer] S May 28, 2020 [id number] [phone] Daphnie BOOGIE PATIENT Selected Encounter This section includes the information on record at [place] for the Encounter. Date/Time Encounter Type Encounter Description Reason Provider Source Apr 16, 2024 01:00 PM OFFICE O/P EST MOD 30 MIN ONCOLOGY/TUMOR ICD-10-CM D45 Polycythemia vera GRICEL SILVER Encounter Template Text not used by [facility] Assessments - Encounter Diagnoses This section includes the primary and secondary diagnoses documented for the Encounter. Date/Time Primary/Secondary Diagnosis Diagnosis Name Provider Source Apr 16, 2024 12:46 PM PRIMARY Polycythemia vera GRICEL SILVER [facility] Plan of Treatment: Future Appointments (+ 6 months) and Future Tests (+/- 45 days) The Plan of Treatment section includes future care activities for the patient from all [place] [facility]. This section includes future appointments and future orders which are active, pending or scheduled. Future Appointments This section includes appointments that were scheduled to occur 6 months from the date of the Encounter, up to a maximum of 20 appointments. The data comes from all [facility]. Appointment Date/Time Appointment Type Appointme nt Facility Name Apr 22, 2024 12:00 PM AMBULATORY - MEDICINE [facility] May 19, 2024 03:00 PM AMBULATORY - MEDICINE [facility] May 22, 2024 01:00 PM AMBULATORY - MEDICINE [facility] Jun 10, 2024 12:30 PM AMBULATORY - MEDICINE [facility] Jun 25, 2024 08:00 AM AMBULATORY - SURGERY [facility] Jun 30, 2024 12:45 PM AMBULATORY - SURGERY [facility] Jul 16, 2024 01:00 PM AMBULATORY - MEDICINE [facility] Jul 16, 2024 01:30 PM AMBULATORY - MEDICINE [facility] Jul 29, 2024 02:00 PM AMBULATORY - MEDICINE [facility] Jul 30, 2024 11:30 AM AMBULATORY - MEDICINE [facility] Aug 13, 2024 01:30 PM AMBULATORY - NONE [facility] Aug 21, 2024 02:30 PM AMBULATORY - MEDICINE [facility] Sep 15, 2024 01:15 PM AMBULATORY - REHAB MEDICIN E [facility] Sep 15, 2024 02:00 PM AMBULATORY - SURGERY . [facility] Sep 17, 2024 11:00 AM AMBULATORY - MEDICINE [facility] Sep 17, 2024 11:30 AM AMBULATORY - MEDICINE [facility] Sep 20, 2024 07:44 AM AMBULATORY - MEDICINE [facility] September 27, 2024 02:30 PM AMBULATORY - MEDICINE [facility] September 29, 2024 03:00 PM AMBULATORY - MEDICINE [facility] September 30, 2024 11:00 AM AMBULATORY - MEDICINE [facility] Lab Results: +/- 30 days of the encounter This section includes the Chemistry and Hematology Lab Results on record with [place] for the patient. Radiology Reports and Pathology Reports are provided separately, in subsequent sections. Lab Results This section contains the Chemistry/Hematology Results that were resulted 30 days before or 30 daysafter the date of the Encounter. Date/Time Source Result Type Result - Unit Interpretation Reference Range Specimen Type Comment Apr 16, 2024 11:52 AM [facility] COMPREHENSIVE METABOLIC PANEL PLASMA Specimen Type: PLASMA Comment: No hemolysis noted. Ordering Provider: GRICEL SILVER Report Released Date/Time: Jan 16, 2024 02:29 PM Reporting Lab: [address] [address] Performing Lab: [address] [address] CREATININE 0.91 mg/dL 0.7-1.3 UREA NITROGEN 17.0 [...] 97.1 >60 Apr 16, 2024 11:52 AM [facility] CBC BLOOD Specimen Type: BLOOD No comment entered. Ordering Provider: GRICEL SILVER Report Released Date/Time: Jan 16, 2024 02:29 PM Reporting Lab: [address] [address] Performing Lab: [facility] [address] [place] [facility] [id number] WBC 6.1 10*3/uL 3.6-11.2 RBC 4.37 10*6/uL [...] and tobacco- related health factors from the [place] facility where the Encounter took place. Current Smoking Status This section includes the most current smoking, or tobacco-related health factor, from the [place] facility where the Encounter took place. Date/Time Current Smoking Status Comment Jerod sam May 17, 2022 12:02 PM VA-TOBACCO NEVER USED [facility] Tobacco Use History This section includes a history of the smoking, or tobacco-related health factors, that were collected on or before the date of the Encounter. The data comes from the [place] facility where the Encounter took place. Date/Time Smoking Status/Tobacco Use Comment F acemerson Mar 06, 2021 04:50 AM [facility]YX ADMIT TOBACCO SCREEN NO [facility] Jun 03, 2020 09:50 AM VA-TOBACCO NEVER USED [facility] Encounter Notes: All associated encounter notes This section contains the clinical notes associated to the Encounter. Date/Time Encounter Note(s) Provider Source Apr 17, 2024 10:21 AM ADDENDUM: LOCAL TITLE: Addendum STANDARD TITLE: ADDENDUM DATE OF NOTE: APR 17, 2024@10:21:35 ENTRY DATE: APR 17, 2024@10:21:36 AUTHOR: GRICEL SILVER EXP COSIGNER: URGENCY: STATUS: COMPLETED Yes, we discussed rationale yesterday and he is amenable to sleep study. 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 Phlebotomy 05/03/2022 - current/intermittent (last 11/2022 -> 01/16/2024, 04/16/2024) 2. Hydrea: 500 mg daily 05/14/2022 - 12/13/2022, 1000mg daily 12/13/2022 - current 3. Aspirin 81 mg daily INTERVAL HISTORY: Doing well. Does have on-going fatigue although he continues to be quite active at work; this is a bit intermittent and only some days does he need to nap. Reports good sleep at night. Otherwise, has occasional/unexplained aching to his legs - site can alternate between left and right, proximal and distal. Most recent episode to R thigh lasted about 10 minutes and abated with standing/stretching. REVIEW OF SYSTEMS: A clinically relevant ROS was completed and documented as per interval history PAST MEDICAL HISTORY 1) Past history of procedure 2) OA - Osteoarthritis (SCT 415699303) 3) Senile macular degeneration 4) History of SARS-CoV-2 ([facility] [id number]) 5) Diverticular Disease of Colon ([facility] [id number]) 6) Obesity ([facility] [id number]) 7) Hyperlipidemia ([facility] [id number]) 8) Dupuytren's contracture 9) Tinnitus ([facility] [id number]) 10) Sebaceous cyst of skin 11) Hearing Loss ([facility] [id number]) 12) Vitamin D Deficiency ([facility] [id number]) 13) Erectile Dysfunction ([facility] [id number]) 14) History of colonic polyp 15) Epigastric [...] TAB TAKE ONE-HALF TABLET BY MOUTH ONCE ACTIVE A DAY FOR HIGH BLOOD PRESSURE 8) SILDENAFIL CITRATE 100MG TAB TAKE ONE-HALF TABLET BY ACTIVE MOUTH ONE HOUR PRIOR TO SEXUAL ACTIVITY FOR ERECTILE DYSFUNCTION NEEDED - LIMIT 6 DOSES PER 30 DAYS 9) TIMOLOL MALEATE 0.5% OPH SOLN INSTILL 1 DROP IN LEFT ACTIVE EYE EVERY MORNING FOR GLAUCOMA. USE TRAVEL INSURANCE AGENT BEFORE BREAKFAST Active Non-VA Medications Status 1) Non-VA LATANOPROST 0.005% OPH SOLN 1 DROP LEFT EYE ACTIVE EVERY EVENING 2) Non-VA TIMOLOL MALEATE 0.5% OPH SOLN 1 DROP LEFT EYE ACTIVE EVERY MORNING 11 Total Medications ALLERGIES Patient has answered NKA VITAL SIGNS Temperature: 98.1 F [36.7 C] (01/16/2024 13:50) Blood Pressure: 150/87 (01/16/2024 13:50) Pulse: 64 (01/16/2024 13:50) Respirations: 20 (01/16/2024 13:50) Weight: 271.1 lb [122.97 kg] (10/03/2023 07:54) BMI: 35.8 PHYSICAL EXAM General: In no apparent distress HEENT: NCAT Respiratory: Resp unlabored on RA, CTAB Cardiovascular: RRR, no C/C/E (including LE) Abdomen: Soft, non-distended, non-tender, +BS, no appreciable HS Musculoskeletal: Symmetrical, BLE normal appearing and non-TTP, ambulatory Skin: No apparent lesions Neuro: Alert [...] STOMATOCYTES 1+ 07/04/2023 06:46 SODIUM 138 mEq/L 01/16/2024 12:55 POTASSIUM 4.2 mEq/L 01/16/2024 12:55 CHLORIDE 102 mEq/L 01/16/2024 12:55 UREA NITROGEN 17.6 mg/dL 01/16/2024 12:55 CREATININE 0.96 mg/dL 01/16/2024 12:55 CALCIUM 9.7 mg/dL 01/16/2024 12:55 PROTEIN 7.4 g/dL 01/16/2024 12:55 ALBUMIN 4.2 g/dL 01/16/2024 12:55 ALKALINE PHOSPHATASE 73 U/L 01/16/2024 12:55 ALT/SGPT 29 U/L 01/16/2024 12:55 AST/SGOT 24 U/L 01/16/2024 12:55 TOTAL BILIRUBIN 0.4 mg/dL 01/16/2024 12:55 CARBON DIOXIDE 27 mEq/L 01/16/2024 12:55 GLUCOSE 99 mg/dL 01/16/2024 12:55 EGFR (CKD-EPI 2020) 91.1 01/16/2024 12:55 ____ No PHOSPHOROUS data found LDH 194 [...] 0.434 ng/mL 06/04/2020 11:40 ASSESSMENT & PLAN TROY BOOGIE MIKE is a 58 yo MALE with PMH of JAK2+ V617F PV who presents for routine follow-up. #PV, JAK2+ - No prior thromboembolic events - Hct goal <45% - proceed with PHL today; discussed hydrea dose escalation given above goal x2 read, he prefers to cont hydrea 1000mg and spot PHL - Continue aspirin 81 mg daily ([facility]) - RTC 3mo with PHL time #Fatigue - Chronic/intermittent - STOP BANG is at least intermediate (likely high) risk for REYMUDNO and rec to discuss further eval/appropriate testing with PCP -- will CC for care coordination; important to consider given symptoms, general health purposes, and plausibly may be further impacting H/H - Reinforce health lifestyle / sleep hygiene measures /everardo/ GRICEL SILVER Nurse Practitioner Signed: 04/16/2024 12:46 Receipt Acknowledged By: 04/17/2024 09:31 /everardo/ JM TITUS NURSE PRACTITIONER 04/17/2024 ADDENDUM STATUS: COMPLETED I reviewed his hematology note. Would he be interested in a sleep study? /everardo/ JM TITUS NURSE PRACTITIONER Signed: 04/17/2024 09:32 Receipt Acknowledged By: 04/17/2024 10:27 /everardo/ GRACIELA CLARK, RN, BSN Registered Nurse NADEEMGRICEL John [facility] Apr 17, 2024 09:31 AM ADDENDUM: LOCAL TITLE: Addendum STANDARD TITLE: ADDENDUM DATE OF NOTE: APR 17, 2024@09:31:47 ENTRY DATE: APR 17, 2024@09:31:48 AUTHOR: FANNY MOYA EXP COSIGNER: URGENCY: STATUS: COMPLETED I reviewed his hematology note. Would he be interested in a sleep study? 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 Phlebotomy 05/03/2022 - current/intermittent (last 11/2022 -> 01/16/2024, 04/16/2024) 2. Hydrea: 500 mg daily 05/14/2022 - 12/13/2022, 1000mg daily 12/13/2022 - current 3. Aspirin 81 mg daily INTERVAL HISTORY: Doing well. Does have on-going fatigue although he continues to be quite active at work; this is a bit intermittent and only some days does he need to nap. Reports good sleep at night. Otherwise, has occasional/unexplained aching to his legs - site can alternate between left and right, proximal and distal. Most recent episode to R thigh lasted about 10 minutes and abated with standing/stretching. REVIEW OF SYSTEMS: A clinically relevant ROS was completed and documented as per interval history PAST MEDICAL HISTORY 1) Past history of procedure 2) OA - Osteoarthritis ([facility] [id number]) 3) Senile macular degeneration 4) History of SARS-CoV-2 ([facility] [id number]) 5) Diverticular Disease of Colon ([facility] 425728171) 6) Obesity ([facility] 782875255) 7) Hyperlipidemia ([facility] 11391559) 8) Dupuytren's contracture 9) Tinnitus ([facility] 01338238) 10) Sebaceous cyst of skin 11) Hearing Loss ([facility] 52026528) 12) Vitamin D Deficiency ([facility] 7373280) 13) Erectile Dysfunction ([facility] [id number]) 14) History of colonic polyp 15) Epigastric [...] TAB TAKE ONE-HALF TABLET BY MOUTH ONCE ACTIVE A DAY FOR HIGH BLOOD PRESSURE 8) SILDENAFIL CITRATE 100MG TAB TAKE ONE-HALF TABLET BY ACTIVE MOUTH ONE HOUR PRIOR TO SEXUAL ACTIVITY FOR ERECTILE DYSFUNCTION NEEDED - LIMIT 6 DOSES PER 30 DAYS 9) TIMOLOL MALEATE 0.5% OPH SOLN INSTILL 1 DROP IN LEFT ACTIVE EYE EVERY MORNING FOR GLAUCOMA. USE TRAVEL INSURANCE AGENT BEFORE BREAKFAST Active Non-VA Medications Status 1) Non-VA LATANOPROST 0.005% OPH SOLN 1 DROP LEFT EYE ACTIVE EVERY EVENING 2) Non-VA TIMOLOL MALEATE 0.5% OPH SOLN 1 DROP LEFT EYE ACTIVE EVERY MORNING 11 Total Medications ALLERGIES Patient has answered NKA VITAL SIGNS Temperature: 98.1 F [36.7 C] (01/16/2024 13:50) Blood Pressure: 150/87 (01/16/2024 13:50) Pulse: 64 (01/16/2024 13:50) Respirations: 20 (01/16/2024 13:50) Weight: 271.1 lb [122.97 kg] (10/03/2023 07:54) BMI: 35.8 PHYSICAL EXAM General: In no apparent distress HEENT: NCAT Respiratory: Resp unlabored on RA, CTAB Cardiovascular: RRR, no C/C/E (including LE) Abdomen: Soft, non-distended, non-tender, +BS, no appreciable HS Musculoskeletal: Symmetrical, BLE normal appearing and non-TTP, ambulatory Skin: No apparent lesions Neuro: Alert [...] STOMATOCYTES 1+ 07/04/2023 06:46 SODIUM 138 mEq/L 01/16/2024 12:55 POTASSIUM 4.2 mEq/L 01/16/2024 12:55 CHLORIDE 102 mEq/L 01/16/2024 12:55 UREA NITROGEN 17.6 mg/dL 01/16/2024 12:55 CREATININE 0.96 mg/dL 01/16/2024 12:55 CALCIUM 9.7 mg/dL 01/16/2024 12:55 PROTEIN 7.4 g/dL 01/16/2024 12:55 ALBUMIN 4.2 g/dL 01/16/2024 12:55 ALKALINE PHOSPHATASE 73 U/L 01/16/2024 12:55 ALT/SGPT 29 U/L 01/16/2024 12:55 AST/SGOT 24 U/L 01/16/2024 12:55 TOTAL BILIRUBIN 0.4 mg/dL 01/16/2024 12:55 CARBON DIOXIDE 27 mEq/L 01/16/2024 12:55 GLUCOSE 99 mg/dL 01/16/2024 12:55 EGFR (CKD-EPI 2020) 91.1 01/16/2024 12:55 ____ No PHOSPHOROUS data found LDH 194 [...] ng/mL 06/04/2020 11:40 ASSESSMENT & PLAN KEAGANTROY MCKEON is a 58 yo MALE with PMH of JAK2+ V617F PV who presents for routine follow-up. #PV, JAK2+ - No prior thromboembolic events - Hct goal <45% - proceed with PHL today; discussed hydrea dose escalation given above goal x2 read, he prefers to cont hydrea 1000mg and spot PHL - Continue aspirin 81 mg daily ([facility]) - RTC 3mo with PHL time #Fatigue - Chronic/intermittent - STOP BANG is at least intermediate (likely high) risk for REYMUNDO and rec to discuss further eval/appropriate testing with PCP -- will CC for care coordination; important to consider given symptoms, general health purposes, and plausibly may be further impacting H/H - Reinforce health lifestyle / sleep hygiene measures /earl SILVER Nurse Practitioner Signed: 04/16/2024 12:46 Receipt Acknowledged By: 04/17/2024 09:31 /everardo/ LEXX TITUS- NURSE PRACTITIONER 04/17/2024 ADDENDUM STATUS: COMPLETED Yes, we discussed rationale yesterday and he is amenable to sleep study. /earl SILVER Nurse Practitioner Signed: 04/17/2024 10:23 Receipt Acknowledged By: * AWAITING SIGNATURE * FANNY MOYA 04/17/2024 10:25 /es/ GRACIELA CLARK, RN, BSN Registered Nurse FANNY MOYA [facility] Apr 16, 2024 12:00 PM HEMATOLOGY AND ONC OLOGY OUTPATIENT NOTE: LOCAL TITLE: HEMATOLOGY ONCOLOGY OUTPATIENT FOLLOW UP STL STANDARD TITLE: HEMATOLOGY AND ONCOLOGY OUTPATIENT NOTE DATE OF NOTE: APR 16, 2024@12:00 ENTRY DATE: APR 16, 2024@12:01:05 AUTHOR: GRICEL SILVER EXP COSIGNER: URGENCY: STATUS: COMPLETED HEMATOLOGY ONCOLOGY OUTPATIENT FOLLOW UP STL Has ADDENDA HEMATOLOGY/ONCOLOGY CHIEF COMPLAINT: JAK2+ PV Diagnosis: Polycythemia Vera, JAK2+, diagnosed 03/2022 with Hgb 18.8 / Hct 55.4% Treatment History: 1. Phlebotomy 05/03/2022 - current/intermittent (last 11/2022 -> 01/16/2024, 04/16/2024) 2. Hydrea: 500 mg daily 05/14/2022 - 12/13/2022, 1000mg daily 12/13/2022 - current 3. Aspirin 81 mg daily INTERVAL HISTORY: Doing well. Does have on-going fatigue although he continues to be quite active at work; this is a bit intermittent and only some days does he need to nap. Reports good sleep at night. Otherwise, has occasional/unexplained aching to his legs - site can alternate between left and right, proximal and distal. Most recent episode to R thigh lasted about 10 minutes and abated with standing/stretching. REVIEW OF SYSTEMS: A clinically relevant ROS was completed and documented as per interval history PAST MEDICAL HISTORY 1) Past history of procedure 2) OA - Osteoarthritis (SCT 661315332) 3) Senile macular degeneration 4) History of SARS-CoV-2 ([facility] [id number]) 5) Diverticular Disease of Colon (SCT 344125135) 6) Obesity (SCT 493715340) 7) Hyperlipidemia (SCT 95718089) 8) Dupuytren's contracture 9) Tinnitus (SCT 73848673) 10) Sebaceous cyst of skin 11) Hearing Loss (SCT 05710239) 12) Vitamin D Deficiency (SCT 0040118) 13) Erectile Dysfunction (SCT 149698806) 14) History of colonic polyp 15) Epigastric [...] TAB TAKE ONE-HALF TABLET BY MOUTH ONCE ACTIVE A DAY FOR HIGH BLOOD PRESSURE 8) SILDENAFIL CITRATE 100MG TAB TAKE ONE-HALF TABLET BY ACTIVE MOUTH ONE HOUR PRIOR TO SEXUAL ACTIVITY FOR ERECTILE DYSFUNCTION NEEDED - LIMIT 6 DOSES PER 30 DAYS 9) TIMOLOL MALEATE 0.5% OPH SOLN INSTILL 1 DROP IN LEFT ACTIVE EYE EVERY MORNING FOR GLAUCOMA. USE TRAVEL INSURANCE AGENT BEFORE BREAKFAST Active Non-VA Medications Status 1) Non-VA LATANOPROST 0.005% OPH SOLN 1 DROP LEFT EYE ACTIVE EVERY EVENING 2) Non-VA TIMOLOL MALEATE 0.5% OPH SOLN 1 DROP LEFT EYE ACTIVE EVERY MORNING 11 Total Medications ALLERGIES Patient has answered NKA VITAL SIGNS Temperature: 98.1 F [36.7 C] (01/16/2024 13:50) Blood Pressure: 150/87 (01/16/2024 13:50) Pulse: 64 (01/16/2024 13:50) Respirations: 20 (01/16/2024 13:50) Weight: 271.1 lb [122.97 kg] (10/03/2023 07:54) BMI: 35.8 PHYSICAL EXAM General: In no apparent distress HEENT: NCAT Respiratory: Resp unlabored on RA, CTAB Cardiovascular: RRR, no C/C/E (including LE) Abdomen: Soft, non-distended, non-tender, +BS, no appreciable HS Musculoskeletal: Symmetrical, BLE normal appearing and non-TTP, ambulatory Skin: No apparent lesions Neuro: Alert [...] STOMATOCYTES 1+ 07/04/2023 06:46 SODIUM 138 mEq/L 01/16/2024 12:55 POTASSIUM 4.2 mEq/L 01/16/2024 12:55 CHLORIDE 102 mEq/L 01/16/2024 12:55 UREA NITROGEN 17.6 mg/dL 01/16/2024 12:55 CREATININE 0.96 mg/dL 01/16/2024 12:55 CALCIUM 9.7 mg/dL 01/16/2024 12:55 PROTEIN 7.4 g/dL 01/16/2024 12:55 ALBUMIN 4.2 g/dL 01/16/2024 12:55 ALKALINE PHOSPHATASE 73 U/L 01/16/2024 12:55 ALT/SGPT 29 U/L 01/16/2024 12:55 AST/SGOT 24 U/L 01/16/2024 12:55 TOTAL BILIRUBIN 0.4 mg/dL 01/16/2024 12:55 CARBON DIOXIDE 27 mEq/L 01/16/2024 12:55 GLUCOSE 99 mg/dL 01/16/2024 12:55 EGFR (CKD-EPI 2020) 91.1 01/16/2024 12:55 ____ No PHOSPHOROUS data found LDH 194 [...] for routine follow-up. #PV, JAK2+ - No prior thromboembolic events - Hct goal <45% - proceed with PHL today; discussed hydrea dose escalation given above goal x2 read, he prefers to cont hydrea 1000mg and spot PHL - Continue aspirin 81 mg daily ([facility]) - RTC 3mo with PHL time #Fatigue - Chronic/intermittent - STOP BANG is at least intermediate (likely high) risk for REYMUNDO and rec to discuss further eval/appropriate testing with PCP -- will CC for care coordination; important to consider given symptoms, general health purposes, and plausibly may be further impacting H/H - Reinforce health lifestyle / sleep hygiene measures /earl SILVER Nurse Practitioner Signed: 04/16/2024 12:46 Receipt Acknowledged By: 04/17/2024 09:31 /everardo/ JOSE TITUS NURSE PRACTITIONER 04/17/2024 ADDENDUM STATUS: COMPLETED I reviewed his hematology note. Would he be interested in a sleep study? /JOSE Rowan NURSE PRACTITIONER Signed: 04/17/2024 09:32 Receipt Acknowledged By: 04/17/2024 10:27 /everardo/ GRACIELA CLARK, RN, BSN Registered Nurse 04/17/2024 ADDENDUM STATUS: COMPLETED Yes, we discussed rationale yesterday and he is amenable to sleep study. /earl SILVER Nurse Practitioner Signed: 04/17/2024 10:23 Receipt Acknowledged By: * AWAITING SIGNATURE * FANNY MOYA 04/17/2024 10:25 /everardo/ GRACIELA CLARK, RN, BSN Registered Nurse GRICEL SILVER [facility]
--- OUTSIDE RECORDS SUMMARY | 2024-09-25 14:24 | XMS_ITS ---
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 Date/Time Encounter Type Encounter Description Reason Provider Source Feb 14, 2024 03:26 PM Outpatient Encounter GENERAL INTERNAL MEDICINE LUCINA WATT Jung Encounter Template Text not used by [place] Plan of Treatment: Future Appointments (+ 6 [...] 20 appointments. The data comes from all [place] treatment facilities. Appointment Date/Time Appointment Type Appointme nt Facility Name Feb 15, 2024 08:00 AM AMBULATORY - SURGERY [facility] Feb 19, 2024 10:00 AM AMBULATORY - MEDICINE . [facility] Mar 04, 2024 03:00 PM AMBULATORY - MEDICINE [facility] Mar 07, 2024 09:00 AM AMBULATORY - MEDICINE [facility] Mar 18, 2024 03:00 PM AMBULATORY - MEDICINE [facility] Mar 25, 2024 11:00 AM AMBULATORY - SURGERY [facility] Apr 14, 2024 03:00 PM AMBULATORY - MEDICINE [facility] Apr 16, 2024 01:00 PM AMBULATORY - MEDICINE [facility] Apr 16, 2024 01:30 PM AMBULATORY - MEDICINE [facility] Apr 22, 2024 12:00 PM AMBULATORY - MEDICINE [facility] May 19, 2024 03:00 PM AMBULATORY - MEDICINE [facility] May 22, 2024 01:00 PM AMBULATORY - MEDICINE [facility] Jun 10, 2024 12:30 PM AMBULATORY - MEDICINE [facility] Jun 25, 2024 08:00 AM AMBULATORY - SURGERY [facility] Jun 30, 2024 12:45 PM AMBULATORY - SURGERY [facility] Jul 16, 2024 01:00 PM AMBULATORY - MEDICINE [facility] Jul 16, 2024 01:30 PM AMBULATORY - MEDICINE [facility] Jul 29, 2024 02:00 PM AMBULATORY - MEDICINE [facility] Jul 30, 2024 11:30 AM AMBULATORY - MEDICINE [facility] Aug 13, 2024 01:30 PM AMBULATORY - NONE . [facility] Lab Results: +/- 30 [...] Type Comment Jan 16, 2024 12:55 PM [facility] COMPREHENSIVE METABOLIC PANEL PLASMA Specimen Type: PLASMA Comment: No hemolysis noted. Ordering Provider: GRICEL SILVER Report Released Date/Time: Dec 25, 2023 11:22 AM Reporting Lab: [facility] [address] [facility] [address] Performing Lab: [address] [address] CREATININE 0.96 mg/dL 0.7-1.3 UREA NITROGEN 17.6 [...] >60 Jan 16, 2024 12:55 PM [facility] CBC BLOOD Specimen Type: BLOOD No comment entered. Ordering Provider: GRICEL SILVER Report Released Date/Time: Dec 25, 2023 11:22 AM Reporting Lab: [facility] [address] [facility] [address] Performing Lab: [address] [address] WBC 5.9 10*3/uL 3.6-11.2 RBC 4.48 10*6/uL [...] 0.00-0. 20 Jan 16, 2024 12:55 PM [facility] TSH W/ REFLEX FT4 (STL) PLASMA Specimen Type: PLASMA No comment entered. Ordering Provider: GRICEL SILVER Report Released Date/Time: Jan 16, 2024 01:32 PM Reporting Lab: [facility] [address] [facility] [address] Performing Lab: [address] [address] TSH 1.650 u[IU]/mL 0.47-5 Social History: Smoking Status (Most current) and Tobacco Use (All prior to encounter date) This section includes the most current, and the historical, smoking and tobacco- related health factors from the [place] facility where the Encounter took place. Current Smoking Status This section includes the most current smoking, or tobacco-related health factor, from the [place] facility where the Encounter took place. Date/Time Current Smoking Status Comment Jerod sam May 17, 2022 12:02 PM VA-TOBACCO NEVER USED [facility] Tobacco Use History This section includes a history of the smoking, or tobacco-related health factors, that were collected on or before the date of the Encounter. The data comes from the [place] facility where the Encounter took place. Date/Time Smoking Status/Tobacco Use Comment F acility Mar 06, 2021 04:50 AM [facility] ADMIT TOBACCO SCREEN NO [facility] Jun 03, 2020 09:50 AM VA-TOBACCO NEVER USED [facility] Encounter Notes: All associated encounter notes This section contains the clinical notes associated to the Encounter. Date/Time Encounter Note(s) Provider Source Feb 14, 2024 03:26 PM NONVA NOTE: LOCAL TITLE: COMMUNITY CARE-CARE COORDINATION PLAN NOTE [id number] [facility] STANDARD TITLE: NONVA NOTE DATE OF NOTE: FEB 14, 2024@15:26 ENTRY DATE: FEB 14, 2024@15:27:41 AUTHOR: LUCINA WATT EXP COSIGNER: URGENCY: STATUS: COMPLETED Community Care Consult: [facility] OPT EYE EXAM Consult No: [id number] [facility] Referral #: Chief Complaint: needs eye exam Patient Admitted? No Level of Care Coordination Moderate Care Coordination was determined from: Chart Review Facility Community Care Office Contact Care Coordination Point of Contact: Lucina Ruby Services: Basic Care Coordination Services Monitoring and coordination of Rehab/PT Services Direct communication to referring provider Care management, if appropriate Plan: Type of Service: Evaluation and Treatment continued care Patient History / Clinical Findings / Diagnosis (Co-Morbidities): has been under the care of Dr. Danilo Osborne. Would like to continue care. Has scheduled appointment on 02/15/24 @0800. /everardo/ LUCINA POWERN RN REGISTERED NURSE Signed: 02/14/2024 15:33 LUCINA WATT [facility]
--- OUTSIDE RECORDS SUMMARY | 2024-09-25 14:24 | XMS_ITS | Encounter Summary ---
Author Name [facility] Organization [facility] Address [address] [place] [address] Care Team Providers Care Hot Molder Name Role Phone RAJAN ZHANG Primary Care [...] Patient's Relationship to Policy Montano [employer] [phone] PRESCRIPT ION SERVICER S May 28, 2020 [facility] [id number] [phone] Daphnie BOOGIE PATIENT [facility] PREFERRED PROVIDER ORGANIZAT ION (PPO) SERVICER S May 28, 2020 [id number] [phone] Daphnie BOOGIE PATIENT Selected Encounter This section includes the information on record at [place] for the Encounter. Date/Time Encounter Type Encounter Description Reason Provider Source Sep 23, 2024 02:28 PM Outpatient Encounter ADMIN PAT ACTIVTIES (MASNONCT) TYLER ARCE Encounter Template Text not used by [place] Plan of Treatment: Future Appointments (+ 6 [...] 20 appointments. The data comes from all [facility]. Appointment Date/Time Appointment Type Appointme nt Facility Name September 27, 2024 02:30 PM AMBULATORY - MEDICINE [facility] September 29, 2024 03:00 PM AMBULATORY - MEDICINE [facility] September 30, 2024 11:00 AM AMBULATORY - MEDICINE [facility] Oct 27, 2024 08:15 AM AMBULATORY - REHAB MEDICIN E [facility] Oct 27, 2024 08:30 AM AMBULATORY - SURGERY [facility] Oct 29, 2024 08:30 AM AMBULATORY - SURGERY [facility] Oct 29, 2024 10:45 AM AMBULATORY - MEDICINE [facility] Oct 29, 2024 11:00 AM AMBULATORY - MEDICINE [facility] Dec 10, 2024 02:00 PM AMBULATORY - NONE [facility] Active, Pending, and Scheduled Orders This section includes a listing of several types of active, pending, and scheduled orders, including clinic medications orders, diagnostic test orders, procedure orders and consult orders; where thestart date of the order is 45 days before the date of the Encounter or 45 days after the date of the Encounter. The data comes from all [facility]. Test Date/Time Test Type Test Details Facility Name Sep 23, 2024 02:42 PM Consult Order GI GENERAL OUTPATIENT ST[facility] Cons Machine Group Leader's Choice [facility] September 27, 2024 02:30 PM Imaging - Ultrasou nd Order US ABDOMEN LIMITED W/BLOOD FLOW DOPPLER [facility] Oct 29, 2024 12:00 AM Laboratory - Chemistry Order CBC BLOOD STAT SP [facility] Oct 29, 2024 12:00 AM Laboratory - Chemistry Order COMPREHENSIVE METABOLIC PANEL GREEN LI/HEP BLD/PLAS PLASMA STAT SP [facility] Lab Results: +/- 30 days of [...] Type Comment Sep 20, 2024 10:06 AM [facility] URINALYSIS (STL-PB) URINE Specimen Type: URINE No comment entered. Ordering Provider: GABBY CASTRO Report Released Date/Time: Sep 20, 2024 08:15 AM Reporting Lab: [facility] [address] [facility] [address] [address] Performing Lab: [address] [address] URINE COLOR Colorless Yellow U.BILIRUBIN Negative mg/dL Negative U.PH 7.0 5.0-8.0 APPEARANCE Clear Clear U.NITRITE Negative mg/dL Negative URN.GLUCOSE Normal mg/dL Negative URN.PROTEIN Negative mg/dL URN.UROBILINOGEN Normal mg/dL Normal URN.BLOOD Negative mg/dL Negative-Trace URN.KETONES Negative mg/dL Negative-Trac e URN.LEUK.EST. Negative mg/dL Negative-Tr emery URN.SPECIFIC GRAVITY 1.033 H Sep 20, 2024 08:11 AM [facility] LIPASE PLASMA Specimen Type: PLASM A Comment: Aspartate Transaminase result may show positive bias due to hemolysis. K result canceled due to hemolysis. Specimen moderately hemolyzed. Notified Huong Cason RN @0914 [facility] 4.26.25 Ordering Provider: GABBY CASTRO Report Released Date/Time: Sep 20, 2024 08:10 AM Reporting Lab: [facility] [address] [facility] [facility] [address] [address] Performing Lab: [place] [address] [facility] [address] [address] LIPASE 20 U/L 8-78 Sep 20, 2024 08:11 AM [facility] COMPREHENSIVE METABOLIC PANEL PLASMA Specimen Type: PLASMA Comment: Aspartate Transaminase result may show positive bias due to hemolysis. K result canceled due to hemolysis. Specimen moderately hemolyzed. Notified Huong Cason RN @0914 [facility] 4.26.25 Ordering Provider: GABBY CASTRO Report Released Date/Time: Sep 20, 2024 08:10 AM Reporting Lab: [address] [address] Performing Lab: [address] [address] CREATININE 0.76 mg/dL 0.7-1.3 UREA NITROGEN 12.3 [...] 102.9 >60 Sep 20, 2024 08:11 AM [facility] CBC BLOOD Specimen Type: BLOOD No comment entered. Ordering Provider: GABBY CASTRO Report Released Date/Time: Sep 20, 2024 08:10 AM Reporting Lab: [address] [address] Performing Lab: [address] [address] WBC 10.8 10*3/uL 3.6-11.2 RBC 4.57 10*6/uL [...] 0.00-0. 20 Sep 17, 2024 09:59 AM [facility] COMPREHENSIVE METABOLIC PANEL PLASMA Specimen Type: PLASMA Comment: No hemolysis noted. Ordering Provider: GRICEL SILVER Report Released Date/Time: Jul 16, 2024 12:56 PM Reporting Lab: [address] [address] Performing Lab: [address] [address] CREATININE 0.82 mg/dL 0.7-1.3 UREA NITROGEN 13.0 [...] 100.6 >60 Sep 17, 2024 09:59 AM [facility] CBC BLOOD Specimen Type: BLOOD No comment entered. Ordering Provider: GRICEL SILVER Report Released Date/Time: Jul 16, 2024 12:56 PM Reporting Lab: [address] [address] Performing Lab: [address] [address] WBC 7.7 10*3/uL 3.6-11.2 RBC 4.65 10*6/uL [...] 0.00-0. 20 Sep 17, 2024 09:59 AM [facility] FERRITIN SERUM Specimen Type: SERUM No comment entered. Ordering Provider: GRICEL SILVER Report Released Date/Time: Sep 17, 2024 10:40 AM Reporting Lab: [facility] [address] [place] [address] Performing Lab: [address] [address] FERRITIN 39.00 ng/mL 22-275 Sep 17, 2024 09:59 AM [facility] IRON/TIBC PROFILE SERUM Specimen Type: SERUM No comment entered. Ordering Provider: GRICEL SILVER Report Released Date/Time: Sep 17, 2024 10:40 AM Reporting Lab: [address] [address] Performing Lab: [address] [address] TIBC 414 ug/dL 250-450 TRANSFERRIN 331 mg/dL 163-344 IRON SATURATION 19 L 20-50 IRON 78 ug/dL 65-175 Social History: Smoking Status (Most current) and Tobacco Use (All prior to encounter date) This section includes the most current, and the historical, smoking and tobacco- related health factors from the [place] facility where the Encounter took place. Current Smoking Status This section includes the most current smoking, or tobacco-related health factor, from the [place] facility where the Encounter took place. Date/Time Current Smoking Status Comment Facil ity May 17, 2022 12:02 PM VA-TOBACCO NEVER USED [facility] Tobacco Use History This section includes a history of the smoking, or tobacco-related health factors, that were collected on or before the date of the Encounter. The data comes from the [place] facility where the Encounter took place. Date/Time Smoking Status/Tobacco Use Comment F acility Mar 06, 2021 04:50 AM ORYX ADMIT TOBACCO SCREEN NO [facility] Jun 03, 2020 09:50 AM [place]-TO[place]ACCO NEVER USED [facility] Radiology Reports: +/- 30 days of the [...] the Encounter. The data comes from all [place] treatment facilities. Date/Time Radiology Report Provider Source Sep 20, 2024 09:[address] ABD PEL W/CONT & 3D: TROY BOOGIE [id number] -[id number] M Exm Date: SEP 20, 2024@09:37 Req Phys: GABBY CASTRO Loc: [facility] 2ND SHIFT (R Img Loc: [facility]AGING Service: [facility], [place], operated by [facility], [address] [address] (Case [id number] COMPLETE) CT ABDOMEN AND PELVIS W/CONTRAST (CT Detailed) CPT:12114 Contrast Media : Non-ionic Iodinated Reason for Study: abd pain Clinical History: Responsible Attending: Dr Castro Attending Contact Number: [phone] Resident Contact Number: abd pain Allergies listed in CPRS chart: Patient has answered NKA Creatinine:CREATININE 0.82 mg/dL 09/17/2024 09:59 /eGFR: STL EGFR (within one year). CREATININE 0.82 mg/dL (09/17/24 09:59) Wt: 283.2 lb [128.46 kg] (09/17/2024 10:07) History of: Renal failure, chronic or acute renal disease: NO Report Status: Verified Date Reported: SEP 20, 2024 Date Verified: SEP 20, 2024 Process Mold Technician E-Sig: Report: CT ABDOMEN AND PELVIS W/CONTRAST [PRINTSET] Clinical History: abd pain Comparison: 03/07/2023 Technique: CT of the abdomen and pelvis was performed. The study was protocoled and supervised at the local [place] facility. 1258 images were subsequently received by the [place] National Teleradiology Program (NTP) for interpretation. Total [...] inguinal hernia. READING PHYSICIAN: Latrell Hernandes M.D. -[phone] 09/20/2024 8:34 PDT [facility] National Teleradiology Program [phone] (For Medical Practitioner Use Only) Attention Patients / Veterans: If you have questions or concerns about these test results, please contact your ordering provider or primary care team. Primary Interpreting Staff: RADIOLOGY,OUTSIDE SERVICE, Staff Physician / RADIOLOGY,OUTSIDE SERVICE [facility] Encounter Notes: All associated encounter notes This section contains the clinical notes associated to the Encounter. Date/Time Encounter Note(s) Provider Source Sep 23, 2024 02:46 PM TELEHEALTH NOTE: LOCAL TITLE: TELE EMERGENCY CARE NOTE STANDARD TITLE: TELEHEALTH NOTE DATE OF NOTE: SEP 23, 2024@14:46 ENTRY DATE: SEP 23, 2024@14:46:13 AUTHOR: MARCO FORTE COSIGNER: URGENCY: STATUS: COMPLETED TELE EMERGENCY CARE NOTE Has ADDENDA This is a tele-urgent care visit to address acute/urgent issues. Definitive care on chronic medical issues will be deferred to routine Primary Care appointment/provider. Consult Origin: Referral from the Clinical Contact Center/Call Center Chart review/consultation with painter spring Subjective: 59-year-old male past medical history of hyperlipidemia, hypertension, obesity, REYMUNDO, diverticulitis status post sigmoidectomy, seen in ED on September 20, 2024 diagnosed with cholelithiasis. ACTIVE PROBLEMS: Code Description Z98.890 Past history of procedure ([facility] [id number]) M19.90 OA - Osteoarthritis ([facility] [id number]) H35.30 Senile macular degeneration ([facility] [id number]) Z86.19 History of SARS-CoV-2 ([facility] [id number]) K57.30 Diverticular Disease of Colon ([facility] [id number]) E66.9 Obesity ([facility] [id number]) E78.5 Hyperlipidemia ([facility] [id number]) M72.0 Dupuytren's contracture ([facility] [id number]) H93.19 Tinnitus ([facility] [id number]) L72.3 Sebaceous cyst of skin ([facility] [id number]) H91.90 Hearing Loss ([facility] [id number]) E55.9 Vitamin D Deficiency ([facility] [id number]) N52.9 Erectile Dysfunction ([facility] [id number]) Z86.010 History of colonic polyp ([facility] [id number]) M79.673 Plantar heel pain ([facility] [id number]) R73.02 Impaired glucose tolerance (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 [id number]) G47.33 Obstructive sleep apnea ([facility] [id number]) ALLERGIES/ADR: Patient has answered NKA Active Outpatient Medications (including Supplies): ACETAMINOPHEN 500MG TAB TAKE ONE TABLET BY MOUTH FOUR ACTIVE TIMES A DAY NEEDED CAUTION: DO NOT EXCEED 4000MG PER DAY ACETAMINOPHEN (APAP) FROM ALL MEDS. Indication: FOR PAIN AMLODIPINE BESYLATE 5MG TAB TAKE ONE TABLET BY MOUTH ONCE ACTIVE A DAY Indication: FOR HIGH BLOOD PRESSURE ASPIRIN 81MG EC TAB TAKE ONE TABLET BY MOUTH ONCE A DAY ACTIVE (S) TAKE WITH FOOD. ATORVASTATIN CALCIUM 40MG TAB TAKE ONE-HALF TABLET BY ACTIVE MOUTH EVERY EVENING TO LOWER CHOLESTEROL CHOLECALCIF 50MCG (D3-2,000UNIT) TAB TAKE ONE TABLET BY ACTIVE MOUTH ONCE A DAY FOR VITAMIN D DEFICIENCY. DICLOFENAC NA 1% TOP GEL APPLY 2 GM TO AFFECTED AREA(S) ACTIVE FOUR TIMES A DAY NEEDED FOR PAIN/INFLAMMATION; NOT MORE THAN 16 GRAMS DAILY TO ANY LOWER EXTREMITY JOINT. NOT MORE THAN 8 GRAMS DAILY TO ANY UPPER EXTREMITY JOINT. MAX 32GM/DAY OVER ALL JOINTS. (MEASURE DOSE WITH RULER ATTACHED INSIDE BOX)FOR HEEL PAIN RELIEF HYDROXYUREA 500MG CAP TAKE THREE CAPSULES BY MOUTH ONCE A ACTIVE DAY Indication: POLYCYTHEMIA VERA LOSARTAN 100MG TAB TAKE ONE-HALF TABLET BY MOUTH ONCE A ACTIVE DAY Indication: FOR HIGH BLOOD PRESSURE ONDANSETRON HCL 8MG TAB TAKE ONE-HALF TABLET BY MOUTH ACTIVE THREE TIMES A DAY NEEDED Indication: FOR NAUSEA/VOMITING PANTOPRAZOLE NA 40MG EC TAB TAKE ONE TABLET BY MOUTH EVERY ACTIVE MORNING BEFORE A MEAL TAKE 30 MINUTES BEFORE MEAL(S) Indication: FOR GASTROESOPHAGEAL REFLUX DISEASE SILDENAFIL CITRATE 100MG TAB TAKE ONE-HALF TABLET BY MOUTH ACTIVE ONE HOUR PRIOR TO SEXUAL ACTIVITY NEEDED - LIMIT 6 DOSES PER 30 DAYS Indication: FOR ERECTILE DYSFUNCTION Non-VA LATANOPROST 0.005% OPH SOLN 1 DROP LEFT EYE EVERY ACTIVE EVENING Non-VA TIMOLOL MALEATE 0.5% OPH SOLN 1 DROP LEFT EYE EVERY ACTIVE MORNING 13 Total Medications Objective: Epigastric and right upper quadrant abdominal pain, intermittent, sharp in character associated with change in color of his bowel movements. Patient denies any fevers, chills, nausea or vomiting. Reason for Referral: Gastrointestinal Assessment/Impression: 59-year-old male with CT diagnosed cholelithiasis and unremarkable lipase and labs. Plan: (1) continue outpatient medications, in particular Protonix, Zofran and Tylenol. May use ibuprofen 400 mg with food for worsening pain. (2) follow-up on September 24 1 PM for right upper quadrant ultrasound. (3) GI consult placed. (4) recommend follow-up with primary care physician. (5) if fevers, chills, worsening abdominal pain or vomiting return to the emergency department immediately. Patient agrees with plan. Issue resolved with Tele Urgent Care consultation Time spent in consultation/chart review: Minutes: 35 minutes /es/ MARCO FORTE MD STAFF PHYSICIAN Signed: 09/23/2024 14:54 Receipt Acknowledged By: 09/23/2024 16:18 /es/ RAJAN NEGRON AGNP-C [facility]/CCC NURSE PRACTITIONER 09/23/2024 16:23 /es/ GRACIELA CLARK, RN, BSN Registered Nurse 09/23/2024 ADDENDUM STATUS: COMPLETED I will call on 09/25/24 and see where we are at that point and get him schedule for provider /es/ GRACIELA CLARK, RN, BSN Registered Nurse Signed: 09/23/2024 16:[address] [facility] Sep 23, 2024 02:29 PM TELEHEALTH NOTE: LOCAL TITLE: TELE EMERGENCY CARE NATURAL RESOURCES INSTRUCTOR NOTE STANDARD TITLE: TELEHEALTH NOTE DATE OF NOTE: SEP 23, 2024@14:29 ENTRY DATE: SEP 23, 2024@14:29:49 AUTHOR: ROSA ARCE COSIGNER: URGENCY: STATUS: COMPLETED [place] referred from: [facility] [place]'s name, last 4, and were verified. Encounter/Visit Type: Telephone [place]'s Phone Number, Address, Email Address and Contact Information Patient Address: [place] [address] Patient Email - [email or web address] Emergency Contact: CON - Patient Contacts Patient Phone Numbers: Cell: No data available Home: Work: No data available Emergency Contact: Name: LU BOOGIE Relationship: BROTHER Secondary Emergency Contact: Name: MISA SNOW Relationship: UNRELATED FRIEND/OTHER Secondary Next of Kin Contact Name: No data available Relationship: No data available Phone: No data available ----- Age: 59 years old Gender: MALE Chief Complaint: cont Abdominal Pain [facility] ([place]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 [place] states that pain started on Sunday, thought it was a pulled muscle, however pain got worse and was seen at ED on Sunday. had blood work and CT scan completed, sent home on tylenol and nausea meds but his pain persists. had been attempting to call his PCP when he was transferred to then [facility]. [place] transferred to Tele [facility] provider for further evaluation Safety Assessment: (Self-Reported) Are you living in a safe environment? Yes Are you carrying any weapons or contraband? No Past Medical History/Active Problems: EDDI - Active Problems 19 Active Problems PROBLEM LAST MOD PROVIDER Past history of procedure 09/12/2021 ROMEO LOMELI 1. 2014 total left knee arthroplasty 2. 2015 right rotator cuff surgery 3. 2004 cervical spinal c5-c6 fusion 4. 1983 wisdom teeth extractions (4) 5. 1984 left knee arthroscopic surgery 6. 1985 left knee arthroscopic surgery 7. 06/14/21 laparoscopic hand-assisted sigmoidectomy and primary umbilical hernia repair OA - Osteoarthritis 06/04/2020 PACE,ROMEO Lopez Senile macular degeneration 06/04/2020 PACE,ROMEO Lopez History of SARS-CoV-2 06/04/2020 PACE,ROMEO Lopez Diverticular disease of colon 06/04/2020 PACE,ROMEO Lopez Obesity 06/04/2020 PACE,ROMEO Lopez Hyperlipidemia 06/04/2020 PACE,SINAN Dupuytren's contracture 06/04/2020 PACE,SINAN Tinnitus 06/04/2020 PACE,SINAN Sebaceous cyst of skin 06/04/2020 PACE,ROMEO Lopez Hearing loss 06/04/2020 PACE,ROMEO Lopez Vitamin D deficiency 06/07/2020 PACE,SINAN Erectile dysfunction 07/13/2020 PACE,SINAN History of colonic polyp 03/29/2021 PACE,SINAN Epigastric hernia 05/11/2021 LUISA DENNIS Plantar heel pain 06/03/2021 PACE,ROMEO Lopez Impaired glucose tolerance 06/06/2021 PACE,ROMEO Lopez 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 Current Medications: Active Outpatient Medications (including Supplies): ACETAMINOPHEN 500MG TAB TAKE ONE TABLET BY MOUTH FOUR ACTIVE TIMES A DAY NEEDED CAUTION: DO NOT EXCEED 4000MG PER DAY ACETAMINOPHEN (APAP) FROM ALL MEDS. Indication: FOR PAIN AMLODIPINE BESYLATE 5MG TAB TAKE ONE TABLET BY MOUTH ONCE ACTIVE A DAY Indication: FOR HIGH BLOOD PRESSURE ASPIRIN 81MG EC TAB TAKE ONE TABLET BY MOUTH ONCE A DAY ACTIVE (S) TAKE WITH FOOD. ATORVASTATIN CALCIUM 40MG TAB TAKE ONE-HALF TABLET BY ACTIVE MOUTH EVERY EVENING TO LOWER CHOLESTEROL CHOLECALCIF 50MCG (D3-2,000UNIT) TAB TAKE ONE TABLET BY ACTIVE MOUTH ONCE A DAY FOR VITAMIN D DEFICIENCY. DICLOFENAC NA 1% TOP GEL APPLY 2 GM TO AFFECTED AREA(S) ACTIVE FOUR TIMES A DAY NEEDED FOR PAIN/INFLAMMATION; NOT MORE THAN 16 GRAMS DAILY TO ANY LOWER EXTREMITY JOINT. NOT MORE THAN 8 GRAMS DAILY TO ANY UPPER EXTREMITY JOINT. MAX 32GM/DAY OVER ALL JOINTS. (MEASURE DOSE WITH RULER ATTACHED INSIDE BOX)FOR HEEL PAIN RELIEF HYDROXYUREA 500MG CAP TAKE THREE CAPSULES BY MOUTH ONCE A ACTIVE DAY Indication: POLYCYTHEMIA VERA LOSARTAN 100MG TAB TAKE ONE-HALF TABLET BY MOUTH ONCE A ACTIVE DAY Indication: FOR HIGH BLOOD PRESSURE ONDANSETRON HCL 8MG TAB TAKE ONE-HALF TABLET BY MOUTH ACTIVE THREE TIMES A DAY NEEDED Indication: FOR NAUSEA/VOMITING PANTOPRAZOLE NA 40MG EC TAB TAKE ONE TABLET BY MOUTH EVERY ACTIVE MORNING BEFORE A MEAL TAKE 30 MINUTES BEFORE MEAL(S) Indication: FOR GASTROESOPHAGEAL REFLUX DISEASE SILDENAFIL CITRATE 100MG TAB TAKE ONE-HALF TABLET BY MOUTH ACTIVE ONE HOUR PRIOR TO SEXUAL ACTIVITY NEEDED - LIMIT 6 DOSES PER 30 DAYS Indication: FOR ERECTILE DYSFUNCTION Non-VA LATANOPROST 0.005% OPH SOLN 1 DROP LEFT EYE EVERY ACTIVE EVENING Non-VA TIMOLOL MALEATE 0.5% OPH SOLN 1 DROP LEFT EYE EVERY ACTIVE MORNING 13 Total Medications Vital Signs (Historical/Last 3): Measurement DT TEMP RESP PULSE BP POx F(C) (L/MIN)(%) 09/20/2024 11:30 80 172/84 09/20/2024 07:52 98.7(37.1) 18 65 189/97 09/17/2024 10:07 96.4(35.8) 20 65 164/95 97 Measurement DT PAIN WEIGHT HEIGHT LB(KG)[BMI] IN(CM) 09/20/2024 11:30 0 09/20/2024 07:52 8 09/17/2024 10:07 283.2(128.46)[37*] Emergency Severity Index (SHRUTI) level: Level 3 Disposition: Transferred to Tele Emergency Care Provider Time Spent: 8minutes /everardo/ Rosa Arce, MSN, RN, GALEN REGISTERED NURSE Signed: 09/23/2024 14:[address] [facility]
--- OUTSIDE RECORDS SUMMARY | 2024-09-25 14:24 | XMS_ITS ---
Author Name [facility] [place] Organization [facility] ([place] Address [address] [place] [address] Care Team Providers Care School Psychology Specialist Name Role Phone VICENTE, RAJAN Primary Care [...] Patient's Relationship to Policy Montano [employer] RX [phone] PRESCRIPT ION GATE MANAGER S May 28, 2020 [facility] [id number] [phone] Daphnie BOOGIE PATIENT [facility] PREFERRED PROVIDER ORGANIZAT ION (PPO) GATE MANAGER S May 28, 2020 [id number] [phone] Daphnie BOOGIE PATIENT Selected Encounter This section includes the information on record at [place] for the Encounter. Date/Time Encounter Type Encounter Description Reason Provider Source Dec 27, 2023 08:30 AM INTRM OPH EXAM NEW PATIENT OPTOMETRY ICD-10-CM H52.4 Presbyopia MARY KATE LI IHJung Encounter Template Text not used by [facility] Assessments - Encounter Diagnoses This section includes the primary and secondary diagnoses documented for the Encounter. Date/Time Primary/Secondary Diagnosis Diagnosis Name Provider Source Dec 27, 2023 09:27 AM PRIMARY Presbyopia GUILLERMOJO Jessica [facility] Plan of Treatment: Future Appointments (+ 6 months) and Future Tests (+/- 45 days) The Plan of Treatment section includes future care activities for the patient from all [place] [facility]. This section includes future appointments and future orders which are active, pending or scheduled. Future Appointments This section includes appointments that were scheduled to occur 6 months from the date of the Encounter, up to a maximum of 20 appointments. The data comes from all [facility]. Appointment Date/Time Appointment Type Appointme nt Facility Name Jan 10, 2024 03:00 PM AMBULATORY - MEDICINE [facility] Jan 16, 2024 02:00 PM AMBULATORY - MEDICINE [facility] Jan 16, 2024 02:30 PM AMBULATORY - MEDICINE [facility] Feb 05, 2024 10:00 AM AMBULATORY - MEDICINE [facility] Feb 15, 2024 08:00 AM AMBULATORY - SURGERY . [facility] Feb 19, 2024 10:00 AM AMBULATORY - MEDICINE [facility] Mar 04, 2024 03:00 PM AMBULATORY - MEDICINE [facility] Mar 07, 2024 09:00 AM AMBULATORY - MEDICINE [facility] Mar 18, 2024 03:00 PM AMBULATORY - MEDICINE [facility] Mar 25, 2024 11:00 AM AMBULATORY - SURGERY [facility] Apr 14, 2024 03:00 PM AMBULATORY - MEDICINE [facility] Apr 16, 2024 01:00 PM AMBULATORY - MEDICINE [facility] Apr 16, 2024 01:30 PM AMBULATORY - MEDICINE [facility] Apr 22, 2024 12:00 PM AMBULATORY - MEDICINE [facility] May 19, 2024 03:00 PM AMBULATORY - MEDICINE [facility] May 22, 2024 01:00 PM AMBULATORY - MEDICINE [facility] Jun 10, 2024 12:30 PM AMBULATORY - MEDICINE [facility] Jun 25, 2024 08:00 AM AMBULATORY - SURGERY [facility] Lab Results: +/- 30 days of [...] Type Comment Jan 16, 2024 12:55 PM [facility] COMPREHENSIVE METABOLIC PANEL PLASMA Specimen Type: PLASMA Comment: No hemolysis noted. Ordering Provider: GRICEL SILVER Report Released Date/Time: Dec 25, 2023 11:22 AM Reporting Lab: [address] [phone] Performing Lab: [address] [address] CREATININE 0.96 mg/dL 0.7-1.3 UREA NITROGEN 17.6 [...] 91.1 >60 Jan 16, 2024 12:55 PM [facility] CBC BLOOD Specimen Type: BLOOD No comment entered. Ordering Provider: GRICEL SILVER Report Released Date/Time: Dec 25, 2023 11:22 AM Reporting Lab: [address] [address] Performing Lab: [address] [address] WBC 5.9 10*3/uL 3.6-11.2 RBC 4.48 10*6/uL [...] 0.00-0. 20 Jan 16, 2024 12:55 PM [facility] TSH W/ REFLEX FT4 (STL) PLASMA Specimen Type: PLASMA No comment entered. Ordering Provider: GRICEL SILVER Report Released Date/Time: Jan 16, 2024 01:32 PM Reporting Lab: [place] [id number] Performing Lab: [address] [phone] TSH 1.650 u[IU]/mL 0.47-5 Dec 28, 2023 08:12 AM [facility] HGA1C BLOOD Specimen Type: BLOOD No comment entered. Ordering Provider: MARIN PARSONS Report Released Date/Time: Dec 27, 2023 01:13 PM Reporting Lab: [address] [address] Performing Lab: [address] [address] HGA1C 5.6 4.0-6.0 Dec 28, 2023 08:12 AM [facility] URINALYSIS (STL-PB) URINE Specimen Type: URIN E No comment entered. Ordering Provider: MARIN PARSONS Report Released Date/Time: Dec 27, 2023 01:13 PM Reporting Lab: [facility] [address] [facility] [address] Performing Lab: [facility] [address] [facility] [address] URINE COLOR Light-Yellow Yellow U.BILIRUBIN Negative mg/dL Negative U.PH 6.5 5.0-8.0 APPEARANCE Clear Clear U.NITRITE Negative mg/dL Negative URN.GLUCOSE Normal mg/dL Negative URN.PROTEIN Negative mg/dL Negative-20 URN.UROBILINOGEN Normal mg/dL Normal URN.BLOOD Negative mg/dL Negative-Trace URN.KETONES Negative mg/dL Negative-Trac e URN.LEUK.EST. Negative mg/dL Negative-Tr emery URN.SPECIFIC GRAVITY 1.014 1.005-1.029 Pathology Reports: +/- 30 days of the [...] the Encounter. The data comes from all [facility] facilities. Date/Time Pathology Report Provider Source Dec 28, 2023 08:12 AM LR MICROBIOLOGY RE PORT: Accession [UID]: [id number] [[id number]] Received: Dec 28, 2023@16:22 Collection sample: URINE,CLEAN CATCH Collection date: Dec 28, 2023 08:12 Site/Specimen: URINE Provider: MARIN PARSONS Test(s) ordered: C&S URINE..................... completed: Dec 30, 2023 07:10 * BACTERIOLOGY FINAL REPORT => Dec 30, 2023 07:13 TECH CODE: [id number] Bacteriology Remark(s): Culture shows NO GROWTH IN 1 DAY. 12-30-2023 =--=--=--=--=--=--=--=--=--=- -=--=--=--=--=--=--=--=--=--= --=--=--=--=--=--=-- Performing Laboratory: Bacteriology Report Performed By: [facility] CLIA# [id number] [address] [facility] [address] [place] [address] ANAYA MONTERROSO [facility] Encounter Notes: All associated encounter notes This section contains the clinical notes associated to the Encounter. Date/Time Encounter Note(s) Provider Source Jan 14, 2024 10:50 AM PHYSICIAN LETTERS: LOCAL TITLE: TEST RESULT GENERAL LETTER STL STANDARD TITLE: PHYSICIAN LETTERS DATE OF NOTE: JAN 14, 2024@10:50 ENTRY DATE: JAN 14, 2024@10:50:43 AUTHOR: MARIN PARSONS COSIGNER: URGENCY: STATUS: COMPLETED [address] [address] JAN 14, 2024 TROY BOOGIE [address] [place], [place] [address] Dear Troy Boogie, I would like to update you on your recent test results. HEMOGLOBIN A1C - Gives us information about your diabetes (sugar or glucose) control over the past 3 months. Your target is to keep your A1C below 7 %. HGA1C 5.6 % 12/28/2023 08:12 These readings are within normal limits. URINALYSIS - A urinalysis (or UA ) is an array of tests performed on urine and one of the most common methods of medical diagnosis. URINALYSIS URINE COLOR Light-Yellow 12/28/2023 08:12 APPEARANCE Clear 12/28/2023 08:12 U.PH 6.5 12/28/2023 08:12 U.BILIRUBIN Negative mg/dL 12/28/2023 08:12 U.NITRITE Negative mg/dL 12/28/2023 08:12 These readings are within normal limits. FUTURE APPOINTMENTS: 01/16/2024 14:00 [facility]-ONCOLOGY FILM REPLACEMENT ORDERER 1 02/05/2024 10:00 [facility]-ST CLR PACT PHONE MARCI 06/03/2024 09:30 [facility]-ST CLR PACT 5 PCP Sincerely, MARIN PARSONS STAFF PHYSICIAN KEAGAN,TROY PARSONS,MARIN WOODSON [facility] Dec 27, 2023 08:21 AM OPTOMETRY NOTE: LOCAL TITLE: OPTOMETRY NOTE STANDARD TITLE: OPTOMETRY NOTE DATE OF NOTE: DEC 27, 2023@08:21 ENTRY DATE: DEC 27, 2023@08:21:58 AUTHOR: JO LI EXP COSIGNER: URGENCY: STATUS: COMPLETED Last seen: initial visit CC: 1. Vision blurry OD, gradual no central vision OS sec to mac disease 2. Unknown retinal disease similar to AMD sees retina specialist at [facility] next appt fall, last appt spring states he had MARY and laser, but currently receiving no treatment Ocular meds: timolol QAM OS, latanoprost QHS OS Ocular ROS (+)Unknown retinal condition w/ CNVM (+)unknown laser procedure (+)intravitreal injections per pt Family OcHX: (-) blindness (-) glaucoma (-) AMD Cardiovascular ROS: no change from problem & medication lists CPRS Problem list, medications and allergies reviewed: CPRS Serology for Diabetes GLUCOSE 124 H mg/dL 10/03/2023 06:48 HGA1C 5.6 % 06/07/2022 07:08 Neuro: Orientation: Normal Psych: Mood/Affect: Normal VISUAL ACUITY With correction Distance Visual Acuity Coal Or Ore Controller OD: 20/20 OS: 20/320 Pupils PERRL OU (-)APD Coal Or Ore Controller Confrontation: FTFC OU Extra-Ocular Muscles Full OU Externals/adnexa: Unremarkable OU Autorefraction OD: +1.00 -0.25 x149 OS: +0.50 -0.75 x034 Refraction: 12/27/23 Coal Or Ore Controller OD: +0.50 -0.25 x145 20/20 OS: +0.50 -0.75 x035 20/320 Add: +2.25 SLIT LAMP EXAMINATION Lids/Lashes/Lacrimal tear saponification/mild MGD OU Conjunctiva/Sclera White/quiet OU Cornea Clear OU Ant Chamber Deep and quiet OU Iris Normal, (-)NVI OU Lens tr NS cataract OU (undilated) Intraocular Pressures (Goldmann) 1 gtt fluress OU Date OD OS Time Meds 12/27/23 14 14 0830 none RETINAL EVALUATION (undilated) Optic Nerve OD: 0.30 CDR Flat, pink, distinct (-)NVD OS: 0.30 CDR Flat, pink, distinct (-)NVD Vessels 2/3 OU, (-)NVE OU Posterior Pole OD: (-) Hemorrhages (-) exudates (-) cotton wool spots OS: (-) Hemorrhages (-) exudates (-) cotton wool spots Macula OD: Flat, clear (-)CSME OS: hypopigmentation nasally Bhavik Hong, Optometry Coal [employer] Ore Controller participated in the care of this under my supervision. I personally examined the patient and provided the following assessment and plan: Assessment/Plan 12/27/2023 1. Refractive error/presbyopia order progressive with polycarb 2. 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 Will need outside records - fax number/clinic sheet given. 3. Ocular hypertension OS? on timolol qam, latanoprost qhs obtains outside [facility] today 1414 [facility]H healthy on undilated view today Pt edu on all findings and given the opportunity to have questions answered RTC prn /es/ Jo Li, OD, FAAO Hygiene Assistant Signed: 12/27/2023 12:26 JO LI [facility]
--- OUTSIDE RECORDS SUMMARY | 2024-09-25 14:24 | XMS_ITS | Continuity of Care Document ---
Author Organization [facility] Address [address] [place] [address] Phone Care Team Providers Care Aircraft Delivery Checker Name Role Phone Tan Han MD Unavailable Unavailable Allergies, Adverse Reactions, Alerts Substance Reaction Status Criticality No Known Drug Allergies Active No I nformation Procedures Procedure Date Rating Letter Global/Postop followup visit Supplemental Report Global/Postop followup visit Supplemental Report Global/Postop followup visit Supplemental Report Global/Postop followup visit Supplemental Report Subacromial Decompression Arm Sling W/ Foam Pad Debridement Limited Office/outpatient visit,est, mod 2015 Supplemental Report MRI Upper extr joint, w/o contrast X-ray exam shoulder minimum 2 views Office consultation, moderate 6 Advance Directives Directive Yes / No Effective Date File Name No Information Encounters Encounter Description Practice Location Reason(s) For Visit Diagnoses Date Provider Providers Copied on Encounter Rating Letter [facility], [address] [place] [address], [id number], [place] tel:[phone] [facility] No Information 6 Guille Maddox. [address] [place] [address], [facility] [address], [place], [place], [id number] , [place]. tel:[phone] [facility], [address] [place] [address], [id number], [place] tel:[phone] [facility] right shoulder (chief complaint) Encounter for other orthopedic aftercare 6 Guille Maddox. [address] [facility], [address], [place], [place], [id number] , [place]. tel: [phone] [facility], [address] [facility] [address], [place], [place], [id number], [place] tel:[phone] [facility] Encounter for other orthopedic aftercare 6 Guille Maddox. [address] [facility], [address], [place], [place], [id number] , [place]. tel: [phone] [facility], [address] [address], [place], [place], [id number], [place] tel:[phone] [facility] Encounter for other orthopedic aftercare 6 Guille Maddox. [address] [facility], [address], [place], [place], [id number] , [place]. tel: [phone] [facility], [address] [address], [place], [place], [id number], [place] tel:[phone] [facility] Encounter for other orthopedic aftercare 6 Guille Maddox. [address] [facility], [address], [place], [place], [id number] , [place]. tel: [phone] [facility], [address] [address], [place], [place], [id number], [place] tel:[phone] [facility] No Information 6 Guille Maddox. [address] [facility], [address], [place], [place], [id number] , [place]. tel: [phone] [facility], [address] [facility] [address], [place], [place], [id number], [place] tel:[phone] [facility] Sprain of right rotator cuff capsule, subsequent encounter 6 Guille Maddox. [address] [facility], [address], [place], [place], [id number] , [place]. [phone] Office/outpat ient visit,est, mod [facility], [address] [facility] [address], [place], [place], [id number], tel:[phone] [facility] Sprain of right rotator cuff capsule, subsequent encounter 6 Guille Maddox. [address] [facility], [address], [place], [place], [id number] , [place]. tel:[phone] [facility], [address] [place] [address], [place], [place], [id number], [place] tel:[phone] [facility] Pain in right shoulder 6 [facility]. [address] [place] [address], [address] , [place], [place], [id number] , [place]. tel:[phone] Referring Provider: Tna Bowers, [address] [place] [address] [address], [place], [address] . tel:[phone] Office consultation, moderate [facility], [address] [place] [address], [id number], tel:[phone] [facility] Pain in right shoulder 6 Guille Maddox. [address] [place] [address], [address], [id number] , [place]. tel:[phone] Family History Family Member Type Diagnosis Age At Onset Father Problem (finding) Cardiovascular disease Mother Problem (finding) Cancer, unknown Father Problem (finding) alcoholism Mother Problem (finding) alcoholism Father Problem (finding) gout Father Problem (finding) Arthritis Nephew Problem (finding) Diabetes mellitus Immunizations Vaccine Date Status Comments Flu (split) (3 yrs or older) refused Source: Other Provider Payers Payer name Insurance type Covered democrat ID Authoriza tion(s) [facility] Insurance Group [id number] Social History Type Description Quantity Date Captured Comments Sex Male Smoking Status No Information Chief Complaint And Reason For Visit No Information Reason For Referral Reason For Referral No Information Plan Of Treatment Date Type Action Status Referral Ordered: X-ray exam shoulder minimum 2 views RT ordered Referral Ordered: MRI Upper extr joint, w/o contrast RT shoulder Appointment date/timeframe: 06/09/2015 ordered Patient Education Body Mass Index: After Your Visit completed Patient Education Body Mass Index: After Your Visit completed Patient Education Body Mass Index: After Your Visit completed Patient Education Body Mass Index: After Your Visit completed History Of Present Illness Encounter Date Complaint History Of Prese nt Illness right shoulder Jose E presents t o the office for follow up of right shoulder arthroscopy. Functional Status Date Functional Assessmen t No Information Instructions Date Instruction Additional Infor mation No Information Assessments Type Assessment Date No Information Patient Care Teams Name Effective Dates (start - stop) Status Members No Information
--- OUTSIDE RECORDS SUMMARY | 2024-09-25 14:24 | XMS_ITS | Encounter Summary ---
Author Name [facility] Organization Department of [facility] ([place]) Address [address] [place] [id number] Care Team Providers Care Principal Account Clerk Name Role Phone RAJAN ZHANG Primary Care [...] Patient's Relationship to Policy Montano [employer] [phone] PRESCRIPT ION BOTTLING ROOM WORKER S May 28, 2020 [facility] [id number] [phone] Daphnie BOOGIE PATIENT [facility] PREFERRED PROVIDER ORGANIZAT ION (PPO) BOTTLING ROOM WORKER S May 28, 2020 [id number] [phone] Daphnie BOOGIE PATIENT Selected Encounter This section includes the information on record at [place] for the Encounter. Date/Time Encounter Type Encounter Description Reason Provider Source Mar 25, 2024 11:00 AM OFFICE O/P EST LOW 20 MIN OPTOMETRY ICD-10-CM 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, left eye, with actv chrdl neovas CRISTO LI Encounter Template Text not used by [place] Assessments - Encounter Diagnoses This section includes the primary and secondary diagnoses documented for the Encounter. Date/Time Primary/Secondary Diagnosis Diagnosis Name Provider Source Mar 25, 2024 12:46 PM PRIMARY Exdtve age-rel mclr degn, left eye, with actv chrdl neovas MARY KATE LI [facility] Mar 25, 2024 12:46 PM SECONDARY Low vision left eye category 2, normal vision right eye MARY KATE LI [facility] Mar 25, 2024 12:46 PM SECONDARY Ocular hypertension, left eye MARY KATE LI [facility] Mar 25, 2024 12:46 PM SECONDARY Presbyopia MARY KATE LI [facility] Plan of Treatment: Future Appointments (+ 6 months) and Future Tests (+/- 45 days) The Plan of Treatment section includes future care activities for the patient [facility] [place] [facility] This section includes future appointments and future orders which are active, pending or scheduled. Future Appointments This section includes appointments that were scheduled to occur 6 months from the date of the Encounter, up to a maximum of 20 appointments. The data comes from all [place] treatment facilities. Appointment Date/Time Appointment Type Appointme nt Facility Name Apr 14, 2024 03:00 PM AMBULATORY - MEDICINE [facility] Apr 16, 2024 01:00 PM AMBULATORY - MEDICINE [facility] Apr 16, 2024 01:30 PM AMBULATORY - MEDICINE [facility] Apr 22, 2024 12:00 PM AMBULATORY - MEDICINE [facility] May 19, 2024 03:00 PM AMBULATORY - MEDICINE [facility] May 22, 2024 01:00 PM AMBULATORY - MEDICINE [facility] Jun 10, 2024 12:30 PM AMBULATORY - MEDICINE [facility] Jun 25, 2024 08:00 AM AM[facility]ULATORY - SUR[facility]ERY [facility] Jun 30, 2024 12:45 PM AM[facility]ULATORY [facility] Jul 16, 2024 01:00 PM AMBULATORY - MEDICINE [facility] Jul 16, 2024 01:30 PM AMBULATORY - MEDICINE [facility] Jul 29, 2024 02:00 PM AMBULATORY - MEDICINE . [facility] Jul 30, 2024 11:30 AM AMBULATORY - MEDICINE . [facility] Aug 13, 2024 01:30 PM AMBULATORY - NONE . [facility] Aug 21, 2024 02:30 PM AMBULATORY - MEDICINE [facility] Sep 15, 2024 01:15 PM AMBULATORY - REHAB MEDICIN E [facility] Sep 15, 2024 02:00 PM AMBULATORY - SURGERY [facility] Sep 17, 2024 11:00 AM AMBULATORY - MEDICINE [facility] Sep 17, 2024 11:30 AM AMBULATORY - MEDICINE [facility] Sep 20, 2024 07:44 AM AMBULATORY - MEDICINE [facility] Lab Results: +/- 30 days of the encounter This section includes the Chemistry and Hematology Lab Results on record with [place] for the patient. Radiology Reports and Pathology [...] Jan 16, 2024 02:29 PM Reporting Lab: [address] [address] Performing Lab: [address] [address] CREATININE 0.91 mg/dL 0.7-1.3 UREA NITROGEN 17.0 [...] 97.1 >60 Apr 16, 2024 11:52 AM [facility] CBC BLOOD Specimen Type: BLOOD No comment entered. Ordering Provider: GRICEL SILVER Report Released Date/Time: Jan 16, 2024 02:29 PM Reporting Lab: [facility] [address] [facility] [address] Performing Lab: [facility] [address] [facility] [address] WBC 6.1 10*3/uL 3.6-11.2 RBC 4.37 10*6/uL [...] 0.60 BASOPHILS, ABSOLUTE 0.10 10*3/uL 0.00-0. 20 Encounter Notes: All associated encounter notes This section contains the clinical notes associated to the Encounter. Date/Time Encounter Note(s) Provider Source Mar 25, 2024 12:54 PM OPTOMETRY CONSULT: LOCAL TITLE: OPTOMETRY CONSULT [facility] STANDARD TITLE: OPTOMETRY CONSULT DATE OF NOTE: MAR 25, 2024@12:54 ENTRY DATE: MAR 25, 2024@12:54:52 AUTHOR: CRISTO LI EXP COSIGNER: URGENCY: STATUS: COMPLETED OCT macula undilated OD: normal foveal contour and thickness OS: broad foveal contour almost touching RPE very shallow SRF inf/coty diffuse RPE disruption loss of outer retinal layers (can see them return sup/temp in the cube) /es/ Cristo Li, OD, FAAO Decal Maker Signed: 03/25/2024 12:54 CRISTO LI [facility] Mar 25, 2024 10:54 AM OPTOMETRY NOTE: LOCAL TITLE: OPTOMETRY NOTE STANDARD TITLE: OPTOMETRY NOTE DATE OF NOTE: MAR 25, 2024@10:54 ENTRY DATE: MAR 25, 2024@10:54:35 AUTHOR: CRISTO LI EXP COSIGNER: URGENCY: STATUS: COMPLETED CC: 1. [facility] last [facility] appointment 07/2023 pt declining dilation today, no class c driver 2. Ocular hypertension latanoprost qhs; last dose last night timolol qam, last dose this AM no refills needed currently 3. Vision stable from 12/27/2023 exam Last eye exam: 12/27/2023 - optometry Ocular ROS: Optic disc pit of left [...] allergies reviewed: CPRS Serology for Diabetes GLUCOSE 99 mg/dL 01/16/2024 12:55 HGA1C 5.6 % 12/28/2023 08:12 Neuro: Orientation: Normal Psych: Mood/Affect: Normal Visual Acuity Distance (x)cc ()sc - 12/2023 glasses OD 20/20 OS 20/320 Pupils PERRL OU (-)APD Confrontation VF FTFC OU Extraocular Muscles FROM OU Habitual prescription 12/27/2023 OD +[id number] 20/20 OS +0.50-0.18k964 20/320 Add +2.25 SLIT LAMP EXAMINATION Lids/Lashes/Lacrimal mgd OU, saponification OU Conjunctiva/Sclera white/quiet OU Cornea clear OU Ant Chamber Deep and quiet OU Angles 4/4 VH OU Iris flat and intact OU (-)NVI Lens 1+ NS OU Intraocular Pressures (Goldmann) 1 gtt Altafluor OU Date OD OS Time 12/27/2023 14 14 0830 none 03/25/2024 14 16 1113 dilation deferred by patient against AMA; driving today FUNDUS EXAMINATION (90) Optic Nerve OD CDR 0.3 pink and distinct OS CDR 0.3 pink and distinct OCT macula undilated OD: normal foveal contour and thickness OS: broad foveal contour almost touching RPE very shallow SRF inf/coty diffuse RPE disruption loss of outer retinal layers (can see them return sup/temp in the cube) Assessment 03/25/2024 1. Refractive error/presbyopia 2. 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 Ocular hypertension tmax unknown cdr healthy on 2 classes (PGA/BB) IOP today Plan 1. Continue habitual prescription from 12/2023 2. Monitor with DFE next available, pt declined dilation AMA today. 3. Continue latanoprost qhs and timolol qam. No refills needed today. Can consider a gtt holiday of one in the future. Educated pt on findings, monitor. RTC for dilation Patient was educated on all of the above findings and demonstrated understanding. /es/ Cristo Li OD, FAAO Decal Maker Signed: 03/25/2024 12:53 CRISTO LI [facility]
--- OUTSIDE RECORDS SUMMARY | 2024-09-25 14:24 | XMS_ITS ---
Author Name Department of [facility] [facility] ([place]) Organization [facility] ([place]) Address [address] [place] [address] Care Team Providers Care Violent Crimes Detective Name Role Phone VICENTE RAJAN Primary Care [...] Patient's Relationship to Policy Montano OPTUM RX [phone] PRESCRIPT ION WEBSPHERE COMMERCE ARCHITECT S May 28, 2020 [facility] [id number] [phone] Daphnie BOOGIE PATIENT [facility] PREFERRED PROVIDER ORGANIZAT ION (PPO) WEBSPH[employer] COMMERCE ARCHITECT S May 28, 2020 [id number] [phone] Daphnie BOOGIE PATIENT Selected Encounter This section includes the information on record at [place] for the Encounter. Date/Time Encounter Type Encounter Description Reason Pro vider Source Aug 21, 2024 02:30 PM OFF/OP CNSLTJ NEW/EST MOD 40 GASTROENTEROLOGY ICD-10-CM R49.8 Other voice and resonance disorders Jessica WEINSTEIN Encounter Template Text not used by [place] Assessments - Encounter Diagnoses This section includes the primary and secondary diagnoses documented for the Encounter. Date/Time Primary/Secondary Diagnosis Diagnosis Name Provider Source Aug 21, 2024 04:36 PM PRIMARY Other voice and resonance disorders ZOURIDIS,SPYRID ON [facility] Plan of Treatment: Future Appointments (+ 6 months) and Future Tests (+/- 45 days) The Plan of Treatment section includes future care activities for the patient from all [place] [facility] This section includes future appointments and future orders which are active, pending or scheduled. Future Appointments This section includes appointments that were scheduled to occur 6 months from the date of the Encounter, up to a maximum of 20 appointments. The data comes from all [place] treatment facilities. Appointment Date/Time Appointment Type Appointme nt Facility Name Sep 15, 2024 01:15 PM [facility] Sep 15, 2024 02:00 PM AMBULATORY - SURGERY [facility] Sep 17, 2024 11:00 AM AMBULATORY - MEDICINE [facility] Sep 17, 2024 11:30 AM AMBULATORY - MEDICINE [facility] Sep 20, 2024 07:44 AM AMBULATORY - MEDICINE [facility] September 27, 2024 02:30 PM AMBULATORY - MEDICINE [facility] September 29, 2024 03:00 PM AMBULATORY - MEDICINE [facility] September 30, 2024 11:00 AM AMBULATORY - MEDICINE [facility] Oct 27, 2024 08:15 AM AMBULATORY - REHAB MEDICIN E [facility] Oct 27, 2024 08:30 AM AMBULATORY - SURGERY [facility] Oct 29, 2024 08:30 AM AMBULATORY - SURGERY [facility] Oct 29, 2024 10:45 AM AMBULATORY - MEDICINE [facility] Oct 29, 2024 11:00 AM AMBULATORY - MEDICINE [facility] Dec 10, 2024 02:00 PM AMBULATORY - NONE [facility] Active, Pending, and Scheduled Orders This section includes a listing of several types of active, pending, and scheduled orders, including clinic medications orders, diagnostic test orders, procedure orders and consult orders; where the start date of the order is 45 days before the date of the Encounter or 45 days after the date of theEncounter. The data comes from all [place] treatment facilities. Test Date/Time Test Type Test Details Facility Name Sep 23, 2024 02:42 PM Consult Order GI GENERAL OUTPATIENT STL Cons Child Care Sitter's Choice [facility] September 27, 2024 02:30 PM Imaging - Ultrasou nd Order US ABDOMEN LIMITED W/BLOOD FLOW DOPPLER [facility] Lab Results: +/- 30 days of the encounter This section includes the Chemistry and Hematology Lab Results on record with [place] for the patient. Radiology Reports and Pathology Reports are provided separately, in subsequent sections. Lab Results This section contains the Chemistry/Hematology Results that were resulted 30 days before or 30 daysafter the date of the Encounter. Date/Time Source Result Type Result - Unit Interpretation Reference Range Specimen Type Comment Sep 20, 2024 10:06 AM [facility] URINALYSIS (STL-PB) URINE Specimen Type: URINE No comment entered. Ordering Provider: GABBY WOOTEN Report Released Date/Time: Sep 20, 2024 08:15 AM Reporting Lab: [place] [id number] [facility] [address] Performing Lab: [address] [address] URINE COLOR Colorless Yellow U.BILIRUBIN Negative mg/dL Negative U.PH 7.0 5.0-8.0 APPEARANCE Clear Clear U.NITRITE Negative mg/dL Negative URN.GLUCOSE Normal mg/dL Negative URN.PROTEIN Negative mg/dL URN.UROBILINOGEN Normal mg/dL Normal URN.BLOOD Negative mg/dL Negative-Trace URN.KETONES Negative mg/dL Negative-Trac e URN.LEUK.EST. Negative mg/dL Negative-Tr emery URN.SPECIFIC GRAVITY 1.033 H Sep 20, 2024 08:11 AM [facility] LIPASE PLASMA Specimen Type: PLASM A Comment: Aspartate Transaminase result may show positive bias due to hemolysis. K result canceled due to hemolysis. Specimen moderately hemolyzed. Notified Huong Cason RN @0914 ksh 4.26.25 Ordering Provider: GBABY WOOTEN Report Released Date/Time: Sep 20, 2024 08:10 AM Reporting Lab: [facility] [address] [place] [phone] Performing Lab: [facility] [address] [place] [place] [phone] LIPASE 20 U/L 8-78 Sep 20, 2024 08:11 AM [facility] COMPREHENSIVE METABOLIC PANEL PLASMA Specimen Type: PLASMA Comment: Aspartate Transaminase result may show positive bias due to hemolysis. K result canceled due to hemolysis. Specimen moderately hemolyzed. Notified Huong Cason RN @0914 ksh 09.20.24 Ordering Provider: GABBY WOOTEN Report Released Date/Time: Sep 20, 2024 08:10 AM Reporting Lab: [address] [address] Performing Lab: [address] [address] CREATININE 0.76 mg/dL 0.7-1.3 UREA NITROGEN 12.3 [...] 102.9 >60 Sep 20, 2024 08:11 AM [facility] CBC BLOOD Specimen Type: BLOOD No comment entered. Ordering Provider: GABBY WOOTEN Report Released Date/Time: Sep 20, 2024 08:10 AM Reporting Lab: [address] [address] Performing Lab: [address] [address] WBC 10.8 10*3/uL 3.6-11.2 RBC 4.57 10*6/uL [...] 0.00-0. 20 Sep 17, 2024 09:59 AM [facility] COMPREHENSIVE METABOLIC PANEL PLASMA Specimen Type: PLASMA Comment: No hemolysis noted. Ordering Provider: GRICEL SILVER Report Released Date/Time: Jul 16, 2024 12:56 PM Reporting Lab: [facility] [address] [facility] [address] Performing Lab: [address] [address] CREATININE 0.82 mg/dL 0.7-1.3 UREA NITROGEN 13.0 [...] 100.6 >60 Sep 17, 2024 09:59 AM [facility] CBC BLOOD Specimen Type: BLOOD No comment entered. Ordering Provider: GRICEL SILVER Report Released Date/Time: Jul 16, 2024 12:56 PM Reporting Lab: [address] [address] Performing Lab: [address] [address] WBC 7.7 10*3/uL 3.6-11.2 RBC 4.65 10*6/uL [...] 0.00-0. 20 Sep 17, 2024 09:59 AM [facility] FERRITIN SERUM Specimen Type: SERUM No comment entered. Ordering Provider: GRICEL SILVER Report Released Date/Time: Sep 17, 2024 10:40 AM Reporting Lab: [address] [address] Performing Lab: [address] [address] FERRITIN 39.00 ng/mL 22-275 Sep 17, 2024 09:59 AM [facility] IRON/TIBC PROFILE SERUM Specimen Type: SERUM No comment entered. Ordering Provider: GRICEL SILVER Report Released Date/Time: Sep 17, 2024 10:40 AM Reporting Lab: [facility] [address] [facility] [address] Performing Lab: [facility] [address] [facility] [address] TIBC 414 ug/dL 250-450 TRANSFERRIN 331 mg/dL 163-344 IRON SATURATION 19 L 20-50 IRON 78 ug/dL 65-175 Social History: Smoking Status (Most current) and Tobacco Use (All prior to encounter date) This section includes the most current, and the historical, smoking and tobacco- related health factors from the [place] facility where the Encounter took place. Current Smoking Status This section includes the most current smoking, or tobacco-related health factor, from the [place] facility where the Encounter took place. Date/Time Current Smoking Status Comment Jerod sam May 17, 2022 12:02 PM VA-TOBACCO NEVER USED [facility] Tobacco Use History This section includes a history of the smoking, or tobacco-related health factors, that were collected on or before the date of the Encounter. The data comes from the [place] facility where the Encounter took place. Date/Time Smoking Status/Tobacco Use Comment F acility Mar 06, 2021 04:50 AM ORYX ADMIT TOBACCO SCREEN NO [facility] Jun 03, 2020 09:50 AM [place]-TOBACCO NEVER USED [facility] Radiology Reports: +/- 30 days of [...] the Encounter. The data comes from all [place] treatment facilities. Date/Time Radiology Report Provider Source Sep 20, 2024 09:[address] ABD PEL W/CONT & 3D: TROY BOOGIE [id number] -[id number] M Exm Date: SEP 20, 2024@09:37 Req Phys: GABBY WOOTEN Loc: [facility] 2ND SHIFT (R Img Loc: [facility] Service: Unknown [facility], [address] [place] [address] (Case [id number] COMPLETE) CT ABDOMEN AND PELVIS W/CONTRAST (CT Detailed) CPT:85520 Contrast Media : Non-ionic Iodinated Reason for Study: abd pain Clinical History: Responsible Attending: Dr Wooten Attending Contact Number: [phone] Resident Contact Number: abd pain Allergies listed in CPRS chart: Patient has answered NKA Creatinine:CREATININE 0.82 mg/dL 09/17/2024 09:59 /eGFR: STL EGFR (within one year). CREATININE 0.82 mg/dL (09/17/24 09:59) Wt: 283.2 lb [128.46 kg] (09/17/2024 10:07) History of: Renal failure, chronic or acute renal disease: NO Report Status: Verified Date Reported: SEP 20, 2024 Date Verified: SEP 20, 2024 Associate Professor Of Musicology E-Sig: Report: CT ABDOMEN AND PELVIS W/CONTRAST [PRINTSET] Clinical History: abd pain Comparison: 03/07/2023 Technique: CT of the abdomen and pelvis was performed. The study was protocoled and supervised at the local [place] facility. 1258 images were subsequently received by the [place] National Teleradiology Program (NTP) for interpretation. Total [...] inguinal hernia. READING PHYSICIAN: Latrell Hernandes M.D. -[phone] 09/20/2024 8:34 PDT [facility] [employer] [phone] (For Medical Practitioner Use Only) Attention Patients / Veterans: If you have questions or concerns about these test results, please contact your ordering provider or primary care team. Primary Interpreting Staff: RADIOLOGY,OUTSIDE SERVICE, Staff Physician / RADIOLOGY,OUTSIDE SERVICE [facility] Aug 13, 2024 12:38 PM US THYROID (NECK SOFT-TISSUE): TROY BOOGIE [id number] -1965 M Exm Date: AUG 13, 2024@12:38 Req Phys: FANNY MOYA Loc: -[facility] PACT PHONE 05 PCP (Hailey Img Loc: [facility] Service: Unknown [facility], [address] [id number] (Case [id number] COMPLETE) US THYROID (NECK SOFT-TISSUE) (US Detailed) CPT:22420 Reason for Study: enlarged thyroid Clinical History: Report Status: Verified Date Reported: AUG 13, 2024 Date Verified: AUG 13, 2024 Associate Professor Of Musicology E-Sig:/ES/FREDERICK MONACO Report: Exam: US THYROID (NECK SOFT-TISSUE) Case: [id number] History:Enlarged thyroid Technique: Real-time ultrasound examination of [...] discrete nodules. Dictated by Karol Villalobos M.D. (residential support specialist). I, Frederick Monaco, have reviewed the images and report and concur with these findings. Primary Interpreting Staff: FREDERICK MONACO, RADIOLOGIST (Associate Professor Of Musicology) Primary Interpreting Resident: KAROL VILLALOBOS, Resident Physician /FREDREICK TOMLINSON [facility] Encounter Notes: All associated encounter notes This section contains the clinical notes associated to the Encounter. Date/Time Encounter Note(s) Provider Source Aug 21, 2024 04:22 PM GASTROENTEROLOGY C ONSULT: LOCAL TITLE: GASTROENTEROLOGY OUTPATIENT CONSULT [facility] STANDARD TITLE: GASTROENTEROLOGY CONSULT DATE OF NOTE: AUG 21, 2024@16:22 ENTRY DATE: AUG 21, 2024@16:22:17 AUTHOR: KARLO DALE EXP COSIGNER: SHAHBAZ WEINSTEIN URGENCY: STATUS: COMPLETED GASTROENTEROLOGY OUTPATIENT CONSULT ST Has ADDENDA CC: Hoarseness, neck discomfort HPI: Pt. is a 59 y/o WHITE MALE with PV, HTN, OA in clinic to be evaluated for possible acid reflux. Patient does not endorse any esophageal acid reflux symptomatology. He denies heartburn and also denies any dysphagia. However he does endorse need to clear throat frequently and worsening voice hoarseness x 1 month. He also endorses a discomfort over the R side of his neck. He was prescribed pantoprazole which made his symptoms worse and as such he stopped taking. Pt denies any abdominal pain, nausea, vomiting, diarrhea, constipation, melena, hematochezia, dysphagia, odynophagia. Appetite is good and weight has been stable. ROS: At least 10 systems reviewed negative or as mentioned in HPI 1) Past history of procedure 2) OA - Osteoarthritis ([facility] 754781128) 3) Senile macular degeneration 4) History of SARS-CoV-2 ([facility] [id number]) 5) Diverticular Disease of Colon (SCT 900980625) 6) Obesity (SCT 050380619) 7) Hyperlipidemia ([facility] [id number]) 8) Dupuytren's contracture 9) Tinnitus ([facility] [id number]) 10) Sebaceous cyst of skin 11) Hearing Loss ([facility] 48820525) 12) Vitamin D Deficiency ([facility] [id number]) 13) Erectile Dysfunction ([facility] [id number]) 14) History of colonic polyp 15) Epigastric hernia 16) Plantar heel pain 17) Impaired glucose tolerance 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 Expr : 04/17/25 3) ATORVASTATIN CALCIUM 40MG TAB Qty: 45 for 90 ACTIVE Issue: 06/10/24 days Sig: TAKE ONE-HALF TABLET BY MOUTH Refills: 3 Last : 06/10/24 EVERY EVENING TO LOWER CHOLESTEROL Expr : 06/11/25 4) CHOLECALCIF 50MCG (D3-2,000UNIT) TAB Qty: ACTIVE Issue: 06/10/24 100 for 90 days Sig: TAKE ONE TABLET BY Refills: 3 Last : 06/29/24 MOUTH ONCE A DAY FOR VITAMIN D DEFICIENCY. Expr : 06/11/25 5) DICLOFENAC NA 1% TOP GEL Qty: 200 for 30 ACTIVE Issue: 06/10/24 days Sig: APPLY 2 GM TO AFFECTED AREA(S) Refills: 11 Last : 06/10/24 FOUR TIMES A DAY NEEDED FOR Expr : 06/11/25 PAIN/INFLAMMATION; NOT MORE THAN 16 GRAMS DAILY TO ANY LOWER EXTREMITY JOINT. NOT MORE THAN 8 GRAMS DAILY TO ANY UPPER EXTREMITY JOINT. MAX 32GM/DAY OVER ALL JOINTS. (MEASURE DOSE WITH RULER ATTACHED INSIDE BOX)FOR HEEL PAIN RELIEF 6) LOSARTAN 100MG TAB Qty: 45 for 90 days Sig: ACTIVE Issue: 01/22/24 TAKE ONE-HALF TABLET BY MOUTH ONCE A DAY Refills: 1 Last : 07/10/24 Indication: FOR HIGH BLOOD PRESSURE Expr : 01/22/25 7) PANTOPRAZOLE NA 40MG EC TAB Qty: 90 for 90 ACTIVE Issue: 07/30/24 days Sig: TAKE ONE TABLET BY MOUTH EVERY Refills: 3 Last : 07/30/24 MORNING BEFORE A MEAL TAKE 30 MINUTES Expr : 07/31/25 BEFORE MEAL(S) Indication: FOR GASTROESOPHAGEAL REFLUX DISEASE 8) SILDENAFIL CITRATE 100MG TAB Qty: 9 for 90 ACTIVE Issue: 06/10/24 days Sig: TAKE ONE-HALF TABLET BY MOUTH ONE Refills: 3 Last : 06/10/24 HOUR PRIOR TO SEXUAL ACTIVITY NEEDED - Expr : 06/11/25 LIMIT 6 DOSES PER 30 DAYS Indication: FOR ERECTILE DYSFUNCTION Start Date Active Non-VA Medications Status Stop Date = 1) Non-VA LATANOPROST 0.005% OPH SOLN Si ACTIVE DROP LEFT EYE EVERY EVENING 2) Non-VA TIMOLOL MALEATE 0.5% OPH SOLN Si ACTIVE DROP LEFT EYE EVERY MORNING 10 Total Medications FHx: Sister-> IBS SHx: Smoking- no EtOH- no Drugs- no Vitals-97.6 F [36.4 C] (07/16/2024 11:59)78 (07/16/2024 11:59)135/83 (07/16/2024 11:59)20 (07/16/2024 11:59) Measurement DT POx (L/MIN)(%) 07/16/2024 11:59 99 06/10/2024 13:12 96 01/16/2024 13:50 96 10/03/2023 07:54 96 General- NAD, well-nourished HEENT-mmm, no lesion or exudate Neck-no thyromegaly, no JVD CV-rrr no m/r/g/t Lung-cta drew, symmetric movement Abd-nabs, s/nt/nd, no masses, no HSM Ext-no c/c/e Lymph-no edema, cervical or supraclavicular LAD Skin-no rashes, nodules, or jaundice Hemoccult:No FOBT EO data found LABS: Hgb HGB 16.5 g/dL 07/16/2024 11:41 Hct 47.6 % (07/16/24 11:41) MCV 108.7 fL H (07/16/24 11:41) Plt PLT 305 10*3/uL 07/16/2024 11:41 Iron, TIBC No IRON & TIBC EO data found [place]eland No FERRITIN EO data found BUN 14.6 mg/dL (07/16/24 11:41) Cr CREATININE 0.88 mg/dL 07/16/2024 11:41 Alb ALBUMIN 4.4 g/dL 07/16/2024 11:41 Ca 9.6 mg/dL (07/16/24 11:41) TSH TSH 2.498 uIU/mL 06/10/2024 14:30 Vit D VITAMIN D, 25-HYDROXY 51.9 ng/mL 06/10/2024 14:30 ALT 31 U/L (07/16/24 11:41) AST 30 U/L (07/16/24 11:41) TB TOTAL BILIRUBIN 0.6 mg/dL 07/16/2024 11:41 AP ALKALINE PHOSPHATASE 83 U/L 07/16/2024 11:41 INR No INR EO data found IMAGING: Impression for CT ABDOMEN AND PELVIS W/O CONTRAST, 03/07/23, case [id number] No renal or ureteral calculi No Impressions found No Impressions found Endoscopy History: none IMP: 59M with aforementioned PMH in clinic for concerns of GERD #Voice hoarseness - Sx as per HPI. Pt does not exhibit esophageal symtpoms of acid reflux/GERD. In addition the fact that his symptoms did not improve with PPI favors other diagnosis and not GERD for the extraesophageal symtpoms noted above - No red flag symptoms REC: - Would recommend ENT evaluation at this point Benefits, risks, and alternative tests described to patient and he/she agrees to proceed. The patient was instructed to call the GI lab on the 6th floor of [facility] at [phone] or [phone] if questions or concerns arise. 09/17/2024 11:00 [facility] VIDEO PRODUCTION COORDINATOR 1 09/17/2024 11:30 [facility] 10/29/2024 08:30 [facility] 3 Medication list was reviewed with the patient or care-senior ruby developer, any discrepancies were resolved and the patient was given an updated list. The patient was provided written information with my name, contact phone number, fax, GI lab number and email address. Patient was instructed to contact me with issues/questions/concerns. Written instructions with plans for meds/lab/imaging/procedures was provided to ensure compliance with the above stated plan. Patient was discussed with GI attending on records Dr. Weinstein /everardo/ KARLO DALE Gastroenterology Fellow Signed: 08/21/2024 16:36 /everardo/ SHAHBAZ WEINSTEIN Gastroenterology Cosigned: 08/21/2024 16:45 08/21/2024 ADDENDUM STATUS: COMPLETED Chart reviewed. Case discussed with fellow. I agree with the note including the assessment and plan which were formulated together. No response to ppi (symptoms actually worsened) and suspect symptoms likely multifactorial. ENT evaluation would be helpful. thanks/CAMILLE /everardo/ SHAHBAZ WEINSTEIN Gastroenterology Signed: 08/21/2024 16:46 KARLO DALE [facility]
--- OUTSIDE RECORDS SUMMARY | 2024-09-25 14:24 | XMS_ITS | Referral Summary ---
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 Name Role Phone Adelina Gutiérrez MD Primary Care Provide r Allergies No known active allergies Medications atorvastatin (LIPITOR) 20 mg tablet Take 1 tablet (20 mg total) by mouth nightly 8 Active hydroxyurea (HYDREA) 500 mg capsule Take 100 mg/kg by mouth daily Active amoxicillin-cla vulanate (AUGMENTIN) 875-125 mg per tablet Take 1 tablet by mouth 2 (two) times a day 4 Active benzonatate (TESSALON) 100 mg capsule TAKE 1 TO 2 CAPSULES BY MOUTH EVERY 8 HOURS FOR 5 DAYS NEEDED FOR COUGH 4 Active latanoprost (XALATAN) 0.005 % ophthalmic solution Administer 1 drop into the left eye nightly 7.5 mL 3 4 Active timolol (TIMOPTIC) 0.5 % ophthalmic solution Administer 1 drop into the left eye early childhood associate teacher before breakfast 15 mL 3 4 Active Hospital, Clinic, or Other Facility Administered Medication Ordered Dose Route Frequency Start Date End Date Status ranibizumab (LUCENTIS) 0.5 mg/0.05 mL intravitreal solution 0.5 mgIndications:Exudative age-related macular degeneration of left eye with active choroidal neovascularization (HCC) .5 mg 11/29/2017 Active ranibizumab (LUCENTIS) 0.5 mg/0.05 mL intravitreal solution 0.5 mgIndications:Exudative age-related macular degeneration of left eye with active choroidal neovascularization (HCC) .5 mg 01/07/2018 Active ranibizumab (LUCENTIS) 0.5 mg/0.05 mL intravitreal solution 0.5 mgIndications:Exudative age-related macular degeneration of left eye with active choroidal neovascularization (HCC) .5 mg 05/09/2018 Active Active Problems Problem Noted Date Diagnosed Date Floater, vitreous, bilateral 12/05/2021 Assessment & Plan (12/19/2021 11:21 AM CDT): He noticed some new symptoms beginning several weeks ago in the right eye. Fortunately without tear detachment the retina, recommend observation. We will re-evaluate roughly 3 months, should all remains stable will continue to spread the visits. Assessment & Plan (12/05/2021 8:40 AM CDT): He noticed some new symptoms beginning 1 or 2 weeks ago in the right eye. Fortunately without tear detachment the retina, recommend observation. We will re-evaluate roughly 2 or 3 weeks, should all remains stable will continue to spread the visits. Ocular hypertension, left 02/14/2018 Assessment & Plan (08/09/2023 3:02 PM CDT): IOP acceptable on latanoprost qhs OS and timolol qam OS. CPM. F/u in 6 mos. Assessment & Plan (07/10/2022 12:02 PM SITECORE DEVELOPER): IOP acceptable on 2 classes today. CPM F/u in 6 mos. Assessment & Plan (12/30/2021 11:55 AM CDT): IOP stable on 2 classes. Stable on ON OCT. CPM with timolol qam and latanoprost qhs OS only. F/u in 6 mos for IOP ck. 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 No loss on OCT. CPM with timolol qam and latanoprost qhs OS. F/u in 6 months for repeat IOP ck with OCT. Keep f/u for retina care with Dr. Zepeda as scheduled. Assessment & Plan (09/30/2020 2:01 PM CDT): IOP well controlled on 2 classes. CPM with timolol qam and latanoprost qhs OS. F/u in 6 months for IOP ck + ON OCT. Assessment & Plan (04/01/2020 1:55 PM SITECORE DEVELOPER): Borderline IOP OS. No e/o optic neuropathy on OCT. Switch from timolol bid OS to latanoprost qhs OS and timolol QAM OS. F/u in 6 months for IOP ck, sooner prn. Assessment & Plan (12/08/2019 11:42 AM CDT): intraocular pressure (IOP) mildly elevated (23) today on timolol left eye (OS) 2x/day. Will refer pt back to Dr. Gibbons for glaucoma eval (pt reports not being seen for > 2 years) Assessment & Plan (02/14/2018 4:21 PM CDT): Asymptomatic, open on gonio Nerve appears healthy Start timoptic BID OS, see Dr. Gibbons for glaucoma eval. Exudative age-related macula r degeneration of left eye with active choroidal neovascularization 05/22/2017 Assessment & Plan (08/09/2023 3:03 PM CDT): Stable again today. F/u in 6 mos for repeat DFE with mac OCT. Assessment & Plan (02/01/2023 8:58 AM CDT): Stable today. Has had episodes of SRF that resolve and there is some thought that this represents CSCR as well. No SRF today, recommend observation. Recommend follow up with Dr. Osborne in 6 months. Back to retina as needed. Will monitor with AG at home. Assessment & Plan (07/27/2022 9:32 AM SITECORE DEVELOPER): Subjectively stable. subretinal fluid (SRF) today again self-limiting with improved and near resolution compared to 04/18. Debated previously whether this is CSCR vs. age-related macular degeneration (AMD). Given this is the second time it is self-limiting, likely CSCR but will continue to observe. RTC in 6 months. Assessment & Plan (07/10/2022 12:02 PM SITECORE DEVELOPER): Stable acuity. Continue to use monocular precautions. F/u in 6 months for iop ck with OCT. Drivers license form filled out today. No restrictions. Assessment & Plan (04/13/2022 10:07 AM SITECORE DEVELOPER): Subjectively stable. Increased subretinal fluid (SRF) today compared to 12/05/21 but upon OCT review, patient had fluid in 12/15 as well which was self-limited. Debated previously whether this is CSCR vs. age-related macular degeneration (AMD). Given that patient has not noted subjective changes and that visual acuity (VA) is stable, recommend continued observation today. RTC in 3 months. Assessment & Plan (12/30/2021 11:56 AM CDT): Keep f/u with Dr. Zepeda as scheduled. Monocular precautions. Assessment & Plan (12/19/2021 11:22 AM CDT): Appears stable, will re-eval in 3 months with OCT Assessment & Plan (12/05/2021 8:40 AM CDT): Remains stable. Patient with history of anti-VEGF injection. There was debate in the past if this represented AMD or CSCR. Today the SRF actually appears nearly resolved since last visit. Discussed PDT in the past but patient elected observation. Asked pt to monitor vision with AG at home. Recommend continued observation. 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 Osborne when he sees Dr. Osborne in December. Assessment & Plan (06/28/2021 10:02 AM SITECORE DEVELOPER): Acuity stable. Limited visual potential. Keep follow up with Dr. Zepeda as scheduled. Monocular precautions reviewed. Assessment & Plan (06/06/2021 8:47 AM SITECORE DEVELOPER): Patient with history of anti-VEGF injection. There was debate in the past if this represented AMD or CSCR. Today the SRF actually appears nearly resolved since last visit. Discussed PDT in the past but patient elected observation. Asked pt to monitor vision with AG at home. Recommend continued observation. Assessment & Plan (12/06/2020 10:26 AM CDT): There has been some debate over whether this represents worsening central serous core retinopathy or age-related macular degeneration. He has had multiple injections with anti VEGF agents and despite this his vision has remained poor. We discussed the possibility of photodynamic therapy today however the patient feels things are very stable in simply wishes for observation. I have asked her return to see us roughly 6 months time or sooner should he have difficulty. He knows to monitor his vision using Amsler grid especially for the right eye in addition we discussed monocular precautions. Assessment & Plan (09/30/2020 2:01 PM CDT): Keep f/u with PKR as scheduled. Amsler precautions. Monocular precautions. Assessment & Plan (06/07/2020 10:55 AM SITECORE DEVELOPER): Essentially unchanged from previous exams, guarded prognosis reviewed with patient. Recommend observation. Patient will monitor his vision using Amsler grid especially for the right eye. Assessment & Plan (04/01/2020 1:57 PM SITECORE DEVELOPER): No recurrence of central SRF on exam today. Small paramacular PED superiorly. Significant outer segment loss on OCT. Discussed guarded visual prognosis OS and reminded pt about monocular precautions. 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 Pt reports he has glasses but never wears him. Reiterated their importance. Keep f/u with PKR as scheduled. Assessment & Plan (12/08/2019 11:47 AM CDT): No recurrence of subretinal fluid today without therapy, recommend observation. Assessment & Plan (06/12/2019 9:58 AM SITECORE DEVELOPER): Subretinal fluid has improved without therapy, recommend observation. Assessment & Plan (02/27/2019 10:01 AM CDT): Subretinal fluid is unchaged. Exam today appears similar to that of July 2018 and last visit in December. In July of 2018 we did not give him an injection and the subretinal fluid improved. 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 We discussed options to continue treatment or observe, considering no change, patient wishes for observation. We will re-evaluate roughly 3 months time. I have asked the patient monitor his vision using an Amsler grid and he knows to call should he have difficulties.. Assessment & Plan (01/06/2019 2:47 PM CDT): Subretinal fluid is unchaged. Exam today appears similar to that of July 2018. In July of 2018 we did not give him an injection and the subretinal fluid improved. 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 We will re-evaluate roughly 6 weeks time. I have asked the patient monitor his vision using an Amsler grid and he knows to call should he have difficulties.. Assessment & Plan (11/14/2018 1:34 PM CDT): Subretinal fluid is returning. Exam today appears similar to that of July 2018. In July of 2018 we did not give him an injection and the subretinal fluid improved. 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 We will re-evaluate roughly 6 weeks time. I have asked the patient monitor his vision using an Amsler grid and he knows to call should he have difficulties.. Assessment & Plan (09/12/2018 3:13 PM CDT): Last IVL 05/09/18 Observed tr subretinal fluid (SRF) 06/20/18 and 08/01/18 Today nearly resolved subretinal fluid (SRF) Continue to observe. Monitor vision at home with Amsler grid. Assessment & Plan (08/01/2018 12:56 PM SITECORE DEVELOPER): Last IVL 05/09/18 Observed tr subretinal fluid (SRF) 06/20/18 Today stable subretinal fluid (SRF) Continue to observe. Assessment & Plan (06/20/2018 3:22 PM SITECORE DEVELOPER): Trace subretinal fluid (SRF) stable. Fluorescein angiography was performed today demonstrates RPE changes however there is no active leakage.. Discussed with patient possibility of observation versus repeat injection. The OCT appears essentially unchanged. We have elected to observe the situation at this time. If the subretinal fluid worsens we may resume a intravitreal injections. Assessment & Plan (05/09/2018 2:27 PM SITECORE DEVELOPER): Trace subretinal fluid (SRF) stable Angiography was performed 02/14/18 demonstrating no leakage. OCT was repeated today and appears wose with more subretinal and intraretinal fluid Recommend IVL#3 today (last on 12/07/17) Follow up 6 weeks. Assessment & Plan (03/28/2018 2:06 PM CDT): Trace subretinal fluid (SRF) stable Angiography was performed with the last visit, it demonstrated no leakage. OCT was repeated today and appears essentially unchanged. Hold off on repeat anti-VEGF today Follow up 6 weeks. Assessment & Plan (02/14/2018 4:19 PM CDT): Trace subretinal fluid (SRF) stable Repeat fluorescein angiography (FA) today without leakage Hold off on repeat anti-VEGF today Follow up 6 weeks. Assessment & Plan (01/07/2018 10:56 AM CDT): Trace subretinal fluid (SRF). Recommend repeat IVL left eye (OS). Assessment & Plan (11/29/2017 1:56 PM CDT): Persistent macular SRF with no improvement in vision, perhaps a slight worsening. Foveal thinning with no obvious subfoveal fluid. Would recommend repeat IVL OS today. 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 Observe. 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 F/u annually. Assessment & Plan (04/01/2020 1:57 PM SITECORE DEVELOPER): Flat. Low risk. Observe. Resolved Problems Problem Noted Date Diagnosed Date Resolved Date Serous retinal detachment 05/18/2017 Nasal step visual field defect 12/20/2015 04/01/2020 Social History Tobacco Use Types Packs/Day Years Used Date Smoking Tobacco: Never Smokeless Tobacco: Never Tobacco Cessation:Counseling Given: Not Answered AUDIT-C Answer Date Recorded Q1: How often do you have a drink containing alc ohol? 2-4 times a month 06/06/2021 Q2: How many drinks containi ng alcohol do you have on a typical day when you are drinking? 1 or 2 06/06/2021 Q3: How often do you have si x or more drinks on one occasion? Less than monthly 06/06/2021 Personal Safety Answer Date Recorded Getting School Help Needed Not on file 07/24 Sex and Gender Information Value Date Recorded Sex Assigned at Not on file Legal Sex Male 11:26 AM SITECORE DEVELOPER Gender Identity Not on file Sexual Orientation Not on file Plan of Treatment Not on file Insurance [place] [employer] Care Teams Hydrogen Power Plant Engineer Relationship Specialty Start Date End Date Adelina Gutiérrez MD [id number] [place] [address] PCP - General Family Medicine 08/09/23
--- OUTSIDE RECORDS SUMMARY | 2024-09-25 14:24 | XMS_ITS | Encounter Summary ---
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 Date/Time Encounter Type Encounter Description Reason Provider Source Jul 29, 2024 02:00 PM PSYTX W PT 30 MINUTES PCMHI INDIV ICD-10-CM F41.9 Anxiety disorder, unspecified RODERICK RANGEL IHJung Encounter Template Text not used by [facility] Assessments - Encounter Diagnoses This section includes the primary and secondary diagnoses documented for the Encounter. Date/Time Primary/Secondary Diagnosis Diagnosis Name Provider Source Jul 29, 2024 02:38 PM PRIMARY Anxiety disorder, unspecified RODEIRCK RANGEL [facility] Plan of Treatment: Future Appointments (+ 6 months) and Future Tests (+/- 45 days) The Plan of Treatment section includes future care activities for the patient from [facility] [place] [facility] This section includes future appointments and future orders which are active, pending or scheduled. Future Appointments This section includes appointments that were scheduled to occur 6 months from the date of the Encounter, up to a maximum of 20 appointments. The data comes from all [place] treatment facilities. Appointment Date/Time Appointment Type Appointme nt Facility Name Jul 30, 2024 11:30 AM AMBULATORY - MEDICINE [facility] Aug 13, 2024 01:30 PM AMBULATORY - NONE [facility] Aug 21, 2024 02:30 PM AMBULATORY - MEDICINE [facility] Sep 15, 2024 01:15 PM AMBULATORY - REHAB MEDICIN E [facility] Sep 15, 2024 02:00 PM AMBULATORY - SURGERY [facility] Sep 17, 2024 11:00 AM AMBULATORY - MEDICINE [facility] Sep 17, 2024 11:30 AM AMBULATORY - MEDICINE [facility] Sep 20, 2024 07:44 AM AMBULATORY - MEDICINE [facility] September 27, 2024 02:30 PM AMBULATORY - MEDICINE [facility] September 29, 2024 03:00 PM AMBULATORY - MEDICINE [facility] September 30, 2024 11:00 AM AMBULATORY - MEDICINE [facility] Oct 27, 2024 08:15 AM AMBULATORY - REHAB MEDICIN E [facility] Oct 27, 2024 08:30 AM AMBULATORY - SURGERY [facility] Oct 29, 2024 08:30 AM AMBULATORY - SURGERY [facility] Oct 29, 2024 10:45 AM AMBULATORY - MEDICINE [facility] Oct 29, 2024 11:00 AM AMBULATORY - MEDICINE [facility] Dec 10, 2024 02:00 PM AMBULATORY - NONE [facility] Lab Results: +/- 30 days of the encounter This section includes the Chemistry and Hematology Lab Results on record with [place] for the patient. Radiology Reports and Pathology [...] Apr 16, 2024 12:33 PM Reporting Lab: [address] [id number] Performing Lab: [address] [id number] CREATININE 0.88 mg/dL 0.7-1.3 UREA NITROGEN 14.6 [...] 98.4 >60 Jul 16, 2024 11:[address] [facility] CBC BLOOD Specimen Type: BLOOD No comment entered. Ordering Provider: GRICEL SILVER Report Released Date/Time: Apr 16, 2024 12:33 PM Reporting Lab: [address] [id number] Performing Lab: [address] [id number] WBC 7.1 10*3/uL 3.6-11.2 RBC 4.38 10*6/uL [...] 0.60 BASOPHILS, ABSOLUTE 0.11 10*3/uL 0.00-0. 20 Social History: Smoking Status (Most current) and Tobacco Use (All prior to encounter date) This section includes the most current, and the historical, smoking and tobacco- related health factors from the [place] facility where the Encounter took place. Current Smoking Status This section includes the most current smoking, or tobacco-related health factor, from the [place] facility where the Encounter took place. Date/Time Current Smoking Status Comment Jerod ity Jun 05, 2023 09:30 AM [place]-TOBACCO NEVER USED [facility] Tobacco Use History This section includes a history of the smoking, or tobacco-related health factors, that were collected on or before the date of the Encounter. The data comes from the [place] facility where the Encounter took place. Date/Time Smoking Status/Tobacco Use Comment F tj Jun 03, 2021 10:00 AM [place]-TOBACCO NEVER USED [facility] Radiology Reports: +/- 30 days of [...] the Encounter. The data comes from all [place] treatment facilities. Date/Time Radiology Report Provider Source Aug 13, 2024 12:38 PM US THYROID (NECK SOFT-TISSUE): TROY BOOGIE [id number] M Exm Date: AUG 13, 2024@12:38 Req Phys: FANNY MOYA Daphnie Still Loc: [facility] C[facility] PACT PHONE 05 PCP (R Img Loc: [facility] Service: Unknown [facility], [address] [place] [address] (Case [id number] COMPLETE) US THYROID (NECK SOFT-TISSUE) (US Detailed) CPT:15944 Reason for Study: enlarged thyroid Clinical History: Report Status: Verified Date Reported: AUG 13, 2024 Date Verified: AUG 13, 2024 Supervisor Spring Up E-Sig:/ES/FREDERICK YAN Report: Exam: US THYROID (NECK SOFT-TISSUE) Case: [id number] History:Enlarged thyroid Technique: Real-time ultrasound examination of [...] discrete nodules. Dictated by Karol Villalobos M.D. (resident assistant). IFrederick, have reviewed the images and report and concur with these findings. Primary Interpreting Staff: FREDERICK YAN, RADIOLOGIST (Supervisor Spring Up) Primary Interpreting Resident: KAROL VILLALOBOS, Resident Physician /FREDERICK TOMLINSON [facility] Encounter Notes: All associated encounter notes This section contains the clinical notes associated to the Encounter. Date/Time Encounter Note(s) Provider Source Jul 29, 2024 02:33 PM PSYCHOLOGY OUTPATI ENT NOTE: LOCAL TITLE: PRIMARY CARE PSYCHOLOGY NOTE [facility] STANDARD TITLE: PSYCHOLOGY OUTPATIENT NOTE DATE OF NOTE: JUL 29, 2024@14:33 ENTRY DATE: JUL 29, 2024@14:33:32 AUTHOR: RODERICK RANGEL COSIGNER: URGENCY: STATUS: COMPLETED NAME: TROY BOOGIE DATE OF : Jun TIME SPENT WITH PATIENT: 30 minutes DIAGNOSIS BEING TREATED: Unspecified Anxiety D/O CPT Code: 27755 NATURE OF ENCOUNTER: follow up visit SESSION FORMAT: [X] [id number] [ ] Video Telehealth [ ]Phone Confirmed 's location and phone number for virtual appointment. [ ]Yes [X]N/A SESSION NUMBER: 3 RELEVANT HISTORICAL DEVELOPMENTS SINCE LAST CONTACT: - daughter presented for family event, notes first time he has seen her in 10 years - cousin (who considered to be his best friend) unexpectedly INTERVENTION/TREATMENT PROVIDED [X] [place] [X] Shared [...] by Therapist: - Assessed sxs and fx'ing. Decrease in anxiety sxs reported. Denies clinically significant mood sxs. Denies any recent difficulties with anger or irritability. Reviewed stress/anxiety management strategies. - Discussed 's interaction with his daughter. Assisted with processing related thoughts and feelings. Assisted with challenging identified distorted cognitions. Provided with empathetic and supportive listening and appropriate validation. Discussed strategies to assist with processing additional sense of loss r/t this relationship. - Discussed loss of cousin and coping with such. denied any complications with bereavement at this time. Discussed stages of grief and reviewed strategies for processing grief. ASSESSMENT MEASURES USED: [X] Self-Report Questionnaires: See Mental Health Diagnostic Study dated today, Aug 18, for details regarding endorsements for specific sxs. PHQ-9 = 4 (Q#9=0); indicative of depressive sxs being reported in the Minimal/Non-Clinical range. Score = 5 (Mild range, Q#9=0) when administered on Mar 20. LYLE-7 = 7; indicative of anxiety sxs being reported in the Mild range. Score = 13 (Moderate range) when administered on Mar 20. ROS (by verbal report): Sleep: intermittent initial insomnia Interest: improved, reports WNL Guilt: not endorsed Energy: remains decreased frequently (continues to attribute to medical issues) Concentration: remains decreased at times Appetite: remains WNL, continues to deny recent changes or concerns Psychomotor: remains WNL upon observation, continues to report feeling restless at times Collaboratively discussed outcomes related to assessment and treatment progress and measures will continue to be monitored. MEASURABLE TREATMENT GOALS FOR THIS EPISODE OF CARE: Goals were developed with [place] using shared decision making. 1. GOAL/OBJECTIVES: decrease anxiety PROGRESS TOWARDS GOAL: decrease reported, sxs now endorsed in mild range and reports sxs are manageable at this time 2. GOAL/OBJECTIVES: decrease anger and irritablity PROGRESS TOWARDS GOAL: denied any recent experiences of expressed anger or irritability, believes that this issue has been resolved with use of learned cognitive behavioral strategies RESPONSE TO INTERVENTIONS: 's participation/engagement: [X]The participated actively in the current interventions. [ ]Other: The [place] continues to consent to the current plan of care: Yes Comments: RISK ASSESSMENT: [X] CHANGE IN RISK FACTORS Related to Suicide or Homicide: of cousin whom he considered his best friend did not report any current suicidal/homicidal ideation, plan, or intent. did not appear to be at imminent risk for suicide or homicide at this time and is considered sustainable at the current level of care. -CLINICAL JUDGMENT AND DISPOSITION: [X] In consideration of relevant risk and protective factors, the [place] did NOT appear to be at imminent [...] with family members while he was intoxicated. reported that he had no memory of the event the next day, but was very embarrassed. Hx is also reported to be positive for intermittent morbid ideation that has occurred since adolescence. [place] consistently denies any hx of consideration of [...] treatment progress. Based on this discussion: [X] Using shared decision making, and provider agreed to the following change in plan: no f/u appt schedule at this time as believes that concerns r/t irritability have resolved and anxiety has improved and is manageable at this time. Educated on the risks, benefits, and possible complications related to changes to treatment plan. [place] has contact information for this provider/clinic and is in agreement with calling if sxs/concerns reemerge or additional tx needs arise. [place] agreed to proceed with the change. [X]YES [ ]NO /es/ RODERICK RANGEL, PH.D. Clinical Psychologist; [facility] Signed: 07/29/2024 15:43 RODERICK RANGEL [facility]
--- OUTSIDE RECORDS SUMMARY | 2024-09-25 14:24 | XMS_ITS | Clinical Summary ---
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 Assessment & Plan (07/10/2022 12:02 PM PACKAGE CHECKER): IOP acceptable on 2 classes today. CPM F/u in 6 mos. Assessment & Plan (12/30/2021 11:55 AM CDT): IOP stable on 2 classes. Stable on ON OCT. CPM with timolol qam and latanoprost qhs OS only. F/u in 6 mos for IOP ck. 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 No loss [...] OCT. Assessment & Plan (04/01/2020 1:55 PM PACKAGE CHECKER): Borderline IOP OS. No e/o optic neuropathy [...] home. Assessment & Plan (07/27/2022 9:32 AM PACKAGE CHECKER): Subjectively stable. subretinal fluid (SRF) today again self-limiting with improved and near resolution compared to 04/18. Debated previously whether this is CSCR vs. age-related macular degeneration (AMD). Given this is the second time it is self-limiting, likely CSCR but will continue to observe. RTC in 6 months. Assessment & Plan (07/10/2022 12:02 PM PACKAGE CHECKER): Stable acuity. Continue to use monocular precautions. F/u in 6 months for iop ck with OCT. Drivers license form filled out today. No restrictions. Assessment & Plan (04/13/2022 10:07 AM PACKAGE CHECKER): Subjectively stable. Increased subretinal fluid (SRF) today [...] December. Assessment & Plan (06/28/2021 10:02 AM PACKAGE CHECKER): Acuity stable. Limited visual potential. Keep follow up with Dr. Zepeda as scheduled. Monocular precautions reviewed. Assessment & Plan (06/06/2021 8:47 AM PACKAGE CHECKER): Patient with history of anti-VEGF injection. There [...] precautions. Assessment & Plan (06/07/2020 10:55 AM PACKAGE CHECKER): Essentially unchanged from previous exams, guarded prognosis reviewed with patient. Recommend observation. Patient will monitor his vision using Amsler grid especially for the right eye. Assessment & Plan (04/01/2020 1:57 PM PACKAGE CHECKER): No recurrence of central SRF on exam today. Small paramacular PED superiorly. Significant outer segment loss on OCT. Discussed guarded visual prognosis OS and reminded pt about monocular precautions. Recommended timekeeper wear of shatter resistant lenses. Pt reports he has glasses but never wears him. Reiterated their importance. Keep f/u with PKR as scheduled. Assessment & Plan (12/08/2019 11:47 AM CDT): No recurrence of subretinal fluid today without therapy, recommend observation. Assessment & Plan (06/12/2019 9:58 AM PACKAGE CHECKER): Subretinal fluid has improved without therapy, recommend [...] grid. Assessment & Plan (08/01/2018 12:56 PM PACKAGE CHECKER): Last IVL 05/09/18 [address] subretinal fluid (SRF) 06/20/18 Today stable subretinal fluid (SRF) Continue to observe. Assessment & Plan (06/20/2018 3:22 PM PACKAGE CHECKER): Trace subretinal fluid (SRF) stable. Fluorescein angiography was performed today demonstrates RPE changes however there is no active leakage.. Discussed with patient possibility of observation versus repeat injection. The OCT appears essentially unchanged. We have elected to observe the situation at this time. If the subretinal fluid worsens we may resume a intravitreal injections. Assessment & Plan (05/09/2018 2:27 PM PACKAGE CHECKER): Trace subretinal fluid (SRF) stable Angiography was [...] annually. Assessment & Plan (04/01/2020 1:57 PM PACKAGE CHECKER): Flat. Low risk. Observe. Resolved Problems Problem Noted Date Diagnosed Date Resolved Date Serous retinal detachment 05/18/2017 Nasal step visual field defect 12/20/2015 04/01/2020 Surgical History Surgery Date Site/Laterality Comments RETINAL LASER PROCEDURE HERNIA REPAIR 05/28/2022 - 05/27/2023 Medical History Medical History Date Comments Macular degeneration Polycythemia vera (HCC) 04/2022 Social History Tobacco Use Types Packs/Day Years [...] on file Legal Sex Male 11:26 AM PACKAGE CHECKER Gender Identity Not on file Sexual Orientation Not on file Obstetrics History Plan of Treatment Health Maintenance Due Date Last Done Comments Colon Cancer Screening-Colonoscopy 1965 Depression Screening 1965 Hepatitis C Screening 1965 Prostate Cancer Screening-PSA 1964 Hepatitis B Screening 1982 Regular Well Visit/Exam 18-64 1982 Pneumococcal vaccine <65 (1 of 2 - PCV) 1983 Zoster Vaccine (1 of 2) 1983 Influenza Vaccine (#1) 2024 DTaP/Tdap/Td Vaccine (2 - Td or Tdap) 05/08/202804/2018 Insurance [facility] Care Teams Respite Care Provider Relationship Specialty Start Date End Date Adelina Gutiérrez MD [address] [facility] [place] [address] PCP - General Family Medicine 08/09/23
--- OUTSIDE RECORDS SUMMARY | 2024-09-25 14:24 | XMS_ITS | Clinical Summary ---
Author Organization [facility] Address [address] [place] [address] Phone Care Team Providers Care Mailhouse Operator Name Role Phone Eva Florence APRN, CNP Unavailable [phone] Allergies No known active allergies Medications timolol (TIMOPTIC) 0.5 % Solution Place 1 Drop in left eye 2 times daily. 4 8 Active sodium sulfate-potassi um sulfate-magnesi um sulfate (SUPREP) 17.5-3.13-1.6 GM/177ML Solution Take 64 mL by mouth once. Active atorvastatin (LIPITOR) 20 MG Tablet Take 1 Tab by mouth daily. Needs Appointment call [phone] to schedule 30 Tab 0 Active Active Problems Problem Noted Date Diagnosed Date Family history of colonic polyps 06/14/2018 History of diverticulitis 06/14/2018 Diverticulitis of colon 05/20/2018 Macular degeneration of left eye 04/22/2018 Diverticulitis 04/22/2018 Family History Medical History Relation Name Comments Congestive Heart Failure Father Breast Cancer Mother Chronic Obstructive Pulmonary Disease Sister Colon Polyps Sister Relation Name Status Comments Brother 1 Alive Brother 2 Alive Father Mother Sister Alive Social History Tobacco Use Types Packs/Day Years Used Date Smoking Tobacco: Never Smokeless Tobacco: Never Tobacco Cessation:Counseling Given: Yes Alcohol Use Standard Drinks/Week Comments Yes 6 (1 standard drink = 0.6 oz pur e alcohol) PHQ-2 Answer Date Recorded PHQ-2 Score 0 02/09/2019 Sex and Gender Information Value Date Recorded Sex Assigned at Not on file Legal Sex Male 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 Gender Identity Not on file Sexual Orientation Not on file Last Filed Vital Signs Vital Sign Reading Time Taken Comments Blood Pressure 124/78 08/08/2018 11:30 AM CDT Pulse 57 08/08/2018 11:30 AM CDT Temperature 36.1 C (97 F) 08/08/2018 9:56 AM CDT Respiratory Rate 16 08/08/2018 11:30 AM CDT Oxygen Saturation 99% 08/08/2018 11:30 AM CDT Inhaled Oxygen Concentration - - Weight 111.1 kg (245 lb) 08/08/2018 9:56 AM CDT Height 185.4 cm (6' 1 ) 08/08/2018 9:56 AM CDT Body Mass Index 32.32 08/08/2018 9:56 AM CDT Plan of Treatment Health Maintenance Due Date Last Done Comments Hepatitis C Virus (HCV) Screening 1965 TdaP Immunization 1965 Cologuard 2014 Pneumococcal Immunization (5 0+ years) (1 of 1 - PCV) 2014 Zoster Immunization (1 of 2) 2014 Immunochemical Fecal Occult Blood 05/19/2019 05/19/2018 Colonoscopy 08/09/2023 08/08/2018 Colorectal Cancer Screening 08/09/2023 Influenza Immunization (#1) 2024 SARS-COV-2 Immunization (3 - 2023- season) 2024 12/16/2020, 11/25/2020 Respiratory Syncytial Virus (RSV) Immunization (Adult) (1 - 1-dose 75+ series) 2039 08/08/2018 PSA Discussion Discontinued 04/25/2018 Hepatitis B Immunization Aged Out No longer eligible based on patient's age to complete this topic Meningococcal Immunization (ACWY) Aged Out No longer eligible based on patient's age to complete this topic Pneumococcal Immunization Combined Aged Out No longer eligible based on patient's age to complete this topic Rotavirus Immunization Aged Out No lo nger eligible based on patient's age to complete this topic Procedures Procedure Name Priority Date/Time Associated Diagnosis Comments POCT STOOL, OCCULT BLOOD, DIAGNOSTIC STAT 05/19/2018 10:12 PM 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 PSA SCREEN Today 04/25/2018 9:59 AM 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 Encounter for preventive health examination (Adult) from Last 3 Months or Most Recently Relevant to Health Maintenance Results * (ABNORMAL) POCT STOOL, OCCULT BLOOD, DIAGNOSTIC POC49 (05/19/2018 10:12 PM 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) OCCULT BLOOD, STOOL Positive(A) Negative, Other POC HEMOCULT CONTROL Quick Print Operator Pass 05/19/2018 10:1 2 PM 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 us Aurelio Mata DIAMOND CLEANER, ORACLE HYPERION CONSULTANT POINT OF CARE TEST ING (MANUAL) Edited Result - Final * PSA SCREEN (04/25/2018 9:59 AM 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) PSA SCREEN, TOTAL 1.10 <4.00 ng/mL 04/25/2018 2:40 PM 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 [facility] Blood specimen (specimen) Venipuncture / Unknown 04/25/2018 9:59 AM 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 04/25/2018 10:01 AM 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 Narrative [facility] - 04/25/2018 2:40 PM 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 The BOOT LACE CUTTER MACHINE Total PSA assay is a Chemiluminescent Microparticle Immunoassay (CMIA) for the quantitative determination of total PSA (both free PSA and PSA complexed to [id number]) in human serum. us Lovelynino Arce PAC CHEMISTRY ORDERABLES Final R esult [facility] [address] [place] [address], [place] from Last 3 Months or Most Recently Relevant to Health Maintenance Advance Directives * Full Code (Latest Code Status on File) Date Activated Date Inactivated Comments 05/20/2018 4:42 AM 05/20/2018 8:44 PM CPR-Full T reatment: FULL ARREST: Attempt Resuscitation/CPR wit intubation and mechanical ventilation. PRE-ARREST: Use entire range of life support measures to stabilize the patient. Care Teams Mailhouse Operator Relationship Specialty Start Date End Date Eva Florence DIAMOND CLEANER, ORACLE HYPERION CONSULTANT Gastroenterology 06/14/18
--- OUTSIDE RECORDS SUMMARY | 2024-09-25 14:24 | XMS_ITS | Continuity of Care Document ---
Author Organization [facility], [facility] Address [address] [place] [phone] Phone Care Team Providers Care Bioinformatics Team Member Name Role Phone Erasto WINN, Ravinder Unavailable Unavailable Allergies, Adverse Reactions, Alerts Substance Reaction Status Criticality No Known Drug Allergies Active No I nformation Procedures Procedure Date EYE EXAM ESTABLISHED PATIENTJENNIFER FLUORESCEIN ANGIOGRAPHY Scan Image/ OCT, Retina FUNDUS PHOTOGRAPHY EYE EXAM ESTABLISHED PATIENTJENNIFER Scan Image/ OCT, Retina Advance Directives Directive Yes / No Effective Date File Name No Information Encounters Encounter Description Practice Location Reason(s) For Visit Diagnoses Date Provider Providers Copied on Encounter [facility], [facility], [address] [place] [address], [id number], tel:[phone] [facility] no problems with V/A and no complaints (chief complaint) Pigmentary retinal dystrophy Erasto Castellon. [address] [place] [address], [id number], [place]. tel:[phone] Referring Provider: Ravinder Bowers, [address] [place] [address], [id number]. tel:[phone] [facility] [address], [id number], tel:[phone] [facility] no problems with V/A and no complaints (chief complaint) Pigmentary retinal dystrophy Tyler Mallory. [address] [place] [address], [id number], [place]. tel:[phone] Referring Provider: Shawnee Sigala, [address] [place], [address]. tel:[phone] Family History Family Member Type Diagnosis Age At Onset Father Problem (finding) Respiratory Disease-WINDOWS SYSTEMS ENGINEER D/Emphysema Father Problem (finding) Heart Disease Payers Payer name Insurance type Covered constitution party ID Authoriza tidavid(s) [id number] Social History Type Description Quantity Date Captured Comments Alcohol Use Details Unknown Caffeine Use Details Unknown Tobacco Use Status No Information Smoking Status Never smoker Sex Male Chief Complaint And Reason For Visit From encounter dated '06/14/2012 09:00'. no problems with V/A and no complaints (chief complaint) Reason For Referral Reason For Referral No Information History Of Present Illness Encounter Date Complaint History Of Prese nt Illness No Information Functional Status Date Functional Assessmen t No Information Instructions Date Instruction Additional Infor bobo - Return in 6 months with SPB for T & D OCT OS. 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 Condition: stable. - OS looks good, focal laser spots in Macula.No signs of blood or fluid OS.No active problems OU. No signs of Vein blockage OS.Will see patient back in about 6 months,at that time if things are still stable will go out to yearly visits.Patient TCI if noticing any vision changes TCI sooner. Educational materials provided:none needed. 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 Condition: will continue to monitor. - Everything looks okay today. Will get OCT (mac) today. If OCT comes back normal will just have pt. see SPB in 1 month to follow up. Pt. to call if having problems. 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
--- OUTSIDE RECORDS SUMMARY | 2024-09-25 14:24 | XMS_ITS | Encounter Summary ---
Author Name [facility] [facility] [place] Organization [facility] [place] Address [address] [place] [address] Care Team Providers Care Strategic Partnership Manager Name Role Phone VICENTE RAJAN Primary Care Provider Singh e Insurance Providers: All historical and current [...] Patient's Relationship to Policy Montano [employer] [phone] PRESCRIPT ION CAN REPAIRER S May 28, 2020 [facility] [id number] [phone] Daphnie BOOGIE PATIENT [facility] PREFERRED PROVIDER ORGANIZAT ION (PPO) CAN REPAIRER S May 28, 2020 [id number] [phone] Daphnie BOOGIE PATIENT Selected Encounter This section includes the information on record at [place] for the Encounter. Date/Time Encounter Type Encounter Description Reason Provider Source Sep 20, 2024 07:44 AM Outpatient Encounter EMERGENCY DEPT TYLER ALARCON Encounter Template Text not used by [place] Plan of Treatment: Future Appointments (+ 6 [...] 20 appointments. The data comes from all [facility]. Appointment Date/Time Appointment Type Appointme nt Facility Name September 27, 2024 02:30 PM AMBULATORY - MEDICINE [facility] September 29, 2024 03:00 PM AMBULATORY - MEDICINE [facility] September 30, 2024 11:00 AM AMBULATORY - MEDICINE . [facility] Oct 27, 2024 08:15 AM AMBULATORY - REHAB MEDICIN E [facility] Oct 27, 2024 08:30 AM AM[facility]ULATORY - SURGERY [facility] Oct 29, 2024 08:30 AM AMBULATORY - SURGERY [facility] Oct 29, 2024 10:45 AM AMBULATORY - MEDICINE [facility] Oct 29, 2024 11:00 AM AMBULATORY - MEDICINE [facility] Dec 10, 2024 02:00 PM AMBULATORY - NONE . [facility] Active, Pending, and Scheduled Orders This section includes a listing of several types of active, pending, and scheduled orders, including clinic medications orders, diagnostic test orders, procedure orders and consult orders; where the start date of the order is 45 days before the date of the Encounter or 45 days after the date of theEncounter. The data comes from all [facility]. Test Date/Time Test Type Test Details Facility Name Sep 23, 2024 02:42 PM Consult Order GI GENERAL OUTPATIENT ST[facility] Cons Hosiery Mater's Choice [facility] September 27, 2024 02:30 PM Imaging - Ultrasou nd Order US ABDOMEN LIMITED W/BLOOD FLOW DOPPLER [facility] Oct 29, 2024 12:00 AM Laboratory - Chemistry Order CBC BLOOD STAT SP [facility] Oct 29, 2024 12:00 AM Laboratory - Chemistry Order COMPREHENSIVE METABOLIC PANEL GREEN LI/HEP BLD/PLAS PLASMA STAT SP [facility] Lab Results: +/- 30 [...] Type Comment Sep 20, 2024 10:06 AM [facility] URINALYSIS (STL-PB) URINE Specimen Type: URINE No comment entered. Ordering Provider: GABBY WOOTEN Report Released Date/Time: Sep 20, 2024 08:15 AM Reporting Lab: [place] [address] Performing Lab: [place] [address] [facility] [address] URINE COLOR Colorless Yellow U.BILIRUBIN Negative mg/dL Negative U.PH 7.0 5.0-8.0 APPEARANCE Clear Clear U.NITRITE Negative mg/dL Negative URN.GLUCOSE Normal mg/dL Negative URN.PROTEIN Negative mg/dL URN.UROBILINOGEN Normal mg/dL Normal URN.BLOOD Negative mg/dL Negative-Trace URN.KETONES Negative mg/dL Negative-Trac e URN.LEUK.EST. Negative mg/dL Negative-Tr emery URN.SPECIFIC GRAVITY 1.033 H Sep 20, 2024 08:11 AM [facility] LIPASE PLASMA Specimen Type: PLASM A Comment: Aspartate Transaminase result may show positive bias due to hemolysis. K result canceled due to hemolysis. Specimen moderately hemolyzed. Notified Huong Moore RN @0914 [facility] 09.20.24 Ordering Provider: GABBY WOOTEN Report Released Date/Time: Sep 20, 2024 08:10 AM Reporting Lab: [facility] [address] [facility] [address] Performing Lab: [place] [address] [facility] [address] LIPASE 20 U/L 8-78 Sep 20, 2024 08:11 AM [facility] COMPREHENSIVE METABOLIC PANEL PLASMA Specimen Type: PLASMA Comment: Aspartate Transaminase result may show positive bias due to hemolysis. K result canceled due to hemolysis. Specimen moderately hemolyzed. Notified Huong Moore RN @0914 [facility] 09.20.24 Ordering Provider: GABBY WOOTEN Report Released Date/Time: Sep 20, 2024 08:10 AM Reporting Lab: [address] [address] Performing Lab: [address] [address] CREATININE 0.76 mg/dL 0.7-1.3 UREA NITROGEN 12.3 [...] 102.9 >60 Sep 20, 2024 08:11 AM [facility] CBC BLOOD Specimen Type: BLOOD No comment entered. Ordering Provider: GABBY WOOTEN Report Released Date/Time: Sep 20, 2024 08:10 AM Reporting Lab: [address] [address] Performing Lab: [address] [address] WBC 10.8 10*3/uL 3.6-11.2 RBC 4.57 10*6/uL [...] 0.00-0. 20 Sep 17, 2024 09:59 AM [facility] COMPREHENSIVE METABOLIC PANEL PLASMA Specimen Type: PLASMA Comment: No hemolysis noted. Ordering Provider: GRICEL SILVER Report Released Date/Time: Jul 16, 2024 12:56 PM Reporting Lab: [address] [address] Performing Lab: [address] [address] CREATININE 0.82 mg/dL 0.7-1.3 UREA NITROGEN 13.0 [...] 100.6 >60 Sep 17, 2024 09:59 AM [facility] CBC BLOOD Specimen Type: BLOOD No comment entered. Ordering Provider: GRICEL SILVER Report Released Date/Time: Jul 16, 2024 12:56 PM Reporting Lab: [address] [address] Performing Lab: [address] [address] WBC 7.7 10*3/uL 3.6-11.2 RBC 4.65 10*6/uL [...] 0.00-0. 20 Sep 17, 2024 09:59 AM [facility] FERRITIN SERUM Specimen Type: SERUM No comment entered. Ordering Provider: GRICEL SILVER Report Released Date/Time: Sep 17, 2024 10:40 AM Reporting Lab: [facility] [address] [facility] [address] Performing Lab: [address] [address] FERRITIN 39.00 ng/mL 22-275 Sep 17, 2024 09:59 AM [facility] IRON/TIBC PROFILE SERUM Specimen Type: SERUM No comment entered. Ordering Provider: GRICEL SILVER Report Released Date/Time: Sep 17, 2024 10:40 AM Reporting Lab: [address] [address] Performing Lab: [address] [address] TIBC 414 ug/dL 250-450 TRANSFERRIN 331 mg/dL 163-344 IRON SATURATION 19 L 20-50 IRON 78 ug/dL 65-175 Vital Signs: All taken on the encounter date This section contains inpatient and outpatient Vital Signs collected on the date of the Encounter. Date/Time Temperature Pulse Blood Pressure Respiratory Rate SP02 Pain Height Weight Body Mass Index Source Sep 20, 2024 11:30 AM 80 172/84 0 [facility] Sep 20, 2024 07:52 AM 98.7 65 189/97 18 8 [facility] Social History: Smoking Status (Most current) and Tobacco Use (All prior to encounter date) This section includes the most current, and the historical, smoking and tobacco- related health factors from the [place] facility where the Encounter took place. Current Smoking Status This section includes the most current smoking, or tobacco-related health factor, from the [place] facility where the Encounter took place. Date/Time Current Smoking Status Comment Facil ity May 17, 2022 12:02 PM VA-TOBACCO NEVER USED [facility] Tobacco Use History This section includes a history of the smoking, or tobacco-related health factors, that were collected on or before the date of the Encounter. The data comes from the [place] facility where the Encounter took place. Date/Time Smoking Status/Tobacco Use Comment F acility Mar 06, 2021 04:50 AM ORYX ADMIT TOBACCO SCREEN NO [facility] Jun 03, 2020 09:50 AM VA-TOBACCO NEVER USED [facility] Radiology Reports: +/- 30 days of [...] the Encounter. The data comes from all [place] treatment facilities. Date/Time Radiology Report Provider Source Sep 20, 2024 09:[address] ABD PEL W/CONT & 3D: TROY BOOGIE [id number] -1965 M Exm Date: SEP 20, 2024@09:37 Req Phys: GABBY WOOTEN Pat Loc: [facility]Y [facility]PT 2ND SHIFT (R Img Loc: [facility] Service: Unknown [facility] [address] [place] [address] (Case [id number] COMPLETE) CT ABDOMEN AND PELVIS W/CONTRAST (CT Detailed) CPT:48072 Contrast Media : Non-ionic Iodinated Reason for Study: abd pain Clinical History: Responsible Attending: Dr Wooten Attending Contact Number: [phone] Resident Contact Number: abd pain Allergies listed in CPRS chart: Patient has answered NKA Creatinine:CREATININE 0.82 mg/dL 09/17/2024 09:59 /eGFR: STL EGFR (within one year). 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 The study was protocoled and supervised at the local [place] facility. 1258 images were subsequently received by the [place] National [facility] (NTP) for interpretation. Total [...] inguinal hernia. READING PHYSICIAN: Latrell Hernandes M.D. -[phone] 09/20/2024 8:34 PDT [facility] National Teleradiology Program [phone] (For Medical Practitioner Use Only) Attention Patients / Veterans: If you have questions or concerns about these test results, please contact your ordering provider or primary care team. Primary Interpreting Staff: RADIOLOGY,OUTSIDE SERVICE, Staff Physician / RADIOLOGY,OUTSIDE SERVICE [facility] Encounter Notes: All associated encounter notes This section contains the clinical notes associated to the Encounter. 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 Bethel states that the pain radiates acrosshis upper abdomen with nausea. states he took some ibuprofen which helped the pain. Bethel states that he vomited yesterday around 12 but no emesis since. Bethel states that it feels like there's a corkscrew in him. LBM was yesterday AM and was normal per Level of Consciousness (AVPU): Alert = Appears aware of and responsive to the environment on their own. Follows commands, opens eyes spontaneously, and tracks objects. Vital Signs: Temperature 98.7 F (37.1 C) Pulse 65 Respirations 18 Blood Pressure 189/97 Pulse Oximetry 97 Room Air National Early Warning Score (NEWS): The NEWS total is 0. 1. Temperature (C/F): Score = 0 36.1 - 38.0 C (96.9 - 100.4 F) 2. Pulse: Score = 0 51-90 3. Respirations: Score = 0 12-20 4. Blood Pressure (Only Systolic BP, mmHg): Score = 0 111-219 5. Pulse Oximetry: Score = 0 96% or greater 6. Supplemental oxygen in use: Score = 0 No 7. AVPU: Score = 0 Alert Pain: No pain Pain Score: 8 Suicide Screen: Noti Suicide Severity Rating Scale (C-SSRS) screener 1. Over the past month, have you [...] required due to responses to other questions. Emergency Severity Index (SHRUTI) level: Level 3 Previously documented allergies: Patient has answered NKA Current Problems: 1) Past history of procedure 2) OA - Osteoarthritis (SCT 666961262) 3) Senile macular degeneration 4) History of SARS-CoV-2 (SCT 630087353497240518) 5) Diverticular Disease of Colon (SCT 157350349) 6) Obesity ([facility] 562070093) 7) Hyperlipidemia ([facility] 30731426) 8) Dupuytren's contracture 9) Tinnitus ([facility] 89537204) 10) Sebaceous cyst of skin 11) Hearing Loss ([facility] 18973759) 12) Vitamin D Deficiency ([facility] 5303724) 13) Erectile Dysfunction ([facility] 454328748) 14) History of colonic polyp 15) Epigastric hernia 16) Plantar heel pain 17) Impaired glucose tolerance 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 appeared awake and alert at this time. pal 22g placed to pt's R hand. tolerated well. site was without redness or signs of infection. blood collected and sent to lab. pt resting in bed with call light in reach. voiced no needs. no distress noted. [address] remained awake and alert. voiced no needs. no distress noted. /everardo/ DOMINGO MOORE RN BSN REGISTERED NURSE Signed: 09/20/2024 09:35 09/20/2024 ADDENDUM STATUS: COMPLETED 1130 Pt dc'd from ED at this time. remained awake and alert. voiced no questions or concerns. pal 22g dc'd from pt's R hand. tolerated well. site was without redness or signs of infection. VSS. no distress noted. Blood Pressure: 172/84 Pulse: 80 Pain: 0 Pulse Oximetry: 97% /everardo/ DOMINGO MOORE RN BSN REGISTERED NURSE Signed: 09/20/2024 11:32 ROSA ALARCON [facility]
[2024-09-25 14:42] LABS: Alanine Aminotransferase 30 U/L (6-50); Alkaline Phosphatase 81 U/L (38-126); Anion Gap 7 mmol/L (4-12); Aspartate Amino Transferase 42 U/L (17-59); Bilirubin,Total 0.8 mg/dL (0.2-1.3); Blood Urea Nitrogen 15 mg/dL (9-20); Calcium 8.9 mg/dL (8.4-10.2); Carbon Dioxide 26 mmol/L (22-30); Chloride 102 mmol/L (98-107); Estimated CRCL calculation 132 ml/min; Estimated Glomerular Filt Rate > 60; Glucose 101 mg/dL (65-110); Lactic Acid Reflex 1.2 mmol/L (0.7-2.0); Lipase 80 U/L (23-300); Osmolality Calculated 280 mOsm/kg (285-295); Potassium 3.9 mmol/L (3.4-5.0); Sodium 135 mmol/L (137-145)
--- NOTE | 2024-09-25 14:50 | ED_ITS ---
HPI - Abdominal Pain General Chief Complaint: Abdominal Pain Stated Complaint: abdominal pain Time Seen by Provider: 09/25/24 13:18 Source: patient and family Mode of arrival: ambulatory Limitations: no limitations History of Present Illness HPI narrative: this is a 59-year-old male with a history of polycythemia vera was recently seen at the [facility] and had CT scan of his abdomen and pelvis which did show that he had multiple gallstones in his gallbladder. Patient was given Tylenol at discharge. Patient presents to our ER with reoccurring right upper quadrant abdominal pain with no fever chills mild nausea with no vomiting epigastric discomfort with no chest pain no shortness of breath no diarrhea constipation. MD elicited complaint: abdominal pain Onset (ago): day(s) Pain Consistency: intermittent Location: RUQ Severity: moderate Pain scale (0-10): 6 Quality: aching and fullness Radiation: RUQ and epigastric Related Data Home Medications ?Medication ?Instructions ?Recorded ?Confirmed ?Last Taken ?Type atorvastatin 20 mg tablet 40 mg PO DAILY 05/22/20 12/25/23 05/21/20 History latanoprost 0.005 % eye drops 1 drp LEFT EYE HS 05/22/20 12/25/23 Unknown History timolol maleate 0.5 % once daily 1 drp LEFT EYE DAILY 05/22/20 12/25/23 05/22/20 History eye drops Allergies Allergy/AdvReac Type Severity Reaction Status Date / Time No Known Allergies Allergy Verified 09/25/24 13:19 Review of Systems 2 Review of Systems: All systems reviewed & are unremarkable except as noted in HPI and below PMFSH Past Medical History Medical History Diverticulitis Surgical History Surgical History H/O cervical spine surgery H/O knee surgery Social History Social History Smoking status: Never smoker Substance use: never Living arrangements: with family Gender identity (if verbalized by the patient): Male Exam 2 Const: General: healthy appearing, no acute distress and alert Nutritional Appearance: well nourished Orientation/consciousness: patient oriented x3 Limitations: no limitations HENMT: Head: normal to inspection Eyes: Conjunctivae: conjunctivae normal Pupils: Equal, round and reactive pupils present EOM: EOMs intact bilaterally Neck: Neck: normal visual inspection and no lymphadenopathy Chest: Chest palpation & inspection: normal inspection of the chest Resp: Effort & Inspection: normal respiratory effort Auscultation: clear to auscultation bilaterally Cardio: Rate: regular rate Rhythm: regular rhythm GI: GI Palp: Yes Soft to palpation and Yes Tenderness to palpation present (GI) Auscultation: normal bowel sounds : General: Yes bladder normal to palpation Skin: General skin exam: normal color Rashes: no rashes Neuro: General: patient oriented x3 and moves all extremities Extrem: General: normal to inspection, no clubbing, cyanosis or edema and no pedal edema Course Course Emergency Course: Patient had abdominal ultrasound of the right upper quadrant which shows multiple gallstones with no acute cholecystitis, white blood cell count within normal range lipase within normal range. Patient received IV fluids with some IV pain control with morphine 4mg IV, IV Zofran and IV Protonix. After reassessment pain patient's pain level has markedly improved. Patient does have a follow-up with Gastroenterology and advised to continue that follow-up. Vital Signs Vital signs: Vital Signs Temperature 36.6 C 09/25/24 13:13 Pulse Rate 73 09/25/24 13:13 Respiratory Rate 16 09/25/24 13:13 Blood Pressure 182/90 H 09/25/24 13:13 Pulse Oximetry 98 09/25/24 13:13 Oxygen Delivery Room Air 09/25/24 13:13 Temperature 36.6 C 09/25/24 13:13 Pulse Rate 73 09/25/24 13:13 Respiratory Rate 16 09/25/24 13:13 Blood Pressure 182/90 H 09/25/24 13:13 Pulse Oximetry 98 09/25/24 13:13 Oxygen Delivery Room Air 09/25/24 13:13 MDM - Abdominal Pain Lab Data 09/25/24 13:36 09/25/24 13:36 Labs: Lab Results 09/25/24 Range/Units 13:36 WBC 10.0 (4.8-10.8) K/mm3 RBC 4.23 L (4.70-6.10) M/mm3 Hgb 14.9 (14.0-18.0) g/dL Hct 43.2 (40.0-54.0) % MCV 102.1 H (78.0-102.0) fL MCH 35.2 H (27.0-31.0) pg MCHC 34.5 (32-36) g/dL RDW 12.6 (11.6-14.4) % Plt Count 385 (150-420) K/mm3 MPV 9.7 (8.7-11.0) fl Immature Gran % (Auto) 0.5 H (0.0-0.0) % Neut % (Auto) 77.0 H (50.0-70.0) % Lymph % (Auto) 14.3 L (18.0-42.0) % Hutchinson % (Auto) 6.5 (2.0-11.0) % Eos % (Auto) 1.0 (1.0-6.0) % Baso % (Auto) 0.7 (0.0-1.0) % Lymph # (Auto) 1.43 (1.10-4.50) K/mm3 Hutchinson # (Auto) 0.65 (0.10-0.90) K/mm3 Eos # (Auto) 0.10 (0.02-0.50) K/mm3 Baso # (Auto) 0.07 (0.00-0.10) K/mm3 Abs Immat Gran (auto) 0.05 H (0.00-0.00) K/mm3 Absolute Neuts (auto) 7.71 H (1.70-7.20) K/mm3 Absolute Nucleated RBC 0.02 H (0.00-0.00) K/mm3 Nucleated RBC % 0.2 H (0-0.0) % PT 10.2 (9.50-12.1) Seconds INR 0.9 APTT 25.6 (23.9-30.70) Sec Sodium 135 L (137-145) mmol/L Potassium 3.9 (3.4-5.0) mmol/L Chloride 102 (98-107) mmol/L Carbon Dioxide 26 (22-30) mmol/L Anion Gap 7 (4-12) mmol/L BUN 15 (9-20) mg/dL Creatinine 0.71 (0.7-1.3) mg/dL Estim Creat Clear Calc 132 ml/min Estimated GFR > 60 (59 - ) Glucose 101 (65-110) mg/dL Calculated Osmolality 280 L (285-295) mOsm/kg Lactic Acid 1.2 (0.7-2.0) mmol/L Calcium 8.9 (8.4-10.2) mg/dL Total Bilirubin 0.8 (0.2-1.3) mg/dL AST 42 (17-59) U/L ALT 30 (6-50) U/L Alkaline Phosphatase 81 (38-126) U/L Troponin I Pending Total Protein 7.0 (6.3-8.2) g/dL Albumin 4.0 (3.5-5.1) g/dL Lipase 80 (23-300) U/L Imaging Data Radiologist's impression: ITS Impressions Upper Quadrant Ultrasound 09/25/24 14:11 IMPRESSION: 1. Cholelithiasis without biliary obstruction or findings of acute cholecystitis. Critical Care Time Critical Care Time Critical Care Time: No Discharge Plan Discharge Clinical Impression: Cholelithiasis Qualifiers: Cholelithiasis location: gallbladder Cholecystitis presence: without cholecystitis Biliary obstruction: without biliary obstruction Qualified Code(s): K80.20 - Calculus of gallbladder without cholecystitis without obstruction Patient Disposition: Home Condition: Stable Instructions: Antibiotic Form, Gallstones (ED), Abdominal Pain (ED) Additional Instructions: advised patient to take medication as prescribed and to follow up with Primary/ GI as scheduled. Patient Language: Sami Prescriptions: New oxycodone-acetaminophen [Percocet] 5-325 mg tablet 1 tablet PO Q6H PRN (Reason: pain) Qty: 20 0RF ondansetron 4 mg tablet,disintegrating 4 mg PO Q6H PRN (Reason: nausea and vomiting) Qty: 14 0RF pantoprazole [Protonix] 40 mg tablet,delayed release (DR/EC) 40 mg PO QAM Qty: 14 0RF No Action latanoprost 0.005 % drops 1 drp LEFTEYE HS atorvastatin 20 mg tablet 40 mg PO DAILY timolol maleate 0.5 % drops, once daily 1 drp LEFTEYE DAILY losartan 50 mg tablet 50 mg PO DAILY Qty: 30 0RF Follow-up/Referrals: [facility] [Primary Care Provider] - Time of Disposition: 14:56
[2024-09-25 14:53] LABS: Troponin I < 0.012 ng/mL (0.000-0.034)
--- OUTSIDE RECORDS SUMMARY | 2024-09-25 15:05 | XMS_ITS | Continuity of Care Document ---
Author Organization [facility] Address [address] [place] [address] Phone Care Team Providers Care Staff Submarine Warfare Officer Name Role Phone Tan Han MD Unavailable [...] Providers Copied on Encounter Rating Letter [facility], [address] [place] [address], [id number], [place] tel:[phone] [email or web address] No Information [address] Guille Maddox. [address] [place] [address], [facility] [address], [place], [place], [id number] , [place]. tel:[phone] [facility], [address] [place] [address], [id number], [place] tel:[phone] [facility] right shoulder (chief complaint) Encounter for other orthopedic aftercare 6 Guille Maddox. [address] [facility] [address], [address], [place], [place], [id number] , [place]. tel: [phone] [facility], [address] [facility] [address], [place], [place], [id number], [place] tel:[phone] [facility] Encounter for other orthopedic aftercare 6 Guille Maddox. [address] [facility], [address], [place], [place], [id number] , [place]. tel: [phone] [facility], [address] [address], [place], [place], [id number], [place] tel:[phone] [facility] Encounter for other orthopedic aftercare 6 Guille Maddox. [address] [facility], [address], [place], [place], [id number] , [place]. tel: [phone] [facility], [address] [address], [place], [place], [id number], [place] tel:[phone] [facility] Encounter for other orthopedic aftercare 6 Guille Maddox. [address] [facility], [address], [place], [place], [id number] , [place]. tel: [phone] [facility], [address] [address], [place], [place], [id number], [place] tel:[phone] [facility] No Information 6 Guille Maddox. [address] [facility], [address], [place], [place], [id number] , [place]. tel: [phone] [facility], [address] [facility] [address], [place], [place], [id number], [place] tel:[phone] [facility] Sprain of right rotator cuff capsule, subsequent encounter 6 Guille Maddox. [address] [facility], [address], [place], [place], [id number] , [place]. [phone] Office/outpat ient visit,est, mod [facility], [address] [facility] [address], [place], [place], [id number], tel:[phone] [facility] Sprain of right rotator cuff capsule, subsequent encounter 6 Guille Maddox. [address] [facility], [address], [place], [place], [id number] , [place]. tel:[phone] [facility], [address] [place] [address] [address], [place], [place], [id number], [place] tel:[phone] [facility] Pain in right shoulder 6 [facility]. [address] [place] [address], [address] , [place], [place], [id number] , [place]. tel:[phone] Referring Provider: Tan Bowers, [address] [place] [address] [address], [place], [address] . tel:[phone] Office consultation, moderate [facility], [address] [place] [address], [id number], tel:[phone] [facility] Pain in right shoulder 6 Guille Maddox. [address] [place] [address], [address], [id number] , [place]. tel:[phone] Family History Family Member Type Diagnosis Age At Onset Father Problem (finding) Cardiovascular disease Mother Problem (finding) Cancer, unknown Father Problem (finding) alcoholism Mother Problem (finding) alcoholism Father Problem (finding) gout Father Problem (finding) Arthritis Nephew Problem (finding) Diabetes mellitus Immunizations Vaccine Date Status Comments Flu (split) (3 yrs or older) refused Source: Other Provider Payers Payer name Insurance type Covered alliance party ID Authoriza tion(s) [facility] [employer] Group [id number] Social History Type Description Quantity Date Captured [...]
--- OUTSIDE RECORDS SUMMARY | 2024-09-25 15:05 | XMS_ITS | Encounter Summary ---
Author Name [facility] ([place]) Organization Department of [facility] ([place]) Address [address] [place] [id number] Care Team Providers Care Family Worker Name Role Phone RAJAN ZAHNG Primary Care Provider Unavailabl e Insurance Providers: [...] Patient's Relationship to Policy Montano [employer] [phone] PRESCRIPT ION PLASTICS HEAT WELDER S May 28, 2020 [facility] [id number] [phone] Daphnie BOOGIE PATIENT [facility] PREFERRED PROVIDER ORGANIZAT ION (PPO) PLASTICS HEAT WELDER S May 28, 2020 [id number] [phone] Daphnie BOOGIE PATIENT Selected Encounter This section includes the information on record at [place] for the Encounter. Date/Time Encounter Type Encounter Description Reason Provider Source September 28, 2023 08:00 AM OFFICE O/P EST LOW 20 MIN GENERAL SURGERY ICD-10-CM L72.3 Sebaceous cyst GRICEL WU IHJung Encounter Template Text not used by [facility] Assessments - Encounter Diagnoses This section includes the primary and secondary diagnoses documented for the Encounter. Date/Time Primary/Secondary Diagnosis Diagnosis Name Provider Source September 28, 2023 08:41 AM PRIMARY Sebaceous cyst TAVO MCELROY [facility] Plan of Treatment: Future Appointments (+ 6 months) and Future Tests (+/- 45 days) The Plan of Treatment section includes future care activities for the patient from [facility]. This section includes future appointments and future orders which are active, pending or scheduled. Future Appointments This section includes appointments that were scheduled to occur 6 months from the date of the Encounter, up to a maximum of 20 appointments. The data comes from all [place] treatment facilities. Appointment Date/Time Appointment Type Appointme nt Facility Name October 03, 2023 08:15 AM AMBULATORY - MEDICINE [facility] Dec 06, 2023 03:00 PM AMBULATORY - MEDICINE [facility] Dec 27, 2023 08:30 AM AMBULATORY - SURGERY [facility] Jan 10, 2024 03:00 PM AMBULATORY - MEDICINE [facility] Jan 16, 2024 02:00 PM AMBULATORY - MEDICINE [facility] Jan 16, 2024 02:30 PM AMBULATORY - MEDICINE [facility] Feb 05, 2024 10:00 AM AMBULATORY - MEDICINE [facility] Feb 15, 2024 08:00 AM AMBULATORY - SURGERY [facility] Feb 19, 2024 10:00 AM AMBULATORY - MEDICINE [facility] Mar 04, 2024 03:00 PM AMBULATORY - MEDICINE [facility] Mar 07, 2024 09:00 AM AMBULATORY - MEDICINE [facility] Mar 18, 2024 03:00 PM AMBULATORY - MEDICINE [facility] Mar 25, 2024 11:00 AM AMBULATORY - SURGERY [facility] Lab Results: +/- 30 days of the encounter This section includes the Chemistry and Hematology Lab Results on record with [place] for the patient. Radiology Reports and Pathology Reports are provided separately, in subsequent sections. Lab Results This section contains the Chemistry/Hematology Results that were resulted 30 days before or 30 daysafter the date of the Encounter. Date/Time Source Result Type Result - Unit Interpretation Reference Range Specimen Type Comment October 03, 2023 06:48 AM [facility] COMPREHENSIVE METABOLIC PANEL PLASMA Specimen Type: PLASMA Comment: No hemolysis noted. Ordering Provider: FERNANDO LOU Report Released Date/Time: Jul 04, 2023 09:41 AM Reporting Lab: [address] [address] Performing Lab: [address] [address] CREATININE 0.97 mg/dL 0.7-1.3 UREA NITROGEN 14.2 [...] 89.9 >60 October 03, 2023 06:48 AM [facility] CBC BLOOD Specimen Type: BLOOD No comment entered. Ordering Provider: ROBBY LOU Report Released Date/Time: Jul 04, 2023 09:41 AM Reporting Lab: [address] [address] Performing Lab: [address] [address] WBC 5.7 10*3/uL 3.6-11.2 RBC 3.90 10*6/uL [...] Pain Height Weight Body Mass Index Source September 28, 2023 07:49 AM 97.3 62 157/97 20 95 0 73 267.2 35 [facility] Social History: Smoking Status (Most current) and Tobacco Use (All prior to encounter date) This section includes the most current, and the historical, smoking and tobacco- related health factors from the [place] facility where the Encounter took place. Current Smoking Status This section includes the most current smoking, or tobacco-related health factor, from the [place] facility where the Encounter took place. Date/Time Current Smoking Status Comment Jerod ity May 17, 2022 12:02 PM VA-TOBACCO NEVER USED [facility] Tobacco Use History This section includes a history of the smoking, or tobacco-related health factors, that were collected on or before the date of the Encounter. The data comes from the [place] facility where the Encounter took place. Date/Time Smoking Status/Tobacco Use Comment F acility Mar 06, 2021 04:50 AM ORYX ADMIT TOBACCO SCREEN NO [facility] Jun 03, 2020 09:50 AM AR-TOBACCO NEVER USED [facility] Radiology Reports: +/- 30 days of [...] the Encounter. The data comes from all [facility] facilities. Date/Time Radiology Report Provider Source Sep 06, 2023 05:42 AM CHEST X-RAY, 2 VIE WS: TROY BOOGIE [id number] -[id number] M Exm Date: SEP 06, 2023@05:42 Req Phys: GRICEL WU Loc: -GEN SURG I CLINIC (Req'g Lo Img Loc: -MAIN RADIOLOGY SUITE Service: Unknown (Case [id number] COMPLETE) CHEST X-RAY, 2 VIEWS (RAD Detailed) CPT:38254 Reason for Study: Pre-op Clinical History: Pre-op Report Status: Verified Date Reported: SEP 06, 2023 Date Verified: SEP 06, 2023 Ccnp E-Sig:/ES/Tavo Castaneda MD. FACR. Report: History: Pre-op. Comparison: Prior chest examination-03/08/2022. Technique: PA and lateral views. Findings: No pulmonary consolidation, pleural effusion, pneumothorax, cardiomegaly or pulmonary edema is seen. Partially visible lower cervical fusion redemonstrated. Impression: No acute cardiopulmonary disease is seen. Primary Interpreting Staff: Tavo Castaneda MD. FACR, Neuroradiologist (Ccnp) /TAVO FAULKNER [facility] Pathology Reports: +/- 30 days of [...] the Encounter. The data comes from all [facility]. Date/Time Pathology Report Provider Source Sep 21, 2023 10:42 AM LR MICROBIOLOGY RE PORT: Accession [UID]: [id number] [[id number]] Received: Sep 21, 2023@11:30 Collection sample: SWAB Collection date: Sep 21, 2023 10:42 Site/Specimen: WOUND Provider: BROWN,SUE DIANNE Test(s) ordered: C&S CULTURES.................. completed: Sep 24, 2023 11:24 * BACTERIOLOGY FINAL REPORT => Sep 24, 2023 11:41 TECH CODE: [id number] GRAM STAIN: GRAM STAIN SHOWS MANY WBC'S. 09/21/23 Bacteriology Remark(s): Culture shows NO GROWTH IN 1 day. 09/22/2023 Culture shows NO GROWTH IN 2 DAYS. 09/23/23 Culture shows NO GROWTH IN 3 DAYS. 09/24/23 CAPRICE =--=--=--=--=--=--=--=--=- -=--=--=--=--=--=--=--=--= --=--=--=--=--=--=--=--=-- Performing Laboratory: Bacteriology Report Performed By: [facility] [address] [place] [address]# [id number] [address] [address] [facility] Sep 07, 2023 02:47 PM LR [...] - - - POSTOPERATIVE DIAGNOSIS: Surgeon/physician: GRICEL WU MD =-=-=-=-=-=-=-=-=-=-=-=-=- =-=-=-=-=-=-=-=-=-=-=-=-=- =-=-=-=-=-=-=-=-=-=-=-=-=- = - - [...] glistening. The cyst contains white-simons, soft contents. Home Appliance Tech sections are submitted in cassettes A1-A4. MICROSCOPIC EXAM: (Roque) Microscopic examination of the sections submitted from back cyst shows a keratinous cyst with focal surrounding chronic inflammation. DIAGNOSIS: BACK CYST, EXCISION: KERATINOUS CYST /everardo/ AILYN DIGGS Pathologist Signed Sep 07, 2023@14:47 Performing Laboratory: Surgical Pathology Report Performed By: [address] CLIA# [id number] 5 [facility] [address] [place] [address] $FTR - - - - - - - - - - - - - - - - - - - - - - - - - - - - - - - - - - - - - - - - (End of report) AILYN DIGGS MD [facility] Date Sep 07, 2023 - - - - - - - - - - - - - - - - - - - - - - - - - - - - - - - - - - - - - - - - TROY BOOGIE STANDARD FORM 515 ID:[id number] SEX:M :1965 AGE: 58 LOC:APFEE PCP: Adelina Campos MD /everardo/ AILYN DIGGS Pathologist Signed: 09/07/2023 14:[address] [facility] Encounter Notes: All associated encounter notes This section contains the clinical notes associated to the Encounter. Date/Time Encounter Note(s) Provider Source September 28, 2023 08:08 AM SURGERY NOTE: LOCAL TITLE: GENERAL SURGERY NOTE ST[facility] STANDARD TITLE: SURGERY NOTE DATE OF NOTE: SEPTEMBER 28, 2023@08:08 ENTRY DATE: SEPTEMBER 28, 2023@08:08:51 AUTHOR: TAVO MCELROY COSIGNER: GRICEL WU URGENCY: STATUS: COMPLETED GENERAL SURGERY NOTE [facility] Has ADDENDA GENERAL SURGERY I CLINIC VISIT CHIEF COMPLAINT: Wound check s/p seroma aspiration HISTORY OF PRESENT ILLNESS: 58 yo M with a PMHx of HLD, ED, diverticular disease s/p laparoscopic sigmoidectomy (06/14/2021, Davis), bilateral inguinal hernia s/p robotic assisted bilateral inguinal hernia repair w/mesh (06/26/2022, Rafael), polycythemia vera, keratinous cyst s/p excision (09/06/2023, Bryce) presenting to clinic for a wound check. The patient was last seen in clinic on 09/21/2023 for an initial wound check s/p upper back cyst excision, and had developed a fluid collection overlying his surgical site. Serosanguinous fluid was aspirated from the wound in clinic and sent for C&S (no growth in 3 days). The wound had a small area of central scabbing, but was otherwise well healed. Patient was discharged on a week of Bactrim and told to RTC for repeat wound check and suture removal. Today the patient no pain or recurrence of swelling over the surgical site. Patient also denies any more fluid leaking from the wound since his last visit. He has overall been doing well, and has no complaints. Denies fever/chills/nausea/vomiting /chest pain/shortness of breath. PAST MEDICAL HISTORY: 1) Past history of procedure 2) OA - Osteoarthritis ([facility] [id number]) 3) Senile macular degeneration 4) History of SARS-CoV-2 ([facility] [id number]) 5) Diverticular Disease of Colon ([facility] 082075389) 6) Obesity ([facility] [id number]) 7) Hyperlipidemia ([facility] [id number]) 8) Dupuytren's contracture 9) Tinnitus ([facility] 92003604) 10) Sebaceous cyst of skin 11) Hearing Loss ([facility] [id number]) 12) Vitamin D Deficiency ([facility] 0197371) 13) Erectile Dysfunction ([facility] [id number]) 14) History of colonic polyp 15) Epigastric hernia 16) Plantar heel pain 17) Impaired glucose tolerance 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 PAST SURGICAL HISTORY: -Back cyst excision (09/06/2023, Bryce) - Robotic-assisted bilateral inguinal hernia repair with mesh, Laparoscopic ventral incisional hernia repair with mesh (06/26/2022, Rafael) - Laparoscopic hand-assisted sigmoidectomy and primary umbilical hernia repair (06/14/2021, Davis) MEDICATIONS: Active Outpatient Medications (excluding Supplies): Issue Date Status Last Fill Active Outpatient Medications Refills Expiration 1) ACETAMINOPHEN 500MG TAB Qty: 200 for 30 ACTIVE Issu:12-06-22 days Sig: TAKE ONE TABLET BY MOUTH Refills: 1 Last:12-06-22 FOUR TIMES A DAY CAUTION: DO NOT Expr:12-07-23 EXCEED 4000MG PER DAY ACETAMINOPHEN (APAP) FROM ALL MEDS. 2) ASPIRIN 81MG EC TAB Qty: 120 for 90 ACTIVE Issu:07-04-23 days Sig: TAKE ONE TABLET BY MOUTH Refills: 1 Last:07-04-23 ONCE A DAY TAKE WITH FOOD. Expr:07-04-24 3) ATORVASTATIN CALCIUM 40MG TAB Qty: 45 ACTIVE (S) Issu:06-05-23 for 90 days Sig: TAKE ONE-HALF TABLET Refills: 2 Last:10-13-23 BY MOUTH EVERY EVENING TO LOWER Expr:06-05-24 CHOLESTEROL 4) CHOLECALCIF 50MCG (D3-2,000UNIT) TAB ACTIVE Issu:06-05-23 Qty: 100 for 90 days Sig: TAKE ONE Refills: 2 Last:09-12-23 TABLET BY MOUTH ONCE A DAY FOR VITAMIN Expr:06-05-24 D DEFICIENCY. 5) DICLOFENAC NA 1% TOP GEL Qty: 200 for ACTIVE Issu:06-05-23 30 days Sig: APPLY 2 GM TO AFFECTED Refills: 11 Last:06-05-23 AREA(S) FOUR TIMES A DAY NEEDED FOR Expr:06-05-24 PAIN/INFLAMMATION; NOT MORE THAN 16 GRAMS DAILY TO ANY LOWER EXTREMITY JOINT. NOT MORE THAN 8 GRAMS DAILY TO ANY UPPER EXTREMITY JOINT. MAX 32GM/DAY OVER ALL JOINTS. (MEASURE DOSE WITH RULER ATTACHED INSIDE BOX)FOR HEEL PAIN RELIEF 6) HYDROXYUREA 500MG CAP Qty: 180 for 90 ACTIVE Issu:12-13-22 days Sig: TAKE TWO CAPSULES BY MOUTH Refills: 0 Last:07-10-23 ONCE A DAY Expr:12-14-23 7) IBUPROFEN 600MG TAB Qty: 20 for 10 days ACTIVE Issu:09-06-23 Sig: TAKE ONE TABLET BY MOUTH FOUR Refills: 0 Last:09-06-23 TIMES A DAY NEEDED FOR PAIN TAKE Expr:10-06-23 WITH FOOD. 8) LATANOPROST 0.005% OPH SOLN Qty: 7.5 ACTIVE Issu:08-09-23 for 75 days Sig: INSTILL 1 DROP IN Refills: 3 Last:08-09-23 LEFT EYE EVERY EVENING FOR GLAUCOMA. Expr:08-09-24 KEEP REFRIGERATED UNTIL READY TO USE, THEN STORE AT ROOM TEMPERATURE FOR MAXIMUM OF 42 DAYS. 9) LIDOCAINE 5% PATCH Qty: 30 for 30 days ACTIVE Issu:12-06-22 Sig: APPLY 1 PATCH TO SKIN SITE ONCE A Refills: 2 Last:12-06-22 DAY APPLY PATCH AND PRESS FIRMLY FOR Expr:12-07-23 10-15 SECONDS. KEEP ON FOR 12 HOURS THEN REMOVE PATCH FOR 12 HOURS. 10) SILDENAFIL CITRATE 100MG TAB Qty: 9 for ACTIVE Issu:06-05-23 90 days Sig: TAKE ONE-HALF TABLET BY Refills: 2 Last:08-24-23 MOUTH ONE HOUR PRIOR TO SEXUAL Expr:06-05-24 ACTIVITY FOR ERECTILE DYSFUNCTION NEEDED - LIMIT 6 DOSES PER 30 DAYS 11) SULFAMETHOXAZOLE 800/TRIMETH 160MG TAB ACTIVE Issu:09-21-23 Qty: 14 for 7 days Sig: TAKE 1 TABLET Refills: 0 Last:09-21-23 BY MOUTH EVERY 12 HOURS FOR SKIN OR Expr:10-21-23 SOFT TISSUE INFECTION TAKE WITH WATER/AVOID SUNLIGHT. 12) TIMOLOL MALEATE 0.5% OPH SOLN Qty: 10 ACTIVE Issu:08-09-23 for 90 days Sig: INSTILL 1 DROP IN Refills: 3 Last:08-09-23 LEFT EYE EVERY MORNING FOR GLAUCOMA. Expr:08-09-24 USE INSPECTOR BALANCE TRUING BEFORE BREAKFAST Start Date Active Non-VA Medications Refills Expiration 1) Non-VA LATANOPROST 0.005% OPH SOLN Sig: ACTIVE 1 DROP LEFT EYE EVERY EVENING 2) Non-VA TIMOLOL MALEATE 0.5% OPH SOLN ACTIVE Si DROP LEFT EYE EVERY MORNING 14 Total Medications ALLERGIES: Patient has answered NKA ROS: Review of systems as per HPI and additionally notable for Constitutional: No fever, No weakness/ fatigue Cardiovascular: No chest pain, No palpitations Respiratory: No shortness of breath, No cough Genitourinary: No dysuria, No polyuria Neurology: No headache, No tremors Musculoskeletal: No joint pain, No back pain Skin: No rash, No itching Psychiatric: No anxiety, No depression PHYSICAL EXAM: Date Vital Measurement Qualifiers 09/28/2023 07:49 Temp F (C) 97.3 (36.3) Pulse 62 Respir 20 BP 157/97 Ht in (cm) 73 (185.42) Wt lbs (kg)[BMI] 267.2 (121.20)[35*] Pain 0 POx (L/Min)(%) 95 General No acute distress, well-nourished, appropriate HEENT Moist mucous membranes, no lesion or exudate Neck - Supple, no thyromegaly CV Normal rate, regular rhythm Lung- Symmetric chest rise and fall, unlabored breathing Skin - The surgical incision on the midline upper back is still cirucmscribed by a roughly 2x2cm area of erythema. Sutures are still in place. There is no fluctuance, and the area is not tender to palpation. LABS: WBC 6.0 10*3/uL 07/04/2023 06:46 RBC 3.64 L 10*6/uL 07/04/2023 06:46 HGB 14.6 g/dL 07/04/2023 06:46 HCT 40.4 % 07/04/2023 06:46 MCV 111.0 H fL 07/04/2023 06:46 MCH 40.1 H pg 07/04/2023 06:46 MCHC 36.1 H g/dL 07/04/2023 06:46 RDW 12.5 % 07/04/2023 06:46 PLT 241 10*3/uL 07/04/2023 06:46 MPV 9.7 fL 07/04/2023 06:46 NEUTROPHILS, AUTO % 81 % 07/04/2023 06:46 LYMPHOCYTES, AUTO % 11 % 07/04/2023 06:46 MONOCYTES, AUTO % 6 % 07/04/2023 06:46 EOSINOPHILS, AUTO % 0 % 07/04/2023 06:46 BASOPHILS, AUTO % 1 % 07/04/2023 06:46 NEUTROPHILS, ABSOLUTE 4.89 10*3/uL 07/04/2023 06:46 LYMPHOCYTES, ABSOLUTE 0.68 L 10*3/uL 07/04/2023 06:46 MONOCYTES, ABSOLUTE 0.37 10*3/uL 07/04/2023 06:46 EOSINOPHILS, ABSOLUTE 0.01 10*3/uL 07/04/2023 06:46 BASOPHILS, ABSOLUTE 0.03 10*3/uL 07/04/2023 06:46 ANISOCYTOSIS 1+ 07/04/2023 06:46 POIKILOCYTOSIS 1+ 07/04/2023 06:46 MACROCYTOSIS 1+ 07/04/2023 06:46 STOMATOCYTES 1+ 07/04/2023 06:46 SODIUM 134 L mEq/L 07/04/2023 06:46 POTASSIUM 3.7 mEq/L 07/04/2023 06:46 CHLORIDE 99 mEq/L 07/04/2023 06:46 UREA NITROGEN 11.9 mg/dL 07/04/2023 06:46 CREATININE 0.92 mg/dL 07/04/2023 06:46 CALCIUM 9.5 mg/dL 07/04/2023 06:46 PROTEIN 7.4 g/dL 07/04/2023 06:46 ALBUMIN 4.1 g/dL 07/04/2023 06:46 ALKALINE PHOSPHATASE 86 U/L 07/04/2023 06:46 ALT/SGPT 42 H U/L 07/04/2023 06:46 AST/SGOT 35 H U/L 07/04/2023 06:46 TOTAL BILIRUBIN 1.1 mg/dL 07/04/2023 06:46 CARBON DIOXIDE 26 mEq/L 07/04/2023 06:46 GLUCOSE 147 H mg/dL 07/04/2023 06:46 EGFR (CKD-EPI 2020) 96.4 07/04/2023 06:46 No INR EO data found IMAGING: PROGRESS NOTES SELECTED No data available for: CAROTID U/S EVALUATION MA Date Procedure CPT Status Case # 03/07/2023 CT ABDOMEN AND PELVIS W/O [id number] Verified 1039 No renal or ureteral calculi ASSESSMENT/PLAN: 58 year old male s/p keratinous cyst excision on upper back (09/06/2023, Bryce) presents 1 wk s/p seroma aspiration for a wound check. Cultures from the aspirated wound showed no growth in 3 days. The patient completed a one week course of Bactrim, and since the last visit on 09/21/2023 the patient has had no pain, swelling, or drainage from his surgical site. On exam the wound appears well healed and is nontender, but has a small area of erythema still. -The likely seroma has resolved,and is without infection. Sutures removed at the bedside today. Discussed signs of infection and instructed to RTC for further complications. No further routine follow up required at this time. FUTURE APPOINTMENTS: 10/03/2023 08:15 [facility]-ON[facility]Y DASHA 06/03/2024 09:30 [facility]-ST CLR PACT 5 PCP /everardo/ TAVO MCELROY PA Student Signed: 09/28/2023 08:41 /everardo/ GRICEL WU MD Staff Physician, General Surgery I Cosigned: 09/28/2023 09:40 09/28/2023 ADDENDUM STATUS: COMPLETED I have personally assessed the patient, reviewed the medical record and diagnostic studies, and agree with the residents assessment and plan. Patient is doing well. Incision looks good. Will remove sutures. Gricel Wu MD, MHS, FACS /everardo/ GRICEL WU MD Staff Physician, General Surgery I Signed: 09/28/2023 09:41 TAVO MCELROY [facility]
--- OUTSIDE RECORDS SUMMARY | 2024-09-25 15:06 | XMS_ITS | Clinical Summary ---
Author Organization [facility] Address [address] [place] [address] Phone Care Team Providers Care Quebracho Tanner Name Role Phone Eva Florence APRN, CNP Unavailable [phone] Allergies No known active allergies Medications timolol (TIMOPTIC) 0.5 % Solution Place 1 Drop in left eye 2 times daily. 4 8 Active sodium sulfate-potassi um sulfate-magnesi um sulfate (SUPREP) 17.5-3.13-1.6 GM/177ML Solution Take 64 mL by mouth once. Active atorvastatin (LIPITOR) 20 MG Tablet Take 1 Tab by mouth daily. Needs Appointment call [phone] to schedule 30 Tab 0 Active Active [...] on file Legal Sex Male 3:00 AM SENIOR JAVA WEB APPLICATION DEVELOPER Gender Identity Not on file Sexual [...] OCCULT BLOOD, DIAGNOSTIC STAT 05/19/2018 10:12 PM SENIOR JAVA WEB APPLICATION DEVELOPER PSA SCREEN Today 04/25/2018 9:59 AM SENIOR JAVA WEB APPLICATION DEVELOPER Encounter for preventive health examination (Adult) from Last 3 Months or Most Recently Relevant to Health Maintenance Results * (ABNORMAL) POCT STOOL, OCCULT BLOOD, DIAGNOSTIC POC49 (05/19/2018 10:12 PM SENIOR JAVA WEB APPLICATION DEVELOPER) OCCULT BLOOD, STOOL Positive(A) Negative, Other POC HEMOCULT CONTROL Brine Maker Pass 05/19/2018 10:1 2 PM SENIOR JAVA WEB APPLICATION DEVELOPER us Aurelio Mata TOGGLE PRESS OPERATOR, MALT HOUSE SUPERVISOR POINT OF CARE TEST ING (MANUAL) Edited Result - Final * PSA SCREEN (04/25/2018 9:59 AM SENIOR JAVA WEB APPLICATION DEVELOPER) PSA SCREEN, TOTAL 1.10 <4.00 ng/mL 04/25/2018 2:40 PM SENIOR JAVA WEB APPLICATION DEVELOPER [facility] Blood specimen (specimen) Venipuncture / Unknown 04/25/2018 9:59 AM SENIOR JAVA WEB APPLICATION DEVELOPER 04/25/2018 10:01 AM SENIOR JAVA WEB APPLICATION DEVELOPER Narrative [facility] - 04/25/2018 2:40 PM SENIOR JAVA WEB APPLICATION DEVELOPER The DEVELOPER SUPPORT ENGINEER Total PSA assay is a Chemiluminescent Microparticle Immunoassay (CMIA) for the quantitative determination of total PSA (both free PSA and PSA complexed to [id number]) in human serum. us Lovelynino rAce PAC CHEMISTRY ORDERABLES Final R esult [facility] [address] [place] [address], [place] from Last 3 Months or Most Recently Relevant to Health Maintenance Advance Directives * Full Code (Latest Code Status on File) Date Activated Date Inactivated Comments 05/20/2018 4:42 AM 05/20/2018 8:44 PM CPR-Full T reatment: FULL ARREST: Attempt Resuscitation/CPR wit intubation and mechanical ventilation. PRE-ARREST: Use entire range of life support measures to stabilize the patient. Care Teams Quebracho Tanner Relationship Specialty Start Date End Date Eva Florence TOGGLE PRESS OPERATOR, MALT HOUSE SUPERVISOR Gastroenterology 06/14/18
--- OUTSIDE RECORDS SUMMARY | 2024-09-25 15:06 | XMS_ITS | Referral Summary ---
Author Organization [facility] Address [address] [place] [id number] Care Team Providers Care Food Service Manager Name Role Phone Adelina Gutiérrez MD Primary [...] Administer 1 drop into the left eye science liaison before breakfast 15 mL 3 4 Active [...] mos. Assessment & Plan (07/10/2022 12:02 PM DIRECTOR OF PLAYER PERSONNEL): IOP acceptable on 2 classes today. CPM F/u in 6 mos. Assessment & Plan (12/30/2021 11:55 AM CDT): IOP stable on 2 classes. Stable on ON OCT. CPM with timolol qam and latanoprost qhs OS only. F/u in 6 mos for IOP ck. 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 No loss [...] OCT. Assessment & Plan (04/01/2020 1:55 PM DIRECTOR OF PLAYER PERSONNEL): Borderline IOP OS. No e/o optic neuropathy [...] home. Assessment & Plan (07/27/2022 9:32 AM DIRECTOR OF PLAYER PERSONNEL): Subjectively stable. subretinal fluid (SRF) today again self-limiting with improved and near resolution compared to 04/18. Debated previously whether this is CSCR vs. age-related macular degeneration (AMD). Given this is the second time it is self-limiting, likely CSCR but will continue to observe. RTC in 6 months. Assessment & Plan (07/10/2022 12:02 PM DIRECTOR OF PLAYER PERSONNEL): Stable acuity. Continue to use monocular precautions. F/u in 6 months for iop ck with OCT. Drivers license form filled out today. No restrictions. Assessment & Plan (04/13/2022 10:07 AM DIRECTOR OF PLAYER PERSONNEL): Subjectively stable. Increased subretinal fluid (SRF) today [...] December. Assessment & Plan (06/28/2021 10:02 AM DIRECTOR OF PLAYER PERSONNEL): Acuity stable. Limited visual potential. Keep follow up with Dr. Zepeda as scheduled. Monocular precautions reviewed. Assessment & Plan (06/06/2021 8:47 AM DIRECTOR OF PLAYER PERSONNEL): Patient with history of anti-VEGF injection. There [...] precautions. Assessment & Plan (06/07/2020 10:55 AM DIRECTOR OF PLAYER PERSONNEL): Essentially unchanged from previous exams, guarded prognosis reviewed with patient. Recommend observation. Patient will monitor his vision using Amsler grid especially for the right eye. Assessment & Plan (04/01/2020 1:57 PM DIRECTOR OF PLAYER PERSONNEL): No recurrence of central SRF on exam today. Small paramacular PED superiorly. Significant outer segment loss on OCT. Discussed guarded visual prognosis OS and reminded pt about monocular precautions. Recommended multimedia journalist wear of shatter resistant lenses. Pt reports he has glasses but never wears him. Reiterated their importance. Keep f/u with PKR as scheduled. Assessment & Plan (12/08/2019 11:47 AM CDT): No recurrence of subretinal fluid today without therapy, recommend observation. Assessment & Plan (06/12/2019 9:58 AM DIRECTOR OF PLAYER PERSONNEL): Subretinal fluid has improved without therapy, recommend [...] grid. Assessment & Plan (08/01/2018 12:56 PM DIRECTOR OF PLAYER PERSONNEL): Last IVL 05/09/18 [address] subretinal fluid (SRF) 06/20/18 Today stable subretinal fluid (SRF) Continue to observe. Assessment & Plan (06/20/2018 3:22 PM DIRECTOR OF PLAYER PERSONNEL): Trace subretinal fluid (SRF) stable. Fluorescein angiography was performed today demonstrates RPE changes however there is no active leakage.. Discussed with patient possibility of observation versus repeat injection. The OCT appears essentially unchanged. We have elected to observe the situation at this time. If the subretinal fluid worsens we may resume a intravitreal injections. Assessment & Plan (05/09/2018 2:27 PM DIRECTOR OF PLAYER PERSONNEL): Trace subretinal fluid (SRF) stable Angiography was [...] annually. Assessment & Plan (04/01/2020 1:57 PM DIRECTOR OF PLAYER PERSONNEL): Flat. Low risk. Observe. Resolved Problems Problem [...] on file Legal Sex Male 11:26 AM DIRECTOR OF PLAYER PERSONNEL Gender Identity Not on file Sexual Orientation Not on file Plan of Treatment Not on file Insurance [facility] Care Teams Food Service Manager Relationship Specialty Start Date End Date Adelina Gutiérrez MD [address] [place] [address] PCP - General Family Medicine 08/09/23
--- OUTSIDE RECORDS SUMMARY | 2024-09-25 15:06 | XMS_ITS | Clinical Summary ---
Author Organization [facility] Address [address] [place] [address] Care Team Providers Care Bank Examiner Name Role Phone Unavailable Primary Care Provider Unavailabl e Source Comments [facility],non-owned Affiliates and Associated Physician Practices is amultiple site organization consisting of ambulatory clinics and hospital sitesin [place], [place], [place] and [place]. This disclosure is being madepursuant to the Care Everywhere program and may not contain all information available regarding this patient. Last updated 18.[facility] Social History Tobacco Use Types Packs/Day Years [...]
--- OUTSIDE RECORDS SUMMARY | 2024-09-25 15:06 | XMS_ITS | Encounter Summary ---
Author Organization [facility] Address [address] [place] [address] Phone Care Team Providers Care Stave Saw Operator Name Role Phone Eva Florence APRN, CNP Unavailable [phone] Reason for Visit * Reason Comments Medication Refill Encounter Details Date Type Department Care Team (Late st Contact Info) Description 01/28/2020 Refill [facility] - Family Medicine - [facility] [address] [place], [place] [id number] Merritt Florence APRN, CNP [address] [place], [place] [id number] Medication Refill Social History Tobacco Use Types Packs/Day Years Used Date Smoking Tobacco: Never Smokeless Tobacco: Never Alcohol Use Standard Drinks/Week Comments Yes 6 (1 standard drink = 0.6 oz pur e alcohol) PHQ-2 Answer Date Recorded PHQ-2 Score 0 02/09/2019 Sex and Gender Information Value Date Recorded Sex Assigned at Not on file Legal Sex Male 3:00 AM 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
--- OUTSIDE RECORDS SUMMARY | 2024-09-25 15:06 | XMS_ITS | Clinical Summary ---
Author Organization [facility] Address [address] [place] [id number] Care Team Providers Care Container Repairer Name Role Phone Ambulatory, Nonhospital Cred Provider [...] patient's age to complete this topic Insurance [facility] Care Teams Container Repairer Relationship Specialty Start Date End Date Ambulatory, Nonhospital Cred Provider, HALI PCP - General INTERNAL MEDICINE 02/16/20
--- OUTSIDE RECORDS SUMMARY | 2024-09-25 15:06 | XMS_ITS | Clinical Summary ---
Author Organization [facility] Address [address] [place] [id number] Care Team Providers Care Contact Lens Assistant Name Role Phone Adelina Gutiérrez MD Primary [...] drop into the left eye early childhood specialist before breakfast 15 mL 3 4 Active [...] mos. Assessment & Plan (07/10/2022 12:02 PM HOME ORGANIZER): IOP acceptable on 2 classes today. CPM F/u in 6 mos. Assessment & Plan (12/30/2021 11:55 AM CDT): IOP stable on 2 classes. Stable on ON OCT. CPM with timolol qam and latanoprost qhs OS only. F/u in 6 mos for IOP ck. 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 No loss [...] OCT. Assessment & Plan (04/01/2020 1:55 PM HOME ORGANIZER): Borderline IOP OS. No e/o optic neuropathy [...] home. Assessment & Plan (07/27/2022 9:32 AM HOME ORGANIZER): Subjectively stable. subretinal fluid (SRF) today again self-limiting with improved and near resolution compared to 04/18. Debated previously whether this is CSCR vs. age-related macular degeneration (AMD). Given this is the second time it is self-limiting, likely CSCR but will continue to observe. RTC in 6 months. Assessment & Plan (07/10/2022 12:02 PM HOME ORGANIZER): Stable acuity. Continue to use monocular precautions. F/u in 6 months for iop ck with OCT. Drivers license form filled out today. No restrictions. Assessment & Plan (04/13/2022 10:07 AM HOME ORGANIZER): Subjectively stable. Increased subretinal fluid (SRF) today [...] December. Assessment & Plan (06/28/2021 10:02 AM HOME ORGANIZER): Acuity stable. Limited visual potential. Keep follow up with Dr. Zepeda as scheduled. Monocular precautions reviewed. Assessment & Plan (06/06/2021 8:47 AM HOME ORGANIZER): Patient with history of anti-VEGF injection. There [...] precautions. Assessment & Plan (06/07/2020 10:55 AM HOME ORGANIZER): Essentially unchanged from previous exams, guarded prognosis reviewed with patient. Recommend observation. Patient will monitor his vision using Amsler grid especially for the right eye. Assessment & Plan (04/01/2020 1:57 PM HOME ORGANIZER): No recurrence of central SRF on exam today. Small paramacular PED superiorly. Significant outer segment loss on OCT. Discussed guarded visual prognosis OS and reminded pt about monocular precautions. Recommended multimedia services manager wear of shatter resistant lenses. Pt reports he has glasses but never wears him. Reiterated their importance. Keep f/u with PKR as scheduled. Assessment & Plan (12/08/2019 11:47 AM CDT): No recurrence of subretinal fluid today without therapy, recommend observation. Assessment & Plan (06/12/2019 9:58 AM HOME ORGANIZER): Subretinal fluid has improved without therapy, recommend [...] grid. Assessment & Plan (08/01/2018 12:56 PM HOME ORGANIZER): Last IVL 05/09/18 [address] tr subretinal fluid (SRF) 06/20/18 Today stable subretinal fluid (SRF) Continue to observe. Assessment & Plan (06/20/2018 3:22 PM HOME ORGANIZER): Trace subretinal fluid (SRF) stable. Fluorescein angiography was performed today demonstrates RPE changes however there is no active leakage.. Discussed with patient possibility of observation versus repeat injection. The OCT appears essentially unchanged. We have elected to observe the situation at this time. If the subretinal fluid worsens we may resume a intravitreal injections. Assessment & Plan (05/09/2018 2:27 PM HOME ORGANIZER): Trace subretinal fluid (SRF) stable Angiography was [...] annually. Assessment & Plan (04/01/2020 1:57 PM HOME ORGANIZER): Flat. Low risk. Observe. Resolved Problems Problem [...] on file Legal Sex Male 11:26 AM HOME ORGANIZER Gender Identity Not on file Sexual Orientation [...] (2 - Td or Tdap) 05/08/202804/2018 Insurance [place] [facility] Care Teams Contact Lens Assistant Relationship Specialty Start Date End Date Adelina Gutiérrez MD [address] [facility] [place] [address] PCP - General Family Medicine 08/09/23
--- OUTSIDE RECORDS SUMMARY | 2024-09-25 15:06 | XMS_ITS | Continuity of Care Document ---
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 It does not include entries that were removed or entered in error. 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 [facility] Hearing Loss ([facility] [id number]) Active Condition [facility] History of colonic polyp Active Condition [facility] History of SARS-CoV-2 ([facility] [id number]) Active Condition [facility] Hyperlipidemia ([facility] [id number]) Active Condition [facility] Impaired glucose tolerance Active Condition [facility] OA - Osteoarthritis ([facility] [id number]) Active Condition [facility] Obesity ([facility] [id number]) Active Condition [facility] Obstructive sleep apnea Active Condition [facility] Past history of procedure [...] hand-assisted sigmoidectomy and primary umbilical hernia repair [facility] Plantar heel pain Active Condition [facility] Sebaceous cyst of skin Active Condition [facility] Senile macular degeneration Active Condition [facility] Tinnitus ([facility] [id number]) Active Condition [facility] Vitamin D Deficiency ([facility] [id number]) Active Condition [facility] Diagnosis: ICD-10-CM R10.9 Unspecified abdominal pain Active Diagnosis [facility] Diagnosis: ICD-10-CM D45 Polycythemia vera Active Diagnosis [facility] Diagnosis: ICD-10-CM R49.0 Dysphonia Active Diagnosis [facility] Diagnosis: ICD-10-CM R49.9 Unspecified voice and resonance disorder Active Diagnosis [facility] Diagnosis: ICD-10-CM R49.8 Other voice and resonance disorders Active Diagnosis [facility] Diagnosis: ICD-10-CM 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 Active Diagnosis [facility] Diagnosis: ICD-10-CM F41.9 Anxiety disorder, unspecified Active Diagnosis [facility] Diagnosis: ICD-10-CM 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, left eye, with actv chrdl neovas Active Diagnosis [facility] Diagnosis: ICD-10-CM H35.81 Retinal edema Active Diagnosis [facility] Diagnosis: ICD-10-CM E78.5 Hyperlipidemia, unspecified Active Diagnosis [facility] Diagnosis: ICD-10-CM I10 Essential (primary) hypertension Active Diagnosis [facility] Diagnosis: ICD-10-CM E83.119 Hemochromatosis, unspecified Active Diagnosis [facility] Diagnosis: ICD-10-CM H52.4 Presbyopia Active Diagnosis [facility] Diagnosis: ICD-10-CM L72.3 Sebaceous cyst Active Diagnosis [facility] Diagnosis: ICD-10-CM D23.5 Other benign neoplasm of skin of trunk Active Diagnosis [facility] Diagnosis: ICD-10-CM Z01.818 Encounter for other preprocedural examination Active Diagnosis [facility] Diagnosis: ICD-10-CM R52 Pain, unspecified Active Diagnosis [facility] Diagnosis: ICD-10-CM H35.30 Unspecified macular degeneration Active Diagnosis [facility] Diagnosis: ICD-10-CM L72.9 Follicular cyst of the skin and subcutaneous tissue, unsp Active Diagnosis [facility] Medications Combined list of outpatient medications from [...] (APAP) FROM ALL MEDS. ORAL ACTIVE 10/20/2024 [id number] GENCHRISTOPHER ENGLAND IED 2024 40 [facility] AMLODIPINE BESYLATE 5MG TAB TAKE ONE TABLET BY MOUTH ONCE A DAY FOR HIGH BLOOD PRESSURE ORAL ACTIVE 04/18/2025 [id number] 5 FANNY CAMPBELL 2023 90 [facility] ASPIRIN 81MG TAB,EC TAKE ONE TABLET BY MOUTH ONCE A DAY TAKE WITH FOOD. ORAL SUSPEND ED 04/17/2025 [id number] 5 PRETNOEL HARRISOR M 2024 120 [facility] ASPIRIN 81MG TAB,EC TAKE ONE TABLET BY MOUTH ONCE A DAY TAKE WITH FOOD. ORAL DISCONT INUED 07/04/2024 [id number] COCO TAYLOR 2023 120 [facility] ATORVASTATI N CA 40MG TAB TAKE ONE-HALF TABLET BY MOUTH EVERY EVENING TO LOWER CHOLESTE ROL ORAL ACTIVE 06/11/2025 [id number] 5 FANNY CAMPBELL 2024 45 [facility] ATORVASTATI N CA 40MG TAB TAKE ONE-HALF TABLET BY MOUTH EVERY EVENING TO LOWER CHOLESTE ROL ORAL DISCONT INUED 06/05/2024 [id number] [place] TTISA 2023 45 [facility] CHLORHEXIDI NE GLUCONATE 4% LIQUID,TOP APPLY SMALL AMOUNT TO AFFECTED AREA(S) DIRECTED FOR TOPICAL USE ONLY. AVOID CONTACT WITH EYES. PREOPERA TIVE SHOWER WASH TOPICA L 08/19/2023 [id number] 4 Jung DHILLON 2023 120 [facility] CHOLECALCIF KATHI 50MCG (2,000UNIT) TAB TAKE ONE TABLET BY MOUTH ONCE A DAY FOR VITAMIN D DEFICIEN CY. ORAL ACTIVE 06/11/2025 [id number] 5 FANNY CAMPBELL 2024 100 [facility] CHOLECALCIF KATHI 50MCG (2,000UNIT) TAB TAKE ONE TABLET BY MOUTH ONCE A DAY FOR VITAMIN D DEFICIEN CY. ORAL DISCONT INUED 06/05/2024 [id number] [place] 2023 100 [facility] DICLOFENAC NA 1% GEL,TOP APPLY 2 GM TO AFFECTED AREA(S) FOUR TIMES A DAY NEEDED FOR PAIN/INF LAMMATIO N; NOT MORE THAN 16 GRAMS DAILY TO ANY LOWER EXTREMIT Y JOINT. NOT MORE THAN 8 GRAMS DAILY TO ANY UPPER EXTREMIT Y JOINT. MAX 32GM/DAY OVER ALL JOINTS. (MEASURE DOSE WITH RULER ATTACHED INSIDE BOX)FOR HEEL PAIN RELIEF TOPICA L ACTIVE 06/11/2025 [id number] 5 FANNY CAMPBELL 2024 200 [facility] HYDROXYUREA 500MG CAP TAKE THREE CAPSULES BY MOUTH ONCE A DAY POLYCYTH EMIA VERA ORAL ACTIVE 12/16/2024 [id number] 5 NOEL SILVER 2024 270 [facility] HYDROXYUREA 500MG CAP TAKE TWO CAPSULES BY MOUTH ONCE A DAY ORAL DISCONT INUED (EDIT) 04/16/2024 [id number] NOEL SILVER 2023 180 [facility] HYDROXYUREA 500MG CAP TAKE TWO CAPSULES BY MOUTH ONCE A DAY ORAL DISCONT INUED 10/03/2024 [id number] PRETNOEL HARRIS 2023 180 [facility] HYDROXYUREA 500MG CAP TAKE TWO CAPSULES BY MOUTH ONCE A DAY ORAL DISCONT INUED 12/14/2023 [id number] ROBBY LEÓN 2022 180 [facility] HYDROXYUREA 500MG CAP TAKE TWO CAPSULES BY MOUTH ONCE A DAY POLYCYTH EMIA VERA ORAL 07/15/2024 [id number] 5 PRETNOEL HARRIS 2024 180 [facility] IBUPROFEN 600MG TAB TAKE ONE TABLET BY MOUTH FOUR TIMES A DAY NEEDED FOR PAIN TAKE WITH FOOD. ORAL 10/06/2023 [id number] LEIDA SULLIVAN AN W 2023 20 [facility] LATANOPROST 0.005% SOLN,OPH INSTILL 1 DROP IN LEFT EYE EVERY EVENING FOR GLAUCOMA . KEEP REFRIGER ATED UNTIL READY TO USE, THEN STORE AT ROOM TEMPERAT URE FOR MAXIMUM OF 42 DAYS. OPHTHA LMIC 08/09/2024 [id number] Lizz SUNSHINE OD [address] [facility] LATANOPROST 0.005% SOLN,OPH INSTILL 1 DROP IN LEFT EYE EVERY EVENING OPHTHA LMIC ACTIVE PACE,VICT OR M 2020 [facility] LOSARTAN POTASSIUM 100MG TAB TAKE ONE-HALF TABLET BY MOUTH ONCE A DAY FOR HIGH BLOOD PRESSURE ORAL ACTIVE 01/22/2025 [id number] 5 FANNY CAMPBELL 2023 45 [facility] ONDANSETRON HCL 8MG TAB TAKE ONE-HALF TABLET BY MOUTH THREE TIMES A DAY NEEDED FOR NAUSEA/V OMITING ORAL ACTIVE 10/20/2024 [id number] CHRISTOPHER CASTRO IED 2024 12 [facility] PANTOPRAZOL E NA 40MG TAB,EC TAKE ONE TABLET BY MOUTH EVERY MORNING BEFORE A MEAL FOR GASTROES OPHAGEAL REFLUX DISEASE TAKE 30 MINUTES BEFORE MEAL(S) ORAL ACTIVE 07/31/2025 [id number] 5 FANNY CAMPBELL 2024 90 [facility] SILDENAFIL CITRATE 100MG TAB TAKE ONE-HALF TABLET BY MOUTH ONE HOUR PRIOR TO SEXUAL ACTIVITY FOR ERECTILE DYSFUNCT ION NEEDED - LIMIT 6 DOSES PER 30 DAYS ORAL ACTIVE 06/11/2025 [id number] 5 FANNY CAMPBELL 2024 9 [facility] SILDENAFIL CITRATE 100MG TAB TAKE ONE-HALF TABLET BY MOUTH ONE HOUR PRIOR TO SEXUAL ACTIVITY FOR ERECTILE DYSFUNCT ION NEEDED - LIMIT 6 DOSES PER 30 DAYS ORAL DISCONT INUED 06/05/2024 [id number] ME ISSA TTISA 2023 9 [facility] SULFAMETHOX AZOLE 800MG/TRIME THOPRIM 160MG TAB TAKE 1 TABLET BY MOUTH EVERY 12 HOURS FOR SKIN OR SOFT TISSUE INFECTIO N TAKE WITH WATER/AV OID SUNLIGHT . ORAL 10/21/2023 [id number] Jung DHILLON 2023 14 [facility] TIMOLOL MALEATE 0.5% SOLN,OPH INSTILL 1 DROP IN LEFT EYE EVERY MORNING FOR GLAUCOMA . USE [employer]PER[employer] BEFORE BREAKFAS T OPHTHA LMIC 08/09/2024 [id number] 4 Lizz SUNSHINE D OD 2023 10 [facility] TIMOLOL MALEATE 0.5% SOLN,OPH INSTILL 1 DROP IN LEFT EYE EVERY MORNING OPHTHA LMIC ACTIVE ARMANI,RICCARDOT OR M 2020 [facility] Immunizations Combined list of available immunizations from the Department of Defense and Veterans Affairs facilities. Immunization Series Date Given Administered By Site Reaction Lot Number CVX Code Drug Collision Worker Status Comments Source INFLUENZA, INJECTABLE, QUADRIVALENT, PRESERVATIVE FREE 2020 150 complet ed [facility] COVID-19 ([employer]), MRNA, LNP-S, PF, 30 MCG/0.3 ML DOSE 2 2020 208 complet ed HISTORICA L INFORMATI ON - FROM OTHER REGISTRY, [facility] COVID-19 ([employer]), MRNA, LNP-S, PF, 30 MCG/0.3 ML DOSE 1 2020 208 complet ed HISTORICA L INFORMATI ON - FROM OTHER REGISTRY, [facility] TDAP 2017 115 complet ed [facility] Results Combined list [...] Sep 20, 2024 08:15 AM Reporting Lab: [facility] [address] [facility] [address] Performing Lab: [facility] [address] [address] [facility] URINALYS IS (ST[facility]-PB) BILIRUBIN. TOTAL [PRESENCE] IN URINE BY TEST STRIP Negative mg/dL 09/20 Specimen Type: URINE No comment entered. Ordering Provider: SYDNEY CASTRO Report Released Date/Time: Sep 20, 2024 08:15 AM Reporting Lab: [place] [address] [address] Performing Lab: [address] [address] [facility] URINALYS IS (STL-PB) PH OF URINE BY TEST STRIP 7.0 5.0 - 8.0 09/20 Specimen Type: URINE No comment entered. Ordering Provider: SYDNEY CASTRO Report Released Date/Time: Sep 20, 2024 08:15 AM Reporting Lab: [place] [address] [address] Performing Lab: [address] [phone] [place] [address] URINALYS IS (STL-PB) APPEARANCE OF URINE Clear 09/20 Specimen Type: URINE No comment entered. Ordering Provider: SYDNEY CASTRO Report Released Date/Time: Sep 20, 2024 08:15 AM Reporting Lab: [place] [address] [address] Performing Lab: [address] [phone] [place] [address] URINALYS IS (STL-PB) NITRITE [PRESENCE] IN URINE BY TEST STRIP Negative mg/dL 09/20 Specimen Type: URINE No comment entered. Ordering Provider: SYDNEY CASTRO Report Released Date/Time: Sep 20, 2024 08:15 AM Reporting Lab: [place] [address] [address] Performing Lab: [address] [address] [facility] URINALYS IS (STL-PB) GLUCOSE [MASS/VOLU ME] IN URINE BY TEST STRIP Normalmg /dL 09/20 Specimen Type: URINE No comment entered. Ordering Provider: SYDNEY CASTRO Report Released Date/Time: Sep 20, 2024 08:15 AM Reporting Lab: [place] [address] [address] Performing Lab: [address] [address] [facility] URINALYS IS (STL-PB) PROTEIN [MASS/VOLU ME] IN URINE BY TEST STRIP Negative mg/dL 09/20 Specimen Type: URINE No comment entered. Ordering Provider: SYDNEY CASTRO Report Released Date/Time: Sep 20, 2024 08:15 AM Reporting Lab: [place] [address] [address] Performing Lab: [address] [address] [facility] URINALYS IS (STL-PB) URN.UROBIL INOGEN Normalmg /dL 09/20 Specimen Type: URINE No comment entered. Ordering Provider: SYDNEY CASTRO Report Released Date/Time: Sep 20, 2024 08:15 AM Reporting Lab: [place] [address] [address] Performing Lab: [address] [address] [facility] URINALYS IS (STL-PB) HEMOGLOBIN [MASS/VOLU ME] IN URINE BY TEST STRIP Negative mg/dL 09/20 Specimen Type: URINE No comment entered. Ordering Provider: SYDNEY CASTRO Report Released Date/Time: Sep 20, 2024 08:15 AM Reporting Lab: [place] [address] [address] Performing Lab: [address] [address] [facility] URINALYS IS (STL-PB) KETONES [MASS/VOLU ME] IN URINE BY TEST STRIP Negative mg/dL 09/20 Specimen Type: URINE No comment entered. Ordering Provider: SYDNEY CASTRO Report Released Date/Time: Sep 20, 2024 08:15 AM Reporting Lab: [address] [address] Performing Lab: [address] [phone] URINALYS IS (STL-PB) URN.LEUK.E ST. Negative mg/dL 09/20 Specimen Type: URINE No comment entered. Ordering Provider: SYDNEY CASTRO Report Released Date/Time: Sep 20, 2024 08:15 AM Reporting Lab: [address] [address] Performing Lab: [address] URINALYS IS (STL-PB) SPECIFIC GRAVITY OF URINE 1.033 09/20 H Specimen Type: URINE No comment entered. Ordering Provider: SYDNEY CASTRO Report Released Date/Time: Sep 20, 2024 08:15 AM Reporting Lab: [address] [address] Performing Lab: [address] [phone] CBC LEUKOCYTES [#/VOLUME] IN BLOOD BY AUTOMATED COUNT 10.8 10*3/uL 3.6 - 11.2 09/20 Specimen Type: BLOOD No comment entered. Ordering Provider: SYDNEY CASTRO Report Released Date/Time: Sep 20, 2024 08:10 AM Reporting Lab: [address] [address] Performing Lab: [address] [phone] [address] CBC ERYTHROCYT ES [#/VOLUME] IN BLOOD BY AUTOMATED COUNT 4.57 10*6/uL 4.10 - 5.70 09/20 Specimen Type: BLOOD No comment entered. Ordering Provider: SYDNEY CASTRO Report Released Date/Time: Sep 20, 2024 08:10 AM Reporting Lab: [address] [address] Performing Lab: [address] [address] [facility] CBC HEMOGLOBIN [MASS/VOLU ME] IN BLOOD 16.0 g/dL 13.1 - 16.8 09/20 Specimen Type: BLOOD No comment entered. Ordering Provider: SYDNEY CASTRO Report Released Date/Time: Sep 20, 2024 08:10 AM Reporting Lab: [address] [address] Performing Lab: [address] [phone] [place] [address] CBC HEMATOCRIT [VOLUME FRACTION] OF BLOOD 46.3 38.2 - 48.4 09/20 Specimen Type: BLOOD No comment entered. Ordering Provider: SYDNEY CASTRO Report Released Date/Time: Sep 20, 2024 08:10 AM Reporting Lab: [address] [address] Performing Lab: [address] [address] [facility] CBC MCV [ENTITIC VOLUME] BY AUTOMATED COUNT 101.3 fL 80.0 - 100.0 09/20 H Specimen Type: BLOOD No comment entered. Ordering Provider: SYDNEY CASTRO Report Released Date/Time: Sep 20, 2024 08:10 AM Reporting Lab: [place] [address] [address] Performing Lab: [address] [address] [facility] CBC MCH [ENTITIC MASS] BY AUTOMATED COUNT 35.0 pg 27.0 - 34.0 09/20 H Specimen Type: BLOOD No comment entered. Ordering Provider: SYDNEY CASTRO Report Released Date/Time: Sep 20, 2024 08:10 AM Reporting Lab: [place] [address] [address] Performing Lab: [address] [address] [facility] CBC MCHC [MASS/VOLU ME] BY AUTOMATED COUNT 34.6 g/dL 33.0 - 36.0 09/20 Specimen Type: BLOOD No comment entered. Ordering Provider: SYDNEY CASTRO Report Released Date/Time: Sep 20, 2024 08:10 AM Reporting Lab: [place] [address] [address] Performing Lab: [address] [address] [facility] CBC PLATELETS [#/VOLUME] IN BLOOD BY AUTOMATED COUNT 409 10*3/uL 150 - 400 09/20 H Specimen Type: BLOOD No comment entered. Ordering Provider: SYDNEY CASTRO Report Released Date/Time: Sep 20, 2024 08:10 AM Reporting Lab: [place] [address] [address] Performing Lab: [address] [address] [facility] CBC PLATELET MEAN VOLUME [ENTITIC VOLUME] IN BLOOD BY AUTOMATED COUNT 10.7 fL 7.5 - 11.2 09/20 Specimen Type: BLOOD No comment entered. Ordering Provider: SYDNEY CASTRO Report Released Date/Time: Sep 20, 2024 08:10 AM Reporting Lab: [place] [address] [address] Performing Lab: [address] [address] [facility] CBC ERYTHROCYT E DISTRIBUTI ON WIDTH [RATIO] BY AUTOMATED COUNT 13.7 11.8 - 15.1 09/20 Specimen Type: BLOOD No comment entered. Ordering Provider: SYDNEY CASTRO Report Released Date/Time: Sep 20, 2024 08:10 AM Reporting Lab: [facility] [address] [facility] [address] Performing Lab: [facility] [address] [address] [facility] CBC LYMPHOCYTE S/100 LEUKOCYTES IN BLOOD BY AUTOMATED COUNT 7 09/20 Specimen Type: BLOOD No comment entered. Ordering Provider: SYDNEY CASTRO Report Released Date/Time: Sep 20, 2024 08:10 AM Reporting Lab: [facility] [address] [address] Performing Lab: [facility] [address] [address] [facility] CBC MONOCYTES/ 100 LEUKOCYTES IN BLOOD BY AUTOMATED COUNT 4 09/20 Specimen Type: BLOOD No comment entered. Ordering Provider: SYDNEY CASTRO Report Released Date/Time: Sep 20, 2024 08:10 AM Reporting Lab: [facility] [address] [facility] [address] Performing Lab: [facility] [address] [address] [facility] CBC NEUTROPHIL S/100 LEUKOCYTES IN BLOOD BY AUTOMATED COUNT 87 09/20 Specimen Type: BLOOD No comment entered. Ordering Provider: SYDNEY CASTRO Report Released Date/Time: Sep 20, 2024 08:10 AM Reporting Lab: [facility] [address] [facility] [address] Performing Lab: [facility] [address] [facility] [address] [facility] CBC EOSINOPHIL S/100 LEUKOCYTES IN BLOOD BY AUTOMATED COUNT 0 09/20 Specimen Type: BLOOD No comment entered. Ordering Provider: SYDNEY CASTRO Report Released Date/Time: Sep 20, 2024 08:10 AM Reporting Lab: [facility] [address] [address] Performing Lab: [place] [address] [address] [facility] CBC BASOPHILS/ 100 LEUKOCYTES IN BLOOD BY AUTOMATED COUNT 1 09/20 Specimen Type: BLOOD No comment entered. Ordering Provider: SYDNEY CASTRO Report Released Date/Time: Sep 20, 2024 08:10 AM Reporting Lab: [place] [address] [address] Performing Lab: [place] [address] [address] [facility] CBC LYMPHOCYTE S [#/VOLUME] IN BLOOD BY AUTOMATED COUNT 0.79 10*3/uL 0.77 - 4.50 09/20 Specimen Type: BLOOD No comment entered. Ordering Provider: SYDNEY CASTRO Report Released Date/Time: Sep 20, 2024 08:10 AM Reporting Lab: [place] [address] [address] Performing Lab: [place] [address] [address] [facility] CBC MONOCYTES [#/VOLUME] IN BLOOD BY AUTOMATED COUNT 0.44 10*3/uL 0.19 - 0.80 09/20 Specimen Type: BLOOD No comment entered. Ordering Provider: SYDNEY CASTRO Report Released Date/Time: Sep 20, 2024 08:10 AM Reporting Lab: [place] [address] [address] Performing Lab: [address] [address] [facility] CBC NEUTROPHIL S [#/VOLUME] IN BLOOD BY AUTOMATED COUNT 9.47 10*3/uL 2.10 - 8.00 09/20 H Specimen Type: BLOOD No comment entered. Ordering Provider: SYDNEY CASTRO Report Released Date/Time: Sep 20, 2024 08:10 AM Reporting Lab: [place] [address] [address] Performing Lab: [place] [id number] CBC EOSINOPHIL S [#/VOLUME] IN BLOOD BY AUTOMATED COUNT 0.01 10*3/uL 0.00 - 0.60 09/20 Specimen Type: BLOOD No comment entered. Ordering Provider: SYDNEY CASTRO Report Released Date/Time: Sep 20, 2024 08:10 AM Reporting Lab: [place] [address] Performing Lab: [address] CBC BASOPHILS [#/VOLUME] IN BLOOD BY AUTOMATED COUNT 0.08 10*3/uL 0.00 - 0.20 09/20 Specimen Type: BLOOD No comment entered. Ordering Provider: SYDNEY CASTRO Report Released Date/Time: Sep 20, 2024 08:10 AM Reporting Lab: [place] [address] Performing Lab: [address] COMPREHE NSIVE METABOLI C PANEL CREATININE [...] Sep 20, 2024 08:10 AM Reporting Lab: [place] [address] Performing Lab: [address] COMPREHE NSIVE METABOLI C PANEL UREA NITROGEN [MASS/VOLU ME] IN SERUM OR PLASMA 12.3 mg/dL 9.0 - 25.0 09/20 Specimen Type: PLASMA Comment: Aspartate Transaminas e result may show positive bias due to hemolysis. K result canceled due to hemolysis. Specimen moderately hemolyzed. Notified Huong Cason RN @0914 [facility] 09.20.24 Ordering Provider: SYDNEY CASTRO Report Released Date/Time: Sep 20, 2024 08:10 AM Reporting Lab: [facility] [address] [address] Performing Lab: [facility] [address] [address] [facility] COMPREHE NSIVE METABOLI C PANEL GLUCOSE [MASS/VOLU ME] IN SERUM OR PLASMA 137 mg/dL 72 - 99 09/20 H Specimen Type: PLASMA Comment: Aspartate Transaminas e result may show positive bias due to hemolysis. K result canceled due to hemolysis. Specimen moderately hemolyzed. Notified Huong Cason RN @0914 [facility] 09.20.24 Ordering Provider: SYDNEY CASTRO Report Released Date/Time: Sep 20, 2024 08:10 AM Reporting Lab: [facility] [address] [address] Performing Lab: [facility] [address] [address] [facility] COMPREHE NSIVE METABOLI C PANEL SODIUM [MOLES/VOL UME] IN SERUM OR PLASMA 135 meq/L 136 - 145 09/20 L Specimen Type: PLASMA Comment: Aspartate Transaminas e result may show positive bias due to hemolysis. K result canceled due to hemolysis. Specimen moderately hemolyzed. Notified Huong Cason RN @0914 [facility] 09.20.24 Ordering Provider: SYDNEY CASTRO Report Released Date/Time: Sep 20, 2024 08:10 AM Reporting Lab: [facility] [address] [facility] [id number] Performing Lab: [facility] [address] [id number] [facility] COMPREHE NSIVE METABOLI C PANEL POTASSIUM [MOLES/VOL UME] IN SERUM OR PLASMA cancmeq/ L 3.5 - 5 09/20 Specimen Type: PLASMA Comment: Aspartate Transaminas e result may show positive bias due to hemolysis. K result canceled due to hemolysis. Specimen moderately hemolyzed. Notified Huong Cason RN @09[facility] 09.20.24 Ordering Provider: SYDNEY CASTRO Report Released Date/Time: Sep 20, 2024 08:10 AM Reporting Lab: [facility] [address] [id number] Performing Lab: [place] [id number] COMPREH NSIVE METABOLI C PANEL CHLORIDE [MOLES/VOL UME] IN SERUM OR PLASMA 104 meq/L 98 - 107 09/20 Specimen Type: PLASMA Comment: Aspartate Transaminas e result may show positive bias due to hemolysis. K result canceled due to hemolysis. Specimen moderately hemolyzed. Notified Huong Cason RN @0914 [facility] 09.20.24 Ordering Provider: SYDNEY CASTRO Report Released Date/Time: Sep 20, 2024 08:10 AM Reporting Lab: [place] [phone] Performing Lab: [place] [address] [facility] [phone] COMPREHE NSIVE METABOLI C PANEL CARBON DIOXIDE, TOTAL [MOLES/VOL UME] IN SERUM OR PLASMA 20 meq/L 22 - 31 09/20 L Specimen Type: PLASMA Comment: Aspartate Transaminas e result may show positive bias due to hemolysis. K result canceled due to hemolysis. Specimen moderately hemolyzed. Notified Huong Cason RN @0914 [facility] 09.20.24 Ordering Provider: SYDNEY CASTRO Report Released Date/Time: Sep 20, 2024 08:10 AM Reporting Lab: [address] [address] Performing Lab: [address] [facility] [address] [facility] COMPREHE NSIVE METABOLI C PANEL CALCIUM [MASS/VOLU ME] IN SERUM OR PLASMA 9.0 mg/dL 8.4 - 10.4 09/20 Specimen Type: PLASMA Comment: Aspartate Transaminas e result may show positive bias due to hemolysis. K result canceled due to hemolysis. Specimen moderately hemolyzed. Notified Huong Cason RN @[address] [place] [address] 09.20.24 Ordering Provider: SYDNEY CASTRO Report Released Date/Time: Sep 20, 2024 08:10 AM Reporting Lab: [place] [address] [facility] [address] Performing Lab: [place] [address] [address] [facility] [address] [facility] COMPREHE NSIVE METABOLI C PANEL PROTEIN [MASS/VOLU ME] IN SERUM OR PLASMA 7.8 g/dL 6 - 8.6 09/20 Specimen Type: PLASMA Comment: Aspartate Transaminas e result may show positive bias due to hemolysis. K result canceled due to hemolysis. Specimen moderately hemolyzed. Notified Huong Cason RN @0914 [facility] 09.20.24 Ordering Provider: SYDNEY CASTRO Report Released Date/Time: Sep 20, 2024 08:10 AM Reporting Lab: [place] [address] [address] [facility] [address] Performing Lab: [place] [address] [address] [facility] [address] [facility] COMPREHE NSIVE METABOLI C PANEL ALBUMIN [MASS/VOLU ME] IN SERUM OR PLASMA 4.1 g/dL 3.4 - 5 09/20 Specimen Type: PLASMA Comment: Aspartate Transaminas e result may show positive bias due to hemolysis. K result canceled due to hemolysis. Specimen moderately hemolyzed. Notified Huong Cason RN @0914 [facility] 09.20.24 Ordering Provider: SYDNEY CASTRO Report Released Date/Time: Sep 20, 2024 08:10 AM Reporting Lab: [place] [address] [place] [phone] Performing Lab: [address] COMPREHE NSIVE METABOLI C PANEL BILIRUBIN. TOTAL [MASS/VOLU ME] IN SERUM OR PLASMA 1.1 mg/dL 0.2 - 1.2 09/20 Specimen Type: PLASMA Comment: Aspartate Transaminas e result may show positive bias due to hemolysis. K result canceled due to hemolysis. Specimen moderately hemolyzed. Notified Huong Cason RN @0914 [facility] 09.20.24 Ordering Provider: SYDNEY CASTRO Report Released Date/Time: Sep 20, 2024 08:10 AM Reporting Lab: [place] [address] Performing Lab: [address] COMPREHE NSIVE METABOLI C PANEL ALKALINE PHOSPHATAS E [ENZYMATIC ACTIVITY/V OLUME] IN SERUM OR PLASMA 93 U/L 40 - 150 09/20 Specimen Type: PLASMA Comment: Aspartate Transaminas e result may show positive bias due to hemolysis. K result canceled due to hemolysis. Specimen moderately hemolyzed. Notified Huong Cason RN @0914 [facility] 09.20.24 Ordering Provider: SYDNEY CASTRO Report Released Date/Time: Sep 20, 2024 08:10 AM Reporting Lab: [place] [address] Performing Lab: [place] [address] [place] [phone] COMPREHE NSIVE METABOLI C PANEL ASPARTATE AMINOTRANS FERASE [ENZYMATIC ACTIVITY/V OLUME] IN SERUM OR PLASMA 58 U/L 5 - 34 09/20 H Specimen Type: PLASMA Comment: Aspartate Transaminas e result may show positive bias due to hemolysis. K result canceled due to hemolysis. Specimen moderately hemolyzed. Notified Huong Cason RN @0914 [facility] 09.20.24 Ordering Provider: SYDNEY CASTRO Report Released Date/Time: Sep 20, 2024 08:10 AM Reporting Lab: [place] [address] [facility] [address] Performing Lab: [facility] [address] [facility] [address] [facility] COMPREHE NSIVE METABOLI C PANEL ALANINE AMINOTRANS FERASE [ENZYMATIC ACTIVITY/V OLUME] IN SERUM OR PLASMA 31 U/L 8 - 40 09/20 Specimen Type: PLASMA Comment: Aspartate Transaminas e result may show positive bias due to hemolysis. K result canceled due to hemolysis. Specimen moderately hemolyzed. Notified Huong Cason RN @0914 [facility] 09.20.24 Ordering Provider: SYDNEY CASTRO Report Released Date/Time: Sep 20, 2024 08:10 AM Reporting Lab: [place] [address] [facility] [address] Performing Lab: [place] [address] [facility] [address] [facility] COMPREHE NSIVE METABOLI C PANEL GLOMERULAR FILTRATION RATE/1.73 SQ M.PREDICTE D [VOLUME RATE/AREA] IN SERUM, PLASMA OR BLOOD BY CREATININE -BASED FORMULA (CKD-EPI 2020) 102.9 60 09/20 Specimen Type: PLASMA Comment: Aspartate Transaminas e result may show positive bias due to hemolysis. K result canceled due to hemolysis. Specimen moderately hemolyzed. Notified Huong Cason RN @0914 [facility] 09.20.24 Ordering Provider: SYDNEY CASTRO Report Released Date/Time: Sep 20, 2024 08:10 AM Reporting Lab: [place] [address] [facility] [address] Performing Lab: [address] [address] [facility] LIPASE LIPASE [ENZYMATIC ACTIVITY/V OLUME] IN SERUM OR PLASMA 20 U/L 8 - 78 09/20 Specimen Type: PLASMA Comment: Aspartate Transaminas e result may show positive bias due to hemolysis. K result canceled due to hemolysis. Specimen moderately hemolyzed. Notified Huong Cason RN @0914 [facility] 4.26.25 Ordering Provider: SYDNEY CASTRO Report Released Date/Time: Sep 20, 2024 08:10 AM Reporting Lab: [place] [address] [place] [address] Performing Lab: [place] [phone] CBC LEUKOCYTES [#/VOLUME] IN BLOOD BY AUTOMATED COUNT 7.7 10*3/uL 3.6 - 11.2 09/17 Specimen Type: BLOOD No comment entered. Ordering Provider: QUINCY SILVER Report Released Date/Time: Jul 16, 2024 12:56 PM Reporting Lab: [place] [address] Performing Lab: [place] [address] [facility] [phone] CBC ERYTHROCYT ES [#/VOLUME] IN BLOOD BY AUTOMATED COUNT 4.65 10*6/uL 4.10 - 5.70 09/17 Specimen Type: BLOOD No comment entered. Ordering Provider: QUINCY SILVER Report Released Date/Time: Jul 16, 2024 12:56 PM Reporting Lab: [place] [address] Performing Lab: [address] [phone] [place] [address] CBC HEMOGLOBIN [MASS/VOLU ME] IN BLOOD 16.4 g/dL 13.1 - 16.8 09/17 Specimen Type: BLOOD No comment entered. Ordering Provider: QUINCY SILVER Report Released Date/Time: Jul 16, 2024 12:56 PM Reporting Lab: [place] [address] [place] [address] Performing Lab: [facility] [address] [address] [facility] CBC HEMATOCRIT [VOLUME FRACTION] OF BLOOD 48.1 38.2 - 48.4 09/17 Specimen Type: BLOOD No comment entered. Ordering Provider: QUINCY SILVER OR John Report Released Date/Time: Jul 16, 2024 12:56 PM Reporting Lab: [address] [address] Performing Lab: [address] [address] [facility] CBC MCV [ENTITIC VOLUME] BY AUTOMATED COUNT 103.4 fL 80.0 - 100.0 09/17 H Specimen Type: BLOOD No comment entered. Ordering Provider: QUINCY SILVER OR John Report Released Date/Time: Jul 16, 2024 12:56 PM Reporting Lab: [address] [address] Performing Lab: [address] [address] [facility] CBC MCH [ENTITIC MASS] BY AUTOMATED COUNT 35.3 pg 27.0 - 34.0 09/17 H Specimen Type: BLOOD No comment entered. Ordering Provider: QUINCY SILVER OR John Report Released Date/Time: Jul 16, 2024 12:56 PM Reporting Lab: [address] [address] Performing Lab: [address] [address] [facility] CBC MCHC [MASS/VOLU ME] BY AUTOMATED COUNT 34.1 g/dL 33.0 - 36.0 09/17 Specimen Type: BLOOD No comment entered. Ordering Provider: QUINCY SILVER OR John Report Released Date/Time: Jul 16, 2024 12:56 PM Reporting Lab: [address] [address] Performing Lab: [address] [place] [address] [facility] CBC PLATELETS [#/VOLUME] IN BLOOD BY AUTOMATED COUNT 363 10*3/uL 150 - 400 09/17 Specimen Type: BLOOD No comment entered. Ordering Provider: QUINCY SILVER OR John Report Released Date/Time: Jul 16, 2024 12:56 PM Reporting Lab: [address] [address] Performing Lab: [address] [address] [facility] CBC PLATELET MEAN VOLUME [ENTITIC VOLUME] IN BLOOD BY AUTOMATED COUNT 9.8 fL 7.5 - 11.2 09/17 Specimen Type: BLOOD No comment entered. Ordering Provider: QUINCY SILVER OR John Report Released Date/Time: Jul 16, 2024 12:56 PM Reporting Lab: [address] [address] Performing Lab: [address] [address] [facility] CBC ERYTHROCYT E DISTRIBUTI ON WIDTH [RATIO] BY AUTOMATED COUNT 12.9 11.8 - 15.1 09/17 Specimen Type: BLOOD No comment entered. Ordering Provider: QUINCY SILVER OR John Report Released Date/Time: Jul 16, 2024 12:56 PM Reporting Lab: [address] [address] Performing Lab: [address] [address] [facility] CBC LYMPHOCYTE S/100 LEUKOCYTES IN BLOOD BY AUTOMATED COUNT 22 09/17 Specimen Type: BLOOD No comment entered. Ordering Provider: QUINCY SILVER OR John Report Released Date/Time: Jul 16, 2024 12:56 PM Reporting Lab: [address] [address] Performing Lab: [address] [place] [address] [facility] CBC MONOCYTES/ 100 LEUKOCYTES IN BLOOD BY AUTOMATED COUNT 9 09/17 Specimen Type: BLOOD No comment entered. Ordering Provider: QUINCY SILVER Report Released Date/Time: Jul 16, 2024 12:56 PM Reporting Lab: [facility] [address] [place] [address] Performing Lab: [facility] [address] [place] [address] [facility] CBC NEUTROPHIL S/100 LEUKOCYTES IN BLOOD BY AUTOMATED COUNT 65 09/17 Specimen Type: BLOOD No comment entered. Ordering Provider: QUINCY SILVER Report Released Date/Time: Jul 16, 2024 12:56 PM Reporting Lab: [address] [address] Performing Lab: [address] [address] [facility] CBC EOSINOPHIL S/100 LEUKOCYTES IN BLOOD BY AUTOMATED COUNT 2 09/17 Specimen Type: BLOOD No comment entered. Ordering Provider: QUINCY SILVER Report Released Date/Time: Jul 16, 2024 12:56 PM Reporting Lab: [address] [address] Performing Lab: [address] [address] [facility] CBC BASOPHILS/ 100 LEUKOCYTES IN BLOOD BY AUTOMATED COUNT 1 09/17 Specimen Type: BLOOD No comment entered. Ordering Provider: QUINCY SILVER Report Released Date/Time: Jul 16, 2024 12:56 PM Reporting Lab: [address] [address] Performing Lab: [address] [address] [facility] CBC LYMPHOCYTE S [#/VOLUME] IN BLOOD BY AUTOMATED COUNT 1.71 10*3/uL 0.77 - 4.50 09/17 Specimen Type: BLOOD No comment entered. Ordering Provider: QUINCY SILVER Report Released Date/Time: Jul 16, 2024 12:56 PM Reporting Lab: [address] [address] Performing Lab: [address] [address] [facility] CBC MONOCYTES [#/VOLUME] IN BLOOD BY AUTOMATED COUNT 0.66 10*3/uL 0.19 - 0.80 09/17 Specimen Type: BLOOD No comment entered. Ordering Provider: QUINCY SILVER Report Released Date/Time: Jul 16, 2024 12:56 PM Reporting Lab: [address] [address] Performing Lab: [address] [address] [facility] CBC NEUTROPHIL S [#/VOLUME] IN BLOOD BY AUTOMATED COUNT 5.00 10*3/uL 2.10 - 8.00 09/17 Specimen Type: BLOOD No comment entered. Ordering Provider: QUINCY SILVER Report Released Date/Time: Jul 16, 2024 12:56 PM Reporting Lab: [address] [address] Performing Lab: [address] [address] [facility] CBC EOSINOPHIL S [#/VOLUME] IN BLOOD BY AUTOMATED COUNT 0.13 10*3/uL 0.00 - 0.60 09/17 Specimen Type: BLOOD No comment entered. Ordering Provider: QUINCY SILVER Report Released Date/Time: Jul 16, 2024 12:56 PM Reporting Lab: [address] [address] Performing Lab: [address] [address] [facility] CBC BASOPHILS [#/VOLUME] IN BLOOD BY AUTOMATED COUNT 0.11 10*3/uL 0.00 - 0.20 09/17 Specimen Type: BLOOD No comment entered. Ordering Provider: QUINCY SILVER Report Released Date/Time: Jul 16, 2024 12:56 PM Reporting Lab: [place] [address] [facility] [address] Performing Lab: [place] [address] [facility] [address] [facility] COMPREHE NSIVE METABOLI C PANEL CREATININE [MASS/VOLU ME] IN SERUM OR PLASMA 0.82 mg/dL 0.7 - 1.3 09/17 Specimen Type: PLASMA Comment: No hemolysis noted. Ordering Provider: QUINCY SILVER Report Released Date/Time: Jul 16, 2024 12:56 PM Reporting Lab: [place] [address] [facility] [address] Performing Lab: [place] [address] [facility] [address] [facility] COMPREHE NSIVE METABOLI C PANEL UREA NITROGEN [MASS/VOLU ME] IN SERUM OR PLASMA 13.0 mg/dL 9.0 - 25.0 09/17 Specimen Type: PLASMA Comment: No hemolysis noted. Ordering Provider: QUINCY SILVER OR John Report Released Date/Time: Jul 16, 2024 12:56 PM Reporting Lab: [place] [address] [facility] [address] Performing Lab: [facility] [address] [facility] [address] [facility] COMPREHE NSIVE METABOLI C PANEL GLUCOSE [MASS/VOLU ME] IN SERUM OR PLASMA 98 mg/dL 72 - 99 09/17 Specimen Type: PLASMA Comment: No hemolysis noted. Ordering Provider: QUINCY SILVER Report Released Date/Time: Jul 16, 2024 12:56 PM Reporting Lab: [facility] [address] [facility] [address] Performing Lab: [facility] [address] [facility] [address] [facility] COMPREHE NSIVE METABOLI C PANEL SODIUM [MOLES/VOL UME] IN SERUM OR PLASMA 137 meq/L 136 - 145 09/17 Specimen Type: PLASMA Comment: No hemolysis noted. Ordering Provider: QUINCY SILVER Report Released Date/Time: Jul 16, 2024 12:56 PM Reporting Lab: [facility] [address] [facility] [address] Performing Lab: [facility] [address] [facility] [address] [facility] COMPREHE NSIVE METABOLI C PANEL POTASSIUM [MOLES/VOL UME] IN SERUM OR PLASMA 4.3 meq/L 3.5 - 5 09/17 Specimen Type: PLASMA Comment: No hemolysis noted. Ordering Provider: QUINCY SILVER Report Released Date/Time: Jul 16, 2024 12:56 PM Reporting Lab: [facility] [address] [facility] [address] Performing Lab: [facility] [address] [facility] [address] [facility] COMPREHE NSIVE METABOLI C PANEL CHLORIDE [MOLES/VOL UME] IN SERUM OR PLASMA 105 meq/L 98 - 107 09/17 Specimen Type: PLASMA Comment: No hemolysis noted. Ordering Provider: QUINCY SILVER Report Released Date/Time: Jul 16, 2024 12:56 PM Reporting Lab: [facility] [address] [facility] [address] Performing Lab: [facility] [address] [facility] [address] [facility] COMPREHE NSIVE METABOLI C PANEL CARBON DIOXIDE, TOTAL [MOLES/VOL UME] IN SERUM OR PLASMA 23 meq/L 22 - 31 09/17 Specimen Type: PLASMA Comment: No hemolysis noted. Ordering Provider: QUINCY SILVER Report Released Date/Time: Jul 16, 2024 12:56 PM Reporting Lab: [facility] [address] [facility] [address] Performing Lab: [facility] [address] [facility] [address] [facility] COMPREHE NSIVE METABOLI C PANEL CALCIUM [MASS/VOLU ME] IN SERUM OR PLASMA 9.3 mg/dL 8.4 - 10.4 09/17 Specimen Type: PLASMA Comment: No hemolysis noted. Ordering Provider: QUINCY SILVER Report Released Date/Time: Jul 16, 2024 12:56 PM Reporting Lab: [facility] [address] [facility] [address] Performing Lab: [facility] [address] [facility] [address] [facility] COMPREHE NSIVE METABOLI C PANEL PROTEIN [MASS/VOLU ME] IN SERUM OR PLASMA 7.6 g/dL 6 - 8.6 09/17 Specimen Type: PLASMA Comment: No hemolysis noted. Ordering Provider: QUINCY SILVER OR John Report Released Date/Time: Jul 16, 2024 12:56 PM Reporting Lab: [facility] [address] [facility] [address] Performing Lab: [facility] [address] [facility] [address] [facility] COMPREHE NSIVE METABOLI C PANEL ALBUMIN [MASS/VOLU ME] IN SERUM OR PLASMA 4.3 g/dL 3.4 - 5 09/17 Specimen Type: PLASMA Comment: No hemolysis noted. Ordering Provider: QUINCY SILVER OR John Report Released Date/Time: Jul 16, 2024 12:56 PM Reporting Lab: [facility] [address] [facility] [address] Performing Lab: [facility] [address] [facility] [address] [facility] COMPREHE NSIVE METABOLI C PANEL BILIRUBIN. TOTAL [MASS/VOLU ME] IN SERUM OR PLASMA 0.6 mg/dL 0.2 - 1.2 09/17 Specimen Type: PLASMA Comment: No hemolysis noted. Ordering Provider: QUINCY SILVER Report Released Date/Time: Jul 16, 2024 12:56 PM Reporting Lab: [facility] [address] [facility] [address] Performing Lab: [place] [address] [facility] [address] [facility] COMPREHE NSIVE METABOLI C PANEL ALKALINE PHOSPHATAS E [ENZYMATIC ACTIVITY/V OLUME] IN SERUM OR PLASMA 90 U/L 40 - 150 09/17 Specimen Type: PLASMA Comment: No hemolysis noted. Ordering Provider: QUINCY SILVER Report Released Date/Time: Jul 16, 2024 12:56 PM Reporting Lab: [place] [address] [facility] [address] Performing Lab: [place] [address] [facility] [address] [facility] COMPREHE NSIVE METABOLI C PANEL ASPARTATE AMINOTRANS FERASE [ENZYMATIC ACTIVITY/V OLUME] IN SERUM OR PLASMA 37 U/L 5 - 34 09/17 H Specimen Type: PLASMA Comment: No hemolysis noted. Ordering Provider: QUINCY SILVER Report Released Date/Time: Jul 16, 2024 12:56 PM Reporting Lab: [place] [address] [facility] [address] Performing Lab: [place] [address] [facility] [address] [facility] COMPREHE NSIVE METABOLI C PANEL ALANINE AMINOTRANS FERASE [ENZYMATIC ACTIVITY/V OLUME] IN SERUM OR PLASMA 33 U/L 8 - 40 09/17 Specimen Type: PLASMA Comment: No hemolysis noted. Ordering Provider: QUINCY SILVER Report Released Date/Time: Jul 16, 2024 12:56 PM Reporting Lab: [place] [address] [facility] [address] Performing Lab: [facility] [address] [facility] [address] [facility] COMPREHE NSIVE METABOLI C PANEL GLOMERULAR FILTRATION RATE/1.73 SQ M.PREDICTE D [VOLUME RATE/AREA] IN SERUM, PLASMA OR BLOOD BY CREATININE -BASED FORMULA (CKD-EPI 2020) 100.6 60 09/17 Specimen Type: PLASMA Comment: No hemolysis noted. Ordering Provider: QUINCY SILVER Report Released Date/Time: Jul 16, 2024 12:56 PM Reporting Lab: [facility] [address] [facility] [address] Performing Lab: [facility] [address] [facility] [address] [facility] FERRITIN FERRITIN [MASS/VOLU ME] IN SERUM OR PLASMA 39.00 ng/mL 22 - 275 09/17 Specimen Type: SERUM No comment entered. Ordering Provider: QUINCY SILVER Report Released Date/Time: Sep 17, 2024 10:40 AM Reporting Lab: [facility] [address] [facility] [address] Performing Lab: [facility] [address] [facility] [address] [facility] IRON/TIB C PROFILE IRON BINDING CAPACITY [MASS/VOLU ME] IN SERUM OR PLASMA 414 ug/dL 250 - 450 09/17 Specimen Type: SERUM No comment entered. Ordering Provider: QUINCY SILVER Report Released Date/Time: Sep 17, 2024 10:40 AM Reporting Lab: [facility] [address] [facility] [address] Performing Lab: [facility] [address] [facility] [address] [facility] IRON/TIB C PROFILE TRANSFERRI N [MASS/VOLU ME] IN SERUM OR PLASMA 331 mg/dL 163 - 344 09/17 Specimen Type: SERUM No comment entered. Ordering Provider: QUINCY SILVER Report Released Date/Time: Sep 17, 2024 10:40 AM Reporting Lab: [address] [address] Performing Lab: [address] [address] [facility] IRON/TIB C PROFILE IRON SATURATION [MASS FRACTION] IN SERUM OR PLASMA 19 20 - 50 09/17 L Specimen Type: SERUM No comment entered. Ordering Provider: QUINCY SILVER Report Released Date/Time: Sep 17, 2024 10:40 AM Reporting Lab: [address] [address] Performing Lab: [address] [address] [facility] IRON/TIB C PROFILE IRON [MASS/VOLU ME] IN SERUM OR PLASMA 78 ug/dL 65 - 175 09/17 Specimen Type: SERUM No comment entered. Ordering Provider: QUINCY SILVER Report Released Date/Time: Sep 17, 2024 10:40 AM Reporting Lab: [address] [address] Performing Lab: [address] [address] [facility] CBC LEUKOCYTES [#/VOLUME] IN BLOOD BY AUTOMATED COUNT 7.1 10*3/uL 3.6 - 11.2 07/16 Specimen Type: BLOOD No comment entered. Ordering Provider: QUINCY SILVER Report Released Date/Time: Apr 16, 2024 12:33 PM Reporting Lab: [address] [address] Performing Lab: [address] [address] [facility] CBC ERYTHROCYT ES [#/VOLUME] IN BLOOD BY AUTOMATED COUNT 4.38 10*6/uL 4.10 - 5.70 07/16 Specimen Type: BLOOD No comment entered. Ordering Provider: QUINCY SILVER Report Released Date/Time: Apr 16, 2024 12:33 PM Reporting Lab: [address] [address] Performing Lab: [facility] [address] [place] [address] [facility] CBC HEMOGLOBIN [MASS/VOLU ME] IN BLOOD 16.5 g/dL 13.1 - 16.8 07/16 Specimen Type: BLOOD No comment entered. Ordering Provider: QUINCY SILVER Report Released Date/Time: Apr 16, 2024 12:33 PM Reporting Lab: [address] [address] Performing Lab: [address] [address] [facility] CBC HEMATOCRIT [VOLUME FRACTION] OF BLOOD 47.6 38.2 - 48.4 07/16 Specimen Type: BLOOD No comment entered. Ordering Provider: QUINCY SILVER Report Released Date/Time: Apr 16, 2024 12:33 PM Reporting Lab: [address] [address] Performing Lab: [address] [address] [facility] CBC MCV [ENTITIC VOLUME] BY AUTOMATED COUNT 108.7 fL 80.0 - 100.0 07/16 H Specimen Type: BLOOD No comment entered. Ordering Provider: QUINCY SILVER Report Released Date/Time: Apr 16, 2024 12:33 PM Reporting Lab: [address] [address] Performing Lab: [address] [address] [facility] CBC MCH [ENTITIC MASS] BY AUTOMATED COUNT 37.7 pg 27.0 - 34.0 07/16 H Specimen Type: BLOOD No comment entered. Ordering Provider: QUINCY SILVER Report Released Date/Time: Apr 16, 2024 12:33 PM Reporting Lab: [address] [address] Performing Lab: [address] [address] [facility] CBC MCHC [MASS/VOLU ME] BY AUTOMATED COUNT 34.7 g/dL 33.0 - 36.0 07/16 Specimen Type: BLOOD No comment entered. Ordering Provider: QUINCY SILVER Report Released Date/Time: Apr 16, 2024 12:33 PM Reporting Lab: [address] [address] Performing Lab: [address] [address] [facility] CBC PLATELETS [#/VOLUME] IN BLOOD BY AUTOMATED COUNT 305 10*3/uL 150 - 400 07/16 Specimen Type: BLOOD No comment entered. Ordering Provider: QUINCY SILVER Report Released Date/Time: Apr 16, 2024 12:33 PM Reporting Lab: [address] [address] Performing Lab: [address] [address] [facility] CBC PLATELET MEAN VOLUME [ENTITIC VOLUME] IN BLOOD BY AUTOMATED COUNT 9.8 fL 7.5 - 11.2 07/16 Specimen Type: BLOOD No comment entered. Ordering Provider: QUINCY SILVER Report Released Date/Time: Apr 16, 2024 12:33 PM Reporting Lab: [address] [address] Performing Lab: [address] [address] [facility] CBC ERYTHROCYT E DISTRIBUTI ON WIDTH [RATIO] BY AUTOMATED COUNT 13.2 11.8 - 15.1 07/16 Specimen Type: BLOOD No comment entered. Ordering Provider: QUINCY SILVER Report Released Date/Time: Apr 16, 2024 12:33 PM Reporting Lab: [facility] [address] [address] Performing Lab: [facility] [address] [address] [facility] CBC LYMPHOCYTE S/100 LEUKOCYTES IN BLOOD BY AUTOMATED COUNT 20 07/16 Specimen Type: BLOOD No comment entered. Ordering Provider: QUINCY SILVER Report Released Date/Time: Apr 16, 2024 12:33 PM Reporting Lab: [facility] [address] [address] Performing Lab: [facility] [address] [address] [facility] CBC MONOCYTES/ 100 LEUKOCYTES IN BLOOD BY AUTOMATED COUNT 8 07/16 Specimen Type: BLOOD No comment entered. Ordering Provider: QUINCY SILVER Report Released Date/Time: Apr 16, 2024 12:33 PM Reporting Lab: [facility] [address] [address] Performing Lab: [facility] [address] [address] [facility] CBC NEUTROPHIL S/100 LEUKOCYTES IN BLOOD BY AUTOMATED COUNT 68 07/16 Specimen Type: BLOOD No comment entered. Ordering Provider: QUINCY SILVER Report Released Date/Time: Apr 16, 2024 12:33 PM Reporting Lab: [facility] [address] [address] Performing Lab: [facility] [address] [address] [facility] CBC EOSINOPHIL S/100 LEUKOCYTES IN BLOOD BY AUTOMATED COUNT 1 07/16 Specimen Type: BLOOD No comment entered. Ordering Provider: QUINCY SILVER Report Released Date/Time: Apr 16, 2024 12:33 PM Reporting Lab: [facility] [address] [address] Performing Lab: [facility] [address] [address] [facility] CBC BASOPHILS/ 100 LEUKOCYTES IN BLOOD BY AUTOMATED COUNT 2 07/16 Specimen Type: BLOOD No comment entered. Ordering Provider: QUINCY SILVER OR John Report Released Date/Time: Apr 16, 2024 12:33 PM Reporting Lab: [address] [address] Performing Lab: [address] [address] [facility] CBC LYMPHOCYTE S [#/VOLUME] IN BLOOD BY AUTOMATED COUNT 1.44 10*3/uL 0.77 - 4.50 07/16 Specimen Type: BLOOD No comment entered. Ordering Provider: QUINCY SILVER OR John Report Released Date/Time: Apr 16, 2024 12:33 PM Reporting Lab: [address] [address] Performing Lab: [address] [address] [facility] CBC MONOCYTES [#/VOLUME] IN BLOOD BY AUTOMATED COUNT 0.55 10*3/uL 0.19 - 0.80 07/16 Specimen Type: BLOOD No comment entered. Ordering Provider: QUINCY SILVER OR John Report Released Date/Time: Apr 16, 2024 12:33 PM Reporting Lab: [address] [address] Performing Lab: [address] [address] [facility] CBC NEUTROPHIL S [#/VOLUME] IN BLOOD BY AUTOMATED COUNT 4.84 10*3/uL 2.10 - 8.00 07/16 Specimen Type: BLOOD No comment entered. Ordering Provider: QUINCY SILVER OR John Report Released Date/Time: Apr 16, 2024 12:33 PM Reporting Lab: [address] [address] Performing Lab: [address] [address] [facility] CBC EOSINOPHIL S [#/VOLUME] IN BLOOD BY AUTOMATED COUNT 0.10 10*3/uL 0.00 - 0.60 07/16 Specimen Type: BLOOD No comment entered. Ordering Provider: QUINCY SILVER Report Released Date/Time: Apr 16, 2024 12:33 PM Reporting Lab: [address] [address] Performing Lab: [address] [address] [facility] CBC BASOPHILS [#/VOLUME] IN BLOOD BY AUTOMATED COUNT 0.11 10*3/uL 0.00 - 0.20 07/16 Specimen Type: BLOOD No comment entered. Ordering Provider: QUINCY SILVER Report Released Date/Time: Apr 16, 2024 12:33 PM Reporting Lab: [address] [address] Performing Lab: [address] [address] [facility] COMPREHE NSIVE METABOLI C PANEL CREATININE [MASS/VOLU ME] IN SERUM OR PLASMA 0.88 mg/dL 0.7 - 1.3 07/16 Specimen Type: PLASMA Comment: No hemolysis noted. Ordering Provider: QUINCY SILVER Report Released Date/Time: Apr 16, 2024 12:33 PM Reporting Lab: [address] [address] Performing Lab: [address] [address] [facility] COMPREHE NSIVE METABOLI C PANEL UREA NITROGEN [MASS/VOLU ME] IN SERUM OR PLASMA 14.6 mg/dL 9.0 - 25.0 07/16 Specimen Type: PLASMA Comment: No hemolysis noted. Ordering Provider: QUINCY SILVER Report Released Date/Time: Apr 16, 2024 12:33 PM Reporting Lab: [facility] [address] [address] Performing Lab: [facility] [address] [place] [address] [facility] COMPREHE NSIVE METABOLI C PANEL GLUCOSE [MASS/VOLU ME] IN SERUM OR PLASMA 154 mg/dL 72 - 99 07/16 H Specimen Type: PLASMA Comment: No hemolysis noted. Ordering Provider: QUINCY SILVER OR John Report Released Date/Time: Apr 16, 2024 12:33 PM Reporting Lab: [address] [address] Performing Lab: [place] [address] [address] [facility] COMPREHE NSIVE METABOLI C PANEL SODIUM [MOLES/VOL UME] IN SERUM OR PLASMA 138 meq/L 136 - 145 07/16 Specimen Type: PLASMA Comment: No hemolysis noted. Ordering Provider: QUINCY SILVER OR John Report Released Date/Time: Apr 16, 2024 12:33 PM Reporting Lab: [address] [address] Performing Lab: [place] [address] [address] [facility] COMPREHE NSIVE METABOLI C PANEL POTASSIUM [MOLES/VOL UME] IN SERUM OR PLASMA 4.0 meq/L 3.5 - 5 07/16 Specimen Type: PLASMA Comment: No hemolysis noted. Ordering Provider: QUINCY SILVER OR John Report Released Date/Time: Apr 16, 2024 12:33 PM Reporting Lab: [facility] [address] [place] [address] Performing Lab: [facility] [address] [place] [address] [facility] COMPREHE NSIVE METABOLI C PANEL CHLORIDE [MOLES/VOL UME] IN SERUM OR PLASMA 100 meq/L 98 - 107 07/16 Specimen Type: PLASMA Comment: No hemolysis noted. Ordering Provider: QUINCY SILVER Report Released Date/Time: Apr 16, 2024 12:33 PM Reporting Lab: [facility] [address] [address] Performing Lab: [facility] [address] [address] [facility] COMPREHE NSIVE METABOLI C PANEL CARBON DIOXIDE, TOTAL [MOLES/VOL UME] IN SERUM OR PLASMA 28 meq/L 22 - 31 07/16 Specimen Type: PLASMA Comment: No hemolysis noted. Ordering Provider: QUINCY SILVER Report Released Date/Time: Apr 16, 2024 12:33 PM Reporting Lab: [facility] [address] [address] Performing Lab: [facility] [address] [address] [facility] COMPREHE NSIVE METABOLI C PANEL CALCIUM [MASS/VOLU ME] IN SERUM OR PLASMA 9.6 mg/dL 8.4 - 10.4 07/16 Specimen Type: PLASMA Comment: No hemolysis noted. Ordering Provider: QUINCY SILVER Report Released Date/Time: Apr 16, 2024 12:33 PM Reporting Lab: [facility] [address] [address] Performing Lab: [facility] [address] [address] [facility] COMPREHE NSIVE METABOLI C PANEL PROTEIN [MASS/VOLU ME] IN SERUM OR PLASMA 7.9 g/dL 6 - 8.6 07/16 Specimen Type: PLASMA Comment: No hemolysis noted. Ordering Provider: QUINCY SILVER Report Released Date/Time: Apr 16, 2024 12:33 PM Reporting Lab: [facility] [address] [address] Performing Lab: [facility] [address] [address] [facility] COMPREHE NSIVE METABOLI C PANEL ALBUMIN [MASS/VOLU ME] IN SERUM OR PLASMA 4.4 g/dL 3.4 - 5 07/16 Specimen Type: PLASMA Comment: No hemolysis noted. Ordering Provider: QUINCY SILVER OR John Report Released Date/Time: Apr 16, 2024 12:33 PM Reporting Lab: [place] [address] [facility] [address] Performing Lab: [place] [address] [address] [facility] COMPREHE NSIVE METABOLI C PANEL BILIRUBIN. TOTAL [MASS/VOLU ME] IN SERUM OR PLASMA 0.6 mg/dL 0.2 - 1.2 07/16 Specimen Type: PLASMA Comment: No hemolysis noted. Ordering Provider: QUINCY SILVER OR John Report Released Date/Time: Apr 16, 2024 12:33 PM Reporting Lab: [place] [address] [facility] [address] Performing Lab: [place] [address] [address] [facility] COMPREHE NSIVE METABOLI C PANEL ALKALINE PHOSPHATAS E [ENZYMATIC ACTIVITY/V OLUME] IN SERUM OR PLASMA 83 U/L 40 - 150 07/16 Specimen Type: PLASMA Comment: No hemolysis noted. Ordering Provider: QUINCY SILVER OR John Report Released Date/Time: Apr 16, 2024 12:33 PM Reporting Lab: [place] [address] [address] Performing Lab: [place] [address] [address] [facility] COMPREHE NSIVE METABOLI C PANEL ASPARTATE AMINOTRANS FERASE [ENZYMATIC ACTIVITY/V OLUME] IN SERUM OR PLASMA 30 U/L 5 - 34 07/16 Specimen Type: PLASMA Comment: No hemolysis noted. Ordering Provider: QUINCY SILVER OR John Report Released Date/Time: Apr 16, 2024 12:33 PM Reporting Lab: [facility] [address] [address] Performing Lab: [facility] [address] [address] [facility] COMPREHE NSIVE METABOLI C PANEL ALANINE AMINOTRANS FERASE [ENZYMATIC ACTIVITY/V OLUME] IN SERUM OR PLASMA 31 U/L 8 - 40 07/16 Specimen Type: PLASMA Comment: No hemolysis noted. Ordering Provider: QUINCY SILVER OR John Report Released Date/Time: Apr 16, 2024 12:33 PM Reporting Lab: [place] [address] [address] Performing Lab: [place] [address] [address] [facility] COMPREHE NSIVE METABOLI C PANEL GLOMERULAR FILTRATION RATE/1.73 SQ M.PREDICTE D [VOLUME RATE/AREA] IN SERUM, PLASMA OR BLOOD BY CREATININE -BASED FORMULA (CKD-EPI 2020) 98.4 60 07/16 Specimen Type: PLASMA Comment: No hemolysis noted. Ordering Provider: QUINCY SILVER OR John Report Released Date/Time: Apr 16, 2024 12:33 PM Reporting Lab: [facility] [address] [address] Performing Lab: [place] [address] [address] [facility] Vital Signs Combined list of inpatient and outpatient Vital Signs from Department of Defense and Veterans Affairs, ranging from 12 months to all on record, depending upon the facility. Vital Sign Value Date Comments Source SYSTOLIC BLOOD PRESSURE 189 09/20/2024 07:52:00 [facility] DIASTOLIC BLOOD PRESSURE 97 09/20/2024 07:52:00 [facility] PAIN 8 09/20/2024 07:52:00 [facility] TEMPERATURE 98.7 09/20/2024 07:52:00 [facility] PULSE 65 09/20/2024 07:52:00 [facility] RESPIRATION 18 09/20/2024 07:52:00 [facility] SYSTOLIC BLOOD PRESSURE 164 09/17/2024 10:07:09 [facility] DIASTOLIC BLOOD PRESSURE 95 09/17/2024 10:07:09 [facility] PULSE OXIMETRY 97 09/17/2024 10:07:09 [facility] WEIGHT 283.2 09/17/2024 10:07:09 [facility] BMI 37 kg/m2 09/17/2024 10:07:09 [facility] TEMPERATURE 96.4 09/17/2024 10:07:09 [facility] PULSE 65 09/17/2024 10:07:09 [facility] RESPIRATION 20 09/17/2024 10:07:09 [facility] SYSTOLIC BLOOD PRESSURE 152 09/15/2024 12:53:14 [facility] DIASTOLIC BLOOD PRESSURE 90 09/15/2024 12:53:14 [facility] PULSE OXIMETRY 98 09/15/2024 12:53:14 [facility] PAIN 0 09/15/2024 12:53:14 [facility] TEMPERATURE 97 09/15/2024 12:53:14 [facility] PULSE 72 09/15/2024 12:53:14 [facility] RESPIRATION 20 09/15/2024 12:53:14 [facility] SYSTOLIC BLOOD PRESSURE 135 07/16/2024 11:59:53 [facility] DIASTOLIC BLOOD PRESSURE 83 07/16/2024 11:59:53 [facility] PULSE OXIMETRY 99 07/16/2024 11:59:53 [facility] WEIGHT 287.9 07/16/2024 11:59:53 [facility] BMI 38 kg/m2 07/16/2024 11:59:53 [facility] TEMPERATURE 97.6 07/16/2024 11:59:53 [facility] PULSE 78 07/16/2024 11:59:53 [facility] RESPIRATION 20 07/16/2024 11:59:53 [facility] SYSTOLIC BLOOD PRESSURE 135 06/10/2024 13:12:23 [facility] DIASTOLIC BLOOD PRESSURE 81 06/10/2024 13:12:23 [facility] PULSE OXIMETRY 96 06/10/2024 13:12:23 [facility] WEIGHT 285 06/10/2024 13:12:23 [facility] BMI 38 kg/m2 06/10/2024 13:12:23 [facility] PAIN 6 06/10/2024 13:12:23 [facility] HEIGHT 73 06/10/2024 13:12:23 [facility] TEMPERATURE 97.9 06/10/2024 13:12:23 . [facility] PULSE 60 06/10/2024 13:12:23 [facility] RESPIRATION 20 06/10/2024 13:12:23 . [facility] Encounters Combined list of: 1) Encounters from Department of Veterans Affairs facilities going backup to the last 18 months, not all VA inpatient encounters are included; 2) Encounters from the Department of [facility] facilities going backup to 280 months. Location Location Details Encounter Type Encounter Number Reason For Visit Attending Provider ADM Date DC Date Status Disposition Source [facility] Outpatient Encounter [id number] RUFUS GARCES 04/25 [facility] OFFICE O/P EST MOD 30 MIN [id number] Diagnos is: ICD-10- CM D45 Polycyt hemia vera ISSA,MET NEPTALI 06/05 [facility] OFFICE O/P EST MOD 30 MIN [id number] Diagnos is: ICD-10- CM D45 Polycyt hemia vera ROBBY LOU 07/04 [facility] Outpatient Encounter [id number] NICK BAILEY 07/04 [facility] Outpatient Encounter [id number] 07/20 [facility] OFF/OP CNSLTJ NEW/EST MOD 40 [id number] Diagnos is: ICD-10- CM L72.9 Follicu lar cyst of the skin and subcuta neous tissue, unsp BROWN,TAYL OR C 07/20 [facility] Outpatient Encounter [id number] Diagnos is: ICD-10- CM H35.30 Unspeci fied macular degener dustinion SAMINA PETTY 07/20 [facility] Outpatient Encounter [id number] 07/23 [facility] Outpatient Encounter [id number] 07/25 [facility] Outpatient Encounter [id number] 07/31 [facility] Outpatient Encounter [id number] 08/08 [facility] Outpatient Encounter [id number] RUFUS GARCES 08/08 [facility] Outpatient Encounter [id number] 09/04 [facility] SELF-MGMT EDUC & TRAIN 1 [place] [id number] Diagnos is: ICD-10- CM R52 Pain, unspeci ZHANNA Cai M 09/05 [facility] OFFICE O/P EST LOW 20 MIN [id number] Diagnos is: ICD-10- CM Z01.818 Encount er for other preproc edural examina yessy CLAIRE,JACOB IN A 09/05 [facility] Outpatient Encounter [id number] 09/05 [facility] Outpatient Encounter [id number] QUINCY GILES 09/05 [facility] EXC TR-EXT B9+TIFFANIE 0.5 CM< [id number] URIEL SULLIVAN 09/05 [facility] Outpatient Encounter [id number] CHRISTA VALENCIA 09/05 [facility] Outpatient Encounter [id number] DANIELA FERRARI 09/05 [facility] Outpatient Encounter [id number] Christina BHATTI EKCOE 09/05 [facility] Outpatient Encounter [id number] AILYN DIGGS 09/06 [facility] Outpatient Encounter [id number] 09/09 [facility] Outpatient Encounter [id number] 09/10 [facility] OFFICE O/P EST MOD 30 MIN [id number] Diagnos is: ICD-10- CM D23.5 Other benign neoplas m of skin of trunk QUINCY GILES OR C 09/20 [facility] OFFICE O/P EST LOW 20 MIN [id number] Diagnos is: ICD-10- CM L72.3 Sebaceo us cyst QUINCY GILES OR C 09/27 [facility] OFFICE O/P EST MOD 30 MIN [id number] Diagnos is: ICD-10- CM D45 Polycyt hemia vera ROBBY LOU M 10/02 [facility] Outpatient Encounter [id number] 10/30 [facility] Outpatient Encounter [id number] TRAM CLARK ISTINE M 10/31 HC PRO PHONE CALL 21-30 MIN [id number] Diagnos is: ICD-10- CM I10 Essenti al (primar y) hyperte carmine CLARK,CHR SOFIA M 12/05 [facility] Outpatient Encounter [id number] PARSONS,MET NEPTALI 12/24 [facility] OFF/OP EST MAY X REQ PHY/QHP [id number] Diagnos is: ICD-10- CM D45 Polycyt hemia vera JT ZAVALA 12/24 [facility] INTRM OPH EXAM NEW PATIENT [id number] Diagnos is: ICD-10- CM H52.4 Presbyo HECTOR Potter 12/26 [facility] OFF/OP EST MAY X REQ PHY/QHP [id number] PARSONS,MET NEPTALI 12/26 HC PRO PHONE CALL 21-30 MIN [id number] Diagnos is: ICD-10- CM I10 Essenti al (primar y) hyperte carmine CLARK,CHR SOFIA M 01/09 [facility] Outpatient Encounter [id number] 01/10 [facility] Outpatient Encounter [id number] 01/13 [facility] PHLEBOTOMY [id number] [id number] Diagnos is: ICD-10- CM E83.119 Hemochr omatosi s, unspeci fiKAYLEE VoraKALINA Jessica 01/15 [facility] OFFICE O/P EST MOD 30 MIN [id number] [id number] Diagnos is: ICD-10- CM D45 Polycyt hemia vera PRETTONATHALIE M 01/15 [facility] SELF-MGMT EDUC & TRAIN 1 [place] [id number] Diagnos is: ICD-10- CM D45 Polycyt hemia verKAYLEE Haines NICA Jessica 01/15 Outpatient Encounter [id number] 01/21 HC PRO PHONE CALL 21-30 MIN [id number] Diagnos is: ICD-10- CM I10 Essenti al (primar y) hyperte nsion TRAM CLARK M 02/04 [facility] Outpatient Encounter [id number] 02/12 [facility] Outpatient Encounter [id number] MARK WATT M 02/13 [facility] Outpatient Encounter [id number] 02/13 HC PRO PHONE CALL 21-30 MIN [id number] Diagnos is: ICD-10- CM I10 Essenti al (primar y) hyperte nsFANNY Jean 02/18 [facility] Outpatient Encounter [id number] 02/24 HC PRO PHONE CALL 21-30 MIN [id number] Diagnos is: ICD-10- CM I10 Essenti al (primar y) hyperte carmine [facility] PSYTX W PT 30 MINUTES [id number] Diagnos is: ICD-10- CM F41.9 Anxiety disorde r, unspeci fied Ciaran RANGEL 03/07 [facility] Outpatient Encounter [id number] Ciaran RANGEL 03/07 HC PRO PHONE CALL 21-30 MIN [id number] Diagnos is: ICD-10- CM I10 Essenti al (primar y) hyperte carmine CLARK,[facility] SOFIA M 03/18 [facility] OFFICE O/P EST LOW 20 MIN [id number] Diagnos is: ICD-10- CM 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, left eye, with actv chrdl neovas HECTOR LI J 03/25 [facility] Outpatient Encounter [id number] MARK RUIZ TTHEW C 03/27 HC PRO PHONE CALL 11-20 MIN [id number] Diagnos is: ICD-10- CM I10 Essenti al (primar y) hyperte nsion MAYDEN,CHR ISTINE M 04/14 [facility] Outpatient Encounter [id number] 04[facility] OFFICE O/P EST MOD 30 MIN [id number] Diagnos is: ICD-10- CM D45 Polycyt hemia vera PRETTO,NATHALIE NEDRA M 04/16 [facility] PHLEBOTOMY [id number] Diagnos is: ICD-10- CM D45 Polycyt hemia vera LEYDI PATEL DA F 04/16 PSYTX W PT 30 MINUTES [id number] Diagnos is: ICD-10- CM F41.9 Anxiety disorde r, unspeci fied JUAN CARLOS,Ciaran ERA J 04/22 HC PRO PHONE CALL 21-30 MIN [id number] Diagnos is: ICD-10- CM I10 Koko al (primar y) hyperte nsion MAYDEN,CHR ISTINE M 05/19 [facility] Outpatient Encounter [id number] 05/22 [facility] Outpatient Encounter [id number] 06/05 OFFICE O/P EST MOD 30 MIN [id number] Diagnos is: ICD-10- CM E78.5 Hyperli pidemia , unspeci fied MAYDEN,CHR ISTINE M 06/10 [facility] Outpatient Encounter [id number] 06/21 [facility] OFFICE O/P EST MOD 30 MIN [id number] Diagnos is: ICD-10- CM 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, left eye, with actv chrdl neovas John SIMON 06/30 [facility] Outpatient Encounter [id number] 07/14 [facility] Outpatient Encounter [id number] 07/16 [facility] OFFICE O/P EST MOD 30 MIN 22127-5.65 [id number] 3 Diagnos is: ICD-10- CM D45 Polycyt hemia vera NATHALIE SILVER M 07/16 [facility] PHLEBOTOMY 23891-5.65 [id number] Diagnos is: ICD-10- CM D45 Polycyt hemia vera LEYDI PATEL F 07/16 [facility] [id number] 07/19 [facility] Outpatient Encounter [id number] 07/22 [facility] W PT 30 MINUTES 02680-9.65 [id number] Diagnos is: ICD-10- CM F41.9 Anxiety disorde r, unspeci fied Ciaran RANGEL J 07/29 [facility] Outpatient Encounter [id number] Ciaran RANGEL 07/29 [facility] AUDIO-ONLY NEW HIGH 60 [id number] [id number] Diagnos is: ICD-10- CM J31.2 Chronic pharyng itis FANNY MOYA 07/30 [facility] Outpatient Encounter [id number] 07/31 [facility] En[facility] [id number] 08/14 [facility] N [facility] Outpatient Encounter [id number] 08/15 [facility] OFF/OP CNSLTJ NEW/EST MOD 40 [id number] [id number] Diagnos is: ICD-10- CM R49.8 Other voice and resonan ce SHAHBAZ Porter 08/21 [facility] Outpatient Encounter [id number] 9 08/29 [facility] [place] [place] [address]-1.65 [id number] 1 Diagnos is: ICD-10- CM R49.9 Unspeci fied voice and resonan ce ABELARDO Parker N 09/15 [facility] OFF[facility] O/P NEW MOD 45 MIN 16465-2.65 [id number] 3 Diagnos is: ICD-10- CM R49.0 Dysphon ALEXANDER Bryan UL A 09/15 [facility] OFFICE O/P EST MOD 30 MIN [id number] [id number] 7 Diagnos is: ICD-10- CM D45 Polycyt hemia vera PRETTONATHALIE NEDRA M 09/17 [facility] PHLEBOTOMY 09092-9.65 [id number] 5 Diagnos is: ICD-10- CM D45 Polycyt hemia vera LEYDI PATEL DA F 09/17 [facility] Outpatient Encounter [id number] [id number] [facility]STR[facility] 09[facility] Out[facility] Encounter [id number] [id number] NASIMA ALARCON E 09/20 [facility] [place] MDM [id number] [id number] Diagnos is: ICD-10- CM R10.9 Unspeci fied abdomin al pain GEN,[facility] ED 09/20 [facility] N [facility] Outpatient Encounter [id number] [facility] ED 09/20 [facility] Outpatient Encounter [id number] [id number] 09/23 [facility] [facility] Outpatient Encounter [id number] NASIMA ALARCON E 09/23 [facility] Procedures Combined list of: 1) Procedures from Department of Veterans Affairs facilities going back up to thelast 18 months, not all [place] non-surgical procedures are included; 2) All procedures from the Department of Defense facilities. Procedure Procedure Type Code Date Perfomer Comments Sourc e excision of back cyst EXC TR-EXT B9+TIFFANIE 0.5 CM< 32048 09/06/2023 [facility] Social History Combined list of available smoking, tobacco, and other social history from Department of Defense and Veterans Affairs facilities. Social History Type Response Date Comment Sourc e Tobacco smoking status NHIS [facility]-TOBACCO NEVER USED 06/05/2023 [facility] History of tobacco use [place]-TOBACCO NEVER USED 05/17/2022 [facility] History of tobacco use [place]-TOBACCO NEVER USED 06/03/2021 [facility] History of tobacco use [facility] AD[facility] TOBACC O SCREEN NO 03/06/2021 [facility] of [facility]2020 [facility] Plan of Care List of future care activities from Department of [facility] Affairs facilities. Additional future care activities may be listed in the Assessment and Plan section. Date/Time Care Activity Care Activity Detail Facili ty 09/27/2024 AMBULATORY - MEDICINE AMBULATORY - MEDICI NE [facility]
--- OUTSIDE RECORDS SUMMARY | 2024-09-25 15:07 | XMS_ITS | Continuity of Care Document ---
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 [address] [place] [address], [id number], [place]. tel:[phone] Referring Provider: Ravinder Bowers, [address] [place] [address], [id number]. tel:[phone] [facility] [address], [id number], tel:[phone] [facility] no problems with V/A and no complaints (chief complaint) Pigmentary retinal dystrophy Tyler Mallory. [address] [place] [address], [id number], [place]. tel:[phone] Referring Provider: Shawnee Sigala, [address] [place], [address]. tel:[phone] Family History Family Member Type Diagnosis Age At Onset Father Problem (finding) Heart Disease Father Problem (finding) Respiratory Disease-STONE LAYOUT MARKER D/Emphysema Payers Payer name Insurance type Covered republican ID Authoriza tidavid(s) [id number] Social History Type Description Quantity Date Captured [...]
== END 2024-09-25 15:04 | disposition home or self-care (01) ==
PROVIDERS: Emergency Provider Emergency Medicine
DX: K80.20 Calculus of gallbladder without cholecystitis without obstruction (principal)
CPT/HCPCS: 36415; 76705; 80053; 83605; 83690; 84484; 85025; 85610; 85730; 93005; 96361; 96374; 96375; 99285; J2270; J2405; J2470; J7030